=== PATIENT | female | born 1945 | race Caucasian/White ===

== ENCOUNTER 2018-01-12 18:56 | Inpatient (IN) | payer MEDICARE, OTHER ==
[~2018-01-12] VITALS: Ht 177.8 cm; Wt 89.7 kg
[2018-01-12] VITALS (9 sets, daily range): BP systolic 98–122; BP diastolic 52–60
[2018-01-12] MEDS ORDERED: LACTATED RINGERS 1,000 ML IV ONE (19:01)
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
--- OUTSIDE RECORDS SUMMARY | 2018-01-12 19:02 | XMS REPORT ---
Author Author SURJIT DAS [facility] Address [address] [place] [address] Care Team Providers [employer] Name Role Phone SURJIT DAS Unavailable PROBLEMS Type Condition ICD9-CM Code [id number] Code Onset Dates Condition Status SNOMED Code Problem Generalized anxiety disorder F41.1 Active 33708450 Problem Family history of diabetes mellitus Z83.3 Active 575681003 Problem Chronic post-traumatic headache G44.329 Active 562853355 Problem Mixed hyperlipidemia E78.2 Active 797286161 Problem Personality disorder, unspecified F60.9 Active 22322201 Problem Bilateral tinnitus H93.13 Active 0815079941398 Problem Gastroesophageal reflux disease without esophagitis K21.9 Active 162695951 Problem Essential (primary) hypertension I10 Active 49432213 Problem Unspecified symptoms and signs involving cognitive functions and awareness R41.9 Active 432544429 Problem Anxiety F41.9 Active 27437684 Problem Post traumatic stress disorder (PTSD) F43.10 Active 90216628 ALLERGIES No Information ENCOUNTERS Encounter Location Date Diagnosis [facility] [id number] [place] [address] 12205- 3171 Dec, Generalized anxiety disorder F41.1 [place] [facility] [address] [address]- [address] Dec, Bronchitis J40 [facility] [facility] [address] 85935- 2966 Dec, Generalized anxiety disorder F41.1 ; Essential (primary) hypertension I10 ; Mixed hyperlipidemia E78.2 ; Post traumatic stress disorder ( PTSD) F43.10 ; Bilateral tinnitus H93.13 ; Gastroesophageal reflux disease without esophagitis K21.9 ; Localized edema R60.0 and Right ear impacted cerumen H61.21 [place] [address] [address]- [address]459 Nov, Post traumatic stress disorder (PTSD) F43.10 [facility] [id number] [place] [address] 04818- 4375 Nov, [facility] [id number] [place] [address] 67380- 4249 Oct, Medicare annual wellness visit, initial Z00.00 ; Post traumatic stress disorder (PTSD) F43.10 ; Personality disorder, unspecified F60.9 ; Essential (primary) hypertension I10 ; Mixed hyperlipidemia E78.2 ; Anxiety F41.9 and Gastroesophageal reflux disease without esophagitis K21.9 [place] [id number] [place] [address] 49944- 3435 Oct, [facility] [id number] [place] [address] 27893- 1672 Oct, Post traumatic stress disorder (PTSD) F43.10 [place] [id number] [place] [address] 44107- 1835 September, [facility] [id number] [place] [address] 84416- 5601 September, Post traumatic stress disorder (PTSD) F43.10 [place] [id number] [place] [address] 13665- 2328 Aug, Mixed hyperlipidemia E78.2 [facility] [id number] [place] [address] 03739- 0649 Aug, Keloid of skin L91.0 and Impacted cerumen of both ears H61.23 [facility] [id number] [place] [address] 02843- 4054 Aug, Post traumatic stress disorder (PTSD) F43.10 [facility] [id number] [place] [address] 18165- 2466 Jul, [facility] [id number] [place] [address] 42967- 2981 Jul, Mixed hyperlipidemia E78.2 ; Mild acid reflux K21.9 and Essential (primary) hypertension I10 [facility] [id number] [place] [address] 90413- 0332 Jul, [facility] [id number] [place] [address] 48402- 0032 Jul, Post traumatic stress disorder (PTSD) F43.10 [facility] [address] 93939- 3258 Jul, Mixed hyperlipidemia E78.2 [facility] [address] 62535- 5061 Jul, Essential (primary) hypertension I10 [place] [address] 15970- 5110 Jun, Insect bite, subsequent encounter W57.XXXD ; Post traumatic stress disorder (PTSD) F43.10 ; Essential (primary) hypertension I10 and Localized edema R60.0 [place] [id number] [place] [address] 20933- 8401 Jun, Anxiety F41.9 [facility] [address] 73788- 0208 Jun, Insect bite, initial encounter W57.XXXA ; Anxiety F41.9 ; Bronchitis J40 ; Headache R51 and Essential (primary) hypertension I10 [facility] [place] [id number] [place] [address] 78097- 0797 May, Anxiety F41.9 [facility] [id number] [place] [address] 43352- 3411 May, [facility] [address] 97455- 9556 Apr, Anxiety F41.9 [facility] [id number] [place] [address] 51717- 9383 Apr, [facility] [address] 27098- 3323 Mar, Anxiety F41.9 [facility] [address] 48943- 0698 Mar, Angioedema, subsequent encounter T78.3XXD ; Post traumatic stress disorder (PTSD) F43.10 ; Generalized anxiety disorder F41.1 ; Forgetfulness R68.89 ; Anxiety F41.9 ; Essential (primary) hypertension I10 ; Headache R51 ; Bronchitis J40 ; Mild acid reflux K21.9 and Cough R05 [facility] [address] 35765- 7025 Mar, Angioedema, initial encounter T78.3XXA [facility] [address] 71960 -5844 Mar, Acute upper respiratory infection, unspecified J06.9 and Cough R05 [facility] [address] 52090- 2657 Mar, Generalized anxiety disorder F41.1 [facility] [address] 37973- 3108 Feb, Generalized anxiety disorder F41.1 [place] [address] 58980- 9254 Jan, Generalized anxiety disorder F41.1 [facility] [address] 62813- 5491 Dec, [facility] [address] 39055- 6924 Dec, Generalized anxiety disorder F41.1 [place] [address] 19199- 7860 Nov, Generalized anxiety disorder F41.1 [facility] [address] 25900- 8938 Nov, Mild acid reflux K21.9 [facility] [address] 76322- 6546 Oct, Generalized anxiety disorder F41.1 [facility] [address] [address]- 2326 Oct, Cellulitis of right upper extremity L03.113 [facility] [address] [address]- 7776 September, [facility] [id number] [place] [address] 99494- 8236 September, Generalized anxiety disorder F41.1 [facility] [address] [place] [address] 64668- 5245 Aug, Generalized anxiety disorder F41.1 [facility] [id number] [address]- 6848 Aug, Medicare annual wellness visit, initial Z00.00 [facility] [id number] [place] [address] 32725- 8095 Jul, Generalized anxiety disorder F41.1 [facility] [address] [address]- 4571 Jul, [facility] [id number] [place] [address] 51959- 5312 Jul, [facility] [address] [place] [address]- 4496 Jun, Generalized anxiety disorder F41.1 [facility] [address] [place] [address]- 4672 May, Bronchitis J40 and Generalized anxiety disorder F41.1 [facility] [address] [place] [address]- 6986 May, Generalized anxiety disorder F41.1 [facility] [address] [place] [address] 2546 May, [facility] [address] [place] [address]- 1770 Apr, Generalized anxiety disorder F41.1 [facility] [id number] [place] [address] 67319- 1796 Apr, Essential (primary) hypertension I10 [facility] [id number] [place] [address] 01350- 7029 Apr, Generalized anxiety disorder F41.1 [facility] [id number] [place] [address] 05773- 4640 Mar, Generalized anxiety disorder F41.1 [facility] [id number] [place] [address] 95948- 1496 Feb, Generalized anxiety disorder F41.1 [facility] [id number] [place] [address] 21476- 3728 Jan, Generalized anxiety disorder F41.1 [facility] [id number] [place] [address] 40269- 8064 Dec, Generalized anxiety disorder F41.1 [facility] [id number] [place] [address] 09410- 6276 Nov, [facility] [id number] [place] [address] 97361- 1066 Oct, Generalized anxiety disorder F41.1 [facility] [id number] [place] [address] 72149- 2641 Oct, Forgetfulness R68.89 [facility] [id number] [place] [address] 22415- 2089 Oct, Generalized anxiety disorder F41.1 and Personality disorder , unspecified F60.9 [facility] [id number] [place] [address] 92766- 8644 September, Mild acid reflux K21.9 [facility] [id number] [place] [address] 31269- 4943 September, Generalized anxiety disorder F41.1 [facility] [id number] [place] [address] 87629- 8151 Aug, Generalized anxiety disorder F41.1 and Personality disorder , unspecified F60.9 [place] [id number] [place] [address] 36034- 0708 Aug, Forgetfulness R68.89 and Generalized anxiety disorder F41.1 [place] [id number] [place] [address] 38177- 4311 Aug, Generalized anxiety disorder F41.1 and Unspecified symptoms and signs involving cognitive functions and awareness R41.9 [place] [id number] [place] [address] 67381- 5064 Aug, [place] [id number] [place] [address] 32120- 5513 Aug, Screening, lipid Z13.220 and Forgetfulness R68.89 [place] [id number] [place] [address] 67977- 6340 Aug, Headache R51 [place] [id number] [place] [address] 45511- 8135 30 Jul, 2015 Acute upper respiratory infection, unspecified J06.9 and Other viral agents as the cause of diseases classified elsewhere B97.89 [address] [place] [address] 12282- 9795 24 Jul, [address] [place] [address] 28887- 3531 16 Jul, 2015 [place] [id number] [place] [address] 37025- 8130 14 Jul, 2015 Headache R51 and Anxiety F41.9 [place] [id number] [place] [address] 22764- 6879 10 Jul, 2015 Generalized anxiety disorder F41.1 and Personality disorder , unspecified F60.9 [address] [place] [address] 73678- 0324 Jun, [place] [id number] [address]- 8791 Jun, Post traumatic stress disorder (PTSD) F43.10 and Personality disorder, unspecified F60.9 [facility] [id number] [place] [address] 00677- 9673 May, Overweight E66.3 [facility] [id number] [place] [address] 01105- 6026 May, [facility] [id number] [place] [address] 13268- 6328 May, Post traumatic stress disorder (PTSD) F43.10 and Personality disorder, unspecified F60.9 [facility] [id number] [place] [address] 13706- 8122 May, [facility] [id number] [place] [address] 16121- 8547 Apr, [facility] [id number] [place] [address] 89674- 2372 Apr, [facility] [id number] [place] [address] 06928- 9674 Apr, [facility] [id number] [place] [address] 48977- 9111 Apr, [facility] [address] [place] [address] 75064- 4864 Mar, Post traumatic stress disorder (PTSD) F43.10 [facility] [address] [address] 2549 Mar, [facility] [id number] [place] [address] 21126- 0827 Mar, Post traumatic stress disorder (PTSD) F43.10 [facility] [address] [place] [address] 82703- 3703 Feb, Anxiety F41.9 [facility] [id number] [place] [address] 27197- 6198 Feb, [facility] [address] [address]- 5543 Feb, [facility] [id number] [place] [address] 540783- 7006 Feb, Post traumatic stress disorder (PTSD) F43.10 [facility] [id number] [place] [address] 86090- 9213 Jan, [facility] [id number] [place] [address] 76953- 8215 Jan, Posttraumatic stress disorder 309.81 [facility] [id number] [place] [address] 00915- 7967 Jan, Allergic rhinitis 477.9 ; Upper respiratory infection 465.9 and Depression 311 [facility] [id number] [place] [address] 61309- 7381 Jan, Depressive disorder, not elsewhere classified 311 and Anxiety state, unspecified 300.00 [facility] [address], [place] [address]- 8227 Jan, [facility] [id number] [place] [address] 80665- 3337 Dec, [facility] [address] [place] [address]- 6908 Dec, [facility] [address], [place] [address]- 1816 Dec, [facility] [address] [place] [address]- 9458 Nov, [facility] [id number] [place] [address] 02307- 0919 Nov, [facility] [address], [place] [address]- 6218 Oct, [facility] [id number] [place] [address] 99895- 4833 Oct, Anxiety 300.00 ; Insomnia 780.52 ; Family history of diabetes mellitus V18.0 ; Hypertension 401.9 and Onychomycosis 110.1 [facility] [address] [place] [address]- 2078 September, [facility] [address] 8032 Aug, [facility] [id number] [place] [address] 933336- 3328 Aug, [facility] [address] 1795 Jul, [facility] [id number] [place] [address] 264996- 2101 Jul, [facility] [id number] [place] [address] 18543- 2065 Jun, [facility] [id number] [place] [address] 21269928- 0480 Jun, [facility] [id number] [place] [address] 88806- 8651 May, [facility] [address] [place] [address]- 5781 May, [facility] [address] [place] [address]- 7592 May, [facility] [id number] 8422 May, IMMUNIZATIONS No Known Immunizations SOCIAL HISTORY Never Assessed REASON FOR VISIT Returned call PLAN OF CARE VITAL SIGNS MEDICATIONS Unknown Medications RESULTS No Results PROCEDURES No Known procedures [...]
--- OUTSIDE RECORDS SUMMARY | 2018-01-12 19:02 | XMS REPORT ---
Author Author SURJIT DAS [facility] Address [address] [place] [address] Care Team Providers Care Pediatric Nurse Name Role Phone SURJIT DAS Unavailable PROBLEMS Type Condition ICD9-CM Code KLE49-MO Code Onset Dates Condition Status SNOMED Code Problem Generalized anxiety disorder F41.1 Active 57437625 Problem Family history of diabetes mellitus Z83.3 Active 034191524 Problem Chronic post-traumatic headache G44.329 Active 947278892 Problem Mixed hyperlipidemia E78.2 Active 077558926 Problem Personality disorder, unspecified F60.9 Active 42376587 Problem Bilateral tinnitus H93.13 Active 7385707667163 Problem Gastroesophageal reflux disease without esophagitis K21.9 Active 862299520 Problem Essential (primary) hypertension I10 Active 89229118 Problem Unspecified symptoms and signs involving cognitive functions and awareness R41.9 Active 596155705 Problem Anxiety F41.9 Active 21003238 Problem Post traumatic stress disorder (PTSD) F43.10 Active 54074579 ALLERGIES No Information ENCOUNTERS Encounter Location Date Diagnosis [place] [id number] [place] [address] 45794- 0425 Dec, Generalized anxiety disorder F41.1 ; Essential (primary) hypertension I10 ; Mixed hyperlipidemia E78.2 ; Post traumatic stress disorder ( PTSD) F43.10 ; Bilateral tinnitus H93.13 ; Gastroesophageal reflux disease without esophagitis K21.9 ; Localized edema R60.0 and Right ear impacted cerumen H61.21 [facility] [address] [place] [address] 29497- 9170 Nov, Post traumatic stress disorder (PTSD) F43.10 [facility] [address] [address] Nov, [facility] [address] [id number] [place] [address] 48096- 7591 Oct, Medicare annual wellness visit, initial Z00.00 ; Post traumatic stress disorder (PTSD) F43.10 ; Personality disorder, unspecified F60.9 ; Essential (primary) hypertension I10 ; Mixed hyperlipidemia E78.2 ; Anxiety F41.9 and Gastroesophageal reflux disease without esophagitis K21.9 [place] [address] [place] [id number] [place] [address] 10038- 2034 Oct, [place] [address] 67362- 4693 Oct, Post traumatic stress disorder (PTSD) F43.10 [place] [address] [place] [id number] [place] [address] 17564- 8644 September, [place] [address] [place] [id number] [place] [address] 91757- 0408 September, Post traumatic stress disorder (PTSD) F43.10 [place] [address] [place] [id number] [place] [address] 91960- 4272 Aug, Mixed hyperlipidemia E78.2 [place] [address] [place] [id number] [place] [address] 66081- 3978 Aug, Keloid of skin L91.0 and Impacted cerumen of both ears H61.23 [place] [address] [place] [id number] [place] [address] 35523- 7950 Aug, Post traumatic stress disorder (PTSD) F43.10 [place] [address] [place] [id number] [place] [address] 54325- 3163 Jul, [place] [address] [place] [id number] [place] [address] 86239- 1925 Jul, Mixed hyperlipidemia E78.2 ; Mild acid reflux K21.9 and Essential (primary) hypertension I10 [place] [address] [place] [id number] [place] [address] 20172- 9227 Jul, [place] [address] 54785- 9988 Jul, Post traumatic stress disorder (PTSD) F43.10 [facility] [address] [id number] [place] [address] 43343- 2697 Jul, Mixed hyperlipidemia E78.2 [facility] [id number] [place] [address] 04587- 2222 Jul, Essential (primary) hypertension I10 [facility] [address] 88405- 5513 Jun, Insect bite, subsequent encounter W57.XXXD ; Post traumatic stress disorder (PTSD) F43.10 ; Essential (primary) hypertension I10 and Localized edema R60.0 [facility] [address] [place] [id number] [place] [address] 24187- 7852 Jun, Anxiety F41.9 [facility] [address] 86458- 0848 Jun, Insect bite, initial encounter W57.XXXA ; Anxiety F41.9 ; Bronchitis J40 ; Headache R51 and Essential (primary) hypertension I10 [facility] [address] [place] [id number] [place] [address] 07066- 5799 May, Anxiety F41.9 [facility] [address] [id number] [place] [address] 76206- 5176 May, [facility] [address] [place] [id number] [place] [address] 52522- 1603 Apr, Anxiety F41.9 [facility] [address] [address] [id number] [place] [address] 04966- 1367 Apr, [facility] [address] 04847- 7864 Mar, Anxiety F41.9 [facility] [address] [id number] [place] [address] 84924- 8900 Mar, Angioedema, subsequent encounter T78.3XXD ; Post traumatic stress disorder (PTSD) F43.10 ; Generalized anxiety disorder F41.1 ; Forgetfulness R68.89 ; Anxiety F41.9 ; Essential (primary) hypertension I10 ; Headache R51 ; Bronchitis J40 ; Mild acid reflux K21.9 and Cough R05 [facility] [address] [id number] [place] [address] 54116- 9379 Mar, Angioedema, initial encounter T78.3XXA [facility] [address] [address] [id number] [place] [address] 32265 -6585 Mar, Acute upper respiratory infection, unspecified J06.9 and Cough R05 [facility] [address] [place] [id number] [place] [address] 19257- 6667 Mar, Generalized anxiety disorder F41.1 [facility] [address] [place] [id number] [place] [address] 15257- 2795 Feb, Generalized anxiety disorder F41.1 [place] [address] 67146- 9403 Jan, Generalized anxiety disorder F41.1 [facility] [address] [place] [id number] [place] [address] 88328- 0703 Dec, [facility] [address] [place] [id number] [place] [address] 92307- 9641 Dec, Generalized anxiety disorder F41.1 [facility] [address] [place] [id number] [place] [address] 83172- 9611 Nov, Generalized anxiety disorder F41.1 [facility] [address] [id number] [place] [address] 82251- 7878 Nov, Mild acid reflux K21.9 [facility] [address] [place] [id number] [place] [address] 79293- 3867 Oct, Generalized anxiety disorder F41.1 [facility] [address] [place] [id number] [place] [address] 09191- 1517 Oct, Cellulitis of right upper extremity L03.113 [facility] [address] [id number], [place] [address]- 8784 September, [facility] [address] [place] [address] 57055- 9007 September, Generalized anxiety disorder F41.1 [facility] [address], [place] [address] 9116 Aug, Generalized anxiety disorder F41.1 [facility] [address] [id number] [place] [address] 67566- 1442 Aug, Medicare annual wellness visit, initial Z00.00 [facility] [address] [place] [id number] [place] [address] 07966- 0230 Jul, Generalized anxiety disorder F41.1 [facility] [address] [id number] [place] [address] 88483- 3615 Jul, [facility] [address] [place] [id number] [place] [address] 12700- 6837 Jul, [facility] [address], [place] [address]- 1159 Jun, Generalized anxiety disorder F41.1 [facility] [address] [place] [id number] [place] [address] 42385- 8265 May, Bronchitis J40 and Generalized anxiety disorder F41.1 [facility] [address], [place] [address]- 5816 May, Generalized anxiety disorder F41.1 [facility] [address], [place] [address]- 3734 May, [facility] [address] [place] [address] 86714- 8752 Apr, Generalized anxiety disorder F41.1 [facility] [address], [place] [address]- 5914 Apr, Essential (primary) hypertension I10 [facility] [address] [place] [address] 93915- 6568 Apr, Generalized anxiety disorder F41.1 [facility] [address] [place] [address] 09262- 3701 Mar, Generalized anxiety disorder F41.1 [facility] [address] [place] [id number] [place] [address] 57255- 6649 Feb, Generalized anxiety disorder F41.1 [facility] [address] [place] [id number] [place] [address] 07944- 9175 08 Jan, 2016 Generalized anxiety disorder F41.1 [facility] [address] [place] [id number] [place] [address] 43513- 7064 Dec, Generalized anxiety disorder F41.1 [facility] [address] [place] [id number] [place] [address] 26794- 0435 Nov, [facility] [address] [place] [id number] [place] [address] 77753- 9974 Oct, Generalized anxiety disorder F41.1 [facility] [address] [place] [id number] [place] [address] 41220- 7905 Oct, Forgetfulness R68.89 [facility] [address] [place] [id number] [place] [address] 67847- 9783 Oct, Generalized anxiety disorder F41.1 and Personality disorder , unspecified F60.9 [facility] [address] [place] [address] 17322- 6569 September, Mild acid reflux K21.9 [facility] [address] [place] [id number] [place] [address] 11708- 4214 September, Generalized anxiety disorder F41.1 [facility] [address] [place] [id number] [place] [address] 83315- 7729 Aug, Generalized anxiety disorder F41.1 and Personality disorder , unspecified F60.9 [facility] [address] [place] [address] 00380- 9748 Aug, Forgetfulness R68.89 and Generalized anxiety disorder F41.1 [place] [address] [place] [id number] [place] [address] 90744- 2167 Aug, Generalized anxiety disorder F41.1 and Unspecified symptoms and signs involving cognitive functions and awareness R41.9 [place] [address] [place] [id number] [place] [address] 14909- 7720 Aug, [place] [address] 60566- 4168 Aug, Screening, lipid Z13.220 and Forgetfulness R68.89 [place] [address] 20765- 1892 Aug, Headache R51 [place] [id number] [place] [address] 75925- 7387 30 Jul, 2015 Acute upper respiratory infection, unspecified J06.9 and Other viral agents as the cause of diseases classified elsewhere B97.89 [place] [address] [place] [id number] [place] [address] 52157- 8391 Jul, [place] [address] [place] [id number] [place] [address] 56111- 9933 Jul, [place] [id number] [place] [address] 35475- 9914 Jul, Headache R51 and Anxiety F41.9 [place] [id number] [place] [address] 73769- 4372 Jul, Generalized anxiety disorder F41.1 and Personality disorder , unspecified F60.9 [place] [address] [place] [id number] [place] [address] 98943- 8366 Jun, [address] 29921- 1282 Jun, Post traumatic stress disorder (PTSD) F43.10 and Personality disorder, unspecified F60.9 [place] [id number] [place] [address] 44317- 1494 May, Overweight E66.3 [facility] [address] [place] [address]- 9492 May, [facility] [address] [place] [id number] [place] [address] 66069 2546 May, Post traumatic stress disorder (PTSD) F43.10 and Personality disorder, unspecified F60.9 [facility] [address] [place] [id number] [place] [address] 95079- 6966 May, [facility] [address] [place] [id number] [place] [address] 96245 2546 Apr, [facility] [address] [place] [id number] [place] [address] 07533- 4076 Apr, [facility] [address] [place] [id number] [place] [address] 80662- 5866 Apr, [facility] [address] [place] [id number] [place] [address] 29529- 2659 Apr, [facility] [address] [place] [id number] [place] [address] 23499- 3730 Mar, Post traumatic stress disorder (PTSD) F43.10 [facility] [address], [place] [address]- 5716 Mar, [facility] [address], [place] [address]- 5255 Mar, Post traumatic stress disorder (PTSD) F43.10 [facility] [address], [place] [address] 2546 Feb, Anxiety F41.9 [facility] [address] [place] [id number] [place] [address], [place] [address] 2546 Feb, [facility] [address], [place] [address] 2546 Feb, [facility] [address] [place] [address] 51253- 0236 Feb, Post traumatic stress disorder (PTSD) F43.10 [facility] [address], [place] [address]- 3400 Jan, [facility] [address] [place] [address] 734583- 3966 Jan, Posttraumatic stress disorder 309.81 [facility] [address] [place] [id number] [place] [address] 92750- 8577 Jan, Allergic rhinitis 477.9 ; Upper respiratory infection 465.9 and Depression 311 [facility] [address] [place] [address] 37472- 4301 Jan, Depressive disorder, not elsewhere classified 311 and Anxiety state, unspecified 300.00 [facility] [address] [id number], [place] [address]- 7143 Jan, [facility] [address] [place] [id number] [place] [address] 37630- 5172 Dec, [facility] [address], [place] [address]- 8023 Dec, [facility] [address] [id number] [place] [address] 58147- 7570 Dec, [facility] [address], [place] [address]- 6764 Nov, [facility] [address], [place] [address]- 5160 Nov, [facility] [address], [place] [address]- 7999 Oct, [facility] [address] [place] [address] 090768- 4106 Oct, Anxiety 300.00 ; Insomnia 780.52 ; Family history of diabetes mellitus V18.0 ; Hypertension 401.9 and Onychomycosis 110.1 [facility] [address] [place] [address] 59569- 9008 September, [facility] [address] [facility] [address] [id number] [address]- 1155 Aug, [facility] [address] [facility] [address] [id number] [address]- 2453 Aug, [facility] [address] [facility] [address] [id number] [address]- 5234 Jul, [facility] [address], [place] [address]- 8804 Jul, [facility] [address] [facility] [address] [id number] [address]- 9875 Jun, [facility] [address], [place] [address]- 5178 Jun, [facility] [address], [place] [address]- 1163 May, [facility] [address], [place] [address]- 8191 May, [facility] [address] [place] [id number] [address]- 6146 May, [facility] [id number] [address]- 9693 May, IMMUNIZATIONS No Known Immunizations SOCIAL HISTORY Never Assessed REASON FOR VISIT med refil PLAN OF CARE VITAL SIGNS MEDICATIONS No Known Medications RESULTS No Results PROCEDURES No Known [...]
--- OUTSIDE RECORDS SUMMARY | 2018-01-12 19:03 | XMS REPORT ---
Author Author SURJIT DAS Organization [facility] Address [address] [place] [address] Care Team Providers Care Chief Jailer Name Role Phone SURJIT DAS Unavailable PROBLEMS Type Condition ICD9-CM Code [id number] Code Onset Dates Condition Status SNOMED Code Problem Generalized anxiety disorder F41.1 Active 66837733 Problem Family history of diabetes mellitus Z83.3 Active 226885543 Problem Chronic post-traumatic headache G44.329 Active 372795842 Problem Mixed hyperlipidemia E78.2 Active 472151803 Problem Personality disorder, unspecified F60.9 Active 70827279 Problem Gastroesophageal reflux disease without esophagitis K21.9 Active 080029480 Problem Anxiety F41.9 Active 55867366 Problem Mild acid reflux K21.9 Active 907700056 Problem Unspecified symptoms and signs involving cognitive functions and awareness R41.9 Active 179183203 Problem Post traumatic stress disorder (PTSD) F43.10 Active 57725013 Problem Essential (primary) hypertension I10 Active 74654434 ALLERGIES Substance Reaction Event Type Date Status Prefers no strong narcotics Unknown Non Drug Allergy Aug, Active ENCOUNTERS Encounter Location Date Diagnosis [facility] [id number], [place] [address] Dec, [facility] [id number] [place] [address] 45206- 7122 Nov, Post traumatic stress disorder (PTSD) F43.10 [facility] [id number] [place] [address] 25763- 4003 Nov, [facility] [id number] [place] [address] 03388- 5587 Oct, Medicare annual wellness visit, initial Z00.00 ; Post traumatic stress disorder (PTSD) F43.10 ; Personality disorder, unspecified F60.9 ; Essential (primary) hypertension I10 ; Mixed hyperlipidemia E78.2 ; Anxiety F41.9 and Gastroesophageal reflux disease without esophagitis K21.9 [facility] [address] [address]- [address] Oct, [facility] [id number] [place] [address] 84803- 6924 Oct, Post traumatic stress disorder (PTSD) F43.10 [facility] [address] 48357- 9930 September, [facility] [address] 98742- 9203 September, Post traumatic stress disorder (PTSD) F43.10 [facility] [address] 44656- 9854 Aug, Mixed hyperlipidemia E78.2 [facility] [address] 23636- 4831 Aug, Keloid of skin L91.0 and Impacted cerumen of both ears H61.23 [facility] [address] 32542- 0838 Aug, Post traumatic stress disorder (PTSD) F43.10 [facility] [id number] [place] [address] 96569- 8999 Jul, [facility] [id number] [place] [address] 36376- 2548 Jul, Mixed hyperlipidemia E78.2 ; Mild acid reflux K21.9 and Essential (primary) hypertension I10 [facility] [id number] [place] [address] 57149- 6345 Jul, [facility] [address] 08414- 3083 Jul, Post traumatic stress disorder (PTSD) F43.10 [facility] [id number] [place] [address] 64460- 5442 Jul, Mixed hyperlipidemia E78.2 [facility] [id number] [place] [address] 85372- 8239 05 Jul, 2017 Essential (primary) hypertension I10 [facility] [address] 44278- 3452 Jun, Insect bite, subsequent encounter W57.XXXD ; Post traumatic stress disorder (PTSD) F43.10 ; Essential (primary) hypertension I10 and Localized edema R60.0 [facility] [address] 01910- 5128 Jun, Anxiety F41.9 [facility] [address] 60176- 4698 Jun, Insect bite, initial encounter W57.XXXA ; Anxiety F41.9 ; Bronchitis J40 ; Headache R51 and Essential (primary) hypertension I10 [facility] [address] 28670- 6888 May, Anxiety F41.9 [facility] [address] 11231- 4297 May, [facility] [address] 50887- 1389 Apr, Anxiety F41.9 [facility] [address] 17340- 4157 Apr, [facility] [address] 62551- 5517 Mar, Anxiety F41.9 [facility] [address] 11204- 1350 Mar, Angioedema, subsequent encounter T78.3XXD ; Post traumatic stress disorder (PTSD) F43.10 ; Generalized anxiety disorder F41.1 ; Forgetfulness R68.89 ; Anxiety F41.9 ; Essential (primary) hypertension I10 ; Headache R51 ; Bronchitis J40 ; Mild acid reflux K21.9 and Cough R05 [facility] [id number] [place] [address] 32884- 3087 Mar, Angioedema, initial encounter T78.3XXA [facility] [id number] [place] [address] 22503 -6125 Mar, Acute upper respiratory infection, unspecified J06.9 and Cough R05 [facility] [address] 57599- 0054 Mar, Generalized anxiety disorder F41.1 [facility] [id number] [place] [address] 38321- 5842 Feb, Generalized anxiety disorder F41.1 [facility] [id number] [place] [address] 58403- 2572 Jan, Generalized anxiety disorder F41.1 [facility] [address] 47708- 7233 Dec, [facility] [id number] [place] [address] 08200- 3059 Dec, Generalized anxiety disorder F41.1 [facility] [id number] [place] [address] 20383- 2690 Nov, Generalized anxiety disorder F41.1 [facility] [id number] [place] [address] 55981- 6104 Nov, Mild acid reflux K21.9 [facility] [id number] [place] [address] 75932- 6460 Oct, Generalized anxiety disorder F41.1 [facility] [id number] [place] [address] 74623- 2718 Oct, Cellulitis of right upper extremity L03.113 [facility] [id number] [place] [address] 37796- 3384 September, [facility] [id number] [place] [address] 78181- 6410 September, Generalized anxiety disorder F41.1 [facility] [address], [place] [address] 8659 Aug, Generalized anxiety disorder F41.1 [facility] [address], [place] [address]- 9963 Aug, Medicare annual wellness visit, initial Z00.00 [facility] [id number] [place] [address] 09270- 1738 Jul, Generalized anxiety disorder F41.1 [facility] [id number] [place] [address] 69518- 9076 Jul, [facility] [id number] [place] [address] 32809- 7427 Jul, [facility] [id number] [place] [address] 26972- 8269 Jun, Generalized anxiety disorder F41.1 [facility] [id number] [place] [address] 27518- 7338 May, Bronchitis J40 and Generalized anxiety disorder F41.1 [facility] [id number] [place] [address] 11615- 2774 May, Generalized anxiety disorder F41.1 [facility] [id number] [place] [address] 00171- 4917 May, [facility] [id number] [place] [address] 05349- 1397 Apr, Generalized anxiety disorder F41.1 [facility] [address], [place] [address]- 8452 Apr, Essential (primary) hypertension I10 [facility] [id number] [place] [address] 51086- 0718 Apr, Generalized anxiety disorder F41.1 [facility] [id number] [place] [address] 96553- 1876 Mar, Generalized anxiety disorder F41.1 [facility] [address] [place] [address]- 0177 Feb, Generalized anxiety disorder F41.1 [facility] [id number] [place] [address] 25133- 1723 Jan, Generalized anxiety disorder F41.1 [facility] [id number] [place] [address] 16132- 4824 Dec, Generalized anxiety disorder F41.1 [facility] [id number] [place] [address] 68730- 2451 Nov, [facility] [id number] [place] [address] 15597- 0856 Oct, Generalized anxiety disorder F41.1 [facility] [id number] [place] [address] 98239- 8797 Oct, Forgetfulness R68.89 [facility] [id number] [place] [address] 83807- 9640 Oct, Generalized anxiety disorder F41.1 and Personality disorder , unspecified F60.9 [facility] [id number] [place] [address] 96741- 2071 September, Mild acid reflux K21.9 [facility] [id number] [place] [address] 88056- 1485 September, Generalized anxiety disorder F41.1 [facility] [id number] [place] [address] 96060- 0039 Aug, Generalized anxiety disorder F41.1 and Personality disorder , unspecified F60.9 [facility] [id number] [place] [address] 06339- 9878 Aug, Forgetfulness R68.89 and Generalized anxiety disorder F41.1 [facility] [id number] [place] [address] 74320- 5777 Aug, Unspecified symptoms and signs involving cognitive functions and awareness R41.9 and Generalized anxiety disorder F41.1 [facility] [id number] [place] [address] 85316- 7472 Aug, [facility] [id number] [place] [address] 14933- 8323 Aug, Screening, lipid Z13.220 and Forgetfulness R68.[address] 01910- 8320 Aug, Headache R51 [address] 99261- 0060 30 Jul, 2015 Acute upper respiratory infection, unspecified J06.9 and Other viral agents as the cause of diseases classified elsewhere B97.89 [facility] [id number] [place] [address] 22926- 4005 24 Jul, [address] 20970- 8056 16 Jul, 2015 [facility] [id number] [place] [address] 23001- 7795 14 Jul, 2015 Headache R51 and Anxiety F41.9 [place] [id number] [place] [address] 37688- 3659 Jul, Generalized anxiety disorder F41.1 and Personality disorder , unspecified F60.9 [place] [id number] [place] [address] 20920- 7796 Jun, [facility] [id number] [place] [address] 65792- 2097 Jun, Post traumatic stress disorder (PTSD) F43.10 and Personality disorder, unspecified F60.9 [place] [id number] [place] [address] 00072- 1536 May, Overweight E66.3 [facility] [id number] [place] [address] 97017- 1736 May, [place] [address] [place] [address]- 5347 May, Post traumatic stress disorder (PTSD) F43.10 and Personality disorder, unspecified F60.9 [facility] [address], [place] [address]- 1146 May, [facility] [address], [place] [address]- 9876 Apr, [facility] [id number] [place] [address] 51049 2546 Apr, [facility] [id number] [place] [address] 31682- 2086 Apr, [facility] [id number] [place] [address] 92033- 3475 Apr, [facility] [id number] [place] [address] 61763- 9688 Mar, Post traumatic stress disorder (PTSD) F43.10 [facility] [address], [place] [address]- 2547 Mar, [facility] [id number] [place] [address] 87051- 3518 Mar, Post traumatic stress disorder (PTSD) F43.10 [facility] [address], [place] [address]- 0556 Feb, Anxiety F41.9 [facility] [address], [place] [address] 2546 Feb, [facility] [address], [place] [address]- 2106 Feb, [facility] [address] [place] [address] 2546 Feb, Post traumatic stress disorder (PTSD) F43.10 [facility] [address], [place] [address]- 8986 Jan, [facility] [address], [place] [address]- 3800 Jan, Posttraumatic stress disorder 309.81 [facility] [id number] [place] [address] 52305- 7544 Jan, Allergic rhinitis 477.9 ; Upper respiratory infection 465.9 and Depression 311 [facility] [id number] [place] [address] 15794- 1953 Jan, Depressive disorder, not elsewhere classified 311 and Anxiety state, unspecified 300.00 [facility] [id number] [place] [address] 05135- 8375 Jan, [facility] [id number] [place] [address] 69706- 3115 Dec, [facility] [id number] [place] [address] 26174- 1768 Dec, [facility] [id number] [place] [address] 54447- 1132 Dec, [facility] [id number] [place] [address] 46421- 2848 Nov, [facility] [id number] [place] [address] 03847- 2836 Nov, [facility] [address], [place] [address]- 8749 Oct, [facility] [id number] [place] [address] 81537- 5028 Oct, Anxiety 300.00 ; Insomnia 780.52 ; Family history of diabetes mellitus V18.0 ; Hypertension 401.9 and Onychomycosis 110.1 [facility] [id number] [place] [address]- 9744 September, [facility] [address], [place] [address]- 4628 Aug, [facility] [id number] [place] [address] 86161- 8254 Aug, [facility] [address], [place] [address]- 4908 Jul, [facility] [address] 3209 Jul, [facility] [address], [place] [address]- 4770 Jun, [facility] [address] 3785 Jun, [facility] [address]- 0346 May, [facility] [address], [place] [address]- 2783 May, [facility] [address], [place] [address]- 7597 May, [facility] [address], [place] [address]- 0449 May, IMMUNIZATIONS No Known Immunizations SOCIAL HISTORY Never Assessed REASON FOR VISIT f/u spider bite WB-MA PLAN OF CARE Activity Details Follow Up prn Reason: VITAL SIGNS Height 68 in 2017-09-07 Weight 179 lbs 2017-09-07 Temperature 98.2 degrees Fahrenheit 2017-09-07 Heart Rate 80 bpm 2017-09-07 Respiratory Rate 18 2017-09-07 BMI 27.21 kg/m2 2017-09-07 Blood pressure systolic 126 mmHg 2017-09-07 Blood pressure diastolic 78 mmHg 2017-09-07 MEDICATIONS Medication Instructions Dosage Frequency Start Date End Date Duration Status Alprazolam 2 MG Orally Once a day 2 tablets at bedtime 24h Jul, 28 days Active Probiotic by oral route May, Active Lipitor 20 MG Orally Once a day 1 tablet 24h Jul, 90 days Active Carbamide Peroxide 6.5 % Otic Twice a day 5 drops into both ears 12h AugAug, 4 day(s) Active Vitamin C 1000 MG Orally Once a day 1 tablet 24h Active Vitamin B Complex by oral route May, Active Vitamin A by oral route May, Active Omeprazole 20 mg Orally Once a day 1 capsule 24h 90 days Active Triamterene-HCTZ 75-50 MG Orally Once a day 1 tablet 24h 90 days Active Fish Oil by oral route May, Active Silvadene 1 % Externally Once a day 1 application to affected area 24h Jun, Active Kelp by oral route May, Active Coenzyme Q10 by oral route May, Active RESULTS No Results PROCEDURES Procedure Date Ordered Result Body Site [facility] VISIT ESTABLISHED PATIENT September 07, 2017 INSTRUCTIONS MEDICATIONS ADMINISTERED No Known Medications MEDICAL [...]
--- OUTSIDE RECORDS SUMMARY | 2018-01-12 19:03 | XMS REPORT ---
Author Author SURJIT DAS [facility] Address [address] [place] [address] Care Team Providers Care Roadmaster Name Role Phone SURJIT DAS Unavailable PROBLEMS Type Condition ICD9-CM Code PEM09-PO Code Onset Dates Condition Status SNOMED Code Problem Generalized anxiety disorder F41.1 Active 86323870 Problem Family history of diabetes mellitus Z83.3 Active 524735269 Problem Chronic post-traumatic headache G44.329 Active 606775443 Problem Mixed hyperlipidemia E78.2 Active 279248280 Problem Personality disorder, unspecified F60.9 Active 27749732 Problem Bilateral tinnitus H93.13 Active 7948648174986 Problem Gastroesophageal reflux disease without esophagitis K21.9 Active 874297654 Problem Essential (primary) hypertension I10 Active 67375515 Problem Unspecified symptoms and signs involving cognitive functions and awareness R41.9 Active 856664460 Problem Anxiety F41.9 Active 48837882 Problem Post traumatic stress disorder (PTSD) F43.10 Active 28831137 ALLERGIES No Information ENCOUNTERS Encounter Location Date Diagnosis [place] [id number] [place] [address] 31795- 7312 Dec, Generalized anxiety disorder F41.1 ; Essential (primary) hypertension I10 ; Mixed hyperlipidemia E78.2 ; Post traumatic stress disorder ( PTSD) F43.10 ; Bilateral tinnitus H93.13 ; Gastroesophageal reflux disease without esophagitis K21.9 ; Localized edema R60.0 and Right ear impacted cerumen H61.21 [facility] [id number] [place] [address] 84767- 4475 Nov, Post traumatic stress disorder (PTSD) F43.10 [facility] [address] [address]28 Nov, [facility] [address] [place] [id number] [place] [address] 45997- 6816 Oct, Medicare annual wellness visit, initial Z00.00 ; Post traumatic stress disorder (PTSD) F43.10 ; Personality disorder, unspecified F60.9 ; Essential (primary) hypertension I10 ; Mixed hyperlipidemia E78.2 ; Anxiety F41.9 and Gastroesophageal reflux disease without esophagitis K21.9 [place] [address] [place] [id number] [place] [address] 31509- 9121 Oct, [place] [address] 74578- 0066 Oct, Post traumatic stress disorder (PTSD) F43.10 [place] [address] [address] [id number] [place] [address] 28605- 5600 September, [place] [address] [address] [id number] [place] [address] 89459- 5292 September, Post traumatic stress disorder (PTSD) F43.10 [place] [address] [address] [id number] [place] [address] 45394- 2801 Aug, Mixed hyperlipidemia E78.2 [place] [address] [address] [id number] [place] [address] 07108- 3646 Aug, Keloid of skin L91.0 and Impacted cerumen of both ears H61.23 [place] [address] [address] [id number] [place] [address] 73615- 3597 Aug, Post traumatic stress disorder (PTSD) F43.10 [place] [address] [address] [id number] [place] [address] 34079- 9282 Jul, [place] [address] [address] [id number] [place] [address] 01640- 6086 Jul, Mixed hyperlipidemia E78.2 ; Mild acid reflux K21.9 and Essential (primary) hypertension I10 [place] [address] [address] [id number] [place] [address] 88721- 3722 Jul, [place] [address] 46826- 1229 Jul, Post traumatic stress disorder (PTSD) F43.10 [facility] [id number] [place] [address] 79404- 9284 Jul, Mixed hyperlipidemia E78.2 [facility] [id number] [place] [address] 38094- 2820 Jul, Essential (primary) hypertension I10 [facility] [address] 33684- 1062 Jun, Insect bite, subsequent encounter W57.XXXD ; Post traumatic stress disorder (PTSD) F43.10 ; Essential (primary) hypertension I10 and Localized edema R60.0 [facility] [address] [id number] [place] [address] 09676- 2910 Jun, Anxiety F41.9 [facility] [address] 94180- 1708 Jun, Insect bite, initial encounter W57.XXXA ; Anxiety F41.9 ; Bronchitis J40 ; Headache R51 and Essential (primary) hypertension I10 [facility] [address] [id number] [place] [address] 01619- 6714 May, Anxiety F41.9 [facility] [id number] [place] [address] 74421- 6431 May, [facility] [id number] [place] [address] 60066- 3200 Apr, Anxiety F41.9 [facility] [id number] [place] [address] 69848- 5901 Apr, [facility] [address] 01720- 8539 Mar, Anxiety F41.9 [facility] [id number] [place] [address] 48423- 5353 Mar, Angioedema, subsequent encounter T78.3XXD ; Post traumatic stress disorder (PTSD) F43.10 ; Generalized anxiety disorder F41.1 ; Forgetfulness R68.89 ; Anxiety F41.9 ; Essential (primary) hypertension I10 ; Headache R51 ; Bronchitis J40 ; Mild acid reflux K21.9 and Cough R05 [facility] [id number] [place] [address] 01289- 2822 Mar, Angioedema, initial encounter T78.3XXA [facility] [id number] [place] [address] 84803 -1071 Mar, Acute upper respiratory infection, unspecified J06.9 and Cough R05 [facility] [id number] [place] [address] 23997- 1922 Mar, Generalized anxiety disorder F41.1 [facility] [id number] [place] [address] 42574- 9313 Feb, Generalized anxiety disorder F41.1 [place] [address] 06796- 6559 Jan, Generalized anxiety disorder F41.1 [facility] [id number] [place] [address] 46731- 6241 Dec, [facility] [address] [id number] [place] [address] 99398- 4155 Dec, Generalized anxiety disorder F41.1 [facility] [address] [id number] [place] [address] 71344- 7245 Nov, Generalized anxiety disorder F41.1 [facility] [id number] [place] [address] 46238- 2804 Nov, Mild acid reflux K21.9 [facility] [id number] [place] [address] 61255- 7736 Oct, Generalized anxiety disorder F41.1 [facility] [id number] [place] [address] 82256- 4559 Oct, Cellulitis of right upper extremity L03.113 [facility] [id number] [address]- 2488 September, [facility] [id number] [place] [address] 73850- 0760 September, Generalized anxiety disorder F41.1 [facility] [address], [place] [address]- 2525 Aug, Generalized anxiety disorder F41.1 [facility] [id number] [place] [address] 88624- 9143 Aug, Medicare annual wellness visit, initial Z00.00 [facility] [address] [address] [id number] [place] [address] 53301- 6905 Jul, Generalized anxiety disorder F41.1 [facility] [id number] [place] [address] 20487- 0926 Jul, [facility] [id number] [place] [address] 02709- 0100 Jul, [facility] [address] [address]- 3321 Jun, Generalized anxiety disorder F41.1 [facility] [id number] [place] [address] 01637- 1801 May, Bronchitis J40 and Generalized anxiety disorder F41.1 [facility] [address] [address]- 6015 May, Generalized anxiety disorder F41.1 [facility] [address] [address]- 2150 May, [facility] [id number] [place] [address] 71675- 8043 Apr, Generalized anxiety disorder F41.1 [facility] [address] [address]- 6603 Apr, Essential (primary) hypertension I10 [facility] [address] [place] [address] 95863- 3724 Apr, Generalized anxiety disorder F41.1 [facility] [address] [place] [address] 23604- 2529 Mar, Generalized anxiety disorder F41.1 [facility] [id number] [place] [address] 57895- 8162 Feb, Generalized anxiety disorder F41.1 [facility] [id number] [place] [address] 83175- 0456 08 Jan, 2016 Generalized anxiety disorder F41.1 [facility] [address] [place] [id number] [place] [address] 47382- 3580 Dec, Generalized anxiety disorder F41.1 [facility] [address] [id number] [place] [address] 34551- 8819 Nov, [facility] [id number] [place] [address] 61504- 7572 Oct, Generalized anxiety disorder F41.1 [facility] [id number] [place] [address] 03386- 6564 Oct, Forgetfulness R68.89 [facility] [address] [id number] [place] [address] 95269- 8464 Oct, Generalized anxiety disorder F41.1 and Personality disorder , unspecified F60.9 [facility] [address] [place] [address] 29470- 4984 September, Mild acid reflux K21.9 [facility] [id number] [place] [address] 72683- 5570 September, Generalized anxiety disorder F41.1 [facility] [id number] [place] [address] 11001- 0212 Aug, Generalized anxiety disorder F41.1 and Personality disorder , unspecified F60.9 [facility] [address] [place] [address] 76740- 2560 Aug, Forgetfulness R68.89 and Generalized anxiety disorder F41.1 [place] [address] [id number] [place] [address] 01863- 8763 Aug, Unspecified symptoms and signs involving cognitive functions and awareness R41.9 and Generalized anxiety disorder F41.1 [place] [address] [id number] [place] [address] 02800- 1930 Aug, [place] [address] 90873- 3951 Aug, Screening, lipid Z13.220 and Forgetfulness R68.89 [place] [address] 34505- 1673 Aug, Headache R51 [place] [id number] [place] [address] 28314- 6976 30 Jul, 2015 Acute upper respiratory infection, unspecified J06.9 and Other viral agents as the cause of diseases classified elsewhere B97.89 [place] [address] [place] [id number] [place] [address] 93796- 2599 24 Jul, 2015 [place] [address] [place] [id number] [place] [address] 28029- 5238 Jul, [place] [id number] [place] [address] 00699- 2376 Jul, Headache R51 and Anxiety F41.9 [place] [id number] [place] [address] 48133- 2259 Jul, Generalized anxiety disorder F41.1 and Personality disorder , unspecified F60.9 [place] [address] [place] [id number] [place] [address] 70062- 7495 Jun, [address] 57617- 0503 Jun, Post traumatic stress disorder (PTSD) F43.10 and Personality disorder, unspecified F60.9 [place] [id number] [place] [address] 26090- 8977 May, Overweight E66.3 [facility] [address] [place] [address]- 8918 May, [facility] [address] [id number] [place] [address] 56990 2546 May, Post traumatic stress disorder (PTSD) F43.10 and Personality disorder, unspecified F60.9 [facility] [id number] [place] [address] 89728- 8516 May, [facility] [id number] [place] [address] 60817 2546 Apr, [facility] [id number] [place] [address] 03691- 3376 Apr, [facility] [id number] [place] [address] 50627- 6946 Apr, [facility] [id number] [place] [address] 28918- 6009 Apr, [facility] [id number] [place] [address] 77116- 4646 Mar, Post traumatic stress disorder (PTSD) F43.10 [facility] [address] [address]- 9606 Mar, [facility] [address], [place] [address]- 6082 Mar, Post traumatic stress disorder (PTSD) F43.10 [facility] [address], [place] [address] 2546 Feb, Anxiety F41.9 [facility] [id number] [place] [address], [place] [address] 2546 Feb, [facility] [address], [place] [address] 2546 Feb, [facility] [id number] [place] [address] 39169- 2956 Feb, Post traumatic stress disorder (PTSD) F43.10 [facility] [address] [address]- 8691 Jan, [facility] [id number] [place] [address] 785730- 6447 Jan, Posttraumatic stress disorder 309.81 [facility] [id number] [place] [address] 24040- 7293 Jan, Allergic rhinitis 477.9 ; Upper respiratory infection 465.9 and Depression 311 [facility] [address] [place] [address] 81714- 3548 Jan, Depressive disorder, not elsewhere classified 311 and Anxiety state, unspecified 300.00 [facility] [id number] [address]- 8083 Jan, [facility] [id number] [place] [address] 04026- 7828 Dec, [facility] [address], [place] [address]- 6044 Dec, [facility] [id number] [place] [address] 32906- 4552 Dec, [facility] [address], [place] [address]- 9383 Nov, [facility] [address], [place] [address]- 0824 Nov, [facility] [address], [place] [address]- 1270 Oct, [facility] [address] [place] [address] 682800- 0563 Oct, Anxiety 300.00 ; Insomnia 780.52 ; Family history of diabetes mellitus V18.0 ; Hypertension 401.9 and Onychomycosis 110.1 [facility] [id number] [place] [address] 16797- 7372 September, [facility] [address] [facility] [id number] [address]- 3211 Aug, [facility] [address] [facility] [id number] [address]- 2684 Aug, [facility] [address] [facility] [id number] [address]- 0486 Jul, [facility] [address] [facility] [id number] [address]- 4166 Jul, [facility] [address] [facility] [id number] 7560 Jun, [facility] [address] [facility] [id number] [address]- 4846 Jun, [facility] [address], [place] [address]- 4625 May, [facility] [address] [address]- 0771 May, [facility] [address], [place] [address]- 6823 May, [facility] [address] [place] [id number] [address]- 7823 May, IMMUNIZATIONS No Known Immunizations SOCIAL HISTORY Never Assessed REASON FOR VISIT Controlled Med Refill 10/05/17 PLAN OF CARE VITAL SIGNS MEDICATIONS Medication [...]
--- OUTSIDE RECORDS SUMMARY | 2018-01-12 19:04 | XMS REPORT ---
Author Author SURJIT DAS Organization [facility] Address [address] [place] [address] Care Team Providers Care Photoengraving Photographer Name Role Phone SURJIT DAS Unavailable PROBLEMS Type Condition ICD9-CM Code HTM29-BT Code Onset Dates Condition Status SNOMED Code Problem Generalized anxiety disorder F41.1 Active 68205368 Problem Family history of diabetes mellitus Z83.3 Active 644552353 Problem Chronic post-traumatic headache G44.329 Active 953513098 Problem Mixed hyperlipidemia E78.2 Active 671659333 Problem Personality disorder, unspecified F60.9 Active 99584747 Problem Gastroesophageal reflux disease without esophagitis K21.9 Active 127700706 Problem Anxiety F41.9 Active 63309058 Problem Mild acid reflux K21.9 Active 686356210 Problem Unspecified symptoms and signs involving cognitive functions and awareness R41.9 Active 617883961 Problem Post traumatic stress disorder (PTSD) F43.10 Active 29336259 Problem Essential (primary) hypertension I10 Active 66771453 ALLERGIES No Information ENCOUNTERS Encounter Location Date Diagnosis [place] [id number] [place] [address] 56700- 9049 Dec, [place] [address] [place] [id number] [place] [address] 53243- 2182 Nov, Post traumatic stress disorder (PTSD) F43.10 [place] [address] [place] [id number] [place] [address] 92358- 5020 Nov, [address] [address]2431- 1704 Oct, Medicare annual wellness visit, initial Z00.00 ; Post traumatic stress disorder (PTSD) F43.10 ; Personality disorder, unspecified F60.9 ; Essential (primary) hypertension I10 ; Mixed hyperlipidemia E78.2 ; Anxiety F41.9 and Gastroesophageal reflux disease without esophagitis K21.9 [facility] [id number] [place] [address] 05949- 3635 Oct, [facility] [address] [place] [id number] [place] [address] 65614- 8046 Oct, Post traumatic stress disorder (PTSD) F43.10 [place] [address] 54876- 8560 September, [facility] [address] [place] [id number] [place] [address] 59933- 1860 September, Post traumatic stress disorder (PTSD) F43.10 [place] [address] 41255- 4967 Aug, Mixed hyperlipidemia E78.2 [place] [address] [place] [id number] [place] [address] 85238- 7744 Aug, Keloid of skin L91.0 and Impacted cerumen of both ears H61.23 [place] [address] [place] [id number] [place] [address] 58908- 4516 Aug, Post traumatic stress disorder (PTSD) F43.10 [place] [address] [place] [id number] [place] [address] 95226- 3782 Jul, [place] [address] [place] [id number] [place] [address] 34560- 3366 Jul, Mixed hyperlipidemia E78.2 ; Mild acid reflux K21.9 and Essential (primary) hypertension I10 [facility] [address] [place] [id number] [place] [address] 56383- 2505 Jul, [facility] [address] [place] [id number] [place] [address] 50404- 2543 Jul, Post traumatic stress disorder (PTSD) F43.10 [place] [address] [place] [id number] [place] [address] 86036- 1838 Jul, Mixed hyperlipidemia E78.2 [place] [address] 36370- 4629 Jul, Essential (primary) hypertension I10 [place] [address] 83778- 1632 Jun, Insect bite, subsequent encounter W57.XXXD ; Post traumatic stress disorder (PTSD) F43.10 ; Essential (primary) hypertension I10 and Localized edema R60.0 [place] [address] 94532- 2996 Jun, Anxiety F41.9 [place] [address] 88141- 9457 Jun, Insect bite, initial encounter W57.XXXA ; Anxiety F41.9 ; Bronchitis J40 ; Headache R51 and Essential (primary) hypertension I10 [place] [address] 93854- 4658 May, Anxiety F41.9 [place] [address] 96800- 4861 May, [place] [address] 55888- 5073 Apr, Anxiety F41.9 [place] [address] 01123- 1128 Apr, [place] [address] 44739- 3151 Mar, Anxiety F41.9 [place] [address] 42635- 5037 Mar, Angioedema, subsequent encounter T78.3XXD ; Post traumatic stress disorder (PTSD) F43.10 ; Generalized anxiety disorder F41.1 ; Forgetfulness R68.89 ; Anxiety F41.9 ; Essential (primary) hypertension I10 ; Headache R51 ; Bronchitis J40 ; Mild acid reflux K21.9 and Cough R05 [place] [address] [place] [address]- 8903 Mar, Angioedema, initial encounter T78.3XXA [facility] [address] [place] [id number] [place] [address] 81704 -1455 Mar, Acute upper respiratory infection, unspecified J06.9 and Cough R05 [facility] [address] [place] [id number] [place] [address] 72834- 5195 Mar, Generalized anxiety disorder F41.1 [facility] [id number] [place] [address] 95146- 0752 Feb, Generalized anxiety disorder F41.1 [facility] [address] [place] [id number] [place] [address] 76675- 7835 Jan, Generalized anxiety disorder F41.1 [facility] [address] [place] [id number] [place] [address] 41023- 3024 Dec, [facility] [address] [place] [id number] [place] [address] 00430- 0039 Dec, Generalized anxiety disorder F41.1 [facility] [address] [id number] [place] [address] 37289- 4645 Nov, Generalized anxiety disorder F41.1 [facility] [address] [place] [id number] [place] [address] 55847- 3118 Nov, Mild acid reflux K21.9 [facility] [address] [place] [id number] [place] [address] 55353- 4312 Oct, Generalized anxiety disorder F41.1 [facility] [address] [place] [id number] [place] [address] 84274- 1359 Oct, Cellulitis of right upper extremity L03.113 [facility] [address] [place] [id number] [place] [address] 78215- 7337 September, [facility] [address] [place] [id number] [place] [address] 13212- 7557 September, Generalized anxiety disorder F41.1 [facility] [address] [address]- 5501 Aug, Generalized anxiety disorder F41.1 [facility] [address] [address]- 2886 Aug, Medicare annual wellness visit, initial Z00.00 [facility] [address] [address]- 3221 Jul, Generalized anxiety disorder F41.1 [facility] [address] [place] [id number] [place] [address] 69985- 6760 Jul, [facility] [address] [place] [id number] [place] [address] 22691- 0906 Jul, [facility] [address] [place] [address] [id number] [place] [address] 19486- 9788 Jun, Generalized anxiety disorder F41.1 [facility] [address] [id number] [place] [address] 60481- 0691 May, Bronchitis J40 and Generalized anxiety disorder F41.1 [facility] [address] [place] [address] 63960- 2881 May, Generalized anxiety disorder F41.1 [facility] [address] [address]- 2815 May, [facility] [address] [place] [address] 15400- 1813 Apr, Generalized anxiety disorder F41.1 [facility] [address] [address]- 9246 Apr, Essential (primary) hypertension I10 [facility] [address] [place] [id number] [place] [address] 74003- 4731 Apr, Generalized anxiety disorder F41.1 [facility] [address] [address]- 0391 Mar, Generalized anxiety disorder F41.1 [facility] [address] [address]- 1370 Feb, Generalized anxiety disorder F41.1 [facility] [address] [place] [id number] [place] [address] 55590- 7837 Jan, Generalized anxiety disorder F41.1 [facility] [address] [place] [id number] [place] [address] 03687- 6357 Dec, Generalized anxiety disorder F41.1 [facility] [address] [place] [id number] [place] [address] 14326- 3096 Nov, [facility] [address] [place] [id number] [place] [address] 56089- 2585 Oct, Generalized anxiety disorder F41.1 [place] [address] [place] [id number] [place] [address] 48187- 3055 Oct, Forgetfulness R68.89 [place] [address] [place] [id number] [place] [address] 82563- 4793 Oct, Generalized anxiety disorder F41.1 and Personality disorder , unspecified F60.9 [place] [address] [place] [id number] [place] [address] 89978- 8397 September, Mild acid reflux K21.9 [place] [address] [place] [id number] [place] [address] 62558- 5368 September, Generalized anxiety disorder F41.1 [place] [address] [place] [id number] [place] [address] 52558- 9046 Aug, Generalized anxiety disorder F41.1 and Personality disorder , unspecified F60.9 [place] [address] [place] [id number] [place] [address] 60590- 7912 Aug, Forgetfulness R68.89 and Generalized anxiety disorder F41.1 [place] [address] [place] [id number] [place] [address] 57770- 8978 Aug, Generalized anxiety disorder F41.1 and Unspecified symptoms and signs involving cognitive functions and awareness R41.9 [place] [address] [place] [address] [place] [address]- 7423 Aug, [facility] [address] [place] [id number] [place] [address] 18639- 2251 Aug, Screening, lipid Z13.220 and Forgetfulness R68.89 [facility] [address] [place] [id number] [place] [address] 66293- 4852 Aug, Headache R51 [place] [address] 86853- 9351 30 Jul, 2015 Acute upper respiratory infection, unspecified J06.9 and Other viral agents as the cause of diseases classified elsewhere B97.89 [place] [address] [place] [id number] [place] [address] 29619- 5147 24 Jul, 2015 [place] [address] [place] [id number] [place] [address] 71481- 5573 16 Jul, 2015 [place] [address] [place] [id number] [place] [address] 03498- 2602 14 Jul, 2015 Headache R51 and Anxiety F41.9 [place] [address] [place] [id number] [place] [address] 55548- 0997 Jul, Generalized anxiety disorder F41.1 and Personality disorder , unspecified F60.9 [place] [address] [place] [id number] [place] [address] 07335- 3515 Jun, [place] [address] [place] [id number] [place] [address] 70394- 9895 Jun, Post traumatic stress disorder (PTSD) F43.10 and Personality disorder, unspecified F60.9 [place] [address] [place] [id number] [place] [address] 54870- 5005 May, Overweight E66.3 [facility] [address] [place] [id number] [place] [address] 64959- 3312 May, [place] [address] [place] [id number] [place] [address] 30131- 8335 May, Post traumatic stress disorder (PTSD) F43.10 and Personality disorder, unspecified F60.9 [facility] [address] [address]- 2896 May, [facility] [id number] [address]- 0236 Apr, [facility] [address] [place] [id number] [place] [address] 57176- 9946 Apr, [facility] [address] [id number] [place] [address] 66727 2546 Apr, [facility] [address] [id number] [place] [address] 25837- 8296 Apr, [facility] [address] [place] [id number] [place] [address] 55958- 4652 Mar, Post traumatic stress disorder (PTSD) F43.10 [facility] [address] [id number] [place] [address] 31423 2546 Mar, [facility] [address] [place] [address] 10832- 1822 Mar, Post traumatic stress disorder (PTSD) F43.10 [facility] [address] [address]- 0276 Feb, Anxiety F41.9 [facility] [address] [address] [address] 2546 Feb, [facility] [address] [address] 2546 Feb, [facility] [address] [address]- 1026 Feb, Post traumatic stress disorder (PTSD) F43.10 [facility] [address] [address] 2546 Jan, [facility] [address] [id number] [place] [address] 19853- 7159 Jan, Posttraumatic stress disorder 309.81 [facility] [address] [place] [address] 54960- 5591 Jan, Allergic rhinitis 477.9 ; Upper respiratory infection 465.9 and Depression 311 [facility] [address] [id number] [place] [address] 70411- 2106 Jan, Depressive disorder, not elsewhere classified 311 and Anxiety state, unspecified 300.00 [facility] [address] [id number] [place] [address] 68278- 8034 Jan, [facility] [address] [id number] [place] [address] 96755- 1636 Dec, [facility] [id number] [place] [address] 97040- 7963 Dec, [facility] [id number] [place] [address] 53607- 8762 Dec, [facility] [address] [id number] [place] [address] 81051- 6349 Nov, [facility] [id number] [place] [address] 43703- 1352 Nov, [facility] [id number] [place] [address] 66679- 7780 Oct, [facility] [address] [id number] [place] [address] 67140- 4475 Oct, Anxiety 300.00 ; Insomnia 780.52 ; Family history of diabetes mellitus V18.0 ; Hypertension 401.9 and Onychomycosis 110.1 [facility] [address] [id number] [place] [address] 86565- 7404 September, [facility] [address] [id number] [place] [address] 22915- 9680 Aug, [facility] [address] [id number] [place] [address] 82858- 7810 Aug, [facility] [id number] [address]- 5160 Jul, [facility] [id number] [address]- 7491 Jul, [facility] [id number] [address]- 9826 Jun, [facility] [id number] [address]- 5099 Jun, [facility] [address] [address]- 7009 May, [facility] [id number] [address]- 4657 May, [facility] [address] [address]- 8198 May, [facility] [id number] [address]- 1461 May, IMMUNIZATIONS No Known Immunizations SOCIAL HISTORY Never Assessed REASON FOR VISIT Medication question PLAN OF CARE VITAL SIGNS MEDICATIONS Unknown [...]
--- OUTSIDE RECORDS SUMMARY | 2018-01-12 19:04 | XMS REPORT ---
Author Author SURJIT DAS Organization [facility] Address [address] [place] [address] Care Team Providers Care Bottle Label Inspector Name Role Phone SURJIT DAS Unavailable PROBLEMS Type Condition ICD9-CM Code [id number] Code Onset Dates Condition Status SNOMED Code Problem Generalized anxiety disorder F41.1 Active 61476513 Problem Family history of diabetes mellitus Z83.3 Active 826803545 Problem Chronic post-traumatic headache G44.329 Active 063634998 Problem Mixed hyperlipidemia E78.2 Active 599237114 Problem Personality disorder, unspecified F60.9 Active 98109408 Problem Gastroesophageal reflux disease without esophagitis K21.9 Active 897046859 Problem Anxiety F41.9 Active 99191802 Problem Mild acid reflux K21.9 Active 054700796 Problem Unspecified symptoms and signs involving cognitive functions and awareness R41.9 Active 652821415 Problem Post traumatic stress disorder (PTSD) F43.10 Active 24840492 Problem Essential (primary) hypertension I10 Active 64806387 ALLERGIES No Information ENCOUNTERS Encounter Location Date Diagnosis [place] [id number] [place] [address] 20267- 9366 Dec, [place] [address] [place] [id number] [place] [address] 27330- 7916 Nov, Post traumatic stress disorder (PTSD) F43.10 [place] [address] [place] [id number] [place] [address] 70514- 2737 Nov, [address] [address]83- 2526 Oct, Medicare annual wellness visit, initial Z00.00 ; Post traumatic stress disorder (PTSD) F43.10 ; Personality disorder, unspecified F60.9 ; Essential (primary) hypertension I10 ; Mixed hyperlipidemia E78.2 ; Anxiety F41.9 and Gastroesophageal reflux disease without esophagitis K21.9 [facility] [address] [id number] [place] [address] 62557- 7677 Oct, [facility] [address] [place] [id number] [place] [address] 95646- 3576 Oct, Post traumatic stress disorder (PTSD) F43.10 [place] [address] 34699- 3998 September, [facility] [address] [place] [id number] [place] [address] 41181- 1438 September, Post traumatic stress disorder (PTSD) F43.10 [place] [address] 16972- 2048 Aug, Mixed hyperlipidemia E78.2 [place] [address] [place] [id number] [place] [address] 91965- 5742 Aug, Keloid of skin L91.0 and Impacted cerumen of both ears H61.23 [place] [address] [place] [id number] [place] [address] 17994- 9261 Aug, Post traumatic stress disorder (PTSD) F43.10 [place] [address] [place] [id number] [place] [address] 35568- 6334 Jul, [place] [address] [place] [id number] [place] [address] 07156- 3107 Jul, Mixed hyperlipidemia E78.2 ; Mild acid reflux K21.9 and Essential (primary) hypertension I10 [facility] [address] [place] [id number] [place] [address] 09253- 0588 Jul, [facility] [address] [place] [id number] [place] [address] 34751- 2544 Jul, Post traumatic stress disorder (PTSD) F43.10 [place] [address] [place] [id number] [place] [address] 39095- 4502 Jul, Mixed hyperlipidemia E78.2 [place] [address] 67007- 1009 Jul, Essential (primary) hypertension I10 [place] [address] 94439- 9844 Jun, Insect bite, subsequent encounter W57.XXXD ; Post traumatic stress disorder (PTSD) F43.10 ; Essential (primary) hypertension I10 and Localized edema R60.0 [place] [address] 49755- 3290 Jun, Anxiety F41.9 [place] [address] 87286- 2547 Jun, Insect bite, initial encounter W57.XXXA ; Anxiety F41.9 ; Bronchitis J40 ; Headache R51 and Essential (primary) hypertension I10 [place] [address] 74846- 7995 May, Anxiety F41.9 [place] [address] 78469- 9376 May, [place] [address] 04127- 4025 Apr, Anxiety F41.9 [place] [address] 92937- 3517 Apr, [place] [address] 24822- 6470 Mar, Anxiety F41.9 [place] [address] 95487- 8683 Mar, Angioedema, subsequent encounter T78.3XXD ; Post traumatic stress disorder (PTSD) F43.10 ; Generalized anxiety disorder F41.1 ; Forgetfulness R68.89 ; Anxiety F41.9 ; Essential (primary) hypertension I10 ; Headache R51 ; Bronchitis J40 ; Mild acid reflux K21.9 and Cough R05 [place] [address] [place] [address]- 5636 Mar, Angioedema, initial encounter T78.3XXA [facility] [address] [place] [id number] [place] [address] 75450 -7494 Mar, Acute upper respiratory infection, unspecified J06.9 and Cough R05 [facility] [address] [place] [id number] [place] [address] 44324- 6938 Mar, Generalized anxiety disorder F41.1 [facility] [address] [place] [id number] [place] [address] 30302- 0578 Feb, Generalized anxiety disorder F41.1 [facility] [address] [place] [id number] [place] [address] 81575- 0595 Jan, Generalized anxiety disorder F41.1 [facility] [address] [place] [id number] [place] [address] 40822- 7695 Dec, [facility] [address] [place] [id number] [place] [address] 26085- 7428 Dec, Generalized anxiety disorder F41.1 [facility] [address] [place] [id number] [place] [address] 22996- 2876 Nov, Generalized anxiety disorder F41.1 [facility] [address] [place] [id number] [place] [address] 00482- 0415 Nov, Mild acid reflux K21.9 [facility] [address] [place] [id number] [place] [address] 22285- 5745 Oct, Generalized anxiety disorder F41.1 [facility] [address] [place] [id number] [place] [address] 25409- 4479 Oct, Cellulitis of right upper extremity L03.113 [facility] [address] [place] [id number] [place] [address] 64267- 7639 September, [facility] [address] [place] [id number] [place] [address] 29985- 3689 September, Generalized anxiety disorder F41.1 [facility] [address] [address]- 7697 Aug, Generalized anxiety disorder F41.1 [facility] [address] [address]- 5361 Aug, Medicare annual wellness visit, initial Z00.00 [facility] [address] [address]- 9535 Jul, Generalized anxiety disorder F41.1 [facility] [address] [place] [id number] [place] [address] 82204- 2878 Jul, [facility] [address] [place] [id number] [place] [address] 57087- 8238 Jul, [facility] [address] [place] [id number] [place] [address] 12892- 3167 Jun, Generalized anxiety disorder F41.1 [facility] [address] [place] [id number] [place] [address] 34391- 7315 May, Bronchitis J40 and Generalized anxiety disorder F41.1 [facility] [id number] [place] [address] 48849- 5972 May, Generalized anxiety disorder F41.1 [facility] [address] [address]- 0786 May, [facility] [id number] [place] [address] 80326- 7220 Apr, Generalized anxiety disorder F41.1 [facility] [address] [address]- 5405 Apr, Essential (primary) hypertension I10 [facility] [address] [place] [id number] [place] [address] 25929- 2730 Apr, Generalized anxiety disorder F41.1 [facility] [address] [address]- 3141 Mar, Generalized anxiety disorder F41.1 [facility] [address] [place] [id number] [address]- 4577 Feb, Generalized anxiety disorder F41.1 [facility] [address] [place] [id number] [place] [address] 06332- 1050 Jan, Generalized anxiety disorder F41.1 [facility] [address] [place] [id number] [place] [address] 84779- 6226 Dec, Generalized anxiety disorder F41.1 [facility] [address] [place] [id number] [place] [address] 19862- 6594 Nov, [facility] [address] [place] [id number] [place] [address] 80438- 3070 Oct, Generalized anxiety disorder F41.1 [place] [address] [place] [id number] [place] [address] 52832- 3291 Oct, Forgetfulness R68.89 [place] [address] [place] [id number] [place] [address] 04539- 4596 Oct, Generalized anxiety disorder F41.1 and Personality disorder , unspecified F60.9 [place] [address] [place] [id number] [place] [address] 06709- 1579 September, Mild acid reflux K21.9 [place] [address] [place] [id number] [place] [address] 54631- 3130 September, Generalized anxiety disorder F41.1 [place] [address] [place] [id number] [place] [address] 94052- 9191 Aug, Generalized anxiety disorder F41.1 and Personality disorder , unspecified F60.9 [place] [address] [place] [id number] [place] [address] 84621- 0425 Aug, Forgetfulness R68.89 and Generalized anxiety disorder F41.1 [place] [address] [place] [id number] [place] [address] 33906- 9512 Aug, Unspecified symptoms and signs involving cognitive functions and awareness R41.9 and Generalized anxiety disorder F41.1 [place] [address] [place] [address] [place] [address]- 1511 Aug, [facility] [address] [place] [id number] [place] [address] 96226- 2053 Aug, Screening, lipid Z13.220 and Forgetfulness R68.89 [facility] [address] [place] [id number] [place] [address] 11706- 2142 Aug, Headache R51 [place] [address] 09044- 6083 30 Jul, 2015 Acute upper respiratory infection, unspecified J06.9 and Other viral agents as the cause of diseases classified elsewhere B97.89 [place] [address] [place] [id number] [place] [address] 18303- 0259 24 Jul, 2015 [place] [address] [place] [id number] [place] [address] 96779- 4996 16 Jul, 2015 [place] [address] [place] [id number] [place] [address] 01590- 3903 14 Jul, 2015 Headache R51 and Anxiety F41.9 [place] [address] [place] [id number] [place] [address] 79528- 6327 Jul, Generalized anxiety disorder F41.1 and Personality disorder , unspecified F60.9 [place] [address] [place] [id number] [place] [address] 11517- 0934 Jun, [place] [address] [place] [id number] [place] [address] 55216- 4702 Jun, Post traumatic stress disorder (PTSD) F43.10 and Personality disorder, unspecified F60.9 [place] [address] [place] [id number] [place] [address] 87116- 1037 May, Overweight E66.3 [facility] [address] [place] [id number] [place] [address] 16971- 3873 May, [place] [address] [place] [id number] [place] [address] 78044- 4115 May, Post traumatic stress disorder (PTSD) F43.10 and Personality disorder, unspecified F60.9 [facility] [address] [address]- 4656 May, [facility] [address] [place] [id number] [address]- 2616 Apr, [facility] [address] [place] [id number] [place] [address] 75817- 9826 Apr, [facility] [address] [place] [id number] [place] [address] 53410 2546 Apr, [facility] [address] [place] [id number] [place] [address] 47775- 7166 Apr, [facility] [address] [place] [id number] [place] [address] 73829- 5912 Mar, Post traumatic stress disorder (PTSD) F43.10 [facility] [address] [place] [id number] [place] [address] 55005 2546 Mar, [facility] [id number] [place] [address] 48556- 6056 Mar, Post traumatic stress disorder (PTSD) F43.10 [facility] [address] [address]- 9916 Feb, Anxiety F41.9 [facility] [id number] [address] 2546 Feb, [facility] [address] [address] 2546 Feb, [facility] [address] [address]- 3256 Feb, Post traumatic stress disorder (PTSD) F43.10 [facility] [id number] [address] 2546 Jan, [facility] [address] [place] [id number] [place] [address] 37494- 7868 Jan, Posttraumatic stress disorder 309.81 [facility] [id number] [place] [address] 20284- 2219 Jan, Allergic rhinitis 477.9 ; Upper respiratory infection 465.9 and Depression 311 [facility] [address] [place] [id number] [place] [address] 15778- 0906 Jan, Depressive disorder, not elsewhere classified 311 and Anxiety state, unspecified 300.00 [facility] [address] [id number] [place] [address] 23937- 4148 Jan, [facility] [address] [id number] [place] [address] 04713- 7048 Dec, [facility] [id number] [place] [address] 08723- 7122 Dec, [facility] [address] [id number] [place] [address] 75149- 3046 Dec, [facility] [id number] [place] [address] 78396- 9005 Nov, [facility] [id number] [place] [address] 41175- 2583 Nov, [facility] [address] [id number] [place] [address] 05220- 0683 Oct, [facility] [address] [id number] [place] [address] 58940- 2258 Oct, Anxiety 300.00 ; Insomnia 780.52 ; Family history of diabetes mellitus V18.0 ; Hypertension 401.9 and Onychomycosis 110.1 [facility] [address] [place] [id number] [place] [address] 57342- 1884 September, [facility] [address] [id number] [place] [address] 61095- 3037 Aug, [facility] [address] [id number] [place] [address] 02923- 6299 Aug, [facility] [address] [place] [id number] [address]- 8695 Jul, [facility] [id number] [address]- 9280 Jul, [facility] [address] [id number] [address]- 6390 Jun, [facility] [id number] [address]- 5719 Jun, [facility] [id number] [address]- 9003 May, [facility] [address] [id number] [address]- 9250 May, [facility] [address] [address]- 1013 May, [facility] [address] [id number] [address]- 4578 May, IMMUNIZATIONS No Known Immunizations SOCIAL HISTORY Never Assessed REASON FOR VISIT Controlled Med Refill 09/07/17 PLAN OF CARE VITAL SIGNS MEDICATIONS Medication [...]
--- OUTSIDE RECORDS SUMMARY | 2018-01-12 19:04 | XMS REPORT ---
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 Name Role Phone SURJIT DAS Unavailable PROBLEMS Type Condition ICD9-CM Code BXR99-MI Code Onset Dates Condition Status SNOMED Code Problem Generalized anxiety disorder F41.1 Active 84033299 Problem Family history of diabetes mellitus Z83.3 Active 731531482 Problem Chronic post-traumatic headache G44.329 Active 346598159 Problem Mixed hyperlipidemia E78.2 Active 130368777 Problem Personality disorder, unspecified F60.9 Active 50537478 Problem Gastroesophageal reflux disease without esophagitis K21.9 Active 435775175 Problem Anxiety F41.9 Active 42074907 Problem Mild acid reflux K21.9 Active 513091152 Problem Unspecified symptoms and signs involving cognitive functions and awareness R41.9 Active 660474218 Problem Post traumatic stress disorder (PTSD) F43.10 Active 14704775 Problem Essential (primary) hypertension I10 Active 27449232 ALLERGIES No Information ENCOUNTERS Encounter Location Date Diagnosis [place] [id number] [place] [address] 33304- 7588 Dec, [place] [address] [place] [id number] [place] [address] 76506- 2570 Nov, Post traumatic stress disorder (PTSD) F43.10 [place] [address] [place] [id number] [place] [address] 66648- 0116 Nov, [address] [address]- 8098 Oct, Medicare annual wellness visit, initial Z00.00 ; Post traumatic stress disorder (PTSD) F43.10 ; Personality disorder, unspecified F60.9 ; Essential (primary) hypertension I10 ; Mixed hyperlipidemia E78.2 ; Anxiety F41.9 and Gastroesophageal reflux disease without esophagitis K21.9 [facility] [id number] [address] 23647- 4576 Oct, [facility] [address] [address] [id number] [place] [address] 07712- 1056 Oct, Post traumatic stress disorder (PTSD) F43.10 [place] [address] 11334- 9243 September, [facility] [address] [id number] [place] [address] 38987- 4981 September, Post traumatic stress disorder (PTSD) F43.10 [place] [address] 54150- 1286 Aug, Mixed hyperlipidemia E78.2 [place] [address] [id number] [place] [address] 64413- 7324 Aug, Keloid of skin L91.0 and Impacted cerumen of both ears H61.23 [place] [address] [id number] [place] [address] 13869- 1371 Aug, Post traumatic stress disorder (PTSD) F43.10 [place] [address] [id number] [place] [address] 62802- 9172 Jul, [place] [address] [id number] [place] [address] 12851- 0801 Jul, Mixed hyperlipidemia E78.2 ; Mild acid reflux K21.9 and Essential (primary) hypertension I10 [facility] [address] [id number] [address] 53545- 2927 Jul, [facility] [address] [id number] [place] [address] 02891- 2547 Jul, Post traumatic stress disorder (PTSD) F43.10 [place] [address] [id number] [place] [address] 71428- 7606 Jul, Mixed hyperlipidemia E78.2 [place] [address] 20714- 0773 Jul, Essential (primary) hypertension I10 [place] [address] 61290- 8360 Jun, Insect bite, subsequent encounter W57.XXXD ; Post traumatic stress disorder (PTSD) F43.10 ; Essential (primary) hypertension I10 and Localized edema R60.0 [place] [address] 74618- 3584 Jun, Anxiety F41.9 [place] [address] 78500- 1266 Jun, Insect bite, initial encounter W57.XXXA ; Anxiety F41.9 ; Bronchitis J40 ; Headache R51 and Essential (primary) hypertension I10 [place] [address] 78240- 4810 May, Anxiety F41.9 [place] [address] 91213- 3782 May, [place] [address] 05364- 9859 Apr, Anxiety F41.9 [place] [address] 07381- 4467 Apr, [place] [address] 25112- 6699 Mar, Anxiety F41.9 [place] [address] 00637- 2231 Mar, Angioedema, subsequent encounter T78.3XXD ; Post traumatic stress disorder (PTSD) F43.10 ; Generalized anxiety disorder F41.1 ; Forgetfulness R68.89 ; Anxiety F41.9 ; Essential (primary) hypertension I10 ; Headache R51 ; Bronchitis J40 ; Mild acid reflux K21.9 and Cough R05 [place] [address] [place] [address]- 4810 Mar, Angioedema, initial encounter T78.3XXA [facility] [address] [id number] [place] [address] 09740 -5957 Mar, Acute upper respiratory infection, unspecified J06.9 and Cough R05 [facility] [address] [address] [id number] [place] [address] 20124- 1603 Mar, Generalized anxiety disorder F41.1 [facility] [address] [place] [address] [id number] [address] 24478- 0048 Feb, Generalized anxiety disorder F41.1 [facility] [address] [place] [id number] [place] [address] 24975- 1691 Jan, Generalized anxiety disorder F41.1 [facility] [address] [place] [id number] [place] [address] 41593- 3987 Dec, [facility] [address] [id number] [place] [address] 95348- 3744 Dec, Generalized anxiety disorder F41.1 [facility] [address] [place] [address] [id number] [place] [address] 09615- 7030 Nov, Generalized anxiety disorder F41.1 [facility] [address] [place] [id number] [place] [address] 18176- 5942 Nov, Mild acid reflux K21.9 [facility] [address] [id number] [place] [address] 96565- 4480 Oct, Generalized anxiety disorder F41.1 [facility] [address] [address] [id number] [place] [address] 71366- 6529 Oct, Cellulitis of right upper extremity L03.113 [facility] [address] [place] [id number] [address] 32547- 5614 September, [facility] [address] [place] [id number] [place] [address] 86232- 2067 September, Generalized anxiety disorder F41.1 [facility] [address] [address]- 5976 Aug, Generalized anxiety disorder F41.1 [facility] [address] [address]- 5608 Aug, Medicare annual wellness visit, initial Z00.00 [facility] [address] [address]- 2891 Jul, Generalized anxiety disorder F41.1 [facility] [address] [address] [id number] [place] [address] 15723- 4981 Jul, [facility] [address] [address] [id number] [place] [address] 50649- 7880 Jul, [facility] [address] [place] [id number] [place] [address] 29135- 7894 Jun, Generalized anxiety disorder F41.1 [facility] [address] [id number] [place] [address] 16044- 2445 May, Bronchitis J40 and Generalized anxiety disorder F41.1 [facility] [address] [place] [address] 28457- 7518 May, Generalized anxiety disorder F41.1 [facility] [address] [address]- 9959 May, [facility] [id number] [address] 33250- 0920 Apr, Generalized anxiety disorder F41.1 [facility] [address] [address]- 9098 Apr, Essential (primary) hypertension I10 [facility] [address] [place] [address] [id number] [place] [address] 23616- 9395 Apr, Generalized anxiety disorder F41.1 [facility] [address] [address]- 3592 Mar, Generalized anxiety disorder F41.1 [facility] [address] [id number] [address]- 6543 Feb, Generalized anxiety disorder F41.1 [facility] [address] [place] [id number] [place] [address] 62220- 3142 Jan, Generalized anxiety disorder F41.1 [facility] [address] [place] [id number] [place] [address] 30303- 8777 Dec, Generalized anxiety disorder F41.1 [facility] [address] [place] [id number] [place] [address] 22852- 6560 Nov, [facility] [address] [place] [id number] [place] [address] 49237- 8241 Oct, Generalized anxiety disorder F41.1 [place] [address] [place] [id number] [place] [address] 32857- 1792 Oct, Forgetfulness R68.89 [place] [address] [place] [id number] [place] [address] 84592- 8815 Oct, Generalized anxiety disorder F41.1 and Personality disorder , unspecified F60.9 [place] [address] [place] [id number] [place] [address] 56112- 6372 September, Mild acid reflux K21.9 [place] [address] [place] [id number] [place] [address] 52521- 4463 September, Generalized anxiety disorder F41.1 [place] [address] [place] [id number] [place] [address] 21849- 1346 Aug, Generalized anxiety disorder F41.1 and Personality disorder , unspecified F60.9 [place] [address] [place] [id number] [place] [address] 92100- 6286 Aug, Forgetfulness R68.89 and Generalized anxiety disorder F41.1 [place] [address] [place] [id number] [place] [address] 60258- 7065 Aug, Generalized anxiety disorder F41.1 and Unspecified symptoms and signs involving cognitive functions and awareness R41.9 [place] [address] [place] [address] [place] [address]- 0964 Aug, [facility] [address] [place] [id number] [place] [address] 72732- 4588 Aug, Screening, lipid Z13.220 and Forgetfulness R68.89 [facility] [address] [place] [id number] [place] [address] 89621- 8099 Aug, Headache R51 [place] [address] 01202- 8017 30 Jul, 2015 Acute upper respiratory infection, unspecified J06.9 and Other viral agents as the cause of diseases classified elsewhere B97.89 [place] [address] [place] [id number] [place] [address] 48641- 0598 24 Jul, 2015 [place] [address] [place] [id number] [place] [address] 20571- 7772 16 Jul, 2015 [place] [address] [place] [id number] [place] [address] 31616- 4428 14 Jul, 2015 Headache R51 and Anxiety F41.9 [place] [address] [place] [id number] [place] [address] 67601- 1426 Jul, Generalized anxiety disorder F41.1 and Personality disorder , unspecified F60.9 [place] [address] [place] [id number] [place] [address] 55426- 1417 Jun, [place] [address] [place] [id number] [place] [address] 75448- 7198 Jun, Post traumatic stress disorder (PTSD) F43.10 and Personality disorder, unspecified F60.9 [place] [address] [place] [id number] [place] [address] 51298- 6714 May, Overweight E66.3 [facility] [address] [place] [id number] [place] [address] 46682- 9695 May, [place] [address] [place] [id number] [place] [address] 30034- 5185 May, Post traumatic stress disorder (PTSD) F43.10 and Personality disorder, unspecified F60.9 [facility] [address] [address]- 4606 May, [facility] [address] [id number] [address]- 0666 Apr, [facility] [address] [id number] [place] [address] 56307- 4406 Apr, [facility] [address] [place] [id number] [place] [address] 19215 2546 Apr, [facility] [address] [place] [id number] [place] [address] 30389- 0196 Apr, [facility] [address] [id number] [place] [address] 22881- 0816 Mar, Post traumatic stress disorder (PTSD) F43.10 [facility] [address] [id number] [place] [address] 00762 2546 Mar, [facility] [id number] [place] [address] 07106- 7059 Mar, Post traumatic stress disorder (PTSD) F43.10 [facility] [address] [address]- 1366 Feb, Anxiety F41.9 [facility] [id number] [address] 2546 Feb, [facility] [address] [address] 2546 Feb, [facility] [address] [address]- 9646 Feb, Post traumatic stress disorder (PTSD) F43.10 [facility] [address] [address] 2546 Jan, [facility] [id number] [place] [address] 23227- 4967 Jan, Posttraumatic stress disorder 309.81 [facility] [id number] [place] [address] 74557- 7671 Jan, Allergic rhinitis 477.9 ; Upper respiratory infection 465.9 and Depression 311 [facility] [id number] [place] [address] 31746- 6142 Jan, Depressive disorder, not elsewhere classified 311 and Anxiety state, unspecified 300.00 [facility] [id number] [place] [address] 85820- 2295 Jan, [facility] [id number] [place] [address] 55392- 5018 Dec, [facility] [id number] [place] [address] 58406- 2405 Dec, [facility] [id number] [place] [address] 76314- 3914 Dec, [facility] [id number] [place] [address] 23781- 2272 Nov, [facility] [id number] [place] [address] 84802- 9225 Nov, [facility] [address] [id number] [place] [address] 08653- 8987 Oct, [facility] [id number] [place] [address] 62175- 1286 Oct, Anxiety 300.00 ; Insomnia 780.52 ; Family history of diabetes mellitus V18.0 ; Hypertension 401.9 and Onychomycosis 110.1 [facility] [id number] [place] [address] 00232- 2624 September, [facility] [address] [id number] [place] [address] 66560- 4302 Aug, [facility] [id number] [place] [address] 90794- 0543 Aug, [facility] [id number] [address]- 7390 Jul, [facility] [id number] [address]- 9638 Jul, [facility] [address] [address]- 5652 Jun, [facility] [address] [address] 5086 Jun, [facility] [address] [address]- 3610 May, [facility] [address] [address]- 6804 May, [facility] [address] [address]- 9018 May, [facility] [address] [address]- 3934 May, IMMUNIZATIONS No Known Immunizations SOCIAL HISTORY Never Assessed REASON FOR VISIT medication question PLAN OF CARE VITAL SIGNS MEDICATIONS Medication Instructions Dosage Frequency Start Date End Date Duration Status Ivins 3 1000 MG Orally Once a day 3 capsules 24h September, 30 day(s ) Active RESULTS No Results PROCEDURES No Known [...]
--- OUTSIDE RECORDS SUMMARY | 2018-01-12 19:05 | XMS REPORT ---
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 Director Name Role Phone SURJIT DAS Unavailable PROBLEMS Type Condition ICD9-CM Code [id number] Code Onset Dates Condition Status SNOMED Code Problem Generalized anxiety disorder F41.1 Active 59980219 Problem Family history of diabetes mellitus Z83.3 Active 677983932 Problem Chronic post-traumatic headache G44.329 Active 618559413 Problem Mixed hyperlipidemia E78.2 Active 453157930 Problem Personality disorder, unspecified F60.9 Active 05878299 Problem Gastroesophageal reflux disease without esophagitis K21.9 Active 906479705 Problem Anxiety F41.9 Active 32989856 Problem Mild acid reflux K21.9 Active 288450245 Problem Unspecified symptoms and signs involving cognitive functions and awareness R41.9 Active 075408227 Problem Post traumatic stress disorder (PTSD) F43.10 Active 79437906 Problem Essential (primary) hypertension I10 Active 52247310 ALLERGIES No Information ENCOUNTERS Encounter Location Date Diagnosis [place] [id number] [place] [address] 59258- 6103 Dec, [place] [address] [place] [id number] [place] [address] 29062- 6714 Nov, Post traumatic stress disorder (PTSD) F43.10 [place] [address] [place] [id number] [place] [address] 42329- 9838 Nov, [address] [address]- [address] Oct, Medicare annual wellness visit, initial Z00.00 ; Post traumatic stress disorder (PTSD) F43.10 ; Personality disorder, unspecified F60.9 ; Essential (primary) hypertension I10 ; Mixed hyperlipidemia E78.2 ; Anxiety F41.9 and Gastroesophageal reflux disease without esophagitis K21.9 [facility] [id number] [place] [address] 94214- 8016 Oct, [facility] [address] [place] [id number] [place] [address] 32443- 7086 Oct, Post traumatic stress disorder (PTSD) F43.10 [place] [address] 19311- 2680 September, [facility] [address] [place] [id number] [place] [address] 98136- 2245 September, Post traumatic stress disorder (PTSD) F43.10 [place] [address] 82505- 7388 Aug, Mixed hyperlipidemia E78.2 [place] [address] [place] [id number] [place] [address] 76720- 4384 Aug, Keloid of skin L91.0 and Impacted cerumen of both ears H61.23 [place] [address] [place] [id number] [place] [address] 44540- 7130 Aug, Post traumatic stress disorder (PTSD) F43.10 [place] [address] [place] [id number] [place] [address] 53572- 9620 Jul, [place] [address] [place] [id number] [place] [address] 49456- 6147 Jul, Mixed hyperlipidemia E78.2 ; Mild acid reflux K21.9 and Essential (primary) hypertension I10 [facility] [address] [place] [id number] [place] [address] 70705- 5989 Jul, [facility] [address] [place] [id number] [place] [address] 24856- 2541 Jul, Post traumatic stress disorder (PTSD) F43.10 [place] [address] [place] [id number] [place] [address] 00283- 8290 Jul, Mixed hyperlipidemia E78.2 [place] [address] 55476- 2324 Jul, Essential (primary) hypertension I10 [place] [address] 96052- 1541 Jun, Insect bite, subsequent encounter W57.XXXD ; Post traumatic stress disorder (PTSD) F43.10 ; Essential (primary) hypertension I10 and Localized edema R60.0 [place] [address] 74083- 3129 Jun, Anxiety F41.9 [place] [address] 40671- 0819 Jun, Insect bite, initial encounter W57.XXXA ; Anxiety F41.9 ; Bronchitis J40 ; Headache R51 and Essential (primary) hypertension I10 [place] [address] 42504- 1509 May, Anxiety F41.9 [place] [address] 87736- 3632 May, [place] [address] 92809- 8334 Apr, Anxiety F41.9 [place] [address] 94455- 4056 Apr, [place] [address] 92795- 6712 Mar, Anxiety F41.9 [place] [address] 88892- 3786 Mar, Angioedema, subsequent encounter T78.3XXD ; Post traumatic stress disorder (PTSD) F43.10 ; Generalized anxiety disorder F41.1 ; Forgetfulness R68.89 ; Anxiety F41.9 ; Essential (primary) hypertension I10 ; Headache R51 ; Bronchitis J40 ; Mild acid reflux K21.9 and Cough R05 [place] [address] [place] [address]- 5776 Mar, Angioedema, initial encounter T78.3XXA [facility] [address] [place] [id number] [place] [address] 82621 -8661 Mar, Acute upper respiratory infection, unspecified J06.9 and Cough R05 [facility] [address] [place] [id number] [place] [address] 01589- 6051 Mar, Generalized anxiety disorder F41.1 [facility] [address] [place] [id number] [place] [address] 52075- 4645 Feb, Generalized anxiety disorder F41.1 [facility] [address] [place] [id number] [place] [address] 08969- 1189 Jan, Generalized anxiety disorder F41.1 [facility] [address] [place] [id number] [place] [address] 92129- 3566 Dec, [facility] [address] [place] [id number] [place] [address] 52544- 3982 Dec, Generalized anxiety disorder F41.1 [facility] [address] [place] [id number] [place] [address] 52069- 1361 Nov, Generalized anxiety disorder F41.1 [facility] [address] [place] [id number] [place] [address] 88656- 7334 Nov, Mild acid reflux K21.9 [facility] [address] [place] [id number] [place] [address] 91436- 3826 Oct, Generalized anxiety disorder F41.1 [facility] [address] [place] [id number] [place] [address] 54946- 1644 Oct, Cellulitis of right upper extremity L03.113 [facility] [address] [place] [id number] [place] [address] 52672- 1806 September, [facility] [address] [place] [id number] [place] [address] 59190- 0953 September, Generalized anxiety disorder F41.1 [facility] [address] [address]- 5131 Aug, Generalized anxiety disorder F41.1 [facility] [address] [address]- 8208 Aug, Medicare annual wellness visit, initial Z00.00 [facility] [address] [address]- 9715 Jul, Generalized anxiety disorder F41.1 [facility] [address] [place] [id number] [place] [address] 99355- 2493 Jul, [facility] [address] [place] [id number] [place] [address] 36480- 1144 Jul, [facility] [address] [place] [id number] [place] [address] 85534- 6605 Jun, Generalized anxiety disorder F41.1 [facility] [address] [place] [id number] [place] [address] 78314- 5243 May, Bronchitis J40 and Generalized anxiety disorder F41.1 [facility] [address] [place] [address] 50877- 5227 May, Generalized anxiety disorder F41.1 [facility] [address] [address]- 6252 May, [facility] [address] [place] [address] 05418- 2010 Apr, Generalized anxiety disorder F41.1 [facility] [address] [address]- 8229 Apr, Essential (primary) hypertension I10 [facility] [address] [place] [id number] [place] [address] 78185- 4418 Apr, Generalized anxiety disorder F41.1 [facility] [address] [address]- 2221 Mar, Generalized anxiety disorder F41.1 [facility] [address] [id number] [address]- 8856 Feb, Generalized anxiety disorder F41.1 [facility] [address] [place] [id number] [place] [address] 72501- 5943 Jan, Generalized anxiety disorder F41.1 [facility] [address] [place] [id number] [place] [address] 45909- 9090 Dec, Generalized anxiety disorder F41.1 [facility] [address] [place] [id number] [place] [address] 27570- 0636 Nov, [facility] [address] [place] [id number] [place] [address] 31411- 7920 Oct, Generalized anxiety disorder F41.1 [place] [address] [place] [id number] [place] [address] 52409- 9294 Oct, Forgetfulness R68.89 [place] [address] [place] [id number] [place] [address] 84177- 1665 Oct, Generalized anxiety disorder F41.1 and Personality disorder , unspecified F60.9 [place] [address] [place] [id number] [place] [address] 19187- 0712 September, Mild acid reflux K21.9 [place] [address] [place] [id number] [place] [address] 45697- 0933 September, Generalized anxiety disorder F41.1 [place] [address] [place] [id number] [place] [address] 04037- 6798 Aug, Generalized anxiety disorder F41.1 and Personality disorder , unspecified F60.9 [place] [address] [place] [id number] [place] [address] 74976- 3700 Aug, Forgetfulness R68.89 and Generalized anxiety disorder F41.1 [place] [address] [place] [id number] [place] [address] 13542- 3296 Aug, Unspecified symptoms and signs involving cognitive functions and awareness R41.9 and Generalized anxiety disorder F41.1 [place] [address] [place] [address] [place] [address]- 6119 Aug, [facility] [address] [place] [id number] [place] [address] 36639- 0116 Aug, Screening, lipid Z13.220 and Forgetfulness R68.89 [facility] [address] [place] [id number] [place] [address] 27155- 7892 Aug, Headache R51 [place] [address] 81349- 9182 30 Jul, 2015 Acute upper respiratory infection, unspecified J06.9 and Other viral agents as the cause of diseases classified elsewhere B97.89 [place] [address] [place] [id number] [place] [address] 38117- 4577 24 Jul, 2015 [place] [address] [place] [id number] [place] [address] 45974- 0728 16 Jul, 2015 [place] [address] [place] [id number] [place] [address] 58681- 7832 14 Jul, 2015 Headache R51 and Anxiety F41.9 [place] [address] [place] [id number] [place] [address] 06648- 6846 Jul, Generalized anxiety disorder F41.1 and Personality disorder , unspecified F60.9 [place] [address] [place] [id number] [place] [address] 59857- 6754 Jun, [place] [address] [place] [id number] [place] [address] 36688- 1342 Jun, Post traumatic stress disorder (PTSD) F43.10 and Personality disorder, unspecified F60.9 [place] [address] [place] [id number] [place] [address] 67023- 8603 May, Overweight E66.3 [facility] [address] [place] [id number] [place] [address] 41316- 1324 May, [place] [address] [place] [id number] [place] [address] 57502- 6088 May, Post traumatic stress disorder (PTSD) F43.10 and Personality disorder, unspecified F60.9 [facility] [address] [address]- 0546 May, [facility] [id number] [address]- 7056 Apr, [facility] [address] [address] [id number] [place] [address] 65054- 6306 Apr, [facility] [address] [id number] [place] [address] 64947 2546 Apr, [facility] [address] [id number] [place] [address] 29301- 6006 Apr, [facility] [address] [place] [id number] [place] [address] 76843- 9799 Mar, Post traumatic stress disorder (PTSD) F43.10 [facility] [address] [address] [id number] [place] [address] 04343 2546 Mar, [facility] [address] [place] [address] 93623- 7314 Mar, Post traumatic stress disorder (PTSD) F43.10 [facility] [address], [place] [address]- 7196 Feb, Anxiety F41.9 [facility] [id number] [address] 2546 Feb, [facility] [address], [place] [address] 2546 Feb, [facility] [address], [place] [address]- 8106 Feb, Post traumatic stress disorder (PTSD) F43.10 [facility] [address], [place] [address] 2546 Jan, [facility] [address] [place] [id number] [place] [address] 41215- 7778 Jan, Posttraumatic stress disorder 309.81 [facility] [address] [place] [address] 40369- 7404 Jan, Allergic rhinitis 477.9 ; Upper respiratory infection 465.9 and Depression 311 [facility] [address] [id number] [place] [address] 57606- 2582 Jan, Depressive disorder, not elsewhere classified 311 and Anxiety state, unspecified 300.00 [facility] [address] [id number] [place] [address] 87555- 0766 Jan, [facility] [id number] [place] [address] 37636- 5870 Dec, [facility] [address] [id number] [place] [address] 27394- 7108 Dec, [facility] [id number] [place] [address] 06076- 1911 Dec, [facility] [id number] [place] [address] 28946- 7852 Nov, [facility] [id number] [place] [address] 54246- 5714 Nov, [facility] [address] [id number] [place] [address] 72593- 4551 Oct, [facility] [id number] [place] [address] 06372- 7589 Oct, Anxiety 300.00 ; Insomnia 780.52 ; Family history of diabetes mellitus V18.0 ; Hypertension 401.9 and Onychomycosis 110.1 [facility] [id number] [place] [address] 32679- 3770 September, [facility] [id number] [place] [address] 66822- 1083 Aug, [facility] [id number] [place] [address] 81841- 1201 Aug, [facility] [id number], [place] [address]- 0707 Jul, [facility] [id number], [place] [address]- 9046 Jul, [facility] [id number], [place] [address]- 4395 Jun, [facility] [id number], [place] [address]- 9956 Jun, [facility] [address], [place] [address]- 8578 May, [facility] [id number], [place] [address]- 4241 May, [facility] [address], [place] [address]- 1887 May, [facility] [id number], [place] [address]- 1440 May, IMMUNIZATIONS No Known Immunizations SOCIAL HISTORY Never Assessed REASON FOR VISIT Refill request PLAN OF CARE VITAL SIGNS MEDICATIONS Unknown [...]
--- OUTSIDE RECORDS SUMMARY | 2018-01-12 19:05 | XMS REPORT ---
Author Author SURJIT DAS Organization [facility] Address [address] [place] [address] Care Team Providers [employer] Name Role Phone SURJIT DAS Unavailable PROBLEMS Type Condition ICD9-CM Code TVV47-GP Code Onset Dates Condition Status SNOMED Code Problem Generalized anxiety disorder F41.1 Active 14385431 Problem Family history of diabetes mellitus Z83.3 Active 532950871 Problem Chronic post-traumatic headache G44.329 Active 180590866 Problem Mixed hyperlipidemia E78.2 Active 775951621 Problem Personality disorder, unspecified F60.9 Active 91504647 Problem Gastroesophageal reflux disease without esophagitis K21.9 Active 321421107 Problem Anxiety F41.9 Active 72698390 Problem Mild acid reflux K21.9 Active 865618297 Problem Unspecified symptoms and signs involving cognitive functions and awareness R41.9 Active 295503944 Problem Post traumatic stress disorder (PTSD) F43.10 Active 82223289 Problem Essential (primary) hypertension I10 Active 70591841 ALLERGIES No Information ENCOUNTERS Encounter Location Date Diagnosis [place] [id number] [place] [address] 51899- 4180 Dec, [place] [address] [place] [id number] [place] [address] 56503- 2931 Nov, Post traumatic stress disorder (PTSD) F43.10 [place] [address] [place] [id number] [place] [address] 15929- 0276 Nov, [address] [address]- 7207 Oct, Medicare annual wellness visit, initial Z00.00 ; Post traumatic stress disorder (PTSD) F43.10 ; Personality disorder, unspecified F60.9 ; Essential (primary) hypertension I10 ; Mixed hyperlipidemia E78.2 ; Anxiety F41.9 and Gastroesophageal reflux disease without esophagitis K21.9 [facility] [address] [place] [id number] [place] [address] 33275- 8472 Oct, [facility] [address] [place] [id number] [place] [address] 58889- 0876 Oct, Post traumatic stress disorder (PTSD) F43.10 [place] [address] 33063- 6357 September, [facility] [address] [place] [id number] [place] [address] 47561- 0652 September, Post traumatic stress disorder (PTSD) F43.10 [place] [address] 40008- 7892 Aug, Mixed hyperlipidemia E78.2 [place] [address] [place] [id number] [place] [address] 65237- 8910 Aug, Keloid of skin L91.0 and Impacted cerumen of both ears H61.23 [place] [address] [place] [id number] [place] [address] 92596- 8922 Aug, Post traumatic stress disorder (PTSD) F43.10 [place] [address] [place] [id number] [place] [address] 01624- 8959 Jul, [place] [address] [place] [id number] [place] [address] 40400- 4808 Jul, Mixed hyperlipidemia E78.2 ; Mild acid reflux K21.9 and Essential (primary) hypertension I10 [facility] [address] [place] [id number] [place] [address] 83713- 9347 Jul, [facility] [address] [place] [id number] [place] [address] 17081- 2540 Jul, Post traumatic stress disorder (PTSD) F43.10 [place] [address] [place] [id number] [place] [address] 27728- 0746 Jul, Mixed hyperlipidemia E78.2 [place] [address] 40357- 9892 Jul, Essential (primary) hypertension I10 [place] [address] 07593- 1478 Jun, Insect bite, subsequent encounter W57.XXXD ; Post traumatic stress disorder (PTSD) F43.10 ; Essential (primary) hypertension I10 and Localized edema R60.0 [place] [address] 44900- 8350 Jun, Anxiety F41.9 [place] [address] 37409- 5128 Jun, Insect bite, initial encounter W57.XXXA ; Anxiety F41.9 ; Bronchitis J40 ; Headache R51 and Essential (primary) hypertension I10 [place] [address] 82788- 9004 May, Anxiety F41.9 [place] [address] 50932- 4443 May, [place] [address] 58103- 2224 Apr, Anxiety F41.9 [place] [address] 60765- 8471 Apr, [place] [address] 45513- 0174 Mar, Anxiety F41.9 [place] [address] 26367- 3371 Mar, Angioedema, subsequent encounter T78.3XXD ; Post traumatic stress disorder (PTSD) F43.10 ; Generalized anxiety disorder F41.1 ; Forgetfulness R68.89 ; Anxiety F41.9 ; Essential (primary) hypertension I10 ; Headache R51 ; Bronchitis J40 ; Mild acid reflux K21.9 and Cough R05 [place] [address] [place] [address]- 0119 Mar, Angioedema, initial encounter T78.3XXA [facility] [address] [place] [id number] [place] [address] 91394 -1242 Mar, Acute upper respiratory infection, unspecified J06.9 and Cough R05 [facility] [address] [place] [id number] [place] [address] 53413- 0739 Mar, Generalized anxiety disorder F41.1 [facility] [address] [place] [id number] [place] [address] 42935- 8238 Feb, Generalized anxiety disorder F41.1 [facility] [address] [place] [id number] [place] [address] 26068- 1716 Jan, Generalized anxiety disorder F41.1 [facility] [address] [place] [id number] [place] [address] 70831- 6295 Dec, [facility] [address] [place] [id number] [place] [address] 74760- 2766 Dec, Generalized anxiety disorder F41.1 [facility] [address] [place] [id number] [place] [address] 55744- 8742 Nov, Generalized anxiety disorder F41.1 [facility] [address] [place] [id number] [place] [address] 90341- 0725 Nov, Mild acid reflux K21.9 [facility] [address] [place] [id number] [place] [address] 40294- 5556 Oct, Generalized anxiety disorder F41.1 [facility] [address] [place] [id number] [place] [address] 23294- 7533 Oct, Cellulitis of right upper extremity L03.113 [facility] [address] [place] [id number] [place] [address] 44330- 3311 September, [facility] [address] [place] [id number] [place] [address] 52126- 2914 September, Generalized anxiety disorder F41.1 [facility] [address] [address]- 0852 Aug, Generalized anxiety disorder F41.1 [facility] [address] [address]- 3869 Aug, Medicare annual wellness visit, initial Z00.00 [facility] [address] [address]- 1380 Jul, Generalized anxiety disorder F41.1 [facility] [address] [place] [id number] [place] [address] 26915- 3372 Jul, [facility] [address] [place] [id number] [place] [address] 35823- 9587 Jul, [facility] [address] [place] [id number] [place] [address] 72343- 7365 Jun, Generalized anxiety disorder F41.1 [facility] [address] [place] [id number] [place] [address] 61258- 5158 May, Bronchitis J40 and Generalized anxiety disorder F41.1 [facility] [id number] [place] [address] 77838- 1008 May, Generalized anxiety disorder F41.1 [facility] [address] [address]- 2734 May, [facility] [id number] [place] [address] 16098- 1717 Apr, Generalized anxiety disorder F41.1 [facility] [address] [address]- 2019 Apr, Essential (primary) hypertension I10 [facility] [address] [place] [id number] [place] [address] 86026- 5505 Apr, Generalized anxiety disorder F41.1 [facility] [address] [address]- 8543 Mar, Generalized anxiety disorder F41.1 [facility] [address] [place] [id number] [address]- 8958 Feb, Generalized anxiety disorder F41.1 [facility] [address] [place] [id number] [place] [address] 92390- 1370 Jan, Generalized anxiety disorder F41.1 [facility] [address] [place] [id number] [place] [address] 91916- 9930 Dec, Generalized anxiety disorder F41.1 [facility] [address] [place] [id number] [place] [address] 88645- 2053 Nov, [facility] [address] [place] [id number] [place] [address] 80486- 7484 Oct, Generalized anxiety disorder F41.1 [place] [address] [place] [id number] [place] [address] 69068- 1454 Oct, Forgetfulness R68.89 [place] [address] [place] [id number] [place] [address] 42028- 5720 Oct, Generalized anxiety disorder F41.1 and Personality disorder , unspecified F60.9 [place] [address] [place] [id number] [place] [address] 54321- 2722 September, Mild acid reflux K21.9 [place] [address] [place] [id number] [place] [address] 94187- 3548 September, Generalized anxiety disorder F41.1 [place] [address] [place] [id number] [place] [address] 76132- 6048 Aug, Generalized anxiety disorder F41.1 and Personality disorder , unspecified F60.9 [place] [address] [place] [id number] [place] [address] 95052- 0766 Aug, Forgetfulness R68.89 and Generalized anxiety disorder F41.1 [place] [address] [place] [id number] [place] [address] 75362- 0252 Aug, Generalized anxiety disorder F41.1 and Unspecified symptoms and signs involving cognitive functions and awareness R41.9 [place] [address] [place] [address] [place] [address]- 1101 Aug, [facility] [address] [place] [id number] [place] [address] 62015- 1174 Aug, Screening, lipid Z13.220 and Forgetfulness R68.89 [facility] [address] [place] [id number] [place] [address] 36146- 2114 Aug, Headache R51 [place] [address] 42705- 6997 30 Jul, 2015 Acute upper respiratory infection, unspecified J06.9 and Other viral agents as the cause of diseases classified elsewhere B97.89 [place] [address] [place] [id number] [place] [address] 28083- 0672 24 Jul, 2015 [place] [address] [place] [id number] [place] [address] 34320- 0999 16 Jul, 2015 [place] [address] [place] [id number] [place] [address] 58683- 7490 14 Jul, 2015 Headache R51 and Anxiety F41.9 [place] [address] [place] [id number] [place] [address] 88929- 8135 Jul, Generalized anxiety disorder F41.1 and Personality disorder , unspecified F60.9 [place] [address] [place] [id number] [place] [address] 69955- 1182 Jun, [place] [address] [place] [id number] [place] [address] 89828- 1609 Jun, Post traumatic stress disorder (PTSD) F43.10 and Personality disorder, unspecified F60.9 [place] [address] [place] [id number] [place] [address] 31097- 9080 May, Overweight E66.3 [facility] [address] [place] [id number] [place] [address] 53207- 6242 May, [place] [address] [place] [id number] [place] [address] 88747- 0047 May, Post traumatic stress disorder (PTSD) F43.10 and Personality disorder, unspecified F60.9 [facility] [address], [place] [address]- 1376 May, [facility] [address] [place] [id number] [address]- 3146 Apr, [facility] [address] [place] [id number] [place] [address] 89940- 4916 Apr, [facility] [address] [place] [id number] [place] [address] 93922 2546 Apr, [facility] [address] [place] [id number] [place] [address] 65445- 2206 Apr, [facility] [address] [place] [id number] [place] [address] 33894- 6836 Mar, Post traumatic stress disorder (PTSD) F43.10 [facility] [address] [place] [id number] [place] [address] 06078 2546 Mar, [facility] [id number] [place] [address] 78582- 4786 Mar, Post traumatic stress disorder (PTSD) F43.10 [facility] [address], [place] [address]- 4906 Feb, Anxiety F41.9 [facility] [address] [place] [id number] [address] 2546 Feb, [facility] [address], [place] [address] 2546 Feb, [facility] [address], [place] [address]- 5636 Feb, Post traumatic stress disorder (PTSD) F43.10 [facility] [address] [address] 2546 Jan, [facility] [address] [place] [id number] [place] [address] 53844- 5163 Jan, Posttraumatic stress disorder 309.81 [facility] [address] [place] [address] 17159- 9978 Jan, Allergic rhinitis 477.9 ; Upper respiratory infection 465.9 and Depression 311 [facility] [address] [place] [id number] [place] [address] 97675- 4507 Jan, Depressive disorder, not elsewhere classified 311 and Anxiety state, unspecified 300.00 [facility] [address] [place] [id number] [place] [address] 82974- 4759 Jan, [facility] [address] [place] [id number] [place] [address] 27616- 8785 Dec, [facility] [address] [place] [id number] [place] [address] 38098- 5937 Dec, [facility] [address] [place] [id number] [place] [address] 34641- 7439 Dec, [facility] [address] [place] [id number] [place] [address] 39334- 1996 Nov, [facility] [address] [place] [id number] [place] [address] 03181- 3004 Nov, [facility] [address] [place] [id number] [place] [address] 47508- 4507 Oct, [facility] [address] [place] [id number] [place] [address] 80784- 5923 Oct, Anxiety 300.00 ; Insomnia 780.52 ; Family history of diabetes mellitus V18.0 ; Hypertension 401.9 and Onychomycosis 110.1 [facility] [address] [place] [id number] [place] [address] 40969- 4087 September, [facility] [address] [place] [id number] [place] [address] 48494- 6982 Aug, [facility] [address] [place] [id number] [place] [address] 77034- 6379 Aug, [facility] [address] [facility] [id number] 0426 Jul, [facility] [address] [facility] [id number] [address]- 1898 Jul, [facility] [address] [facility] [id number], [place] [address]- 5319 Jun, [facility] [id number] [address]- 4245 Jun, [facility] [id number] 3452 May, [facility] [id number] [address]- 9363 May, [facility] [address], [place] [address]- 8551 May, [facility] [address] [id number] [address]- 0385 May, IMMUNIZATIONS No Known Immunizations SOCIAL HISTORY Never Assessed REASON FOR VISIT Refill request PLAN OF CARE VITAL SIGNS MEDICATIONS Medication Instructions Dosage Frequency Start Date End Date Duration Status Omeprazole 20 mg Orally Once a day 1 capsule 24h 90 days Active Lipitor 20 MG Orally Once a day 1 tablet 24h Jul, 90 days Active Triamterene-HCTZ 75-50 MG Orally Once a day 1 tablet 24h 90 days Active RESULTS No Results PROCEDURES No [...]
--- OUTSIDE RECORDS SUMMARY | 2018-01-12 19:05 | XMS REPORT ---
Author Author SURJIT DAS Organization [facility] Address [address] [place] [address] Care Team Providers Care Deputy Program Manager Name Role Phone SURJIT DAS Unavailable PROBLEMS Type Condition ICD9-CM Code [id number] Code Onset Dates Condition Status SNOMED Code Problem Generalized anxiety disorder F41.1 Active 90737390 Problem Family history of diabetes mellitus Z83.3 Active 170501459 Problem Chronic post-traumatic headache G44.329 Active 339101794 Problem Mixed hyperlipidemia E78.2 Active 921812810 Problem Personality disorder, unspecified F60.9 Active 99483268 Problem Gastroesophageal reflux disease without esophagitis K21.9 Active 313904679 Problem Anxiety F41.9 Active 74594404 Problem Mild acid reflux K21.9 Active 654084232 Problem Unspecified symptoms and signs involving cognitive functions and awareness R41.9 Active 508976451 Problem Post traumatic stress disorder (PTSD) F43.10 Active 34624071 Problem Essential (primary) hypertension I10 Active 13638264 ALLERGIES No Information ENCOUNTERS Encounter Location Date Diagnosis [place] [id number] [place] [address] 20549- 1893 Dec, [place] [address] [place] [id number] [place] [address] 92870- 8039 Nov, Post traumatic stress disorder (PTSD) F43.10 [place] [address] [place] [id number] [place] [address] 01274- 5408 Nov, [address] 06681- 2337 Oct, Medicare annual wellness visit, initial Z00.00 ; Post traumatic stress disorder (PTSD) F43.10 ; Personality disorder, unspecified F60.9 ; Essential (primary) hypertension I10 ; Mixed hyperlipidemia E78.2 ; Anxiety F41.9 and Gastroesophageal reflux disease without esophagitis K21.9 [facility] [address] [place] [id number] [place] [address] 18566- 3053 Oct, [facility] [address] [place] [id number] [place] [address] 10657- 5456 Oct, Post traumatic stress disorder (PTSD) F43.10 [place] [address] 38478- 6163 September, [facility] [address] [place] [id number] [place] [address] 21258- 1751 September, Post traumatic stress disorder (PTSD) F43.10 [place] [address] 41476- 0520 Aug, Mixed hyperlipidemia E78.2 [place] [address] [place] [id number] [place] [address] 82487- 6705 Aug, Keloid of skin L91.0 and Impacted cerumen of both ears H61.23 [place] [address] [place] [id number] [place] [address] 22938- 3624 Aug, Post traumatic stress disorder (PTSD) F43.10 [place] [address] [place] [id number] [place] [address] 96533- 5147 Jul, [place] [address] [place] [id number] [place] [address] 33606- 1675 Jul, Mixed hyperlipidemia E78.2 ; Mild acid reflux K21.9 and Essential (primary) hypertension I10 [facility] [address] [place] [id number] [place] [address] 93560- 0467 Jul, [facility] [address] [place] [id number] [place] [address] 00421- 2544 Jul, Post traumatic stress disorder (PTSD) F43.10 [place] [address] [place] [id number] [place] [address] 08305- 1303 Jul, Mixed hyperlipidemia E78.2 [place] [address] 25432- 6710 Jul, Essential (primary) hypertension I10 [place] [address] 25300- 2504 Jun, Insect bite, subsequent encounter W57.XXXD ; Post traumatic stress disorder (PTSD) F43.10 ; Essential (primary) hypertension I10 and Localized edema R60.0 [place] [address] 60537- 4675 Jun, Anxiety F41.9 [place] [address] 16621- 4710 Jun, Insect bite, initial encounter W57.XXXA ; Anxiety F41.9 ; Bronchitis J40 ; Headache R51 and Essential (primary) hypertension I10 [place] [address] 59411- 8926 May, Anxiety F41.9 [place] [address] 20136- 4613 May, [place] [address] 18244- 9747 Apr, Anxiety F41.9 [place] [address] 81767- 8307 Apr, [place] [address] 95796- 6723 Mar, Anxiety F41.9 [place] [address] 57098- 3888 Mar, Angioedema, subsequent encounter T78.3XXD ; Post traumatic stress disorder (PTSD) F43.10 ; Generalized anxiety disorder F41.1 ; Forgetfulness R68.89 ; Anxiety F41.9 ; Essential (primary) hypertension I10 ; Headache R51 ; Bronchitis J40 ; Mild acid reflux K21.9 and Cough R05 [place] [address] [place] [address]- 6321 Mar, Angioedema, initial encounter T78.3XXA [facility] [address] [place] [id number] [place] [address] 42443 -0803 Mar, Acute upper respiratory infection, unspecified J06.9 and Cough R05 [facility] [address] [place] [id number] [place] [address] 73919- 6250 Mar, Generalized anxiety disorder F41.1 [facility] [address] [place] [id number] [place] [address] 26436- 3469 Feb, Generalized anxiety disorder F41.1 [facility] [address] [place] [id number] [place] [address] 42204- 4020 Jan, Generalized anxiety disorder F41.1 [facility] [address] [place] [id number] [place] [address] 76012- 4065 Dec, [facility] [address] [place] [id number] [place] [address] 27331- 8367 Dec, Generalized anxiety disorder F41.1 [facility] [address] [place] [id number] [place] [address] 00337- 4139 Nov, Generalized anxiety disorder F41.1 [facility] [address] [place] [id number] [place] [address] 72733- 6133 Nov, Mild acid reflux K21.9 [facility] [address] [place] [id number] [place] [address] 08330- 2067 Oct, Generalized anxiety disorder F41.1 [facility] [address] [place] [id number] [place] [address] 61042- 7215 Oct, Cellulitis of right upper extremity L03.113 [facility] [address] [place] [id number] [place] [address] 79152- 9343 September, [facility] [address] [place] [id number] [place] [address] 87238- 5604 September, Generalized anxiety disorder F41.1 [facility] [address] [address] 1978 Aug, Generalized anxiety disorder F41.1 [facility] [address] [address]- 6078 Aug, Medicare annual wellness visit, initial Z00.00 [facility] [address] [address]- 1083 Jul, Generalized anxiety disorder F41.1 [facility] [address] [place] [id number] [place] [address] 82619- 8956 Jul, [facility] [address] [place] [id number] [place] [address] 20542- 9715 Jul, [facility] [address] [place] [id number] [place] [address] 79037- 8908 Jun, Generalized anxiety disorder F41.1 [facility] [address] [place] [id number] [place] [address] 61070- 8446 May, Bronchitis J40 and Generalized anxiety disorder F41.1 [facility] [id number] [place] [address] 04565- 7028 May, Generalized anxiety disorder F41.1 [facility] [address] [address]- 8868 May, [facility] [id number] [place] [address] 98368- 3594 Apr, Generalized anxiety disorder F41.1 [facility] [address] [address]- 9983 Apr, Essential (primary) hypertension I10 [facility] [address] [place] [id number] [place] [address] 10633- 4115 Apr, Generalized anxiety disorder F41.1 [facility] [address] [address]- 6145 Mar, Generalized anxiety disorder F41.1 [facility] [address] [id number] [address]- 9055 Feb, Generalized anxiety disorder F41.1 [facility] [address] [place] [id number] [place] [address] 35928- 3731 Jan, Generalized anxiety disorder F41.1 [facility] [address] [place] [id number] [place] [address] 36576- 4635 Dec, Generalized anxiety disorder F41.1 [facility] [address] [place] [id number] [place] [address] 73740- 6145 Nov, [facility] [address] [place] [id number] [place] [address] 74893- 4004 Oct, Generalized anxiety disorder F41.1 [place] [address] [place] [id number] [place] [address] 40070- 1920 Oct, Forgetfulness R68.89 [place] [address] [place] [id number] [place] [address] 88934- 1991 Oct, Generalized anxiety disorder F41.1 and Personality disorder , unspecified F60.9 [place] [address] [place] [id number] [place] [address] 40268- 1288 September, Mild acid reflux K21.9 [place] [address] [place] [id number] [place] [address] 35846- 9911 September, Generalized anxiety disorder F41.1 [place] [address] [place] [id number] [place] [address] 52866- 7121 Aug, Generalized anxiety disorder F41.1 and Personality disorder , unspecified F60.9 [place] [address] [place] [id number] [place] [address] 91671- 2908 Aug, Forgetfulness R68.89 and Generalized anxiety disorder F41.1 [place] [address] [place] [id number] [place] [address] 29076- 4680 Aug, Unspecified symptoms and signs involving cognitive functions and awareness R41.9 and Generalized anxiety disorder F41.1 [place] [address] [place] [address] [place] [address]- 1364 Aug, [facility] [address] [place] [id number] [place] [address] 87806- 0720 Aug, Screening, lipid Z13.220 and Forgetfulness R68.89 [facility] [address] [place] [id number] [place] [address] 68392- 4237 Aug, Headache R51 [place] [address] 88374- 6613 30 Jul, 2015 Acute upper respiratory infection, unspecified J06.9 and Other viral agents as the cause of diseases classified elsewhere B97.89 [place] [address] [place] [id number] [place] [address] 68901- 9456 24 Jul, 2015 [place] [address] [place] [id number] [place] [address] 92765- 3677 16 Jul, 2015 [place] [address] [place] [id number] [place] [address] 54030- 6718 14 Jul, 2015 Headache R51 and Anxiety F41.9 [place] [address] [place] [id number] [place] [address] 74763- 0855 Jul, Generalized anxiety disorder F41.1 and Personality disorder , unspecified F60.9 [place] [address] [place] [id number] [place] [address] 76957- 8929 Jun, [place] [address] [place] [id number] [place] [address] 64185- 0869 Jun, Post traumatic stress disorder (PTSD) F43.10 and Personality disorder, unspecified F60.9 [place] [address] [place] [id number] [place] [address] 48551- 7487 May, Overweight E66.3 [facility] [address] [place] [id number] [place] [address] 96507- 5545 May, [place] [address] [place] [id number] [place] [address] 14381- 1738 May, Post traumatic stress disorder (PTSD) F43.10 and Personality disorder, unspecified F60.9 [facility] [address] [address]- 8876 May, [facility] [address] [id number] [address]- 2476 Apr, [facility] [address] [place] [address] [id number] [place] [address] 59347- 8616 Apr, [facility] [address] [place] [id number] [place] [address] 52926 2546 Apr, [facility] [address] [place] [id number] [place] [address] 08479- 0556 Apr, [facility] [address] [place] [id number] [place] [address] 31312- 5137 Mar, Post traumatic stress disorder (PTSD) F43.10 [facility] [address] [place] [id number] [place] [address] 77906 2546 Mar, [facility] [id number] [place] [address] 71927- 8098 Mar, Post traumatic stress disorder (PTSD) F43.10 [facility] [address] [address]- 2656 Feb, Anxiety F41.9 [facility] [address] [id number] [address] 2546 Feb, [facility] [address] [address] 2546 Feb, [facility] [address], [place] [address]- 6456 Feb, Post traumatic stress disorder (PTSD) F43.10 [facility] [address] [address] 2546 Jan, [facility] [address] [place] [id number] [place] [address] 85329- 7709 Jan, Posttraumatic stress disorder 309.81 [facility] [id number] [place] [address] 56965- 2103 Jan, Allergic rhinitis 477.9 ; Upper respiratory infection 465.9 and Depression 311 [facility] [address] [place] [id number] [place] [address] 03798- 8382 Jan, Depressive disorder, not elsewhere classified 311 and Anxiety state, unspecified 300.00 [facility] [address] [place] [id number] [place] [address] 14454- 9908 Jan, [facility] [address] [place] [id number] [place] [address] 63485- 8764 Dec, [facility] [address] [place] [id number] [place] [address] 86231- 1916 Dec, [facility] [address] [place] [id number] [place] [address] 44601- 5167 Dec, [facility] [id number] [place] [address] 10986- 1592 Nov, [facility] [id number] [place] [address] 67634- 8953 Nov, [facility] [address] [id number] [place] [address] 75868- 6122 Oct, [facility] [address] [id number] [place] [address] 61223- 4932 Oct, Anxiety 300.00 ; Insomnia 780.52 ; Family history of diabetes mellitus V18.0 ; Hypertension 401.9 and Onychomycosis 110.1 [facility] [address] [place] [id number] [place] [address] 98659- 5352 September, [facility] [address] [id number] [place] [address] 38956- 1735 Aug, [facility] [id number] [place] [address] 84023- 9605 Aug, [facility] [id number] [address]- 1883 Jul, [facility] [id number] [address]- 8938 Jul, [facility] [address] [place] [id number] [address]- 4145 Jun, [facility] [id number] [address]- 8512 Jun, [facility] [address] [id number] 2097 May, [facility] [address] [place] [id number] [address]- 4706 May, [facility] [address] [address]- 5230 May, [facility] [address] [place] [id number] [address]- 2839 May, IMMUNIZATIONS No Known Immunizations SOCIAL HISTORY Never Assessed REASON FOR VISIT Controlled Med Refill 08/10/17 PLAN OF CARE VITAL SIGNS MEDICATIONS Medication [...]
--- OUTSIDE RECORDS SUMMARY | 2018-01-12 19:06 | XMS REPORT ---
Author Author SURJIT DAS Organization [facility] Address [address] [place] [address] Care Team Providers Care Skills Trainer Name Role Phone SURJIT DAS Unavailable PROBLEMS Type Condition ICD9-CM Code [id number] Code Onset Dates Condition Status SNOMED Code Problem Generalized anxiety disorder F41.1 Active 18622854 Problem Family history of diabetes mellitus Z83.3 Active 192428176 Problem Chronic post-traumatic headache G44.329 Active 038208100 Problem Mixed hyperlipidemia E78.2 Active 065100713 Problem Personality disorder, unspecified F60.9 Active 97920018 Problem Gastroesophageal reflux disease without esophagitis K21.9 Active 781356955 Problem Anxiety F41.9 Active 44737211 Problem Mild acid reflux K21.9 Active 829111973 Problem Unspecified symptoms and signs involving cognitive functions and awareness R41.9 Active 168169207 Problem Post traumatic stress disorder (PTSD) F43.10 Active 43696066 Problem Essential (primary) hypertension I10 Active 85350654 ALLERGIES Substance Reaction Event Type Date Status Prefers no strong narcotics Unknown Non Drug Allergy Jun, Active ENCOUNTERS Encounter Location Date Diagnosis [place] [id number], [place] [address] Dec, [place] [address], [place] [address] Nov, [place] [id number], [place] [address] Oct, Medicare annual wellness visit, initial Z00.00 ; Post traumatic stress disorder (PTSD) F43.10 ; Personality disorder, unspecified F60.9 ; Essential (primary) hypertension I10 ; Mixed hyperlipidemia E78.2 ; Anxiety F41.9 and Gastroesophageal reflux disease without esophagitis K21.9 [place] [id number] [place] [address] 34563- 4188 Oct, [facility] [id number] [place] [address] 34384- 2267 Oct, Post traumatic stress disorder (PTSD) F43.10 [facility] [id number] [place] [address] 44966- 8014 September, [facility] [address] [address]- [address] September, Post traumatic stress disorder (PTSD) F43.10 [facility] [id number] [place] [address] 76127- 1666 Aug, Mixed hyperlipidemia E78.2 [facility] [id number] [place] [address] 88556- 8151 Aug, Keloid of skin L91.0 and Impacted cerumen of both ears H61.23 [facility] [id number] [place] [address] 88687- 2443 Aug, Post traumatic stress disorder (PTSD) F43.10 [facility] [id number] [place] [address] 86979- 1774 Jul, [facility] [id number] [place] [address] 33572- 7064 Jul, Mixed hyperlipidemia E78.2 ; Mild acid reflux K21.9 and Essential (primary) hypertension I10 [facility] [id number] [place] [address] 46793- 9504 Jul, [facility] [id number] [place] [address] 36553- 5672 Jul, Post traumatic stress disorder (PTSD) F43.10 [facility] [id number] [place] [address] 43637- 1300 Jul, Mixed hyperlipidemia E78.2 [facility] [id number] [place] [address] 05361- 4216 Jul, Essential (primary) hypertension I10 [place] [address] [address]- 4366 Jun, Insect bite, subsequent encounter W57.XXXD ; Post traumatic stress disorder (PTSD) F43.10 ; Essential (primary) hypertension I10 and Localized edema R60.0 [place] [address] 86870- 6941 Jun, Anxiety F41.9 [place] [address] 15934- 2893 Jun, Insect bite, initial encounter W57.XXXA ; Anxiety F41.9 ; Bronchitis J40 ; Headache R51 and Essential (primary) hypertension I10 [place] [address] 99849- 0491 May, Anxiety F41.9 [place] [address] 19803- 9513 May, [place] [address] 20152- 1873 Apr, Anxiety F41.9 [place] [address] 92734- 9836 Apr, [place] [address] 68719- 8393 Mar, Anxiety F41.9 [place] [address] 94562- 8396 Mar, Angioedema, subsequent encounter T78.3XXD ; Post traumatic stress disorder (PTSD) F43.10 ; Generalized anxiety disorder F41.1 ; Forgetfulness R68.89 ; Anxiety F41.9 ; Essential (primary) hypertension I10 ; Headache R51 ; Bronchitis J40 ; Mild acid reflux K21.9 and Cough R05 [place] [id number] [place] [address] 47627- 0970 Mar, Angioedema, initial encounter T78.3XXA [facility] [address], [place] [address] Mar, Acute upper respiratory infection, unspecified J06.[address] [facility] [id number] [place] [address] 09697- 1590 Mar, Generalized anxiety disorder F41.1 [facility] [id number] [place] [address] 28017- 5783 Feb, Generalized anxiety disorder F41.1 [facility] [id number] [place] [address] 10057- 6529 Jan, Generalized anxiety disorder F41.1 [facility] [id number] [place] [address] 21096- 0007 Dec, [facility] [id number] [place] [address] 70852- 1427 Dec, Generalized anxiety disorder F41.1 [facility] [id number] [place] [address] 06402- 3551 Nov, Generalized anxiety disorder F41.1 [facility] [id number] [place] [address] 11638- 6763 Nov, Mild acid reflux K21.9 [facility] [id number] [place] [address] 00067- 3336 Oct, Generalized anxiety disorder F41.1 [facility] [id number] [place] [address] 87102- 1616 Oct, Cellulitis of right upper extremity L03.113 [facility] [id number] [place] [address] 65562- 1938 September, [facility] [id number] [place] [address] 53391- 2295 September, Generalized anxiety disorder F41.1 [facility] [id number] [place] [address] 64985- 3591 Aug, Generalized anxiety disorder F41.1 [facility] [id number], [place] [address] 6471 Aug, Medicare annual wellness visit, initial Z00.00 [facility] [address], [place] [address] 4303 Jul, Generalized anxiety disorder F41.1 [facility] [id number] [place] [address] 64683- 0040 Jul, [facility] [address], [place] [address]205 Jul, [facility] [id number] [place] [address] 88321- 3022 Jun, Generalized anxiety disorder F41.1 [facility] [id number] [place] [address] 28854- 6552 May, Bronchitis J40 and Generalized anxiety disorder F41.1 [facility] [id number] [place] [address] 72634- 7138 May, Generalized anxiety disorder F41.1 [facility] [id number] [place] [address] 12206- 8292 May, [facility] [address], [place] [address] 1633 Apr, Generalized anxiety disorder F41.1 [facility] [address], [place] [address]- 9832 Apr, Essential (primary) hypertension I10 [facility] [address], [place] [address]- 1636 Apr, Generalized anxiety disorder F41.1 [facility] [id number] [place] [address] 90140- 8582 Mar, Generalized anxiety disorder F41.1 [facility] [address], [place] [address]- 7523 Feb, Generalized anxiety disorder F41.1 [facility] [id number] [place] [address] 73547- 0860 08 Jan, 2016 Generalized anxiety disorder F41.1 [facility] [id number] [place] [address] 77631- 0035 Dec, Generalized anxiety disorder F41.1 [facility] [id number] [place] [address] 62898- 4470 Nov, [facility] [id number] [place] [address] 50595- 7409 Oct, Generalized anxiety disorder F41.1 [place] [id number] [place] [address] 58595- 2565 Oct, Forgetfulness R68.89 [place] [id number] [place] [address] 17928- 1404 Oct, Generalized anxiety disorder F41.1 and Personality disorder , unspecified F60.9 [place] [id number] [place] [address] 99762- 8093 September, Mild acid reflux K21.9 [place] [id number] [place] [address] 14379- 4208 September, Generalized anxiety disorder F41.1 [place] [id number] [place] [address] 28471- 6528 Aug, Generalized anxiety disorder F41.1 and Personality disorder , unspecified F60.9 [facility] [id number] [place] [address] 26156- 8417 Aug, Forgetfulness R68.89 and Generalized anxiety disorder F41.1 [place] [id number] [place] [address] 65642- 3171 Aug, Unspecified symptoms and signs involving cognitive functions and awareness R41.9 and Generalized anxiety disorder F41.1 [place] [id number] [place] [address] 44510- 0406 Aug, [place] [address], [place] [address]- 1843 Aug, Screening, lipid Z13.220 and Forgetfulness R68.89 [place] [id number] [place] [address] 81248- 4595 Aug, Headache R51 [place] [id number] [place] [address] 41057- 8379 30 Jul, 2015 Acute upper respiratory infection, unspecified J06.9 and Other viral agents as the cause of diseases classified elsewhere B97.89 [place] [id number] [place] [address] 11293- 6480 24 Jul, 2015 [place] [id number] [place] [address] 80988- 7014 16 Jul, 2015 [place] [id number] [place] [address] 86873- 2928 Jul, Headache R51 and Anxiety F41.9 [place] [id number] [place] [address] 40419- 2985 Jul, Generalized anxiety disorder F41.1 and Personality disorder , unspecified F60.9 [place] [id number] [place] [address] 70147- 2638 Jun, [place] [id number] [place] [address] 92013- 5247 Jun, Post traumatic stress disorder (PTSD) F43.10 and Personality disorder, unspecified F60.9 [place] [id number] [place] [address] 28246- 7191 May, Overweight E66.3 [place] [id number] [place] [address] 66783- 2965 May, [place] [id number] [place] [address] 06784- 7218 May, Post traumatic stress disorder (PTSD) F43.10 and Personality disorder, unspecified F60.9 [facility] [address], [place] [address]- 5233 May, [facility] [address], [place] [address]- 6916 Apr, [facility] [address], [place] [address]- 7596 Apr, [facility] [id number] [place] [address] 42434- 8566 Apr, [facility] [address], [place] [address] Apr, [facility] [id number] [place] [address] 18903- 8086 Mar, Post traumatic stress disorder (PTSD) F43.10 [facility] [address], [place] [address]- 3366 Mar, [facility] [address], [place] [address]- 0321 Mar, Post traumatic stress disorder (PTSD) F43.10 [facility] [address], [place] [address]- 9766 Feb, Anxiety F41.9 [facility] [address] Feb, [facility] [address], [place] [address]- 1556 Feb, [facility] [address], [place] [address] 2544 Feb, Post traumatic stress disorder (PTSD) F43.10 [facility] [address], [place] [address]- 3006 Jan, [facility] [address], [place] [address]- 8226 Jan, Posttraumatic stress disorder 309.81 [facility] [address], [place] [address]- 1086 Jan, Allergic rhinitis 477.9 ; Upper respiratory infection 465.[address] [facility] [id number] [place] [address] 66362- 3526 Jan, Depressive disorder, not elsewhere classified 311 and Anxiety state, unspecified 300.00 [facility] [id number] [place] [address] 37429- 3698 Jan, [facility] [id number] [place] [address] 73626- 6662 Dec, [facility] [id number] [place] [address] 99190- 7628 Dec, [facility] [id number] [place] [address] 31889- 4502 Dec, [facility] [id number] [place] [address] 44741- 0710 Nov, [facility] [address], [place] [address]- 0016 Nov, [facility] [id number] [place] [address] 27868- 7951 Oct, [facility] [address], [place] [address]- 2327 Oct, Anxiety 300.00 ; Insomnia 780.52 ; Family history of diabetes mellitus V18.0 ; Hypertension 401.[address] [facility] [address], [place] [address]- [address]25 September, [facility] [id number] [place] [address] 92036- 1520 14 Aug, 2014 [facility] [address], [place] [address]- 7659 Aug, [facility] [id number] [place] [address] 39690- 7705 Jul, [facility] [address] [facility] [id number] [address] Jul, [facility] [id number], [place] [address]- 1474 Jun, [facility] [id number] 1447 Jun, [facility] [address] 2648 May, [facility] [id number] [place] [address]- 3061 May, [facility] [address], [place] [address]- 4155 May, [facility] [id number], [place] [address]- 4038 May, IMMUNIZATIONS No Known Immunizations SOCIAL HISTORY Never Assessed REASON FOR VISIT Spider bite, Spouse says its a mosquito bite on the bend of right ankle-Pearl UZMA, Patient requesting a refill of her Xanax - Explained to patient that her last Rx was sent 06/15/17 and she is not due until 06/12/17--Elaina PLAN OF CARE Activity Details Follow Up prn Reason: VITAL SIGNS Height 68 in 2017-07-06 Weight 182.4 lbs 2017-07-06 Temperature 97.6 degrees Fahrenheit 2017-07-06 Heart Rate 74 bpm 2017-07-06 Respiratory Rate 2017-07-06 BMI 27.73 kg/m2 2017-07-06 Blood pressure systolic 120 mmHg 2017-07-06 Blood pressure diastolic 76 mmHg 2017-07-06 MEDICATIONS Medication Instructions Dosage Frequency Start Date End Date Duration Status Probiotic by oral route May, Active Vitamin B Complex by oral route May, Active Vitamin C 1000 MG Orally Once a day 1 tablet 24h Active Alprazolam 2 MG Orally Twice a day 1 tablet as needed 12h Jul, 28 days Active Vitamin A by oral route May, Active Fish Oil by oral route May, Active Kelp by oral route May, Active Coenzyme Q10 by oral route 15 May, 2014 Active Omeprazole 20 mg Orally Once a day 1 capsule 24h 90 days Active RESULTS Name Result Date Reference Range [employer] 2017-07-06 PROCEDURES Procedure Date Ordered Result Body Site [facility] VISIT ESTABLISHED PATIENT Jul 06, 2017 No Charge Jul 06, 2017 INSTRUCTIONS MEDICATIONS ADMINISTERED No Known Medications [...]
--- OUTSIDE RECORDS SUMMARY | 2018-01-12 19:06 | XMS REPORT ---
Author Author SURJIT DAS Organization [facility] [place] Address [address] [place] [address] Care Team Providers Care City Dispatch Supervisor Name Role Phone SURJIT DAS Unavailable PROBLEMS Type Condition ICD9-CM Code [id number] Code Onset Dates Condition Status SNOMED Code Problem Generalized anxiety disorder F41.1 Active 28824141 Problem Family history of diabetes mellitus Z83.3 Active 149117735 Problem Chronic post-traumatic headache G44.329 Active 066129100 Problem Mixed hyperlipidemia E78.2 Active 885046575 Problem Personality disorder, unspecified F60.9 Active 73596715 Problem Gastroesophageal reflux disease without esophagitis K21.9 Active 384219051 Problem Anxiety F41.9 Active 45062633 Problem Mild acid reflux K21.9 Active 257051821 Problem Unspecified symptoms and signs involving cognitive functions and awareness R41.9 Active 303161593 Problem Post traumatic stress disorder (PTSD) F43.10 Active 83934850 Problem Essential (primary) hypertension I10 Active 55747044 ALLERGIES No Information ENCOUNTERS Encounter Location Date Diagnosis [place] [id number] [place] [address] 51967- 1337 Dec, [place] [address] [place] [id number] [place] [address] 54491- 6057 Nov, [place] [address] [place] [id number] [place] [address] 12786- 8654 Oct, Medicare annual wellness visit, initial Z00.00 ; Post traumatic stress disorder (PTSD) F43.10 ; Personality disorder, unspecified F60.9 ; Essential (primary) hypertension I10 ; Mixed hyperlipidemia E78.2 ; Anxiety F41.9 and Gastroesophageal reflux disease without esophagitis K21.9 [place] [address] [place] [id number] [place] [address] 08484- 1068 Oct, [facility] [place] [id number] [place] [address] 44111- 5856 Oct, Post traumatic stress disorder (PTSD) F43.10 [facility] [place] [address] [place] [id number] [place] [address] 58092- 7624 September, [facility] [place] [address] [place] [id number] [place] [address] 08606- 4324 September, Post traumatic stress disorder (PTSD) F43.10 [facility] [place] [address] [place] [id number] [place] [address] 22591- 9346 Aug, Mixed hyperlipidemia E78.2 [place] [address] [place] [id number] [place] [address] 45562- 8783 Aug, Keloid of skin L91.0 and Impacted cerumen of both ears H61.23 [place] [address] [place] [id number] [place] [address] 55078- 3565 Aug, Post traumatic stress disorder (PTSD) F43.10 [place] [address] [place] [id number] [place] [address] 08422- 7849 Jul, [place] [address] [place] [id number] [place] [address] 68557- 1886 Jul, Mixed hyperlipidemia E78.2 ; Mild acid reflux K21.9 and Essential (primary) hypertension I10 [place] [address] [place] [id number] [place] [address] 36054- 9951 Jul, [facility] [place] [address] [place] [id number] [place] [address] 80498- 2540 Jul, Post traumatic stress disorder (PTSD) F43.10 [facility] [place] [address] [place] [id number] [place] [address] 75745- 2542 Jul, Mixed hyperlipidemia E78.2 [facility] [place] [address] [place] [id number] [place] [address] 42750- 2540 Jul, Essential (primary) hypertension I10 [facility] [place] [address] [place] [address] [address] [place] [address] 6[address] Jun, Insect bite, subsequent encounter W57.XXXD ; Post traumatic stress disorder (PTSD) F43.10 ; Essential (primary) hypertension I10 and Localized edema R60.0 [facility] [place] [address] [place] [id number] [place] [address] 93406- 6735 Jun, Anxiety F41.9 [facility] [place] [address] 32245- 2700 Jun, Insect bite, initial encounter W57.XXXA ; Anxiety F41.9 ; Bronchitis J40 ; Headache R51 and Essential (primary) hypertension I10 [facility] [place] [address] 90102- 0450 May, Anxiety F41.9 [facility] [place] [address] 18568- 8815 May, [facility] [place] [address] 59210- 6980 Apr, Anxiety F41.9 [facility] [place] [address] 51299- 5934 Apr, [facility] [place] [address] 90427- 7337 Mar, Anxiety F41.9 [place] [address] 33394- 6682 27 Mar, 2017 Angioedema, subsequent encounter T78.3XXD ; Post traumatic stress disorder (PTSD) F43.10 ; Generalized anxiety disorder F41.1 ; Forgetfulness R68.89 ; Anxiety F41.9 ; Essential (primary) hypertension I10 ; Headache R51 ; Bronchitis J40 ; Mild acid reflux K21.9 and Cough R05 [facility] [place] [address] [place] [id number] [place] [address] 05029- 9595 Mar, Angioedema, initial encounter T78.3XXA [facility] [address] [place] [address] Mar, Acute upper respiratory infection, unspecified J06.9 and Cough R05 [facility] [place] [id number] [place] [address] 14928- 5570 Mar, Generalized anxiety disorder F41.1 [facility] [place] [id number] [place] [address] 62039- 7460 Feb, Generalized anxiety disorder F41.1 [facility] [place] [address] [place] [id number] [place] [address] 05022- 4201 Jan, Generalized anxiety disorder F41.1 [facility] [place] [address] [place] [id number] [place] [address] 76176- 7743 Dec, [facility] [place] [address] [place] [id number] [place] [address] 43652- 7100 Dec, Generalized anxiety disorder F41.1 [facility] [place] [address] [place] [id number] [place] [address] 13526- 5267 Nov, Generalized anxiety disorder F41.1 [facility] [place] [id number] [place] [address] 09247- 7479 Nov, Mild acid reflux K21.9 [facility] [place] [id number] [place] [address] 18924- 5738 Oct, Generalized anxiety disorder F41.1 [facility] [place] [id number] [place] [address] 80531- 7361 Oct, Cellulitis of right upper extremity L03.113 [facility] [place] [id number] [place] [address] 51345- 9635 September, [facility] [place] [address] [place] [id number] [place] [address] 14919- 6421 September, Generalized anxiety disorder F41.1 [facility] [place] [address] [address]- 2926 Aug, Generalized anxiety disorder F41.1 [facility] [place] [address] [place] [id number] [address]- 6727 Aug, Medicare annual wellness visit, initial Z00.00 [facility] [place] [address] [place] [id number] [place] [address] 44908- 0469 Jul, Generalized anxiety disorder F41.1 [facility] [place] [id number] [place] [address] 92089- 4971 Jul, [facility] [place] [address] [place] [id number] [place] [address] 26732- 8549 Jul, [facility] [place] [address] [place] [id number] [place] [address] 65488- 4137 Jun, Generalized anxiety disorder F41.1 [facility] [place] [address] [place] [id number] [place] [address] 94299- 4753 May, Bronchitis J40 and Generalized anxiety disorder F41.1 [facility] [place] [address] [place] [id number] [place] [address] 71216- 8204 May, Generalized anxiety disorder F41.1 [facility] [place] [address] [place] [id number] [place] [address] 04456- 4385 May, [facility] [place] [address] [place] [id number] [place] [address] 72468- 7956 Apr, Generalized anxiety disorder F41.1 [facility] [place] [id number] [place] [address] 11592- 4638 Apr, Essential (primary) hypertension I10 [facility] [place] [id number] [place] [address] 97073- 1532 06 Apr, 2016 Generalized anxiety disorder F41.1 [facility] [place] [address] [place] [id number] [place] [address] 33755- 8716 Mar, Generalized anxiety disorder F41.1 [facility] [place] [id number] [place] [address] 27073- 5554 Feb, Generalized anxiety disorder F41.1 [facility] [place] [address] [place] [id number] [place] [address] 21278- 2009 Jan, Generalized anxiety disorder F41.1 [facility] [place] [id number] [place] [address] 31993- 1787 Dec, Generalized anxiety disorder F41.1 [facility] [place] [id number] [place] [address] 15370- 4450 Nov, [facility] [place] [address] [place] [id number] [place] [address] 78170- 0881 Oct, Generalized anxiety disorder F41.1 [facility] [place] [address] [place] [id number] [place] [address] 65869- 5836 Oct, Forgetfulness R68.89 [place] [address] [place] [id number] [place] [address] 46898- 8873 Oct, Generalized anxiety disorder F41.1 and Personality disorder , unspecified F60.9 [place] [address] [place] [id number] [place] [address] 36266- 3486 September, Mild acid reflux K21.9 [place] [address] [place] [id number] [place] [address] 58633- 1592 September, Generalized anxiety disorder F41.1 [place] [address] [place] [id number] [place] [address] 00796- 5647 Aug, Generalized anxiety disorder F41.1 and Personality disorder , unspecified F60.9 [place] [address] [place] [id number] [place] [address] 01590- 3368 Aug, Forgetfulness R68.89 and Generalized anxiety disorder F41.1 [facility] [place] [address] [place] [id number] [place] [address] 18769- 7717 Aug, Generalized anxiety disorder F41.1 and Unspecified symptoms and signs involving cognitive functions and awareness R41.9 [place] [id number] [place] [address] 22994- 6936 Aug, [facility] [place] [address] [place] [id number] [place] [address] 65519- 1617 Aug, Screening, lipid Z13.220 and Forgetfulness R68.89 [place] [address] [place] [id number] [place] [address] 60916- 0885 Aug, Headache R51 [place] [address] [place] [id number] [place] [address] 81413- 0617 30 Jul, 2015 Acute upper respiratory infection, unspecified J06.9 and Other viral agents as the cause of diseases classified elsewhere B97.89 [place] [address] [place] [id number] [place] [address] 38013- 4434 24 Jul, 2015 [place] [address] 33309- 9764 16 Jul, 2015 [place] [address] 88212- 8709 14 Jul, 2015 Headache R51 and Anxiety F41.9 [place] [address] 69800- 9557 Jul, Generalized anxiety disorder F41.1 and Personality disorder , unspecified F60.9 [place] [address] [place] [id number] [place] [address] 01830- 3027 Jun, [place] [address] [place] [id number] [place] [address] 08948- 5631 Jun, Post traumatic stress disorder (PTSD) F43.10 and Personality disorder, unspecified F60.9 [place] [address] [place] [id number] [place] [address] 18853- 3928 May, Overweight E66.3 [place] [address] [place] [id number] [place] [address] 76407- 8457 May, [place] [address] [place] [id number] [place] [address] 43681- 1106 May, Post traumatic stress disorder (PTSD) F43.10 and Personality disorder, unspecified F60.9 [place] [address] 78057- 2546 May, [facility] [place] [address] [address]- 9126 Apr, [facility] [place] [address] [address]- 7806 Apr, [facility] [place] [address] [place] [address]- 9706 Apr, [facility] [place] [id number] [place] [address] 98625 2540 Apr, [facility] [place] [address] [address]- 7285 Mar, Post traumatic stress disorder (PTSD) F43.10 [facility] [place] [address] [place] [address]- 1206 Mar, [facility] [place] [id number] [place] [address] 49961- 4158 Mar, Post traumatic stress disorder (PTSD) F43.10 [facility] [place] [address] [place] [address]- 4529 Feb, Anxiety F41.9 [facility] [place] [address]- 4570 Feb, [facility] [place] [address] [address]- 3436 Feb, [facility] [place] [address] [place] [address]- 4388 Feb, Post traumatic stress disorder (PTSD) F43.10 [facility] [place] [address] [place] [address]- 0326 Jan, [facility] [place] [address]- 5566 Jan, Posttraumatic stress disorder 309.81 [facility] [place] [address] 5682 Jan, Allergic rhinitis 477.9 ; Upper respiratory infection 465.9 and Depression 311 [facility] [place] [address] [place] [address]- 0109 Jan, Depressive disorder, not elsewhere classified 311 and Anxiety state, unspecified 300.00 [facility] [place] [address] [place] [address]- 6730 Jan, [facility] [place] [address] [place] [id number] [place] [address] 59080- 7059 Dec, [facility] [place] [address] [place] [address]- 5687 Dec, [facility] [place] [address] [id number] [place] [address] 80310- 0808 Dec, [facility] [place] [address] [id number] [place] [address] 32123- 0499 Nov, [facility] [place] [id number] [place] [address] 67620- 4409 Nov, [facility] [place] [address], [place] [address]- 9668 Oct, [facility] [place] [address], [place] [address]- 2977 Oct, Anxiety 300.00 ; Insomnia 780.52 ; Family history of diabetes mellitus V18.0 ; Hypertension 401.9 and Onychomycosis 110.1 [facility] [place] [address] [place] [address]- 5130 September, [facility] [place] [address] [place] [address]- 3833 Aug, [facility] [place] [id number] [address]- 6663 Aug, [facility] [place] [address] [place] [address]- 4961 Jul, [facility] [place] [id number] [place] [address] 14218- 0986 Jul, [facility] [place] [address] [facility] [id number] [address]- 2118 Jun, [facility] [place] [address] [facility] [id number], [place] [address]- 0026 Jun, [facility] [place] [address] [facility] [id number], [place] [address]- 1363 May, [facility] [place] [address] [facility] [id number], [place] [address]- 5072 May, [facility] [place] [address] [facility] [id number], [place] [address]- 4669 May, [facility] [place] [address] [facility] [id number], [place] [address]- 6478 May, IMMUNIZATIONS No Known Immunizations SOCIAL HISTORY Never Assessed REASON FOR VISIT per lab results PLAN OF CARE VITAL SIGNS MEDICATIONS Medication Instructions Dosage Frequency Start Date End Date Duration Status Lipitor 20 MG Orally Once a day 1 tablet 24h Jul, 30 day(s) Active RESULTS No Results PROCEDURES No Known [...]
--- OUTSIDE RECORDS SUMMARY | 2018-01-12 19:06 | XMS REPORT ---
Author Author SURJIT DAS Organization [facility] Address [address] [place] [address] Care Team Providers Care Song Lyricist Name Role Phone SURJIT DAS Unavailable PROBLEMS Type Condition ICD9-CM Code [id number] Code Onset Dates Condition Status SNOMED Code Problem Generalized anxiety disorder F41.1 Active 04639262 Problem Family history of diabetes mellitus Z83.3 Active 199101241 Problem Chronic post-traumatic headache G44.329 Active 902906116 Problem Mixed hyperlipidemia E78.2 Active 600826978 Problem Personality disorder, unspecified F60.9 Active 47532484 Problem Gastroesophageal reflux disease without esophagitis K21.9 Active 708032093 Problem Anxiety F41.9 Active 40638438 Problem Mild acid reflux K21.9 Active 219962522 Problem Unspecified symptoms and signs involving cognitive functions and awareness R41.9 Active 079108788 Problem Post traumatic stress disorder (PTSD) F43.10 Active 35637219 Problem Essential (primary) hypertension I10 Active 52233614 ALLERGIES No Information ENCOUNTERS Encounter Location Date Diagnosis [place] [id number] [place] [address] 75257- 8826 Dec, [place] [address] [place] [id number] [place] [address] 13705- 6782 Nov, [place] [address] [place] [address] [id number] [place] [address] 80969- 7964 Oct, Medicare annual wellness visit, initial Z00.00 ; Post traumatic stress disorder (PTSD) F43.10 ; Personality disorder, unspecified F60.9 ; Essential (primary) hypertension I10 ; Mixed hyperlipidemia E78.2 ; Anxiety F41.9 and Gastroesophageal reflux disease without esophagitis K21.9 [place] [address] [place] [id number] [place] [address] 44589- 3843 Oct, [facility] [id number] [place] [address] 52041- 5804 Oct, Post traumatic stress disorder (PTSD) F43.10 [facility] [address] [place] [id number] [place] [address] 68355- 5415 September, [facility] [address] [place] [address] [id number] [place] [address] 90049- 7602 September, Post traumatic stress disorder (PTSD) F43.10 [facility] [address] [place] [id number] [place] [address] 14659- 2019 Aug, Mixed hyperlipidemia E78.2 [place] [address] [place] [id number] [place] [address] 31240- 2108 Aug, Keloid of skin L91.0 and Impacted cerumen of both ears H61.23 [place] [address] [place] [id number] [place] [address] 92262- 7998 Aug, Post traumatic stress disorder (PTSD) F43.10 [place] [address] [place] [id number] [place] [address] 34256- 8463 Jul, [place] [address] [place] [address] [id number] [place] [address] 68372- 0437 Jul, Mixed hyperlipidemia E78.2 ; Mild acid reflux K21.9 and Essential (primary) hypertension I10 [place] [address] [place] [id number] [place] [address] 03565- 2718 Jul, [facility] [address] [place] [id number] [place] [address] 81528- 2549 Jul, Post traumatic stress disorder (PTSD) F43.10 [facility] [address] [place] [id number] [place] [address] 44648- 2542 Jul, Mixed hyperlipidemia E78.2 [facility] [address] [place] [id number] [place] [address] 10276- 2548 Jul, Essential (primary) hypertension I10 [facility] [address] [place] [address] [place] [address] Jun, Insect bite, subsequent encounter W57.XXXD ; Post traumatic stress disorder (PTSD) F43.10 ; Essential (primary) hypertension I10 and Localized edema R60.0 [facility] [address] [place] [address] [id number] [place] [address] 71914- 8190 Jun, Anxiety F41.9 [facility] [address] 14930- 0861 Jun, Insect bite, initial encounter W57.XXXA ; Anxiety F41.9 ; Bronchitis J40 ; Headache R51 and Essential (primary) hypertension I10 [facility] [address] 39564- 6638 May, Anxiety F41.9 [facility] [address] 14494- 4678 May, [facility] [address] 02357- 9767 Apr, Anxiety F41.9 [facility] [address] 84935- 7870 Apr, [facility] [address] 45590- 0883 Mar, Anxiety F41.9 [place] [address] 74736- 3295 27 Mar, 2017 Angioedema, subsequent encounter T78.3XXD ; Post traumatic stress disorder (PTSD) F43.10 ; Generalized anxiety disorder F41.1 ; Forgetfulness R68.89 ; Anxiety F41.9 ; Essential (primary) hypertension I10 ; Headache R51 ; Bronchitis J40 ; Mild acid reflux K21.9 and Cough R05 [facility] [address] [place] [id number] [place] [address] 73776- 3511 Mar, Angioedema, initial encounter T78.3XXA [facility] [address] [place] [address] Mar, Acute upper respiratory infection, unspecified J06.9 and Cough R05 [facility] [id number] [place] [address] 70103- 1191 Mar, Generalized anxiety disorder F41.1 [facility] [address] [place] [address] 79265- 3792 Feb, Generalized anxiety disorder F41.1 [facility] [address] [place] [id number] [place] [address] 71833- 7627 Jan, Generalized anxiety disorder F41.1 [facility] [address] [place] [id number] [place] [address] 70949- 3688 Dec, [facility] [address] [place] [id number] [place] [address] 55656- 3957 Dec, Generalized anxiety disorder F41.1 [facility] [address] [place] [id number] [place] [address] 74145- 6176 Nov, Generalized anxiety disorder F41.1 [facility] [address] [place] [address] 23385- 0784 Nov, Mild acid reflux K21.9 [facility] [address] [place] [address] 13249- 7263 Oct, Generalized anxiety disorder F41.1 [facility] [address] [place] [address] 64323- 4265 Oct, Cellulitis of right upper extremity L03.113 [facility] [address] [place] [address] 89740- 3085 September, [facility] [address] [place] [id number] [place] [address] 70653- 2495 September, Generalized anxiety disorder F41.1 [facility] [address] [address]- 1745 Aug, Generalized anxiety disorder F41.1 [facility] [address] [place] [id number] [address]- 1346 Aug, Medicare annual wellness visit, initial Z00.00 [facility] [address] [place] [id number] [place] [address] 39203- 9008 Jul, Generalized anxiety disorder F41.1 [facility] [address] [place] [address] 60096- 5959 Jul, [facility] [address] [place] [id number] [place] [address] 47290- 7107 Jul, [facility] [address] [place] [id number] [place] [address] 17971- 2719 Jun, Generalized anxiety disorder F41.1 [facility] [address] [place] [address] [id number] [place] [address] 51403- 5858 May, Bronchitis J40 and Generalized anxiety disorder F41.1 [facility] [address] [place] [address] [id number] [place] [address] 55980- 7468 May, Generalized anxiety disorder F41.1 [facility] [address] [place] [id number] [place] [address] 12907- 7783 May, [facility] [address] [place] [id number] [place] [address] 23858- 3930 Apr, Generalized anxiety disorder F41.1 [facility] [address] [place] [address] 58321- 5815 Apr, Essential (primary) hypertension I10 [facility] [id number] [place] [address] 01095- 9080 06 Apr, 2016 Generalized anxiety disorder F41.1 [facility] [address] [place] [id number] [place] [address] 37108- 1776 Mar, Generalized anxiety disorder F41.1 [facility] [address] [place] [address] 27158- 6460 Feb, Generalized anxiety disorder F41.1 [facility] [address] [place] [id number] [place] [address] 62414- 1828 Jan, Generalized anxiety disorder F41.1 [facility] [address] [place] [address] 71747- 6173 Dec, Generalized anxiety disorder F41.1 [facility] [address] [place] [address] 02409- 2578 Nov, [facility] [address] [place] [id number] [place] [address] 77501- 0895 Oct, Generalized anxiety disorder F41.1 [facility] [address] [place] [id number] [place] [address] 91349- 5029 Oct, Forgetfulness R68.89 [place] [address] [place] [id number] [place] [address] 04736- 9125 Oct, Generalized anxiety disorder F41.1 and Personality disorder , unspecified F60.9 [place] [address] [place] [id number] [place] [address] 60495- 7148 September, Mild acid reflux K21.9 [place] [address] [place] [id number] [place] [address] 91332- 9796 September, Generalized anxiety disorder F41.1 [place] [address] [place] [id number] [place] [address] 65509- 7028 Aug, Generalized anxiety disorder F41.1 and Personality disorder , unspecified F60.9 [place] [address] [place] [id number] [place] [address] 08055- 3904 Aug, Forgetfulness R68.89 and Generalized anxiety disorder F41.1 [facility] [address] [place] [id number] [place] [address] 61005- 7262 Aug, Unspecified symptoms and signs involving cognitive functions and awareness R41.9 and Generalized anxiety disorder F41.1 [place] [address] [place] [address] 53200- 9905 Aug, [facility] [address] [place] [id number] [place] [address] 21883- 5244 Aug, Screening, lipid Z13.220 and Forgetfulness R68.89 [place] [address] [place] [id number] [place] [address] 40535- 8507 Aug, Headache R51 [place] [address] [place] [id number] [place] [address] 48831- 9498 30 Jul, 2015 Acute upper respiratory infection, unspecified J06.9 and Other viral agents as the cause of diseases classified elsewhere B97.89 [place] [address] [place] [id number] [place] [address] 38292- 1677 24 Jul, 2015 [place] [address] 78656- 4758 16 Jul, 2015 [place] [address] 90782- 5885 14 Jul, 2015 Headache R51 and Anxiety F41.9 [place] [address] 03696- 1055 Jul, Generalized anxiety disorder F41.1 and Personality disorder , unspecified F60.9 [place] [address] [place] [id number] [place] [address] 15532- 8172 Jun, [place] [address] [place] [id number] [place] [address] 35133- 2308 Jun, Post traumatic stress disorder (PTSD) F43.10 and Personality disorder, unspecified F60.9 [place] [address] [place] [id number] [place] [address] 25374- 9753 May, Overweight E66.3 [place] [address] [place] [id number] [place] [address] 22125- 3845 May, [place] [address] [place] [id number] [place] [address] 39620- 9853 May, Post traumatic stress disorder (PTSD) F43.10 and Personality disorder, unspecified F60.9 [place] [address] 00902- 2546 May, [facility] [address] [address]- 8106 Apr, [facility] [address] [address]- 6816 Apr, [facility] [address] [address]- 7946 Apr, [facility] [address] [place] [address] 27160 2544 Apr, [facility] [address] [address]- 0042 Mar, Post traumatic stress disorder (PTSD) F43.10 [facility] [address] [address]- 4916 Mar, [facility] [address] [place] [address] 70648- 0231 Mar, Post traumatic stress disorder (PTSD) F43.10 [facility] [address] [address]- 6382 Feb, Anxiety F41.9 [facility] [address] 7116 Feb, [facility] [address] [address]- 9106 Feb, [facility] [address] [address]- 6717 Feb, Post traumatic stress disorder (PTSD) F43.10 [facility] [address] [address]- 0396 Jan, [facility] [address] 0436 Jan, Posttraumatic stress disorder 309.81 [facility] [address] 9326 Jan, Allergic rhinitis 477.9 ; Upper respiratory infection 465.9 and Depression 311 [facility] [address] [address]- 6272 Jan, Depressive disorder, not elsewhere classified 311 and Anxiety state, unspecified 300.00 [facility] [address] [address]- 6879 Jan, [facility] [address] [place] [id number] [place] [address] 87795- 2092 Dec, [facility] [address] [address]- 8275 Dec, [facility] [address] [place] [id number] [place] [address] 80426- 9249 Dec, [facility] [address] [place] [id number] [place] [address] 69171- 8348 Nov, [facility] [address] [place] [id number] [place] [address] 90990- 7740 Nov, [facility] [address] [address]- 8307 Oct, [facility] [address] [address]- 9140 Oct, Anxiety 300.00 ; Insomnia 780.52 ; Family history of diabetes mellitus V18.0 ; Hypertension 401.9 and Onychomycosis 110.1 [facility] [address] [address]- 1445 September, [facility] [address] [address]- 7451 Aug, [facility] [address] [id number] [address]- 5978 Aug, [facility] [address] [address]- 2027 Jul, [facility] [address] [place] [id number] [place] [address] 99179- 1086 Jul, [facility] [address] [facility] [id number] [address]- 4592 Jun, [facility] [address] [facility] [id number] [address]- 5456 Jun, [facility] [address] [facility] [id number] [address]- 2182 May, [facility] [address] [facility] [id number] [address]- 4848 May, [facility] [address] [facility] [id number] [address]- 2677 May, [facility] [address] [facility] [id number] [address]- 6790 May, IMMUNIZATIONS No Known Immunizations SOCIAL HISTORY Never Assessed REASON FOR VISIT Lab (walk-in) PLAN OF CARE VITAL SIGNS MEDICATIONS Unknown Medications RESULTS No Results PROCEDURES Procedure Date Ordered Result Body Site LAB NOT BILLED BY [facility] July 20, 2017 VENIPUNCT, ROUTINE* July 20, 2017 INSTRUCTIONS MEDICATIONS ADMINISTERED No Known Medications [...]
--- OUTSIDE RECORDS SUMMARY | 2018-01-12 19:07 | XMS REPORT ---
Author Author QUIQUE NAVARRETE [facility] Address [address] [place] [address] Care Team Providers Care Explosive Operator Grenade Name Role Phone QUIQUE NAVARRETE Unavailable PROBLEMS Type Condition ICD9-CM Code AVM66-CP Code Onset Dates Condition Status SNOMED Code Problem Personality disorder, unspecified F60.9 Active 46441713 Problem Chronic post-traumatic headache G44.329 Active 802759168 Problem Generalized anxiety disorder F41.1 Active 72153509 Problem Mixed hyperlipidemia E78.2 Active 095449730 Problem Anxiety F41.9 Active 59059300 Problem Post traumatic stress disorder (PTSD) F43.10 Active 78430739 Problem Unspecified symptoms and signs involving cognitive functions and awareness R41.9 Active 301127204 Problem Family history of diabetes mellitus Z83.3 Active 961867247 Problem Essential (primary) hypertension I10 Active 69653667 Problem Mild acid reflux K21.9 Active 654219932 ALLERGIES Substance Reaction Event Type Date Status Prefers no strong narcotics Unknown Non Drug Allergy Mar, Active ENCOUNTERS Encounter Location Date Diagnosis [place] [id number] [place] [address] 66732- 6304 Oct, Medicare annual wellness visit, initial Z00.00 [place] [address] [place] [id number] [place] [address] 37462- 2358 September, [place] [address] [place] [id number] [place] [address] 39577- 9743 September, Post traumatic stress disorder (PTSD) F43.10 [facility] [address] [id number] [place] [address] 18573- 4121 Aug, Mixed hyperlipidemia E78.2 [facility] [id number] [place] [address] 48755- 9888 Aug, Keloid of skin L91.0 and Impacted cerumen of both ears H61.23 [place] [address] [place] [id number] [place] [address] 76096- 5652 Aug, Post traumatic stress disorder (PTSD) F43.10 [place] [address] [place] [id number] [place] [address] 98492- 6834 Jul, [place] [address] 97146- 3695 Jul, Mixed hyperlipidemia E78.2 ; Mild acid reflux K21.9 and Essential (primary) hypertension I10 [place] [address] 01682- 9675 Jul, [place] [address] 12607- 4507 Jul, Post traumatic stress disorder (PTSD) F43.10 [place] [address] 44703- 3878 Jul, Mixed hyperlipidemia E78.2 [place] [address] [place] [id number] [place] [address] 50529- 1092 Jul, Essential (primary) hypertension I10 [place] [address] [place] [id number] [place] [address] 09121- 7147 Jun, Insect bite, subsequent encounter W57.XXXD ; Post traumatic stress disorder (PTSD) F43.10 ; Essential (primary) hypertension I10 and Localized edema R60.0 [place] [address] [place] [id number] [place] [address] 39289- 8893 Jun, Anxiety F41.9 [place] [address] 04961- 2538 Jun, Insect bite, initial encounter W57.XXXA ; Anxiety F41.9 ; Bronchitis J40 ; Headache R51 and Essential (primary) hypertension I10 [place] [address] 09329- 5639 May, Anxiety F41.9 [facility] [id number] [place] [address] 55835- 4967 May, [facility] [id number] [place] [address] 30068- 4406 Apr, Anxiety F41.9 [facility] [id number] [place] [address] 90941- 7831 Apr, [facility] [address] 02099- 2526 Mar, Anxiety F41.9 [facility] [address] 79257- 9582 Mar, Angioedema, subsequent encounter T78.3XXD ; Post traumatic stress disorder (PTSD) F43.10 ; Generalized anxiety disorder F41.1 ; Forgetfulness R68.89 ; Anxiety F41.9 ; Essential (primary) hypertension I10 ; Headache R51 ; Bronchitis J40 ; Mild acid reflux K21.9 and Cough R05 [facility] [address] [id number] [place] [address] 74205- 2915 Mar, Angioedema, initial encounter T78.3XXA [facility] [id number] [place] [address] 56686 -0547 Mar, Acute upper respiratory infection, unspecified J06.9 and Cough R05 [facility] [address] [place] [id number] [place] [address] 96842- 1055 Mar, Generalized anxiety disorder F41.1 [facility] [id number] [place] [address] 05829- 5610 Feb, Generalized anxiety disorder F41.1 [facility] [address] 89014- 7929 Jan, Generalized anxiety disorder F41.1 [facility] [address] [place] [id number] [place] [address] 88224- 7669 Dec, [facility] [address] [place] [address]- 5810 Dec, Generalized anxiety disorder F41.1 [facility] [address] [id number] [place] [address] 78530- 5714 Nov, Generalized anxiety disorder F41.1 [facility] [address] [place] [address] 44387- 8890 Nov, Mild acid reflux K21.9 [facility] [id number] [place] [address] 41962- 5013 Oct, Generalized anxiety disorder F41.1 [facility] [address] [place] [id number] [place] [address] 31722- 6110 Oct, Cellulitis of right upper extremity L03.113 [facility] [address] [place] [id number] [place] [address] 88024- 2332 September, [facility] [address] [id number] [place] [address] 92175- 6782 September, Generalized anxiety disorder F41.1 [facility] [address] [place] [address] 54844- 7246 Aug, Generalized anxiety disorder F41.1 [facility] [address] [place] [id number] [place] [address] 83269- 4566 Aug, Medicare annual wellness visit, initial Z00.00 [facility] [address] [place] [address] 85672- 0989 Jul, Generalized anxiety disorder F41.1 [facility] [address] [address]- 8761 Jul, [facility] [address] [id number] [place] [address] 73185- 2173 Jul, [facility] [address] [place] [address] 16614- 8945 Jun, Generalized anxiety disorder F41.1 [facility] [address] [place] [id number] [place] [address] 06110- 6300 May, Bronchitis J40 and Generalized anxiety disorder F41.1 [facility] [address] [place] [address] 30177- 2051 May, Generalized anxiety disorder F41.1 [facility] [address] [id number] [place] [address] 45965- 4903 May, [facility] [address] [id number] [place] [address] 01309- 2794 Apr, Generalized anxiety disorder F41.1 [facility] [address] [id number] [place] [address] 43810- 8899 Apr, Essential (primary) hypertension I10 [facility] [address] [id number] [place] [address] 80037- 7218 Apr, Generalized anxiety disorder F41.1 [facility] [address] [place] [id number] [place] [address] 08556- 7432 Mar, Generalized anxiety disorder F41.1 [facility] [address] [id number] [place] [address] 72946- 0736 Feb, Generalized anxiety disorder F41.1 [facility] [address] [place] [id number] [place] [address] 85456- 9349 Jan, Generalized anxiety disorder F41.1 [facility] [address] [place] [id number] [place] [address] 20730- 0257 Dec, Generalized anxiety disorder F41.1 [facility] [address] [place] [id number] [place] [address] 05393- 1777 Nov, [facility] [address] [place] [id number] [place] [address] 25620- 4794 16 Oct, 2015 Generalized anxiety disorder F41.1 [facility] [address] [place] [id number] [place] [address] 56051- 1832 Oct, Forgetfulness R68.89 [facility] [address] [place] [id number] [place] [address] 53374- 1625 Oct, Generalized anxiety disorder F41.1 and Personality disorder , unspecified F60.9 [place] [address] 42354- 8116 September, Mild acid reflux K21.9 [place] [address] [place] [id number] [place] [address] 29259- 0306 September, Generalized anxiety disorder F41.1 [place] [address] 93765- 1075 Aug, Generalized anxiety disorder F41.1 and Personality disorder , unspecified F60.9 [place] [address] 60179- 3451 Aug, Forgetfulness R68.89 and Generalized anxiety disorder F41.1 [place] [address] 13229- 6666 Aug, Unspecified symptoms and signs involving cognitive functions and awareness R41.9 and Generalized anxiety disorder F41.1 [place] [address] 04165- 3863 Aug, [place] [address] 47767- 0082 Aug, Screening, lipid Z13.220 and Forgetfulness R68.89 [place] [address] [place] [id number] [place] [address] 18956- 2714 Aug, Headache R51 [place] [address] [place] [id number] [place] [address] 99891- 6241 30 Jul, 2015 Acute upper respiratory infection, unspecified J06.9 and Other viral agents as the cause of diseases classified elsewhere B97.89 [place] [address] 56951- 1821 24 Jul, 2015 [place] [address] 28394- 0247 Jul, [place] [address] [place] [address]- 1028 14 Jul, 2015 Headache R51 and Anxiety F41.9 [facility] [address] [place] [id number] [place] [address] 80859- 0036 10 Jul, 2015 Generalized anxiety disorder F41.1 and Personality disorder , unspecified F60.9 [facility] [address] [place] [id number] [place] [address] 45082- 7076 Jun, [facility] [address] [place] [id number] [place] [address] 87372- 9155 Jun, Post traumatic stress disorder (PTSD) F43.10 and Personality disorder, unspecified F60.9 [facility] [address] [place] [id number] [place] [address] 31129- 0986 May, Overweight E66.3 [facility] [address] [place] [id number] [place] [address] 28081- 9206 May, [facility] [address] [place] [id number] [place] [address] 51176- 6620 May, Post traumatic stress disorder (PTSD) F43.10 and Personality disorder, unspecified F60.9 [facility] [address] [place] [id number] [place] [address] 36609- 5800 May, [facility] [address] [place] [address] 81668- 2266 Apr, [facility] [address] [place] [id number] [place] [address] 40098 2546 Apr, [facility] [address] [place] [id number] [place] [address] 25033- 0656 Apr, [facility] [address] [place] [id number] [place] [address] 45764 2546 Apr, [facility] [address] [place] [address] 75621- 9996 Mar, Post traumatic stress disorder (PTSD) F43.10 [facility] [address] [place] [address]- 9039 Mar, [facility] [address] [place] [address] 60521- 5052 Mar, Post traumatic stress disorder (PTSD) F43.10 [facility] [address] [place] [address]- 0056 Feb, Anxiety F41.9 [facility] [address] [place] [id number] [place] [address] 41002- 3439 Feb, [facility] [address] [place] [address] 29664- 2577 Feb, [facility] [address] [place] [id number] [place] [address] 62847- 5984 Feb, Post traumatic stress disorder (PTSD) F43.10 [facility] [address] [place] [id number] [place] [address] 85102- 5027 Jan, [facility] [address] [place] [id number] [place] [address] 50338- 6514 Jan, Posttraumatic stress disorder 309.81 [facility] [address] [place] [id number] [place] [address] 83322- 1022 Jan, Allergic rhinitis 477.9 ; Upper respiratory infection 465.9 and Depression 311 [facility] [address] [place] [address] 15578- 7887 Jan, Depressive disorder, not elsewhere classified 311 and Anxiety state, unspecified 300.00 [facility] [address] [place] [address]- 1914 Jan, [facility] [address] [id number] [place] [address] 18655- 5698 Dec, [facility] [address] [place] [address]- 5062 Dec, [facility] [address] [place] [address] 89375- 2209 Dec, [facility] [address] [place] [address]- 9177 Nov, [facility] [address] [place] [address]- 7899 Nov, [facility] [address] [place] [address]- 8946 Oct, [facility] [address] [place] [address]- 2546 Oct, Anxiety 300.00 ; Insomnia 780.52 ; Family history of diabetes mellitus V18.0 ; Hypertension 401.9 and Onychomycosis 110.1 [facility] [address] [place] [address]- 4446 September, [facility] [address] [place] [address]- 1394 Aug, [facility] [address] [place] [address]- 3766 Aug, [facility] [address] 2165 Jul, [facility] [address] 6902 Jul, [facility] [address] [place] [address]- 9824 Jun, [facility] [address] [place] [address]- 9506 Jun, [facility] [address] [place] [id number] [address]- 3623 May, [facility] [address] [place] [address]- 6866 May, [facility] [address] [id number] [address]- 3796 May, [facility] [address] [place] [address]- 4216 May, IMMUNIZATIONS No Known Immunizations SOCIAL HISTORY Never Assessed REASON FOR VISIT Swollen neck--Bi Duran MA PLAN OF CARE Activity Details Follow Up 6 days Reason: VITAL SIGNS Height 68 in 2017-04-07 Weight 189.3 lbs 2017-04-07 Temperature 98.0 degrees Fahrenheit 2017-04-07 Heart Rate 72 bpm 2017-04-07 Respiratory Rate 18 2017-04-07 BMI 28.78 kg/m2 2017-04-07 Blood pressure systolic 136 mmHg 2017-04-07 Blood pressure diastolic 82 mmHg 2017-04-07 MEDICATIONS Medication Instructions Dosage Frequency Start Date End Date Duration Status Fish Oil by oral route May, Active Probiotic by oral route May, Active Flonase Allergy Relief 50 MCG/ACT Nasally Once a day 1 spray in each nostril 24h May, 30 day(s) Active Coenzyme Q10 by oral route May, Active Nortriptyline HCl 25 MG 1 CAPSULE ONCE A DAY AT HS ORALLY 90 90 Active Vitamin A by oral route May, Active Benzonatate 200 mg Orally Three times a day 1 capsule 8h Mar, Apr, 30 day(s) Active Omeprazole 20 MG 1 CAPSULE ONCE A DAY ORALLY 90 DAYS 90 Active Triamterene-HCTZ 75-50 MG 1 TABLET ONCE A DAY ORALLY 90 DAYS 90 Active Omeprazole 20 MG Orally Once a day 1 capsule 24h 90 days Active PredniSONE 20 mg Orally Once a day 2 tab 3 days, 1 tab 3 days 24h Mar, Mar, 6 days Active Kelp by oral route May, Active Vitamin B Complex by oral route May, Active Promethazine-Codeine 6.25-10 MG/5ML Orally every 6 hrs 5 ml as needed 6h Mar, Mar, 10 days Active Vitamin C 1000 MG Orally Once a day 1 tablet 24h Active Alprazolam 2 MG Orally Twice a day 1 tablet as needed 12h Jul, 28 days Active RESULTS No Results PROCEDURES Procedure Date Ordered Result Body Site [facility] VISIT ESTABLISHED PATIENT Apr 07, 2017 INSTRUCTIONS MEDICATIONS ADMINISTERED No Known [...]
--- OUTSIDE RECORDS SUMMARY | 2018-01-12 19:07 | XMS REPORT ---
Author Author SURJIT DAS Organization [employer] Address Unknown Phone Unavailable Care Team Providers Care Dialer Name Role Phone SURJIT DAS CP Unavailable Allergies No Known Allergies Problems Problem Type Condition ICD-9 Code Onset Dates Condition Status Problem Family history of diabetes mellitus V18.0 Active Problem Chronic post-traumatic headache 339.22 Active Problem Hypertension 401.9 Active Problem Posttraumatic stress disorder 309.81 Active Problem Routine general medical examination at health care facility V70.0 Active Medications Medication Code System Code Instructions Start Date End Date Status Dosage Alprazolam [facility] [id number] 2 MG August 09, 2014 take 1 tablet by Oral route 2 times per day Results No Known Results Summary Purpose [employer] Submission
--- OUTSIDE RECORDS SUMMARY | 2018-01-12 19:07 | XMS REPORT ---
Author Author SURJIT DAS [facility] Address [address] [place] [address] Care Team Providers Care Stripper Preliminary Name Role Phone SURJIT DAS Unavailable PROBLEMS Type Condition ICD9-CM Code [id number] Code Onset Dates Condition Status SNOMED Code Problem Personality disorder, unspecified F60.9 Active 19716627 Problem Essential (primary) hypertension I10 Active 79560809 Problem Mild acid reflux K21.9 Active 386488145 Problem Chronic post-traumatic headache G44.329 Active 939808584 Problem Generalized anxiety disorder F41.1 Active 69438321 Problem Unspecified symptoms and signs involving cognitive functions and awareness R41.9 Active 005210553 Problem Family history of diabetes mellitus Z83.3 Active 058764477 ALLERGIES Substance Reaction Event Type Date Status Prefers no strong narcotics Unknown Non Drug Allergy Aug, Active SOCIAL HISTORY Never Assessed PLAN OF CARE Activity Details Follow Up annually for preventive care, sooner for chronic health maintenance , prn Reason: VITAL SIGNS Height 68 in 2016-09-04 Weight 187.6 lbs 2016-09-04 Temperature 97.5 degrees Fahrenheit 2016-09-04 Heart Rate 72 bpm 2016-09-04 Respiratory Rate 18 2016-09-04 BMI 28.52 kg/m2 2016-09-04 Blood pressure systolic 122 mmHg 2016-09-04 Blood pressure diastolic 80 mmHg 2016-09-04 MEDICATIONS Medication Instructions Dosage Frequency Start Date End Date Duration Status Vitamin A by oral route May, Active Nortriptyline HCl 25 MG Orally Once a day at hs 1 capsule 90 Active Triamterene-HCTZ 75-50 MG Orally Once a day 1 tablet 24h 90 days Active Kelp by oral route May, Active Flonase Allergy Relief 50 MCG/ACT Nasally Once a day 1 spray in each nostril 24h May, 30 day(s) Active Alprazolam 2 MG Orally Twice a day 1 tablet as needed 12h Jul, 28 days Active Vitamin C 1000 MG Orally Once a day 1 tablet 24h Active Vitamin B Complex by oral route May, Active Omeprazole 20 mg Orally Once a day 1 capsule 24h 90 days Active Coenzyme Q10 by oral route May, Active Fish Oil by oral route May, Active RESULTS No Results PROCEDURES Procedure Date Ordered Result Body Site ANNUAL WELLNESS VST; PPS SUBSQT VST September 04, 2016 IMMUNIZATIONS No Known Immunizations MEDICAL (GENERAL) HISTORY Type Description Date Medical [...]
--- OUTSIDE RECORDS SUMMARY | 2018-01-12 19:07 | XMS REPORT ---
Author Author SURJIT DAS Organization [facility] Address [address] [place] [address] Care Team Providers Care Painter [employer] Name Role Phone SURJIT DAS Unavailable PROBLEMS Type Condition ICD9-CM Code WQT24-OT Code Onset Dates Condition Status SNOMED Code Problem Generalized anxiety disorder F41.1 Active 65818645 Problem Family history of diabetes mellitus Z83.3 Active 816259970 Problem Chronic post-traumatic headache G44.329 Active 054516395 Problem Mixed hyperlipidemia E78.2 Active 754806474 Problem Personality disorder, unspecified F60.9 Active 95531032 Problem Gastroesophageal reflux disease without esophagitis K21.9 Active 371277727 Problem Anxiety F41.9 Active 69280579 Problem Mild acid reflux K21.9 Active 310123322 Problem Unspecified symptoms and signs involving cognitive functions and awareness R41.9 Active 030474918 Problem Post traumatic stress disorder (PTSD) F43.10 Active 92965383 Problem Essential (primary) hypertension I10 Active 76354650 ALLERGIES No Information ENCOUNTERS Encounter Location Date Diagnosis [place] [id number] [place] [address] 20807- 3402 Dec, [place] [address] [place] [id number] [place] [address] 21938- 9699 Nov, [place] [address] [place] [address] [id number] [place] [address] 47975- 2263 Oct, Medicare annual wellness visit, initial Z00.00 ; Post traumatic stress disorder (PTSD) F43.10 ; Personality disorder, unspecified F60.9 ; Essential (primary) hypertension I10 ; Mixed hyperlipidemia E78.2 ; Anxiety F41.9 and Gastroesophageal reflux disease without esophagitis K21.9 [place] [address] [place] [id number] [place] [address] 09285- 9906 Oct, [facility] [id number] [place] [address] 14883- 2178 Oct, Post traumatic stress disorder (PTSD) F43.10 [facility] [address] [place] [id number] [place] [address] 24117- 3290 September, [facility] [address] [place] [id number] [place] [address] 75892- 1578 September, Post traumatic stress disorder (PTSD) F43.10 [facility] [address] [place] [id number] [place] [address] 16678- 8437 Aug, Mixed hyperlipidemia E78.2 [place] [address] [place] [address] [id number] [place] [address] 42918- 9589 Aug, Keloid of skin L91.0 and Impacted cerumen of both ears H61.23 [place] [address] [place] [id number] [place] [address] 01003- 9981 Aug, Post traumatic stress disorder (PTSD) F43.10 [place] [address] [place] [id number] [place] [address] 44229- 5670 Jul, [place] [address] [place] [id number] [place] [address] 74834- 3279 Jul, Mixed hyperlipidemia E78.2 ; Mild acid reflux K21.9 and Essential (primary) hypertension I10 [place] [address] [place] [id number] [place] [address] 49522- 8341 Jul, [facility] [address] [place] [id number] [place] [address] 93078- 2544 Jul, Post traumatic stress disorder (PTSD) F43.10 [facility] [address] [place] [id number] [place] [address] 55283- 2543 Jul, Mixed hyperlipidemia E78.2 [facility] [address] [place] [id number] [place] [address] 31671- 2547 Jul, Essential (primary) hypertension I10 [facility] [address] [place] [address] [place] [address] 68[address] Jun, Insect bite, subsequent encounter W57.XXXD ; Post traumatic stress disorder (PTSD) F43.10 ; Essential (primary) hypertension I10 and Localized edema R60.0 [facility] [address] [place] [id number] [place] [address] 73237- 4389 Jun, Anxiety F41.9 [facility] [address] 93863- 5345 Jun, Insect bite, initial encounter W57.XXXA ; Anxiety F41.9 ; Bronchitis J40 ; Headache R51 and Essential (primary) hypertension I10 [facility] [address] 58784- 9017 May, Anxiety F41.9 [facility] [address] 83101- 3862 May, [facility] [address] 24158- 3890 Apr, Anxiety F41.9 [facility] [address] 40262- 4314 Apr, [facility] [address] 61064- 2391 Mar, Anxiety F41.9 [place] [address] 93026- 6567 27 Mar, 2017 Angioedema, subsequent encounter T78.3XXD ; Post traumatic stress disorder (PTSD) F43.10 ; Generalized anxiety disorder F41.1 ; Forgetfulness R68.89 ; Anxiety F41.9 ; Essential (primary) hypertension I10 ; Headache R51 ; Bronchitis J40 ; Mild acid reflux K21.9 and Cough R05 [facility] [address] [place] [address] [id number] [place] [address] 43488- 8580 Mar, Angioedema, initial encounter T78.3XXA [facility] [address] [place] [address] Mar, Acute upper respiratory infection, unspecified J06.9 and Cough R05 [facility] [id number] [place] [address] 31545- 2073 Mar, Generalized anxiety disorder F41.1 [facility] [address] [place] [address] 78986- 0383 Feb, Generalized anxiety disorder F41.1 [facility] [address] [place] [id number] [place] [address] 12513- 7088 Jan, Generalized anxiety disorder F41.1 [facility] [address] [place] [id number] [place] [address] 08439- 6993 Dec, [facility] [address] [place] [id number] [place] [address] 55150- 2429 Dec, Generalized anxiety disorder F41.1 [facility] [address] [place] [id number] [place] [address] 09842- 5768 Nov, Generalized anxiety disorder F41.1 [facility] [address] [place] [address] 91687- 6551 Nov, Mild acid reflux K21.9 [facility] [id number] [place] [address] 44454- 9940 Oct, Generalized anxiety disorder F41.1 [facility] [address] [place] [address] 91767- 0031 Oct, Cellulitis of right upper extremity L03.113 [facility] [address] [place] [address] 34632- 2556 September, [facility] [address] [place] [id number] [place] [address] 78582- 5705 September, Generalized anxiety disorder F41.1 [facility] [address] [address]- 7290 Aug, Generalized anxiety disorder F41.1 [facility] [address] [place] [id number] [address]- 9050 Aug, Medicare annual wellness visit, initial Z00.00 [facility] [address] [place] [id number] [place] [address] 06622- 5186 Jul, Generalized anxiety disorder F41.1 [facility] [id number] [place] [address] 34208- 7998 Jul, [facility] [address] [place] [id number] [place] [address] 59520- 2745 Jul, [facility] [address] [place] [id number] [place] [address] 65627- 0390 Jun, Generalized anxiety disorder F41.1 [facility] [address] [place] [id number] [place] [address] 40600- 0807 May, Bronchitis J40 and Generalized anxiety disorder F41.1 [facility] [address] [place] [id number] [place] [address] 99876- 7424 May, Generalized anxiety disorder F41.1 [facility] [address] [place] [id number] [place] [address] 90820- 8849 May, [facility] [address] [place] [id number] [place] [address] 61190- 4421 Apr, Generalized anxiety disorder F41.1 [facility] [id number] [place] [address] 84038- 0875 Apr, Essential (primary) hypertension I10 [facility] [address] [place] [address] 28524- 2734 06 Apr, 2016 Generalized anxiety disorder F41.1 [facility] [address] [place] [id number] [place] [address] 22611- 7160 Mar, Generalized anxiety disorder F41.1 [facility] [address] [place] [address] 81216- 3994 Feb, Generalized anxiety disorder F41.1 [facility] [address] [place] [id number] [place] [address] 16644- 6266 Jan, Generalized anxiety disorder F41.1 [facility] [id number] [place] [address] 22541- 0298 Dec, Generalized anxiety disorder F41.1 [facility] [id number] [place] [address] 88388- 7242 Nov, [facility] [address] [place] [id number] [place] [address] 73029- 0821 Oct, Generalized anxiety disorder F41.1 [facility] [address] [place] [id number] [place] [address] 16034- 4497 Oct, Forgetfulness R68.89 [place] [address] [place] [id number] [place] [address] 16401- 9249 Oct, Generalized anxiety disorder F41.1 and Personality disorder , unspecified F60.9 [place] [address] [place] [id number] [place] [address] 76949- 1679 September, Mild acid reflux K21.9 [place] [address] [place] [id number] [place] [address] 57323- 5172 September, Generalized anxiety disorder F41.1 [place] [address] [place] [id number] [place] [address] 55360- 5295 Aug, Generalized anxiety disorder F41.1 and Personality disorder , unspecified F60.9 [place] [address] [place] [id number] [place] [address] 04543- 0487 Aug, Forgetfulness R68.89 and Generalized anxiety disorder F41.1 [facility] [address] [place] [id number] [place] [address] 45206- 6625 Aug, Unspecified symptoms and signs involving cognitive functions and awareness R41.9 and Generalized anxiety disorder F41.1 [place] [id number] [place] [address] 29834- 0376 Aug, [facility] [address] [place] [id number] [place] [address] 19799- 6604 Aug, Screening, lipid Z13.220 and Forgetfulness R68.89 [place] [address] [place] [id number] [place] [address] 92420- 1180 Aug, Headache R51 [place] [address] [place] [id number] [place] [address] 88324- 3682 30 Jul, 2015 Acute upper respiratory infection, unspecified J06.9 and Other viral agents as the cause of diseases classified elsewhere B97.89 [place] [address] [place] [id number] [place] [address] 01483- 8769 24 Jul, 2015 [place] [address] 33060- 6534 16 Jul, 2015 [place] [address] 69591- 1834 14 Jul, 2015 Headache R51 and Anxiety F41.9 [place] [address] 77758- 2852 Jul, Generalized anxiety disorder F41.1 and Personality disorder , unspecified F60.9 [place] [address] [place] [id number] [place] [address] 04344- 5990 Jun, [place] [address] [place] [id number] [place] [address] 73241- 4986 Jun, Post traumatic stress disorder (PTSD) F43.10 and Personality disorder, unspecified F60.9 [place] [address] [place] [id number] [place] [address] 32372- 4543 May, Overweight E66.3 [place] [address] [place] [id number] [place] [address] 63055- 4957 May, [place] [address] [place] [id number] [place] [address] 16355- 3825 May, Post traumatic stress disorder (PTSD) F43.10 and Personality disorder, unspecified F60.9 [place] [address] 68260- 2546 May, [facility] [address] [address]- 8436 Apr, [facility] [address] [address]- 6916 Apr, [facility] [address] [address]- 3516 Apr, [facility] [address] [place] [address] 94851 2543 Apr, [facility] [address] [address]- 3286 Mar, Post traumatic stress disorder (PTSD) F43.10 [facility] [address] [address]- 6586 Mar, [facility] [address] [place] [address] 62521- 0128 Mar, Post traumatic stress disorder (PTSD) F43.10 [facility] [address] [address]- 3862 Feb, Anxiety F41.9 [facility] [address] 6268 Feb, [facility] [address] [address]- 4346 Feb, [facility] [address] [address]- 1577 Feb, Post traumatic stress disorder (PTSD) F43.10 [facility] [address] [place] [address]- 3366 Jan, [facility] [address] [address] 0786 Jan, Posttraumatic stress disorder 309.81 [facility] [address] 0111 Jan, Allergic rhinitis 477.9 ; Upper respiratory infection 465.9 and Depression 311 [facility] [address] [place] [address]- 0895 Jan, Depressive disorder, not elsewhere classified 311 and Anxiety state, unspecified 300.00 [facility] [address] [address]- 6109 Jan, [facility] [address] [place] [id number] [place] [address] 71838- 7479 Dec, [facility] [address] [place] [address]- 9474 Dec, [facility] [address] [place] [id number] [place] [address] 73927- 6613 Dec, [facility] [address] [place] [id number] [place] [address] 42734- 9183 Nov, [facility] [address] [place] [address] [id number] [place] [address] 29249- 0720 Nov, [facility] [address] [address]- 9741 Oct, [facility] [address] [address]- 4467 Oct, Anxiety 300.00 ; Insomnia 780.52 ; Family history of diabetes mellitus V18.0 ; Hypertension 401.9 and Onychomycosis 110.1 [facility] [address] [address]- 3289 September, [facility] [address] [place] [address]- 2221 Aug, [facility] [id number] [address]- 4856 Aug, [facility] [address] [place] [address]- 4905 Jul, [facility] [address] [place] [id number] [place] [address] 37105- 2206 Jul, [facility] [address] [facility] [id number] [address]- 1437 Jun, [facility] [address] [facility] [id number] [address]- 5786 Jun, [facility] [address] [facility] [id number] [address]- 1146 May, [facility] [address] [facility] [id number] [address]- 8355 May, [facility] [address] [facility] [id number] [address]- 5924 May, [facility] [address] [facility] [id number] [address]- 7206 May, IMMUNIZATIONS No Known Immunizations SOCIAL HISTORY Never Assessed REASON FOR VISIT Controlled Med Refill 07/13/17 PLAN OF CARE VITAL SIGNS MEDICATIONS Medication Instructions Dosage Frequency Start Date End Date Duration Status Alprazolam 2 MG Orally Twice a day [...]
--- OUTSIDE RECORDS SUMMARY | 2018-01-12 19:07 | XMS REPORT ---
Author CATINA Turpin [facility] eClinical[employer] Address Unknown Phone Unavailable Care Team Providers Care Integration Project Manager Name Role Phone CATINA GARCIA CP Unavailable Allergies No Known Allergies Problems Problem Type Condition Code Onset Dates Condition Status Problem Hypertension 401.9 Active Problem Family history of diabetes mellitus V18.0 Active Problem Post traumatic stress disorder (PTSD) F43.10 Active Assessment Post traumatic stress disorder (PTSD) F43.10 Active Problem Chronic post-traumatic headache 339.22 Active Problem Routine general medical examination at health care facility V70.0 Active Medications No Known Medications Procedures Procedure Coding System Code Date Psychotherapy, patient &/family, 45 minutes, established patient CPT-4 03112 Apr 03, 2015 [facility] VISIT MENTAL HEALTH ESTAB PT CPT-4 G0470 Apr 03, 2015 Results No Known Results Summary Purpose eClinicalWorks Submission
--- OUTSIDE RECORDS SUMMARY | 2018-01-12 19:07 | XMS REPORT ---
Author Author SURJIT DAS Organization [facility] Address [address] [place] [address] Care Team Providers Care Business Systems Manager Name Role Phone SURJIT DAS Unavailable PROBLEMS Type Condition ICD9-CM Code [id number] Code Onset Dates Condition Status SNOMED Code Problem Personality disorder, unspecified F60.9 Active 09183968 Problem Essential (primary) hypertension I10 Active 40762911 Problem Mild acid reflux K21.9 Active 519954680 Problem Chronic post-traumatic headache G44.329 Active 791998781 Problem Generalized anxiety disorder F41.1 Active 00950570 Problem Unspecified symptoms and signs involving cognitive functions and awareness R41.9 Active 209873692 Problem Family history of diabetes mellitus Z83.3 Active 734987895 ALLERGIES No Information SOCIAL HISTORY Never Assessed PLAN OF CARE VITAL SIGNS MEDICATIONS Medication Instructions Dosage Frequency Start Date End Date Duration Status Nortriptyline HCl 25 MG Orally Once a day at hs 1 capsule 90 Active RESULTS No Results PROCEDURES No Known procedures IMMUNIZATIONS No Known Immunizations MEDICAL (GENERAL) HISTORY [...]
--- OUTSIDE RECORDS SUMMARY | 2018-01-12 19:08 | XMS REPORT ---
Author Author SURJIT DAS Organization [employer] Address Unknown Phone Unavailable Care Team Providers Care Development Professional Name Role Phone SURJIT DAS CP Unavailable Allergies No Known Allergies Problems Problem Type Condition Code Onset Dates Condition Status Assessment Generalized anxiety disorder F41.1 Active Problem Unspecified symptoms and signs involving cognitive functions and awareness R41.9 Active Problem Chronic post-traumatic headache G44.329 Active Problem Mild acid reflux K21.9 Active Problem Generalized anxiety disorder F41.1 Active Problem Personality disorder, unspecified F60.9 Active Problem Hypertension I10 Active Problem Family history of diabetes mellitus Z83.3 Active Medications Medication Code System Code Instructions Start Date End Date Status Dosage Alprazolam [facility] [address]-96 2 MG Orally Twice a day August 09, 2014 1 tablet as needed Results No Known Results Summary Purpose eClinicalWorks Submission
--- OUTSIDE RECORDS SUMMARY | 2018-01-12 19:08 | XMS REPORT ---
Author SURJIT Bell [facility] eClinical[employer] Address Unknown Phone Unavailable Care Team Providers Care Jackhammer Operator Name Role Phone SURJIT DAS CP Unavailable Allergies, Adverse Reactions, Alerts Substance Reaction Event Type N.K.D.A. Info Not Available Non Drug Allergy Problems Problem Type Condition Code Onset Dates Condition Status Problem Hypertension 401.9 Active Problem Family history of diabetes mellitus V18.0 Active Problem Post traumatic stress disorder (PTSD) F43.10 Active Assessment Anxiety F41.9 Active Problem Chronic post-traumatic headache 339.22 Active Problem Routine general medical examination at health care facility V70.0 Active Medications Medication Code System Code Instructions Start Date End Date Status Dosage L-Lysine [facility] 13799-27640 Jun 01, 2014 by oral route Omeprazole [facility] 82762392101 20 MG TAKE 1 CAPSULE (20 MG) BY ORAL ROUTE ONCE DAILY BEFORE A MEAL Fish Oil [facility] [address]-53 Jun 01, 2014 by oral route Flonase [facility] [address]-82 50 MCG/DOSE Nasally 2 times a day Feb 06, 2015 1 spray in each nostril Vitamin A [facility] 0 Jun 01, 2014 by oral route Triamterene-HCTZ [facility] [address]-01 75-50 MG Orally Once a day 1 tablet in the morning Alprazolam [facility] [address]-78 2 MG August 09, 2014 take 1 tablet by Oral route 2 times per day Wellbutrin [facility] [address]-14 75 MG Orally 2 times a day Has some before Mar 08, 2015 1 tablet Red Yeast Rice [facility] 99522-36486 Jun 01, 2014 by oral route Vitamin B Complex [facility] 86980-[address]199 Jun 01, 2014 by oral route Coenzyme Q10 [facility] 0 Jun 01, 2014 by oral route Procedures Procedure Coding System Code Date Office Visit, Est Pt., Level 3 CPT-4 28089 Mar 08, 2015 [facility]LY [facility] VISIT ESTABLISHED PATIENT CPT-4 G0467 Mar 08, 2015 Vital Signs Date/Time: Mar 08, 2015 Temperature 98.2 F Weight 172.9 lbs Height 68 in BMI 26.29 Index Blood Pressure Diastolic 60 mmHg Blood Pressure Systolic 122 mmHg Cardiac Monitoring Heart Rate 62 bpm Results No Known Results Summary Purpose eClinicalWorks Submission
--- OUTSIDE RECORDS SUMMARY | 2018-01-12 19:08 | XMS REPORT ---
Author Author SURJIT DAS Organization [facility] [place] Address [address] [place] [address] Care Team Providers Care Metal Roaster Name Role Phone SURJIT DAS Unavailable PROBLEMS Type Condition ICD9-CM Code [id number] Code Onset Dates Condition Status SNOMED Code Problem Personality disorder, unspecified F60.9 Active 66766024 Problem Essential (primary) hypertension I10 Active 44990164 Problem Mild acid reflux K21.9 Active 154316834 Problem Chronic post-traumatic headache G44.329 Active 245927808 Problem Generalized anxiety disorder F41.1 Active 86941299 Problem Unspecified symptoms and signs involving cognitive functions and awareness R41.9 Active 510680944 Problem Family history of diabetes mellitus Z83.3 Active 759476517 ALLERGIES No Information SOCIAL HISTORY Never Assessed [...]
--- OUTSIDE RECORDS SUMMARY | 2018-01-12 19:08 | XMS REPORT ---
Author Author SURJIT DAS Organization [employer] Address Unknown Phone Unavailable Care Team Providers Care Principal Biostatistician Name Role Phone SURJIT DAS CP Unavailable [...] Instructions Start Date End Date Status Dosage Vitamin B Complex [facility] [address] Jun 01, 2014 by oral route Vitamin C [facility] [address]-69 1000 MG Orally Once a day 1 tablet Omeprazole [facility] [address]-04 20 mg Orally Once a day 1 capsule Probiotic [facility] 06991-[address]81 Jun 01, 2014 by oral route Vitamin A [facility] 0 Jun 01, 2014 by oral route Fish Oil [facility] [address]-34 Jun 01, 2014 by oral route Alprazolam [facility] [address]-21 2 MG Orally Twice a day August 09, 2014 1 tablet as needed Nortriptyline HCl [facility] [address]-94 25 MG Orally Once a day at July 1 capsule Kelp [facility] 89770-52782 Jun 01, 2014 by oral route Triamterene-HCTZ [facility] 74812476278 75-50 MG TAKE 1 TABLET BY ORAL ROUTE ONCE DAILY Coenzyme Q10 [facility] 41483-[address]24 Jun 01, 2014 by oral route Results No Known Results Summary Purpose eClinicalWorks Submission
--- OUTSIDE RECORDS SUMMARY | 2018-01-12 19:08 | XMS REPORT ---
Author Author SURJIT DAS [facility] Address [address] [place] [address] Care Team Providers Care Family Member Caretaker Name Role Phone SURJIT DAS Unavailable PROBLEMS Type Condition ICD9-CM Code [id number] Code Onset Dates Condition Status SNOMED Code Problem Personality disorder, unspecified F60.9 Active 74183904 Problem Essential (primary) hypertension I10 Active 83557552 Problem Mild acid reflux K21.9 Active 089527654 Problem Chronic post-traumatic headache G44.329 Active 945994088 Problem Generalized anxiety disorder F41.1 Active 44730206 Problem Unspecified symptoms and signs involving cognitive functions and awareness R41.9 Active 094058054 Problem Family history of diabetes mellitus Z83.3 Active 695686674 ALLERGIES Unknown Allergies SOCIAL HISTORY No smoking Hx information available PLAN OF CARE VITAL SIGNS MEDICATIONS Unknown Medications RESULTS No Results PROCEDURES No Known procedures IMMUNIZATIONS No Known Immunizations
--- OUTSIDE RECORDS SUMMARY | 2018-01-12 19:08 | XMS REPORT ---
Author CATINA Turpin [employer] Address Unknown Phone Unavailable Care Team Providers Care Construction Estimator Name Role Phone CATINA GARCIA CP Unavailable Allergies No Known Allergies Problems Problem Type Condition Code Onset Dates Condition Status Assessment Personality disorder, unspecified F60.9 Active Problem Chronic post-traumatic headache G44.329 Active Problem Hypertension I10 Active Problem Unspecified symptoms and signs involving cognitive functions and awareness R41.9 Active Problem Personality disorder, unspecified F60.9 Active Assessment Generalized anxiety disorder F41.1 Active Problem Family history of diabetes mellitus Z83.3 Active Problem Generalized anxiety disorder F41.1 Active Medications No Known Medications Procedures Procedure Coding System Code Date Psychotherapy, patient &/family, 45 minutes, established patient CPT-4 49973 September 12, 2015 [facility] VISIT MENTAL HEALTH ESTAB PT CPT-4 G0470 September 12, 2015 Results No Known Results Summary Purpose eClinicalWorks Submission
--- OUTSIDE RECORDS SUMMARY | 2018-01-12 19:08 | XMS REPORT ---
Author Author SURJIT DAS Organization [facility] Address [address] [place] [address] Care Team Providers Care Wedding Coordinator Name Role Phone SURJIT DAS Unavailable PROBLEMS Type Condition ICD9-CM Code [id number] Code Onset Dates Condition Status SNOMED Code Problem Personality disorder, unspecified F60.9 Active 61803748 Problem Chronic post-traumatic headache G44.329 Active 498351790 Problem Generalized anxiety disorder F41.1 Active 14470743 Problem Mixed hyperlipidemia E78.2 Active 462103101 Problem Anxiety F41.9 Active 56237448 Problem Post traumatic stress disorder (PTSD) F43.10 Active 22991795 Problem Unspecified symptoms and signs involving cognitive functions and awareness R41.9 Active 281749149 Problem Family history of diabetes mellitus Z83.3 Active 257052083 Problem Essential (primary) hypertension I10 Active 52016111 Problem Mild acid reflux K21.9 Active 568080044 ALLERGIES Substance Reaction Event Type Date Status Prefers no strong narcotics Unknown Non Drug Allergy Oct, Active ENCOUNTERS Encounter Location Date Diagnosis [place] [id number] [place] [address]5823- 9923 Aug, [facility] [id number] [place] [address] 04731- 2161 Jul, Post traumatic stress disorder (PTSD) F43.10 [facility] [id number] [place] [address] 15823- 8212 Jul, Mixed hyperlipidemia E78.2 [facility] [address] [place] [id number] [place] [address] 02158- 1271 Jul, Essential (primary) hypertension I10 [facility] [id number] [place] [address] 08606- 6618 Jun, Insect bite, subsequent encounter W57.XXXD ; Post traumatic stress disorder (PTSD) F43.10 ; Essential (primary) hypertension I10 and Localized edema R60.0 [facility] [address] [address]- 1721 Jun, Anxiety F41.9 [facility] [address] [address]- 7713 Jun, Insect bite, initial encounter W57.XXXA ; Anxiety F41.9 ; Bronchitis J40 ; Headache R51 and Essential (primary) hypertension I10 [facility] [address] [address]- 0172 May, Anxiety F41.9 [facility] [address] 2[address]- 7974 May, [facility] [address] 52341- 6700 Apr, Anxiety F41.9 [facility] [address] 14446- 3984 Apr, [facility] [address] 57153- 3225 Mar, Anxiety F41.9 [facility] [address] 0[address]33- 1454 27 Mar, 2017 Angioedema, subsequent encounter T78.3XXD ; Post traumatic stress disorder (PTSD) F43.10 ; Generalized anxiety disorder F41.1 ; Forgetfulness R68.89 ; Anxiety F41.9 ; Essential (primary) hypertension I10 ; Headache R51 ; Bronchitis J40 ; Mild acid reflux K21.9 and Cough R05 [facility] [address] 74053- 8370 21 Mar, 2017 Angioedema, initial encounter T78.3XXA [facility] [id number] [place] [address] 24970 -2317 16 Mar, 2017 Acute upper respiratory infection, unspecified J06.9 and Cough R05 [facility] [address] [address] 75[address] Mar, Generalized anxiety disorder F41.1 [facility] [address] [place] [address] 47569- 9014 Feb, Generalized anxiety disorder F41.1 [facility] [address] [place] [address] 29955- 4196 Jan, Generalized anxiety disorder F41.1 [facility] [id number] [place] [address] 58931- 8455 Dec, [facility] [id number] [place] [address] 53164- 9998 Dec, Generalized anxiety disorder F41.1 [facility] [id number] [place] [address] 21855- 6620 Nov, Generalized anxiety disorder F41.1 [facility] [id number] [place] [address] 70059- 2067 Nov, Mild acid reflux K21.9 [facility] [id number] [place] [address] 99900- 1766 Oct, Generalized anxiety disorder F41.1 [facility] [id number] [place] [address] 47292- 0803 Oct, Cellulitis of right upper extremity L03.113 [facility] [id number] [place] [address] 98581- 8664 September, [facility] [id number] [place] [address] 28909- 3771 September, Generalized anxiety disorder F41.1 [facility] [id number] [place] [address] 63386- 8718 Aug, Generalized anxiety disorder F41.1 [facility] [address] [place] [address] 51192- 7243 Aug, Medicare annual wellness visit, initial Z00.00 [facility] [address] [address] 1422 24 Jul, 2016 Generalized anxiety disorder F41.1 [facility] [address] [address] 5596 Jul, [facility] [id number] [place] [address] 86318 2546 Jul, [facility] [id number] [place] [address] 90293 2542 Jun, Generalized anxiety disorder F41.1 [facility] [id number] [place] [address] 76221- 7086 May, Bronchitis J40 and Generalized anxiety disorder F41.1 [facility] [id number] [place] [address] 13348- 8216 May, Generalized anxiety disorder F41.1 [facility] [id number] [place] [address] 66644- 7461 May, [facility] [id number] [place] [address] 70680- 9646 Apr, Generalized anxiety disorder F41.1 [facility] [address], [place] [address]- 2540 Apr, Essential (primary) hypertension I10 [facility] [id number] [place] [address] 00375 2546 06 Apr, 2016 Generalized anxiety disorder F41.1 [facility] [address] [address]- 2547 Mar, Generalized anxiety disorder F41.1 [facility] [address] [address]- 9426 06 Feb, 2016 Generalized anxiety disorder F41.1 [facility] [address] [address]- 0186 08 Jan, 2016 Generalized anxiety disorder F41.1 [facility] [address] [place] [address] 60236- 0789 Dec, Generalized anxiety disorder F41.1 [facility] [id number] [place] [address] 20347- 8329 Nov, [facility] [id number] [place] [address] 01760- 9764 Oct, Generalized anxiety disorder F41.1 [facility] [id number] [place] [address] 13372- 4826 Oct, Forgetfulness R68.89 [place] [id number] [place] [address] 10162- 9290 Oct, Generalized anxiety disorder F41.1 and Personality disorder , unspecified F60.9 [place] [id number] [place] [address] 68918- 2327 September, Mild acid reflux K21.9 [place] [address] [id number] [place] [address] 73789- 9885 September, Generalized anxiety disorder F41.1 [place] [id number] [place] [address] 00856- 6105 Aug, Generalized anxiety disorder F41.1 and Personality disorder , unspecified F60.9 [place] [address] [id number] [place] [address] 25810- 0817 Aug, Forgetfulness R68.89 and Generalized anxiety disorder F41.1 [place] [address] [id number] [place] [address] 87488- 6654 Aug, Unspecified symptoms and signs involving cognitive functions and awareness R41.9 and Generalized anxiety disorder F41.1 [place] [id number] [place] [address] 81788- 1970 Aug, [place] [id number] [place] [address] 47769- 3705 Aug, Screening, lipid Z13.220 and Forgetfulness R68.89 [place] [address] [address]- 0658 11 Aug, 2015 Headache R51 [place] [address] [id number] [place] [address] 51359- 4508 30 Jul, 2015 Acute upper respiratory infection, unspecified J06.9 and Other viral agents as the cause of diseases classified elsewhere B97.89 [place] [address] [id number] [place] [address] 34685- 0021 24 Jul, 2015 [facility] [id number] [place] [address] 04618- 4691 Jul, [place] [address] [id number] [place] [address] 31615- 9595 Jul, Headache R51 and Anxiety F41.9 [place] [id number] [place] [address] 90605- 3425 Jul, Generalized anxiety disorder F41.1 and Personality disorder , unspecified F60.9 [place] [address] [id number] [place] [address] 25615- 3827 Jun, [place] [address] [id number] [place] [address] 51210- 7449 Jun, Post traumatic stress disorder (PTSD) F43.10 and Personality disorder, unspecified F60.9 [place] [id number] [place] [address] 27705- 7117 May, Overweight E66.3 [facility] [id number] [place] [address] 71955- 1922 May, [place] [address] [id number] [place] [address] 10992- 2688 May, Post traumatic stress disorder (PTSD) F43.10 and Personality disorder, unspecified F60.9 [place] [address] [id number] [place] [address] 83245- 1876 May, [facility] [id number] [address]- 8697 Apr, [facility] [address] [place] [address]- 0624 Apr, [facility] [address] [address]- 3636 Apr, [facility] [address] [address]- 4586 Apr, [facility] [id number] [place] [address] 02741- 9002 Mar, Post traumatic stress disorder (PTSD) F43.10 [facility] [id number] [place] [address] 62273- 7223 Mar, [facility] [id number] [place] [address] 563643- 6258 Mar, Post traumatic stress disorder (PTSD) F43.10 [facility] [address] [address]- 3436 Feb, Anxiety F41.9 [facility] [id number] [place] [address] 437865- 3190 Feb, [facility] [address] 6675 Feb, [facility] [address] 9884 Feb, Post traumatic stress disorder (PTSD) F43.10 [facility] [address] [address]- 7906 Jan, [facility] [id number] [place] [address] 848366- 8618 Jan, Posttraumatic stress disorder 309.81 [facility] [address] [address] 2096 Jan, Allergic rhinitis 477.9 ; Upper respiratory infection 465.9 and Depression 311 [facility] [address] [address] [address] Jan, Depressive disorder, not elsewhere classified 311 and Anxiety state, unspecified 300.00 [facility] [address] [address]- 7883 Jan, [facility] [address] [address] 4568 Dec, [facility] [address]- 9267 Dec, [facility] [address] [place] [address]- 3561 Dec, [facility] [address] 1792 Nov, [facility] [address] [place] [address]- 9784 Nov, [facility] [address] [place] [address]- 8411 Oct, [facility] [address] [address] Oct, Anxiety 300.00 ; Insomnia 780.52 ; Family history of diabetes mellitus V18.0 ; Hypertension 401.9 and Onychomycosis 110.1 [facility] [id number] [address]- 7098 September, [facility] [address] [address]- 7307 Aug, [facility] [address] 6421 Aug, [facility] [address] [place] [address]- 6464 Jul, [facility] [id number] 9101 Jul, [facility] [id number] [place] [address]- 6735 Jun, [facility] [id number] [address]- 9909 Jun, [facility] [id number] [address]- 1095 May, [facility] [id number] [address]- 7165 May, [facility] [id number] [address]- 4459 May, [place] [address] [place] [address]- 5697 May, IMMUNIZATIONS No Known Immunizations SOCIAL HISTORY Never Assessed REASON FOR VISIT Lump above elbow of right arm that is red, warm to the touch, and painful-- ABoggsLPN PLAN OF CARE Activity Details Follow Up prn Reason: VITAL SIGNS Height 68 in 2016-10-27 Weight 179.1 lbs 2016-10-27 Temperature 97.8 degrees Fahrenheit 2016-10-27 Heart Rate 72 bpm 2016-10-27 Respiratory Rate 18 2016-10-27 BMI 27.23 kg/m2 2016-10-27 Blood pressure systolic 142 mmHg 2016-10-27 Blood pressure diastolic 82 mmHg 2016-10-27 MEDICATIONS Medication Instructions Dosage Frequency Start Date End Date Duration Status Kelp by oral route May, Active Vitamin A by oral route May, Active Vitamin B Complex by oral route May, Active Fish Oil by oral route May, Active Keflex 500 mg Orally 3 times a day 1 capsule 8h Oct, Oct, 07 days Active Alprazolam 2 MG Orally Twice a day 1 tablet as needed 12h Jul, 28 days Active Coenzyme Q10 by oral route May, Active Omeprazole 20 mg Orally Once a day 1 capsule 24h 90 days Active Flonase Allergy Relief 50 MCG/ACT Nasally Once a day 1 spray in each nostril 24h May, 30 day(s) Active Triamterene-HCTZ 75-50 MG Orally Once a day 1 tablet 24h 90 days Active Vitamin C 1000 MG Orally Once a day 1 tablet 24h Active Probiotic by oral route May, Active Nortriptyline HCl 25 MG Orally Once a day at hs 1 capsule 90 Active RESULTS No Results PROCEDURES Procedure Date Ordered Result Body Site [facility] ESTABL[facility] PATIENT October 27, 2016 INSTRUCTIONS MEDICATIONS ADMINISTERED No Known Medications MEDICAL [...]
--- OUTSIDE RECORDS SUMMARY | 2018-01-12 19:08 | XMS REPORT ---
Author Author SURJIT DAS Organization [employer] Address Unknown Phone Unavailable Care Team Providers Care Drawing Press Operator Name Role Phone SURJIT DAS CP [...] Start Date End Date Status Dosage Alprazolam [facility] [address]-17 2 MG August 09, 2014 take 1 tablet by Oral route 2 times per day Results No Known Results Summary Purpose [employer] Submission
--- OUTSIDE RECORDS SUMMARY | 2018-01-12 19:08 | XMS REPORT ---
Author Author SURJIT DAS [facility] Address [address] [place] [address] Care Team Providers Care Leather Goods Ii Assembler Name Role Phone SURJIT DAS Unavailable PROBLEMS Type Condition ICD9-CM Code MXT46-ZS Code Onset Dates Condition Status SNOMED Code Problem Personality disorder, unspecified F60.9 Active 31786649 Problem Essential (primary) hypertension I10 Active 68693887 Problem Mild acid reflux K21.9 Active 320430954 Problem Chronic post-traumatic headache G44.329 Active 565205645 Problem Generalized anxiety disorder F41.1 Active 27472486 Problem Unspecified symptoms and signs involving cognitive functions and awareness R41.9 Active 425902837 Problem Family history of diabetes mellitus Z83.3 Active 691324084 ALLERGIES Substance Reaction Event Type Date Status Prefers no strong narcotics Unknown Non Drug Allergy May, Active SOCIAL HISTORY Never Assessed PLAN OF CARE Activity Details Follow Up prn Reason: VITAL SIGNS Height 68 in 2016-06-16 Weight 168.0 lbs 2016-06-16 Temperature 97.4 degrees Fahrenheit 2016-06-16 Heart Rate 76 bpm 2016-06-16 Respiratory Rate 18 2016-06-16 BMI 25.54 kg/m2 2016-06-16 Blood pressure systolic 134 mmHg 2016-06-16 Blood pressure diastolic 74 mmHg 2016-06-16 MEDICATIONS Medication Instructions Dosage Frequency Start Date End Date Duration Status Kelp by oral route May, Active Omeprazole 20 mg Orally Once a day 1 capsule 24h 90 days Active Fish Oil by oral route May, Active Coenzyme Q10 by oral route May, Active Alprazolam 2 MG Orally Twice a day 1 tablet as needed 12h Jul, 28 days Active Vitamin B Complex by oral route May, Active Vitamin C 1000 MG Orally Once a day 1 tablet 24h Active Scopolamine 1 MG/3DAYS Transdermal change every 72 hours 1 patch to skin as needed May, Jun, 03 days Active Triamterene-HCTZ 75-50 MG TAKE 1 TABLET BY ORAL ROUTE ONCE DAILY Active Nortriptyline HCl 25 MG Orally Once a day at hs 1 capsule 90 Active Vitamin A by oral route May, Active Probiotic by oral route May, Active Zithromax Z-[place] 250 MG Orally Once a day 2 tablets on the first day, then 1 tablet daily for 4 days 24h May, 4 Jun, 2016 5 day(s) Active Flonase Allergy Relief 50 MCG/ACT Nasally Once a day 1 spray in each nostril 24h May, 30 day(s) Active RESULTS No Results PROCEDURES Procedure Date Ordered Result Body Site [facility] VISIT ESTABLISHED PATIENT Jun 16, 2016 IMMUNIZATIONS No Known Immunizations MEDICAL (GENERAL) [...]
--- OUTSIDE RECORDS SUMMARY | 2018-01-12 19:08 | XMS REPORT ---
Author SURJIT Bell Organization [employer] Address Unknown Phone Unavailable Care Team Providers Care Senior Solutions Consultant Name Role Phone SURJIT DAS CP Unavailable [...] Start Date End Date Status Dosage Alprazolam [facility] [address]-91 2 MG August 09, 2014 take 1 tablet by Oral route 2 times per day Results No Known Results Summary Purpose [employer] Submission
--- OUTSIDE RECORDS SUMMARY | 2018-01-12 19:09 | XMS REPORT ---
Author SHERLYN Turpin Organization [employer] Address Unknown Phone Unavailable Care Team Providers Care Reinsurance Analyst Name Role Phone SHERLYN GARCIA CP Unavailable Allergies No Known Allergies Problems Problem Type Condition Code Onset Dates Condition Status Assessment Generalized anxiety disorder F41.1 Active Problem Chronic post-traumatic headache G44.329 Active Problem Hypertension I10 Active Problem Unspecified symptoms and signs involving cognitive functions and awareness R41.9 Active Problem Personality disorder, unspecified F60.9 Active Assessment Unspecified symptoms and signs involving cognitive functions and awareness R41.9 Active Problem Family history of diabetes mellitus Z83.3 Active Problem Generalized anxiety disorder F41.1 Active Medications No Known Medications Procedures Procedure Coding System Code Date Psych diagnostic evaluation, established patient CPT-4 19645 September 12, 2015 [facility] VISIT MENTAL HEALTH ESTAB PT CPT-4 G0470 September 12, 2015 Results No Known Results Summary Purpose [employer]Clinical[employer] Submission
--- OUTSIDE RECORDS SUMMARY | 2018-01-12 19:09 | XMS REPORT ---
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 Name Role Phone SURJIT DAS Unavailable PROBLEMS Type Condition ICD9-CM Code [id number] Code Onset Dates Condition Status SNOMED Code Problem Personality disorder, unspecified F60.9 Active 82947855 Problem Chronic post-traumatic headache G44.329 Active 348449089 Problem Generalized anxiety disorder F41.1 Active 26168654 Problem Mixed hyperlipidemia E78.2 Active 484403443 Problem Anxiety F41.9 Active 26292603 Problem Post traumatic stress disorder (PTSD) F43.10 Active 72277368 Problem Unspecified symptoms and signs involving cognitive functions and awareness R41.9 Active 592453911 Problem Family history of diabetes mellitus Z83.3 Active 188289236 Problem Essential (primary) hypertension I10 Active 40602673 Problem Mild acid reflux K21.9 Active 797361658 ALLERGIES No Information ENCOUNTERS Encounter Location Date Diagnosis [id number] [place] [address] 58404- 2416 Oct, Medicare annual wellness visit, initial Z00.00 [id number] [place] [address] 40852- 7355 September, Post traumatic stress disorder (PTSD) F43.[id number] [place] [address] 65355- 1004 Aug, Mixed hyperlipidemia E78.[address] 61022- 2786 Aug, Keloid of skin L91.0 and Impacted cerumen of both ears H61.23 [place] [id number] [place] [address] 72542- 2056 Aug, Post traumatic stress disorder (PTSD) F43.10 [facility] [id number] [place] [address] 45268- 0017 Jul, [facility] [id number] [place] [address] 461592- 2923 Jul, Mixed hyperlipidemia E78.2 ; Mild acid reflux K21.9 and Essential (primary) hypertension I10 [place] [address] 67050- 4446 Jul, [place] [address] 59795- 6987 Jul, Post traumatic stress disorder (PTSD) F43.10 [place] [id number] [place] [address] 21285- 9127 Jul, Mixed hyperlipidemia E78.2 [place] [id number] [place] [address] 94314- 9534 Jul, Essential (primary) hypertension I10 [place] [id number] [place] [address] 92095- 4501 Jun, Insect bite, subsequent encounter W57.XXXD ; Post traumatic stress disorder (PTSD) F43.10 ; Essential (primary) hypertension I10 and Localized edema R60.0 [place] [id number] [place] [address] 59045- 1855 Jun, Anxiety F41.9 [place] [id number] [place] [address] 357912- 8022 Jun, Insect bite, initial encounter W57.XXXA ; Anxiety F41.9 ; Bronchitis J40 ; Headache R51 and Essential (primary) hypertension I10 [place] [id number] [place] [address] 57993- 0503 May, Anxiety F41.9 [place] [id number] [place] [address] 24588- 5512 May, [place] [id number] [place] [address] 24820- 4713 Apr, Anxiety F41.9 [facility] [address] 58016- 2845 Apr, [facility] [id number] [place] [address] 84543- 0954 Mar, Anxiety F41.9 [facility] [address] 04083- 9535 Mar, Angioedema, subsequent encounter T78.3XXD ; Post traumatic stress disorder (PTSD) F43.10 ; Generalized anxiety disorder F41.1 ; Forgetfulness R68.89 ; Anxiety F41.9 ; Essential (primary) hypertension I10 ; Headache R51 ; Bronchitis J40 ; Mild acid reflux K21.9 and Cough R05 [place] [id number] [place] [address] 80962- 6514 Mar, Angioedema, initial encounter T78.3XXA [facility] [id number] [place] [address] 84539 -3607 Mar, Acute upper respiratory infection, unspecified J06.9 and Cough R05 [place] [id number] [place] [address] 37258- 9563 Mar, Generalized anxiety disorder F41.1 [place] [id number] [place] [address] 45120- 3304 Feb, Generalized anxiety disorder F41.1 [place] [id number] [place] [address] 32987- 6374 Jan, Generalized anxiety disorder F41.1 [facility] [address] 36282- 1632 Dec, [facility] [id number] [place] [address] 62464- 4676 Dec, Generalized anxiety disorder F41.1 [facility] [address] 56796- 0000 Nov, Generalized anxiety disorder F41.1 [facility] [address] [address] 5627 Nov, Mild acid reflux K21.9 [facility] [id number] [place] [address] 86474- 6595 16 Oct, 2016 Generalized anxiety disorder F41.1 [facility] [id number] [place] [address] 86794- 8576 Oct, Cellulitis of right upper extremity L03.113 [facility] [id number] [place] [address] 29908- 3585 September, [facility] [id number] [place] [address] 39296- 2195 September, Generalized anxiety disorder F41.1 [facility] [id number] [place] [address] 33322- 0596 Aug, Generalized anxiety disorder F41.1 [facility] [id number] [place] [address] 80159- 1950 Aug, Medicare annual wellness visit, initial Z00.00 [facility] [id number] [place] [address] 59921- 0182 Jul, Generalized anxiety disorder F41.1 [facility] [id number] [place] [address] 97464- 8499 Jul, [facility] [id number] [place] [address] 23429- 8315 Jul, [facility] [address] [place] [address] 12581- 1003 Jun, Generalized anxiety disorder F41.1 [facility] [id number] [place] [address] 52781- 1774 May, Bronchitis J40 and Generalized anxiety disorder F41.1 [facility] [id number] [place] [address] 38222- 8485 May, Generalized anxiety disorder F41.1 [facility] [address] [place] [address] 53947- 7472 May, [facility] [id number] [place] [address] 917960- 7913 Apr, Generalized anxiety disorder F41.1 [facility] [id number] [place] [address] 82583- 4762 Apr, Essential (primary) hypertension I10 [facility] [id number] [place] [address] 68688- 3116 Apr, Generalized anxiety disorder F41.1 [facility] [id number] [place] [address] 21680- 5982 Mar, Generalized anxiety disorder F41.1 [facility] [id number] [place] [address] 12276- 2742 Feb, Generalized anxiety disorder F41.1 [facility] [id number] [place] [address] 52203- 9956 Jan, Generalized anxiety disorder F41.1 [facility] [id number] [place] [address] 44879- 5262 Dec, Generalized anxiety disorder F41.1 [facility] [id number] [place] [address] 16646- 3938 Nov, [facility] [id number] [place] [address] 15236- 6907 Oct, Generalized anxiety disorder F41.1 [facility] [id number] [place] [address] 94559- 8572 Oct, Forgetfulness R68.89 [facility] [id number] [place] [address] 05122- 6233 Oct, Generalized anxiety disorder F41.1 and Personality disorder , unspecified F60.9 [facility] [id number] [place] [address] 31180- 9634 September, Mild acid reflux K21.9 [place] [id number] [place] [address] 00676- 6668 September, Generalized anxiety disorder F41.1 [place] [address] 95426- 8838 Aug, Generalized anxiety disorder F41.1 and Personality disorder , unspecified F60.9 [place] [address] 26037- 5341 Aug, Forgetfulness R68.89 and Generalized anxiety disorder F41.1 [place] [address] 15136- 5766 Aug, Unspecified symptoms and signs involving cognitive functions and awareness R41.9 and Generalized anxiety disorder F41.1 [place] [address] 33531- 6103 Aug, [place] [address] 72279- 9553 Aug, Screening, lipid Z13.220 and Forgetfulness R68.89 [place] [id number] [place] [address] 11613- 9119 Aug, Headache R51 [place] [id number] [place] [address] 75369- 2316 30 Jul, 2015 Acute upper respiratory infection, unspecified J06.9 and Other viral agents as the cause of diseases classified elsewhere B97.89 [place] [id number] [place] [address] 24469- 1397 24 Jul, 2015 [place] [address] 49920- 3972 16 Jul, 2015 [place] [id number] [place] [address] 11685- 3073 14 Jul, 2015 Headache R51 and Anxiety F41.9 [place] [address] 01249- 1166 Jul, Generalized anxiety disorder F41.1 and Personality disorder , unspecified F60.9 [facility] [address] [address]- 3366 Jun, [facility] [address] [address] 2546 Jun, Post traumatic stress disorder (PTSD) F43.10 and Personality disorder, unspecified F60.9 [facility] [address] [place] [address] 57478 2546 May, Overweight E66.3 [facility] [id number] [place] [address] 26864- 4886 May, [facility] [address] [place] [address] 27026- 7389 May, Post traumatic stress disorder (PTSD) F43.10 and Personality disorder, unspecified F60.9 [facility] [address] [address]- 8391 May, [facility] [id number] [place] [address] 69969- 1266 Apr, [facility] [address] [address] 2546 Apr, [facility] [address] [address] 2546 Apr, [facility] [address] [address] 2546 Apr, [facility] [address] [address]- 9766 Mar, Post traumatic stress disorder (PTSD) F43.10 [facility] [address] [address] 2546 Mar, [facility] [address] [address]- 0948 Mar, Post traumatic stress disorder (PTSD) F43.10 [facility] [address] [address]- 9624 Feb, Anxiety F41.9 [facility] [id number] [place] [address] 176192- 3076 Feb, [facility] [id number] [place] [address] 08135- 2255 Feb, [facility] [id number] [place] [address] 94947- 1540 Feb, Post traumatic stress disorder (PTSD) F43.10 [facility] [id number] [place] [address] 22286- 7270 Jan, [facility] [id number] [place] [address] 14260- 3554 Jan, Posttraumatic stress disorder 309.81 [facility] [id number] [place] [address] 29463- 6296 Jan, Allergic rhinitis 477.9 ; Upper respiratory infection 465.9 and Depression 311 [facility] [id number] [place] [address] 86122- 2891 Jan, Depressive disorder, not elsewhere classified 311 and Anxiety state, unspecified 300.00 [facility] [address] [address]- 9480 Jan, [facility] [id number] [place] [address] 45121- 8220 Dec, [facility] [address], [place] [address]- 3007 Dec, [facility] [id number] [place] [address] 86525- 8583 Dec, [facility] [address] [place] [address] 46942- 9604 Nov, [facility] [id number] [address]- 9993 Nov, [facility] [address] [address]- 8429 Oct, [facility] [address], [place] [address]- 1046 Oct, Anxiety 300.00 ; Insomnia 780.52 ; Family history of diabetes mellitus V18.0 ; Hypertension 401.9 and Onychomycosis 110.1 [facility] [address] [address]- 6746 September, [facility] [address] [address]- 2988 Aug, [facility] [address], [place] [address]- 5624 Aug, [facility] [address] [address]- 0841 Jul, [facility] [address]- 5712 Jul, [facility] [address] 7271 Jun, [facility] [address]- 5736 Jun, [facility] [address], [place] [address]- 9888 May, [facility] [id number]- 4247 May, [facility] [address] [address]- 4111 May, [facility] [address] [address]- 9435 May, IMMUNIZATIONS No Known Immunizations SOCIAL HISTORY Never Assessed REASON FOR VISIT Controlled Med Refill 03/23/2017 PLAN OF CARE VITAL SIGNS MEDICATIONS Medication Instructions Dosage Frequency Start Date End Date Duration Status Alprazolam 2 MG Orally Twice a day 1 tablet as needed 12h 25 Jul, 2014 28 days Active RESULTS No Results PROCEDURES [...]
--- OUTSIDE RECORDS SUMMARY | 2018-01-12 19:09 | XMS REPORT ---
Author CATINA Turpin [employer] Address Unknown Phone Unavailable Care Team Providers Care Maintenance Shop Laborer Name Role Phone CATINA GARCIA CP Unavailable Allergies No Known Allergies Problems Problem Type Condition Code Onset Dates Condition Status Assessment Personality disorder, unspecified F60.9 Active Problem Post traumatic stress disorder (PTSD) F43.10 Active Problem Hypertension 401.9 Active Problem Personality disorder, unspecified F60.9 Active Problem Routine general medical examination at health care facility V70.0 Active Assessment Post traumatic stress disorder (PTSD) F43.10 Active Problem Family history of diabetes mellitus V18.0 Active Problem Chronic post-traumatic headache 339.22 Active Medications No Known Medications Procedures Procedure Coding System Code Date Psychotherapy, patient &/family, 45 minutes, established patient CPT-4 65789 Jun 21, 2015 [facility] VISIT MENTAL HEALTH ESTAB PT CPT-4 G0470 Jun 21, 2015 Results No Known Results Summary Purpose [employer] Submission
--- OUTSIDE RECORDS SUMMARY | 2018-01-12 19:09 | XMS REPORT ---
Author Author SURJIT DAS Organization [facility] Address [address] [place] [address] Care Team Providers Care Pickler Helper Name Role Phone SURJIT DAS Unavailable PROBLEMS Type Condition ICD9-CM Code [id number] Code Onset Dates Condition Status SNOMED Code Problem Personality disorder, unspecified F60.9 Active 36736232 Problem Chronic post-traumatic headache G44.329 Active 225838128 Problem Generalized anxiety disorder F41.1 Active 65086224 Problem Mixed hyperlipidemia E78.2 Active 034612582 Problem Anxiety F41.9 Active 19040759 Problem Post traumatic stress disorder (PTSD) F43.10 Active 24744735 Problem Unspecified symptoms and signs involving cognitive functions and awareness R41.9 Active 080682324 Problem Family history of diabetes mellitus Z83.3 Active 171762031 Problem Essential (primary) hypertension I10 Active 56151028 Problem Mild acid reflux K21.9 Active 739132917 ALLERGIES No Information ENCOUNTERS Encounter Location Date Diagnosis [id number] [place] [address] 07351- 0177 Oct, Medicare annual wellness visit, initial Z00.00 [place] [id number] [place] [address] 88618- 7570 Aug, Mixed hyperlipidemia E78.2 [place] [id number] [place] [address] 79885- 0676 Aug, Keloid of skin L91.0 and Impacted cerumen of both ears H61.23 [place] [id number] [place] [address] 98315- 4284 Aug, Post traumatic stress disorder (PTSD) F43.10 [facility] [id number] [place] [address] 19874- 8505 Jul, [facility] [id number] [place] [address] 01094- 1215 Jul, Mixed hyperlipidemia E78.2 ; Mild acid reflux K21.9 and Essential (primary) hypertension I10 [facility] [id number] [place] [address] 26400- 2306 Jul, [facility] [address] 25448- 0035 Jul, Post traumatic stress disorder (PTSD) F43.10 [facility] [address] 85982- 9034 Jul, Mixed hyperlipidemia E78.2 [facility] [address] 46199- 0804 Jul, Essential (primary) hypertension I10 [facility] [address] 01402- 7497 Jun, Insect bite, subsequent encounter W57.XXXD ; Post traumatic stress disorder (PTSD) F43.10 ; Essential (primary) hypertension I10 and Localized edema R60.0 [facility] [address] 62343- 1519 Jun, Anxiety F41.9 [facility] [address] 07645- 8695 Jun, Insect bite, initial encounter W57.XXXA ; Anxiety F41.9 ; Bronchitis J40 ; Headache R51 and Essential (primary) hypertension I10 [facility] [id number] [place] [address] 60397- 6170 May, Anxiety F41.9 [facility] [address] 50075- 1182 May, [facility] [address] 06965- 9468 Apr, Anxiety F41.9 [facility] [address] [place] [address]- 0474 Apr, [facility] [address] 27289- 2305 Mar, Anxiety F41.9 [facility] [id number] [place] [address] 44241- 1122 Mar, Angioedema, subsequent encounter T78.3XXD ; Post traumatic stress disorder (PTSD) F43.10 ; Generalized anxiety disorder F41.1 ; Forgetfulness R68.89 ; Anxiety F41.9 ; Essential (primary) hypertension I10 ; Headache R51 ; Bronchitis J40 ; Mild acid reflux K21.9 and Cough R05 [facility] [address] 30055- 9771 Mar, Angioedema, initial encounter T78.3XXA [facility] [id number] [place] [address] 68713 -6956 Mar, Acute upper respiratory infection, unspecified J06.9 and Cough R05 [facility] [id number] [place] [address] 86108- 1088 Mar, Generalized anxiety disorder F41.1 [facility] [address] 88389- 1554 Feb, Generalized anxiety disorder F41.1 [facility] [id number] [place] [address] 05750- 2967 Jan, Generalized anxiety disorder F41.1 [facility] [id number] [place] [address] 92898- 3619 Dec, [facility] [id number] [place] [address] 57391- 4005 Dec, Generalized anxiety disorder F41.1 [facility] [id number] [place] [address] 94787- 3889 Nov, Generalized anxiety disorder F41.1 [facility] [address] 75825- 3741 Nov, Mild acid reflux K21.9 [facility] [id number] [place] [address] 11370- 6715 Oct, Generalized anxiety disorder F41.1 [facility] [id number] [place] [address] 72305- 0587 Oct, Cellulitis of right upper extremity L03.113 [facility] [id number] [place] [address] 59041- 1511 September, [facility] [id number] [place] [address] 67188- 0639 September, Generalized anxiety disorder F41.1 [facility] [id number] [place] [address] 43301- 0953 Aug, Generalized anxiety disorder F41.1 [facility] [id number] [place] [address] 40346- 1578 Aug, Medicare annual wellness visit, initial Z00.00 [facility] [id number] [place] [address] 31280- 0710 Jul, Generalized anxiety disorder F41.1 [facility] [id number] [place] [address] 30981- 7981 Jul, [facility] [id number] [place] [address] 55948- 3360 Jul, [facility] [id number] [place] [address] 12431- 6224 Jun, Generalized anxiety disorder F41.1 [facility] [id number] [place] [address] 59295- 7435 May, Bronchitis J40 and Generalized anxiety disorder F41.1 [facility] [id number] [place] [address] 27709- 6740 May, Generalized anxiety disorder F41.1 [facility] [id number] [place] [address] 32155- 3505 May, [facility] [address] [address]- 4399 Apr, Generalized anxiety disorder F41.1 [facility] [id number] [place] [address] 404528- 4429 Apr, Essential (primary) hypertension I10 [facility] [id number] [place] [address] 21113- 1205 Apr, Generalized anxiety disorder F41.1 [facility] [id number] [place] [address] 38839- 5392 Mar, Generalized anxiety disorder F41.1 [facility] [id number] [place] [address] 22721- 2576 Feb, Generalized anxiety disorder F41.1 [facility] [id number] [place] [address] 23187- 6835 Jan, Generalized anxiety disorder F41.1 [facility] [id number] [place] [address] 75825- 9306 Dec, Generalized anxiety disorder F41.1 [facility] [id number] [place] [address] 77048- 5787 Nov, [facility] [id number] [place] [address] 63365- 7085 Oct, Generalized anxiety disorder F41.1 [facility] [id number] [place] [address] 11971- 3445 Oct, Forgetfulness R68.89 [facility] [id number] [place] [address] 27592- 4045 Oct, Generalized anxiety disorder F41.1 and Personality disorder , unspecified F60.9 [facility] [id number] [place] [address] 47068- 7581 September, Mild acid reflux K21.9 [facility] [id number] [place] [address] 83084- 7169 September, Generalized anxiety disorder F41.1 [facility] [id number] [place] [address] 02630- 5348 Aug, Generalized anxiety disorder F41.1 and Personality disorder , unspecified F60.9 [facility] [id number] [place] [address] 17524- 0501 Aug, Forgetfulness R68.89 and Generalized anxiety disorder F41.1 [place] [id number] [place] [address] 29471- 3928 Aug, Unspecified symptoms and signs involving cognitive functions and awareness R41.9 and Generalized anxiety disorder F41.1 [place] [id number] [place] [address] 81093- 4423 Aug, [facility] [id number] [place] [address] 72747- 5903 Aug, Screening, lipid Z13.220 and Forgetfulness R68.89 [place] [id number] [place] [address] 79361- 0199 Aug, Headache R51 [place] [id number] [place] [address] 46368- 5714 30 Jul, 2015 Acute upper respiratory infection, unspecified J06.9 and Other viral agents as the cause of diseases classified elsewhere B97.89 [place] [id number] [place] [address] 62965- 4494 24 Jul, 2015 [place] [id number] [place] [address] 47746- 8886 16 Jul, 2015 [place] [id number] [place] [address] 18346- 5398 14 Jul, 2015 Headache R51 and Anxiety F41.9 [place] [id number] [place] [address] 92107- 9487 10 Jul, 2015 Generalized anxiety disorder F41.1 and Personality disorder , unspecified F60.9 [place] [address] [place] [address]- 4621 Jun, [facility] [id number] [place] [address] 84249- 7041 Jun, Post traumatic stress disorder (PTSD) F43.10 and Personality disorder, unspecified F60.9 [facility] [id number] [place] [address] 14455- 0406 May, Overweight E66.3 [facility] [id number] [place] [address] 87354- 9820 May, [facility] [id number] [place] [address] 12927- 3951 May, Post traumatic stress disorder (PTSD) F43.10 and Personality disorder, unspecified F60.9 [facility] [id number] [place] [address] 35703- 8304 May, [facility] [id number] [place] [address] 96865- 0945 Apr, [facility] [id number] [place] [address] 99719- 6891 Apr, [facility] [id number] [place] [address] 20295- 5213 Apr, [facility] [address] [address]- 1356 Apr, [facility] [id number] [place] [address] 13162- 6346 Mar, Post traumatic stress disorder (PTSD) F43.10 [facility] [id number] [place] [address] 89023- 2906 Mar, [facility] [id number] [place] [address] 05063- 0399 Mar, Post traumatic stress disorder (PTSD) F43.10 [facility] [id number] [place] [address] 10532- 3724 Feb, Anxiety F41.9 [facility] [address] [address]- 0819 Feb, [facility] [id number] [place] [address] 979687- 7659 Feb, [facility] [id number] [place] [address] 84453- 3093 Feb, Post traumatic stress disorder (PTSD) F43.10 [facility] [id number] [place] [address] 41778- 7657 Jan, [facility] [id number] [place] [address] 84478- 5935 Jan, Posttraumatic stress disorder 309.81 [facility] [id number] [place] [address] 47178- 3947 Jan, Allergic rhinitis 477.9 ; Upper respiratory infection 465.9 and Depression 311 [facility] [id number] [place] [address] 62308- 2024 Jan, Depressive disorder, not elsewhere classified 311 and Anxiety state, unspecified 300.00 [facility] [id number] [place] [address] 88444- 1703 Jan, [facility] [address] [address]- 4483 Dec, [facility] [id number] [address]- 4687 Dec, [facility] [id number] [place] [address] 26072- 9949 Dec, [facility] [id number] [place] [address] 06052- 3190 Nov, [facility] [address] [place] [address]- 0900 Nov, [facility] [id number] [place] [address] 90787- 1886 Oct, [facility] [address] [address]- 8676 Oct, Anxiety 300.00 ; Insomnia 780.52 ; Family history of diabetes mellitus V18.0 ; Hypertension 401.9 and Onychomycosis 110.1 [facility] [address] [address]- 7816 September, [facility] [id number] [place] [address] 64333- 7786 Aug, [facility] [id number] [place] [address] 18723- 6626 Aug, [facility] [id number] [place] [address] 88145- 1746 Jul, [facility] [id number] [address]- 8756 Jul, [facility] [id number] [place] [address] 30266- 8566 Jun, [facility] [id number] [address]- 8216 Jun, [facility] [id number] [address]- 2006 May, [facility] [id number] [place] [address]- 4126 May, [facility] [id number] [address]- 7246 May, [facility] [id number] [address]- 7756 May, IMMUNIZATIONS No Known Immunizations SOCIAL HISTORY Never Assessed REASON FOR VISIT Controlled Med Refill 02/23/2017 PLAN OF CARE VITAL SIGNS MEDICATIONS Medication [...]
--- OUTSIDE RECORDS SUMMARY | 2018-01-12 19:09 | XMS REPORT ---
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 Role Phone SURJIT DAS Unavailable PROBLEMS Type Condition ICD9-CM Code [id number] Code Onset Dates Condition Status SNOMED Code Problem Personality disorder, unspecified F60.9 Active 30989373 Problem Essential (primary) hypertension I10 Active 64566966 Problem Mild acid reflux K21.9 Active 660986636 Problem Chronic post-traumatic headache G44.329 Active 568962860 Problem Generalized anxiety disorder F41.1 Active 78342698 Problem Unspecified symptoms and signs involving cognitive functions and awareness R41.9 Active 633128560 Problem Family history of diabetes mellitus Z83.3 Active 056573404 ALLERGIES Unknown Allergies SOCIAL HISTORY No smoking Hx information available PLAN OF CARE VITAL SIGNS MEDICATIONS Medication Instructions Dosage Frequency Start Date End Date Duration Status Alprazolam 2 MG Orally Twice a day 1 tablet as needed 12h Jul, 28 days Active RESULTS No Results PROCEDURES No Known procedures IMMUNIZATIONS No Known Immunizations
--- OUTSIDE RECORDS SUMMARY | 2018-01-12 19:09 | XMS REPORT ---
Author SURJIT Bell Organization [employer] Address Unknown Phone Unavailable Care Team Providers Care Dredgemaster Name Role Phone SURJIT DAS CP Unavailable [...] Date End Date Status Dosage Alprazolam [facility] [address]-30 2 MG August 09, 2014 take 1 tablet by Oral route 2 times per day Results No Known Results Summary Purpose [employer] Submission
--- OUTSIDE RECORDS SUMMARY | 2018-01-12 19:09 | XMS REPORT ---
Author Author SURJIT DAS Organization [employer] Address Unknown Phone Unavailable Care Team Providers Care County Adviser Name Role Phone SURJIT DAS CP Unavailable Allergies No Known Allergies Problems Problem Type Condition Code Onset Dates Condition Status Problem Unspecified symptoms and signs involving cognitive functions and awareness R41.9 Active Problem Chronic post-traumatic headache G44.329 Active Problem Mild acid reflux K21.9 Active Problem Generalized anxiety disorder F41.1 Active Problem Personality disorder, unspecified F60.9 Active Problem Hypertension I10 Active Problem Family history of diabetes mellitus Z83.3 Active Medications Medication Code System Code Instructions Start Date End Date Status Dosage Alprazolam [facility] [address]-29 2 MG Orally Twice a day August 09, 2014 1 tablet as needed Results No Known Results Summary Purpose [employer] Submission
--- OUTSIDE RECORDS SUMMARY | 2018-01-12 19:10 | XMS REPORT ---
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 Info Not Available Non Drug Allergy Problems Problem Type Condition Code Onset Dates Condition Status Problem Hypertension I10 Active Problem Family history of diabetes mellitus Z83.3 Active Problem Chronic post-traumatic headache G44.329 Active Assessment Screening, lipid Z13.220 Active Assessment Forgetfulness R68.89 Active Problem Generalized anxiety disorder F41.1 Active Problem Personality disorder, unspecified F60.9 Active Medications Medication Code System Code Instructions Start Date End Date Status Dosage Omeprazole [facility] 42345761669 20 MG take 1 capsule (20 mg) by oral route once daily before a meal Triamterene-HCTZ [facility] 44665452527 75-50 MG TAKE 1 TABLET BY ORAL ROUTE ONCE DAILY Nortriptyline HCl [facility] [address]-08 25 MG Orally Once a day at hs July 1 capsule Vitamin C [facility] [address]-81 1000 MG Orally Once a day 1 tablet Vitamin B Complex [facility] [address]257-58663 Jun 01, 2014 by oral route Alprazolam [facility] [address]-02 2 MG Orally Twice a day August 09, 2014 1 tablet as needed Vitamin A [facility] 0 Jun 01, 2014 by oral route Procedures Procedure Coding System Code Date [facility] VISIT ESTABLISHED PATIENT CPT-4 G0467 September 04, 2015 Office Visit, Est Pt., Level 3 CPT-4 00869 September 04, 2015 [facility] NOBLL September 04, 2015 VENIPUNCT, ROUTINE* CPT-4 04615 September 04, 2015 Vital Signs Date/Time: September 04, 2015 Temperature 98.2 F Weight 172 lbs Height 68 in BMI 26.15 Index Blood Pressure Diastolic 84 mmHg Blood Pressure Systolic 130 mmHg Cardiac Monitoring Heart Rate 80 bpm Results No Known Results Summary Purpose [employer] Submission
--- OUTSIDE RECORDS SUMMARY | 2018-01-12 19:10 | XMS REPORT ---
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 Name Role Phone SURJIT DAS Unavailable PROBLEMS Type Condition ICD9-CM Code [id number] Code Onset Dates Condition Status SNOMED Code Problem Personality disorder, unspecified F60.9 Active 37709329 Problem Chronic post-traumatic headache G44.329 Active 481245274 Problem Generalized anxiety disorder F41.1 Active 10577239 Problem Mixed hyperlipidemia E78.2 Active 991550219 Problem Anxiety F41.9 Active 26270989 Problem Post traumatic stress disorder (PTSD) F43.10 Active 60562483 Problem Unspecified symptoms and signs involving cognitive functions and awareness R41.9 Active 526279675 Problem Family history of diabetes mellitus Z83.3 Active 972880431 Problem Essential (primary) hypertension I10 Active 68499666 Problem Mild acid reflux K21.9 Active 977147498 ALLERGIES No Information ENCOUNTERS Encounter Location Date Diagnosis [place] [id number] [place] [address] 75669- 8885 Aug, [place] [id number] [place] [address] 06041- 8168 Jul, [facility] [id number] [place] [address] 36010- 3887 Jul, Mixed hyperlipidemia E78.2 ; Mild acid reflux K21.9 and Essential (primary) hypertension I10 [facility] [id number] [place] [address] 26665- 9454 Jul, [facility] [id number] [place] [address] 54700- 0075 Jul, Post traumatic stress disorder (PTSD) F43.10 [facility] [address] [place] [address]- 8080 Jul, Mixed hyperlipidemia E78.2 [facility] [id number] [place] [address] 97145- 4996 Jul, Essential (primary) hypertension I10 [facility] [id number] [place] [address] 02601- 7117 Jun, Insect bite, subsequent encounter W57.XXXD ; Post traumatic stress disorder (PTSD) F43.10 ; Essential (primary) hypertension I10 and Localized edema R60.0 [facility] [id number] [place] [address] 78657- 1971 Jun, Anxiety F41.9 [place] [id number] [place] [address] 62605- 3476 Jun, Insect bite, initial encounter W57.XXXA ; Anxiety F41.9 ; Bronchitis J40 ; Headache R51 and Essential (primary) hypertension I10 [facility] [id number] [place] [address] 84865- 4431 May, Anxiety F41.9 [place] [address] 67084- 8597 May, [facility] [id number] [place] [address] 25516- 1451 Apr, Anxiety F41.9 [facility] [id number] [place] [address] 95699- 7852 Apr, [facility] [id number] [place] [address] 35966- 2453 Mar, Anxiety F41.9 [facility] [id number] [place] [address] 78860- 7288 Mar, Angioedema, subsequent encounter T78.3XXD ; Post traumatic stress disorder (PTSD) F43.10 ; Generalized anxiety disorder F41.1 ; Forgetfulness R68.89 ; Anxiety F41.9 ; Essential (primary) hypertension I10 ; Headache R51 ; Bronchitis J40 ; Mild acid reflux K21.9 and Cough R05 [facility] [address] [place] [address] 52606- 3353 Mar, Angioedema, initial encounter T78.3XXA [facility] [id number] [place] [address] 62460 -3510 Mar, Acute upper respiratory infection, unspecified J06.9 and Cough R05 [facility] [id number] [place] [address] 09626- 3756 Mar, Generalized anxiety disorder F41.1 [facility] [id number] [place] [address] 30899- 2775 Feb, Generalized anxiety disorder F41.1 [place] [id number] [place] [address] 25633- 2168 Jan, Generalized anxiety disorder F41.1 [facility] [id number] [place] [address] 78171- 2349 Dec, [facility] [id number] [place] [address] 74657- 9961 Dec, Generalized anxiety disorder F41.1 [facility] [id number] [place] [address] 74731- 0927 Nov, Generalized anxiety disorder F41.1 [facility] [id number] [place] [address] 70486- 5786 Nov, Mild acid reflux K21.9 [facility] [id number] [place] [address] 50092- 4993 Oct, Generalized anxiety disorder F41.1 [facility] [id number] [place] [address] 64208- 0696 Oct, Cellulitis of right upper extremity L03.113 [facility] [id number] [place] [address] 71177- 7400 September, [facility] [id number] [place] [address] 91230- 9538 September, Generalized anxiety disorder F41.1 [facility] [address] [place] [address] 61996- 8733 Aug, Generalized anxiety disorder F41.1 [facility] [address], [place] [address]- 0074 Aug, Medicare annual wellness visit, initial Z00.00 [facility] [id number] [place] [address] 14085- 3116 Jul, Generalized anxiety disorder F41.1 [facility] [id number] [place] [address] 93347- 0030 Jul, [facility] [id number] [place] [address] 42312- 0472 Jul, [facility] [id number] [place] [address] 13075- 1347 Jun, Generalized anxiety disorder F41.1 [facility] [address] [place] [address] 95759- 2567 May, Bronchitis J40 and Generalized anxiety disorder F41.1 [facility] [address] [place] [address] 84957- 2745 May, Generalized anxiety disorder F41.1 [facility] [address] [place] [address] 95826- 8787 May, [facility] [address] [place] [address] 46493- 5243 Apr, Generalized anxiety disorder F41.1 [facility] [address] [place] [address] 30037- 9271 Apr, Essential (primary) hypertension I10 [facility] [address] [place] [address] 03028- 0373 Apr, Generalized anxiety disorder F41.1 [facility] [id number] [place] [address] 56703- 4458 Mar, Generalized anxiety disorder F41.1 [facility] [address] [place] [address] 67872- 5426 Feb, Generalized anxiety disorder F41.1 [facility] [id number] [place] [address] 79997- 3492 Jan, Generalized anxiety disorder F41.1 [facility] [id number] [place] [address] 93110- 4704 Dec, Generalized anxiety disorder F41.1 [facility] [id number] [place] [address] 85421- 7822 Nov, [facility] [id number] [place] [address] 31981- 5100 Oct, Generalized anxiety disorder F41.1 [place] [id number] [place] [address] 89128- 1521 Oct, Forgetfulness R68.89 [place] [id number] [place] [address] 74318- 7007 Oct, Generalized anxiety disorder F41.1 and Personality disorder , unspecified F60.9 [place] [id number] [place] [address] 24848- 2281 September, Mild acid reflux K21.9 [place] [id number] [place] [address] 67187- 3758 September, Generalized anxiety disorder F41.1 [facility] [id number] [place] [address] 74888- 7187 Aug, Generalized anxiety disorder F41.1 and Personality disorder , unspecified F60.9 [place] [id number] [place] [address] 22066- 4573 Aug, Forgetfulness R68.89 and Generalized anxiety disorder F41.1 [place] [id number] [place] [address] 62241- 0526 Aug, Unspecified symptoms and signs involving cognitive functions and awareness R41.9 and Generalized anxiety disorder F41.1 [place] [id number] [place] [address] 03212- 3233 Aug, [place] [id number] [place] [address] 07079- 6044 Aug, Screening, lipid Z13.220 and Forgetfulness R68.89 [place] [address] 68850- 9644 Aug, Headache R51 [address] 61816- 8978 30 Jul, 2015 Acute upper respiratory infection, unspecified J06.9 and Other viral agents as the cause of diseases classified elsewhere B97.89 [place] [id number] [place] [address] 78190- 4412 24 Jul, 2015 [place] [address] 81777- 0625 16 Jul, 2015 [place] [id number] [place] [address] 42364- 7821 14 Jul, 2015 Headache R51 and Anxiety F41.9 [place] [id number] [place] [address] 55229- 1817 Jul, Generalized anxiety disorder F41.1 and Personality disorder , unspecified F60.9 [place] [id number] [place] [address] 27534- 4678 Jun, [place] [id number] [place] [address] 93020- 3768 Jun, Post traumatic stress disorder (PTSD) F43.10 and Personality disorder, unspecified F60.9 [place] [id number] [place] [address] 07808- 3604 May, Overweight E66.3 [place] [id number] [place] [address] 95937- 7493 May, [facility] [address] [address]- 0043 May, Post traumatic stress disorder (PTSD) F43.10 and Personality disorder, unspecified F60.9 [facility] [address] [address]- 2076 May, [facility] [address] [address]- 0076 Apr, [facility] [address] [address] 2546 Apr, [facility] [address] [place] [address] 10137- 8936 Apr, [facility] [address] [address]- 8736 Apr, [facility] [id number] [place] [address]- 2798 Mar, Post traumatic stress disorder (PTSD) F43.10 [facility] [address] [address]- 7437 Mar, [facility] [address] [address]- 9365 Mar, Post traumatic stress disorder (PTSD) F43.10 [facility] [address] [address]- 1156 Feb, Anxiety F41.9 [facility] [address] [address] 2546 Feb, [facility] [address] [address]- 3816 Feb, [facility] [address] [address]- 7656 Feb, Post traumatic stress disorder (PTSD) F43.10 [facility] [address] [address]- 6389 Jan, [facility] [address] [place] [address]- 9563 Jan, Posttraumatic stress disorder 309.81 [facility] [address] [address]- 7138 Jan, Allergic rhinitis 477.9 ; Upper respiratory infection 465.9 and Depression 311 [facility] [id number] [place] [address] 02693- 9618 Jan, Depressive disorder, not elsewhere classified 311 and Anxiety state, unspecified 300.00 [facility] [address] [address]- 5934 Jan, [facility] [id number] [place] [address] 29182- 9746 Dec, [facility] [id number] [place] [address] 43457- 4699 Dec, [facility] [id number] [address]- 8981 Dec, [facility] [address] [place] [address] 90964- 3288 Nov, [facility] [address], [place] [address]- 7209 Nov, [facility] [address] [place] [address]- 5397 Oct, [facility] [id number] [address]- 3115 Oct, Anxiety 300.00 ; Insomnia 780.52 ; Family history of diabetes mellitus V18.0 ; Hypertension 401.9 and Onychomycosis 110.1 [facility] [address] 0568 September, [facility] [address] [address]- 4793 Aug, [facility] [id number] [address]- 6096 Aug, [facility] [id number] 7006 Jul, [facility] [id number] [address]- 1774 Jul, [facility] [id number], [place] [address]- 6352 Jun, [facility] [address], [place] [address]- 1778 Jun, [facility] [address] [address]- 1160 May, [facility] [address], [place] [address]- 2487 May, [facility] [address] [address]- 3327 May, [facility] [id number] [address]- 8119 May, IMMUNIZATIONS No Known Immunizations SOCIAL HISTORY [...]
--- OUTSIDE RECORDS SUMMARY | 2018-01-12 19:10 | XMS REPORT ---
Author Author SURJIT DAS Organization [facility] Address [address] [place] [address] Care Team Providers Care Honest John Rocket Crew Member Name Role Phone SURJIT DAS Unavailable PROBLEMS Type Condition ICD9-CM Code QII56-JM Code Onset Dates Condition Status SNOMED Code Problem Personality disorder, unspecified F60.9 Active 45320492 Problem Essential (primary) hypertension I10 Active 12421051 Problem Mild acid reflux K21.9 Active 133492912 Problem Chronic post-traumatic headache G44.329 Active 449481117 Problem Generalized anxiety disorder F41.1 Active 04961750 Problem Unspecified symptoms and signs involving cognitive functions and awareness R41.9 Active 000777704 Problem Family history of diabetes mellitus Z83.3 Active 108632605 ALLERGIES No Information SOCIAL HISTORY Never Assessed PLAN OF CARE VITAL SIGNS MEDICATIONS Medication Instructions Dosage Frequency Start Date End Date Duration Status Triamterene-HCTZ 75-50 MG Orally Once a day [...]
--- OUTSIDE RECORDS SUMMARY | 2018-01-12 19:10 | XMS REPORT ---
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 Name Role Phone SURJIT DAS CP Unavailable Allergies No Known Allergies Problems Problem Type Condition Code Onset Dates Condition Status Problem Hypertension I10 Active Problem Family history of diabetes mellitus Z83.3 Active Problem Chronic post-traumatic headache G44.329 Active Problem Generalized anxiety disorder F41.1 Active Problem Personality disorder, unspecified F60.9 Active Medications Medication Code System Code Instructions Start Date End Date Status Dosage Alprazolam [facility] [address]-16 2 MG Orally Twice a day August 09, 2014 1 tablet as needed Results No Known Results Summary Purpose [employer] Submission
--- OUTSIDE RECORDS SUMMARY | 2018-01-12 19:10 | XMS REPORT ---
Author Author SURJIT DAS Organization [facility] Address [address] [place] [address] Care Team Providers Care Audio Visual Aids Director Name Role Phone SURJIT DAS Unavailable PROBLEMS Type Condition ICD9-CM Code [id number] Code Onset Dates Condition Status SNOMED Code Problem Personality disorder, unspecified F60.9 Active 21891614 Problem Chronic post-traumatic headache G44.329 Active 395251366 Problem Generalized anxiety disorder F41.1 Active 31595331 Problem Mixed hyperlipidemia E78.2 Active 617050365 Problem Anxiety F41.9 Active 56210691 Problem Post traumatic stress disorder (PTSD) F43.10 Active 88118595 Problem Unspecified symptoms and signs involving cognitive functions and awareness R41.9 Active 799675549 Problem Family history of diabetes mellitus Z83.3 Active 072460658 Problem Essential (primary) hypertension I10 Active 03744622 Problem Mild acid reflux K21.9 Active 546787159 ALLERGIES No Information ENCOUNTERS Encounter Location Date Diagnosis [place] [id number] [place] [address] 72882- 4062 Aug, Keloid of skin L91.0 and Impacted cerumen of both ears H61.23 [place] [id number] [place] [address] 54921- 2943 Aug, Post traumatic stress disorder (PTSD) F43.10 [place] [address] [place] [id number] [place] [address] 62765- 6051 Jul, [place] [id number] [place] [address] 52018- 7711 Jul, Mixed hyperlipidemia E78.2 ; Mild acid reflux K21.9 and Essential (primary) hypertension I10 [place] [address] [place] [id number] [place] [address] 17552- 8889 Jul, [facility] [id number] [place] [address] 41999- 2598 Jul, Post traumatic stress disorder (PTSD) F43.10 [place] [address] [id number] [place] [address] 67562- 5291 Jul, Mixed hyperlipidemia E78.2 [place] [address] 92090- 2676 Jul, Essential (primary) hypertension I10 [place] [address] 75310- 8820 Jun, Insect bite, subsequent encounter W57.XXXD ; Post traumatic stress disorder (PTSD) F43.10 ; Essential (primary) hypertension I10 and Localized edema R60.0 [place] [address] 35923- 5131 Jun, Anxiety F41.9 [place] [address] [place] [id number] [place] [address] 80398- 5349 Jun, Insect bite, initial encounter W57.XXXA ; Anxiety F41.9 ; Bronchitis J40 ; Headache R51 and Essential (primary) hypertension I10 [place] [address] [place] [id number] [place] [address] 52112- 9931 May, Anxiety F41.9 [place] [address] [place] [id number] [place] [address] 44901- 2389 May, [place] [address] [place] [id number] [place] [address] 04221- 2967 Apr, Anxiety F41.9 [place] [address] 42423- 5790 Apr, [place] [address] [place] [id number] [place] [address] 78508- 7812 Mar, Anxiety F41.9 [place] [address] 52003- 4071 Mar, Angioedema, subsequent encounter T78.3XXD ; Post traumatic stress disorder (PTSD) F43.10 ; Generalized anxiety disorder F41.1 ; Forgetfulness R68.89 ; Anxiety F41.9 ; Essential (primary) hypertension I10 ; Headache R51 ; Bronchitis J40 ; Mild acid reflux K21.9 and Cough R05 [facility] [id number] [place] [address] 05170- 3039 Mar, Angioedema, initial encounter T78.3XXA [facility] [id number] [place] [address] 37701 -5561 Mar, Acute upper respiratory infection, unspecified J06.9 and Cough R05 [facility] [address] [id number] [place] [address] 88424- 8885 Mar, Generalized anxiety disorder F41.1 [facility] [id number] [place] [address] 97501- 4575 Feb, Generalized anxiety disorder F41.1 [facility] [id number] [place] [address] 61017- 1224 Jan, Generalized anxiety disorder F41.1 [facility] [id number] [place] [address] 23735- 4222 Dec, [facility] [id number] [place] [address] 90945- 0002 Dec, Generalized anxiety disorder F41.1 [facility] [id number] [place] [address] 13124- 9407 Nov, Generalized anxiety disorder F41.1 [facility] [id number] [place] [address] 77335- 8633 Nov, Mild acid reflux K21.9 [facility] [id number] [place] [address] 79495- 1217 Oct, Generalized anxiety disorder F41.1 [facility] [id number] [place] [address] 10045- 3900 Oct, Cellulitis of right upper extremity L03.113 [facility] [address] [address]- 6027 September, [facility] [id number] [place] [address] 185605- 5096 September, Generalized anxiety disorder F41.1 [facility] [id number] [place] [address] 54273- 9698 Aug, Generalized anxiety disorder F41.1 [facility] [id number] [place] [address] 38798- 6912 Aug, Medicare annual wellness visit, initial Z00.00 [facility] [address] [id number] [place] [address] 79042- 0878 Jul, Generalized anxiety disorder F41.1 [facility] [address] [address] [id number] [place] [address] 79764- 1650 Jul, [facility] [id number] [place] [address] 30130- 9113 Jul, [facility] [id number] [place] [address] 07677- 1909 Jun, Generalized anxiety disorder F41.1 [facility] [id number] [place] [address] 73501- 4663 May, Bronchitis J40 and Generalized anxiety disorder F41.1 [facility] [id number] [place] [address] 07674- 3923 May, Generalized anxiety disorder F41.1 [facility] [address] [address]- 3049 May, [facility] [id number] [place] [address] 57420- 6350 Apr, Generalized anxiety disorder F41.1 [facility] [address] [address]- 1859 Apr, Essential (primary) hypertension I10 [facility] [id number] [place] [address] 92331- 6575 Apr, Generalized anxiety disorder F41.1 [facility] [id number] [place] [address] 38531- 3456 Mar, Generalized anxiety disorder F41.1 [facility] [id number] [place] [address] 77754- 5168 Feb, Generalized anxiety disorder F41.1 [facility] [id number] [place] [address] 42831- 2714 Jan, Generalized anxiety disorder F41.1 [facility] [address] [place] [id number] [place] [address] 60476- 2987 Dec, Generalized anxiety disorder F41.1 [facility] [address] [id number] [place] [address] 31737- 9471 Nov, [facility] [address] [id number] [place] [address] 32818- 7579 Oct, Generalized anxiety disorder F41.1 [facility] [address] [id number] [place] [address] 41593- 2962 Oct, Forgetfulness R68.89 [facility] [address] [id number] [place] [address] 20189- 3133 Oct, Generalized anxiety disorder F41.1 and Personality disorder , unspecified F60.9 [facility] [id number] [place] [address] 42813- 1304 September, Mild acid reflux K21.9 [facility] [address] [place] [id number] [place] [address] 33838- 7292 September, Generalized anxiety disorder F41.1 [facility] [address] [id number] [place] [address] 08585- 8679 Aug, Generalized anxiety disorder F41.1 and Personality disorder , unspecified F60.9 [facility] [id number] [place] [address] 13866- 4015 Aug, Forgetfulness R68.89 and Generalized anxiety disorder F41.1 [place] [address] [place] [id number] [place] [address] 922136- 9787 Aug, Generalized anxiety disorder F41.1 and Unspecified symptoms and signs involving cognitive functions and awareness R41.9 [place] [address] [place] [id number] [place] [address] 21311- 4031 Aug, [place] [address] [place] [id number] [place] [address] 477257- 6297 Aug, Screening, lipid Z13.220 and Forgetfulness R68.89 [place] [id number] [place] [address] 230034- 5668 Aug, Headache R51 [place] [id number] [place] [address] 45826- 1056 30 Jul, 2015 Acute upper respiratory infection, unspecified J06.9 and Other viral agents as the cause of diseases classified elsewhere B97.89 [place] [address] [place] [id number] [place] [address] 78798- 8339 24 Jul, 2015 [place] [id number] [place] [address] 87339- 6875 16 Jul, 2015 [place] [id number] [place] [address] 66539- 2063 Jul, Headache R51 and Anxiety F41.9 [place] [id number] [place] [address] 90501- 6299 Jul, Generalized anxiety disorder F41.1 and Personality disorder , unspecified F60.9 [place] [id number] [place] [address] 80681- 5205 Jun, [place] [id number] [place] [address] 41542- 4444 Jun, Post traumatic stress disorder (PTSD) F43.10 and Personality disorder, unspecified F60.[address] [id number] [address]- 9356 May, Overweight E66.3 [facility] [address] [id number] [place] [address] 44610 2546 May, [facility] [id number] [place] [address] 91790 2546 May, Post traumatic stress disorder (PTSD) F43.10 and Personality disorder, unspecified F60.9 [facility] [address] [id number] [place] [address] 50660- 8828 May, [facility] [id number] [place] [address] 00678- 8306 Apr, [facility] [id number] [place] [address] 46111 2546 Apr, [facility] [id number] [place] [address] 83767- 0453 Apr, [facility] [id number] [place] [address] 82280 254 Apr, [facility] [id number] [place] [address] 19257- 0042 Mar, Post traumatic stress disorder (PTSD) F43.10 [facility] [address] [address] 2546 Mar, [facility] [address] [address] 254 Mar, Post traumatic stress disorder (PTSD) F43.10 [facility] [address] [address] 2546 Feb, Anxiety F41.9 [facility] [id number] [place] [address] 45667 2546 Feb, [facility] [address] [address]- 9486 Feb, [facility] [address] [address]- 1775 Feb, Post traumatic stress disorder (PTSD) F43.10 [facility] [address] [id number] [place] [address] 34840- 1154 Jan, [facility] [address] [id number] [place] [address] 52700- 0145 Jan, Posttraumatic stress disorder 309.81 [facility] [address] [id number] [place] [address] 72769- 7488 Jan, Allergic rhinitis 477.9 ; Upper respiratory infection 465.9 and Depression [address] [place] [address] [place] [id number] [place] [address] 666043- 2075 Jan, Depressive disorder, not elsewhere classified 311 and Anxiety state, unspecified 300.00 [place] [address] [place] [id number] [place] [address] 55987- 6123 Jan, [facility] [id number] [address]- 3978 Dec, [facility] [address] [id number] [place] [address] 71822- 6274 Dec, [facility] [id number] [place] [address] 29646- 3547 Dec, [facility] [id number] [place] [address] 91229- 1018 Nov, [facility] [address] [id number] [place] [address] 39476- 7439 Nov, [facility] [id number] [place] [address] 57909- 4238 Oct, [facility] [address] [id number] [place] [address] 119061- 6496 Oct, Anxiety 300.00 ; Insomnia 780.52 ; Family history of diabetes mellitus V18.0 ; Hypertension 401.9 and Onychomycosis 110.1 [facility] [address] [address]- 0826 September, [facility] [id number] [address]- 6940 Aug, [facility] [address] [facility] [id number] [address]- 3596 Aug, [facility] [id number] [address]- 0087 Jul, [facility] [address] 6690 Jul, [facility] [address] [address]- 7593 Jun, [facility] [address] [address]- 9500 Jun, [facility] [address] [address]- 2501 May, [facility] [address] [address]- 9938 May, [facility] [address] 4130 May, [facility] [id number] [address]- 5554 May, IMMUNIZATIONS No Known Immunizations SOCIAL HISTORY Never Assessed REASON FOR VISIT Controlled Med Refill 01/26/2017 PLAN OF CARE VITAL SIGNS MEDICATIONS Medication [...]
--- OUTSIDE RECORDS SUMMARY | 2018-01-12 19:10 | XMS REPORT ---
Author Author SURJIT DAS Organization [facility] Address [address] [place] [address] Care Team Providers Care Software Engineer Web Services Name Role Phone SURJIT DAS Unavailable PROBLEMS Type Condition ICD9-CM Code [id number] Code Onset Dates Condition Status SNOMED Code Problem Personality disorder, unspecified F60.9 Active 19200410 Problem Essential (primary) hypertension I10 Active 29195832 Problem Mild acid reflux K21.9 Active 777746327 Problem Chronic post-traumatic headache G44.329 Active 104287512 Problem Generalized anxiety disorder F41.1 Active 37063903 Problem Unspecified symptoms and signs involving cognitive functions and awareness R41.9 Active 663991382 Problem Family history of diabetes mellitus Z83.3 Active 460384456 ALLERGIES No Information SOCIAL HISTORY Never Assessed [...]
--- OUTSIDE RECORDS SUMMARY | 2018-01-12 19:10 | XMS REPORT ---
Author Author SURJIT DAS Organization [facility] Address [address] [place] [address] Care Team Providers Care Manager Assembly Name Role Phone SURJIT DAS Unavailable PROBLEMS Type Condition ICD9-CM Code FKB01-PJ Code Onset Dates Condition Status SNOMED Code Problem Personality disorder, unspecified F60.9 Active 87467187 Problem Essential (primary) hypertension I10 Active 49827762 Problem Mild acid reflux K21.9 Active 232183701 Problem Chronic post-traumatic headache G44.329 Active 133331438 Problem Generalized anxiety disorder F41.1 Active 56058761 Problem Unspecified symptoms and signs involving cognitive functions and awareness R41.9 Active 568502157 Problem Family history of diabetes mellitus Z83.3 Active 174875663 ALLERGIES No Information SOCIAL HISTORY Never Assessed [...]
--- OUTSIDE RECORDS SUMMARY | 2018-01-12 19:11 | XMS REPORT ---
Author Author SURJIT DAS Organization [facility] Address [address] [place] [address] Care Team Providers Care Sales Systems Engineer Name Role Phone SURJIT DAS Unavailable PROBLEMS Type Condition ICD9-CM Code [id number] Code Onset Dates Condition Status SNOMED Code Problem Generalized anxiety disorder F41.1 Active 35624448 Problem Family history of diabetes mellitus Z83.3 Active 658250013 Problem Chronic post-traumatic headache G44.329 Active 750029664 Problem Mixed hyperlipidemia E78.2 Active 374559913 Problem Personality disorder, unspecified F60.9 Active 30094575 Problem Gastroesophageal reflux disease without esophagitis K21.9 Active 346164502 Problem Anxiety F41.9 Active 74584246 Problem Mild acid reflux K21.9 Active 285604661 Problem Unspecified symptoms and signs involving cognitive functions and awareness R41.9 Active 404187126 Problem Post traumatic stress disorder (PTSD) F43.10 Active 08168453 Problem Essential (primary) hypertension I10 Active 57338360 ALLERGIES No Information ENCOUNTERS Encounter Location Date Diagnosis [id number] [place] [address] 34656- 8943 20 Oct, 2017 Medicare annual wellness visit, initial Z00.00 ; Post traumatic stress disorder (PTSD) F43.10 ; Personality disorder, unspecified F60.9 ; Essential (primary) hypertension I10 ; Mixed hyperlipidemia E78.2 ; Anxiety F41.9 and Gastroesophageal reflux disease without esophagitis K21.9 [facility] [address] [address] Oct, [facility] [address] [place] [address] 14989- 8301 14 Oct, 2017 Post traumatic stress disorder (PTSD) F43.10 [facility] [id number] [place] [address] 26828- 6651 September, [facility] [id number] [place] [address] 95968- 3390 September, Post traumatic stress disorder (PTSD) F43.10 [facility] [id number] [place] [id number] Aug, Mixed hyperlipidemia E78.2 [place] [address] 09259- 8168 Aug, Keloid of skin L91.0 and Impacted cerumen of both ears H61.23 [place] [place] [address] 13724- 2497 Aug, Post traumatic stress disorder (PTSD) F43.10 [place] [address] 24533- 7688 Jul, [facility] [address] 27718- 3710 Jul, Mixed hyperlipidemia E78.2 ; Mild acid reflux K21.9 and Essential (primary) hypertension I10 [facility] [id number] [place] [address] 53943- 7001 Jul, [facility] [id number] [place] [address] 75984- 3981 Jul, Post traumatic stress disorder (PTSD) F43.10 [facility] [id number] [place] [address] 89305- 1099 Jul, Mixed hyperlipidemia E78.2 [facility] [id number] [place] [address] 03923- 7470 Jul, Essential (primary) hypertension I10 [facility] [id number] [place] [address] 39485- 0366 Jun, Insect bite, subsequent encounter W57.XXXD ; Post traumatic stress disorder (PTSD) F43.10 ; Essential (primary) hypertension I10 and Localized edema R60.0 [facility] [id number] [place] [address] 78576- 9436 Jun, Anxiety F41.9 [place] [address] 65605- 2240 Jun, Insect bite, initial encounter W57.XXXA ; Anxiety F41.9 ; Bronchitis J40 ; Headache R51 and Essential (primary) hypertension I10 [facility] [address] 23784- 5463 May, Anxiety F41.9 [facility] [place] [address] 68080- 1002 May, [facility] [address] 66208- 6900 Apr, Anxiety F41.9 [facility] [place] [address] 43739- 7122 Apr, [facility] [address] 95254- 2166 Mar, Anxiety F41.9 [place] [place] [address] 87993- 3726 Mar, Angioedema, subsequent encounter T78.3XXD ; Post traumatic stress disorder (PTSD) F43.10 ; Generalized anxiety disorder F41.1 ; Forgetfulness R68.89 ; Anxiety F41.9 ; Essential (primary) hypertension I10 ; Headache R51 ; Bronchitis J40 ; Mild acid reflux K21.9 and Cough R05 [facility] [id number] [place] [address] 95725- 6157 Mar, Angioedema, initial encounter T78.3XXA [facility] [address] 18923 -1438 16 Mar, 2017 Acute upper respiratory infection, unspecified J06.9 and Cough R05 [place] [address] 04427- 4494 Mar, Generalized anxiety disorder F41.1 [facility] [address], [place] [address] 2013 Feb, Generalized anxiety disorder F41.1 [facility] [address] [place] [address] 379456- 0478 Jan, Generalized anxiety disorder F41.1 [facility] [address] [place] [address] 33875- 4176 Dec, [facility] [id number] [place] [address] 77737- 0111 Dec, Generalized anxiety disorder F41.1 [facility] [id number] [place] [address] 00349- 6199 Nov, Generalized anxiety disorder F41.1 [facility] [address] [place] [address] 31872- 3823 Nov, Mild acid reflux K21.9 [facility] [address] [place] [address] 20186- 0696 Oct, Generalized anxiety disorder F41.1 [facility] [address] [place] [address] 64146- 5570 Oct, Cellulitis of right upper extremity L03.113 [facility] [address] [address] 0[address] September, [facility] [address] [place] [address] 59874- 6661 September, Generalized anxiety disorder F41.1 [facility] [address], [place] [address] 5289 Aug, Generalized anxiety disorder F41.1 [facility] [id number] [place] [address] 36428- 1364 Aug, Medicare annual wellness visit, initial Z00.00 [facility] [address] [place] [address] 28857- 9593 Jul, Generalized anxiety disorder F41.1 [facility] [address], [place] [address]- 3692 Jul, [facility] [id number] [place] [address] 03545- 4476 Jul, [facility] [address] [place] [address] 52186- 7446 Jun, Generalized anxiety disorder F41.1 [facility] [id number] [place] [address] 23561- 0235 May, Bronchitis J40 and Generalized anxiety disorder F41.1 [facility] [id number] [place] [address] 34135- 4216 May, Generalized anxiety disorder F41.1 [facility] [address] [place] [address] 15949- 0786 May, [facility] [id number] [place] [address] 85532- 2863 Apr, Generalized anxiety disorder F41.1 [facility] [id number] [place] [address] 76801- 8746 Apr, Essential (primary) hypertension I10 [facility] [id number] [place] [address] 30485 2546 Apr, Generalized anxiety disorder F41.1 [facility] [address] [place] [address] 72813- 5581 Mar, Generalized anxiety disorder F41.1 [facility] [address], [place] [address]- 3345 Feb, Generalized anxiety disorder F41.1 [facility] [id number] [place] [address] 38045- 0046 08 Jan, 2016 Generalized anxiety disorder F41.1 [facility] [address], [place] [address]- 7695 Dec, Generalized anxiety disorder F41.1 [facility] [address] [address]- 9665 Nov, [facility] [id number] [place] [address] 73897- 6806 Oct, Generalized anxiety disorder F41.1 [facility] [id number] [place] [address] 56970- 5976 Oct, Forgetfulness R68.89 [facility] [id number] [place] [address] 91863- 7738 Oct, Generalized anxiety disorder F41.1 and Personality disorder , unspecified F60.9 [facility] [id number] [place] [address] 03380- 7989 September, Mild acid reflux K21.9 [facility] [id number] [place] [address] 99244- 7780 September, Generalized anxiety disorder F41.1 [facility] [id number] [place] [address] 59013- 1449 Aug, Generalized anxiety disorder F41.1 and Personality disorder , unspecified F60.9 [facility] [id number] [place] [address] 11326- 9970 Aug, Forgetfulness R68.89 and Generalized anxiety disorder F41.1 [facility] [id number] [place] [address] 52402- 6113 Aug, Unspecified symptoms and signs involving cognitive functions and awareness R41.9 and Generalized anxiety disorder F41.1 [facility] [id number] [place] [address] 76526- 7414 Aug, [facility] [id number] [place] [address] 30768- 3709 Aug, Screening, lipid Z13.220 and Forgetfulness R68.89 [facility] [id number] [place] [address] 31194- 6094 Aug, Headache R51 [facility] [id number] [place] [address] 41988- 2773 30 Jul, 2015 Acute upper respiratory infection, unspecified J06.9 and Other viral agents as the cause of diseases classified elsewhere B97.89 [facility] [id number] [place] [address] 19738- 8905 24 Jul, 2015 [place] [place] [id number] [place] [address] 62072- 5517 16 Jul, 2015 [place] [place] [id number] [place] [address] 16801- 1972 14 Jul, 2015 Headache R51 and Anxiety F41.[address] 46480- 6416 Jul, Generalized anxiety disorder F41.1 and Personality disorder , unspecified F60.9 [facility] [id number] [place] [address] 56905- 8457 Jun, [facility] [id number] [place] [address] 65539- 9528 Jun, Post traumatic stress disorder (PTSD) F43.10 and Personality disorder, unspecified F60.9 [facility] [id number] [place] [address] 83996- 5961 May, Overweight E66.3 [facility] [id number] [place] [address] 32174- 9452 May, [facility] [place] [id number] [place] [address] 14298- 9354 May, Post traumatic stress disorder (PTSD) F43.10 and Personality disorder, unspecified F60.9 [facility] [id number] [place] [address] 81333- 7993 May, [facility] [id number] [place] [address] 87468- 9958 Apr, [facility] [id number] [place] [address] 38443- 7239 Apr, [facility] [address], [place] [address]- 5896 Apr, [facility] [address] [place] [address] 08836- 7656 Apr, [facility] [address] [place] [address] 524943- 1860 Mar, Post traumatic stress disorder (PTSD) F43.10 [facility] [id number] [place] [address] 135614- 7550 Mar, [facility] [id number] [place] [address] 73199- 0088 Mar, Post traumatic stress disorder (PTSD) F43.10 [facility] [id number] [place] [address] 75255- 2368 Feb, Anxiety F41.9 [facility] [id number] [place] [address] 90066- 3742 Feb, [facility] [id number] [place] [address] 695814- 9987 Feb, [facility] [id number] [place] [address] 182641- 3368 Feb, Post traumatic stress disorder (PTSD) F43.10 [facility] [address] [place] [address] 10440- 8924 Jan, [facility] [address] [place] [address] 64139- 2548 Jan, Posttraumatic stress disorder 309.81 [facility] [id number] [place] [address] 61820- 6346 Jan, Allergic rhinitis 477.9 ; Upper respiratory infection 465.9 and Depression 311 [facility] [address], [place] [address]- 7081 Jan, Depressive disorder, not elsewhere classified 311 and Anxiety state, unspecified 300.00 [facility] [id number], [place] [address]- 1268 Jan, [facility] [address], [place] [address]- 7125 Dec, [facility] [address], [place] [address]- 0584 Dec, [facility] [address], [place] [address]- 0223 Dec, [facility] [address], [place] [address]- 6149 Nov, [facility] [address], [place] [address]- 5111 Nov, [facility] [address], [place] [address]- 1068 Oct, [facility] [address], [place] [address]- 3030 Oct, Anxiety 300.00 ; Insomnia 780.52 ; Family history of diabetes mellitus V18.0 ; Hypertension 401.9 and Onychomycosis 110.1 [facility] [address], [place] [address]- 9720 September, [facility] [address], [place] [address]- 3525 Aug, [facility] [address], [place] [address]- 9372 Aug, [facility] [id number], [place] [address]- 5062 Jul, [facility] [address] 9346 Jul, [facility] [id number] 1605 Jun, [facility] [address], [place] [address]- 8711 Jun, [facility] [address] [facility] [id number] [address]- 6907 May, [facility] [address] [facility] [id number] [address]- 8812 May, [facility] [address] [facility] [id number] [address]- 1034 May, [facility] [address] [facility] [id number] [address]- 8371 May, IMMUNIZATIONS No Known Immunizations SOCIAL HISTORY Never Assessed REASON FOR VISIT Medication refill request PLAN OF CARE VITAL SIGNS MEDICATIONS [...]
--- OUTSIDE RECORDS SUMMARY | 2018-01-12 19:11 | XMS REPORT ---
Author Author SURJIT DAS Organization [facility] Address [address] [place] [address] Care Team Providers Care Senior Scheduler Name Role Phone SURJIT DAS Unavailable PROBLEMS Type Condition ICD9-CM Code [id number] Code Onset Dates Condition Status SNOMED Code Problem Generalized anxiety disorder F41.1 Active 83054866 Problem Family history of diabetes mellitus Z83.3 Active 124311842 Problem Chronic post-traumatic headache G44.329 Active 763115697 Problem Mixed hyperlipidemia E78.2 Active 388208364 Problem Personality disorder, unspecified F60.9 Active 60054665 Problem Gastroesophageal reflux disease without esophagitis K21.9 Active 521465922 Problem Anxiety F41.9 Active 58769621 Problem Mild acid reflux K21.9 Active 443621769 Problem Unspecified symptoms and signs involving cognitive functions and awareness R41.9 Active 753058667 Problem Post traumatic stress disorder (PTSD) F43.10 Active 48655713 Problem Essential (primary) hypertension I10 Active 77828749 ALLERGIES No Information ENCOUNTERS Encounter Location Date Diagnosis [id number] [place] [address] 75048- 0507 20 Oct, 2017 Medicare annual wellness visit, initial Z00.00 ; Post traumatic stress disorder (PTSD) F43.10 ; Personality disorder, unspecified F60.9 ; Essential (primary) hypertension I10 ; Mixed hyperlipidemia E78.2 ; Anxiety F41.9 and Gastroesophageal reflux disease without esophagitis K21.9 [facility] [address] [address] Oct, [facility] [id number] [place] [address] 51899- 7855 14 Oct, 2017 Post traumatic stress disorder (PTSD) F43.10 [facility] [address] [place] [address] 07322- 3698 September, [facility] [id number] [place] [address] 85105- 6619 September, Post traumatic stress disorder (PTSD) F43.10 [facility] [id number] [place] [address] Aug, Mixed hyperlipidemia E78.2 [facility] [address] [address]- 9570 Aug, Keloid of skin L91.0 and Impacted cerumen of both ears H61.23 [facility] [facility] [address] 97102- 5324 Aug, Post traumatic stress disorder (PTSD) F43.10 [place] [facility] [address] 11256- 1214 Jul, [place] [facility] [address] 95539- 2393 Jul, Mixed hyperlipidemia E78.2 ; Mild acid reflux K21.9 and Essential (primary) hypertension I10 [facility] [id number] [place] [address] 82263- 2076 Jul, [facility] [id number] [place] [address] 40530- 1004 Jul, Post traumatic stress disorder (PTSD) F43.10 [facility] [id number] [place] [address] 34698- 4894 Jul, Mixed hyperlipidemia E78.2 [facility] [id number] [place] [address] 76117- 5939 Jul, Essential (primary) hypertension I10 [facility] [id number] [place] [address] 32908- 9585 Jun, Insect bite, subsequent encounter W57.XXXD ; Post traumatic stress disorder (PTSD) F43.10 ; Essential (primary) hypertension I10 and Localized edema R60.0 [facility] [id number] [place] [address] 02145- 3760 Jun, Anxiety F41.9 [facility] [address] 59484- 5208 Jun, Insect bite, initial encounter W57.XXXA ; Anxiety F41.9 ; Bronchitis J40 ; Headache R51 and Essential (primary) hypertension I10 [facility] [address] 50684- 0833 May, Anxiety F41.9 [facility] [address] 87867- 5231 May, [facility] [address] 95134- 2916 Apr, Anxiety F41.9 [facility] [address] 54152- 9559 Apr, [facility] [address] 60582- 4809 Mar, Anxiety F41.9 [facility] [address] 92580- 7823 Mar, Angioedema, subsequent encounter T78.3XXD ; Post traumatic stress disorder (PTSD) F43.10 ; Generalized anxiety disorder F41.1 ; Forgetfulness R68.89 ; Anxiety F41.9 ; Essential (primary) hypertension I10 ; Headache R51 ; Bronchitis J40 ; Mild acid reflux K21.9 and Cough R05 [facility] [id number] [place] [address] 54243- 3929 Mar, Angioedema, initial encounter T78.3XXA [facility] [address] 09474 -6066 16 Mar, 2017 Acute upper respiratory infection, unspecified J06.9 and Cough R05 [place] [address] 49527- 0830 Mar, Generalized anxiety disorder F41.1 [facility] [address], [place] [address] 86[address] Feb, Generalized anxiety disorder F41.1 [facility] [id number] [place] [address] 605362- 3460 Jan, Generalized anxiety disorder F41.1 [facility] [id number] [place] [address] 68607- 7390 Dec, [facility] [id number] [place] [address] 40586- 6304 Dec, Generalized anxiety disorder F41.1 [facility] [id number] [place] [address] 30278- 8817 Nov, Generalized anxiety disorder F41.1 [facility] [id number] [place] [address] 97284- 6042 Nov, Mild acid reflux K21.9 [facility] [id number] [place] [address] 98820- 9056 Oct, Generalized anxiety disorder F41.1 [facility] [address] [place] [address] 53463- 4020 Oct, Cellulitis of right upper extremity L03.113 [facility] [address] [address] 94[address] September, [facility] [id number] [place] [address] 60414- 8692 September, Generalized anxiety disorder F41.1 [facility] [address], [place] [address]- 1012 Aug, Generalized anxiety disorder F41.1 [facility] [id number] [place] [address] 49695- 5277 Aug, Medicare annual wellness visit, initial Z00.00 [facility] [id number] [place] [address] 40333- 2485 Jul, Generalized anxiety disorder F41.1 [facility] [address], [place] [address]- 2076 Jul, [facility] [id number] [place] [address] 16848- 7606 Jul, [facility] [id number] [place] [address] 72697- 4966 Jun, Generalized anxiety disorder F41.1 [facility] [id number] [place] [address] 49205- 8637 May, Bronchitis J40 and Generalized anxiety disorder F41.1 [facility] [id number] [place] [address] 42909- 0266 May, Generalized anxiety disorder F41.1 [facility] [id number] [place] [address] 04542- 0716 May, [facility] [id number] [place] [address] 88592- 3407 Apr, Generalized anxiety disorder F41.1 [facility] [id number] [place] [address] 50234- 3132 Apr, Essential (primary) hypertension I10 [facility] [id number] [place] [address] 61957 2546 Apr, Generalized anxiety disorder F41.1 [facility] [id number] [place] [address] 20049- 4625 Mar, Generalized anxiety disorder F41.1 [facility] [address], [place] [address]- 3323 Feb, Generalized anxiety disorder F41.1 [facility] [id number] [place] [address] 38444- 7576 08 Jan, 2016 Generalized anxiety disorder F41.1 [facility] [address], [place] [address]- 4786 Dec, Generalized anxiety disorder F41.1 [facility] [address], [place] [address]- 1162 Nov, [facility] [id number] [place] [address] 85860- 9094 Oct, Generalized anxiety disorder F41.1 [facility] [id number] [place] [address] 25711- 0565 Oct, Forgetfulness R68.89 [facility] [id number] [place] [address] 10779- 4153 Oct, Generalized anxiety disorder F41.1 and Personality disorder , unspecified F60.9 [facility] [id number] [place] [address] 76314- 1175 September, Mild acid reflux K21.9 [place] [id number] [place] [address] 14815- 5605 September, Generalized anxiety disorder F41.1 [place] [id number] [place] [address] 54694- 8203 Aug, Generalized anxiety disorder F41.1 and Personality disorder , unspecified F60.9 [place] [id number] [place] [address] 78777- 1442 Aug, Forgetfulness R68.89 and Generalized anxiety disorder F41.1 [facility] [id number] [place] [address] 10802- 3071 Aug, Unspecified symptoms and signs involving cognitive functions and awareness R41.9 and Generalized anxiety disorder F41.1 [facility] [id number] [place] [address] 41572- 7471 Aug, [place] [id number] [place] [address] 87324- 8798 Aug, Screening, lipid Z13.220 and Forgetfulness R68.89 [facility] [id number] [place] [address] 72977- 5628 Aug, Headache R51 [facility] [id number] [place] [address] 83022- 0885 30 Jul, 2015 Acute upper respiratory infection, unspecified J06.9 and Other viral agents as the cause of diseases classified elsewhere B97.89 [facility] [id number] [place] [address] 00879- 9209 24 Jul, 2015 [facility] [id number] [place] [address] 56283- 9829 16 Jul, 2015 [facility] [id number] [place] [address] 95408- 1491 14 Jul, 2015 Headache R51 and Anxiety F41.[address] 46903- 7157 Jul, Generalized anxiety disorder F41.1 and Personality disorder , unspecified F60.9 [facility] [place] [id number] [place] [address] 86088- 9907 Jun, [facility] [id number] [place] [address] 26831- 0631 Jun, Post traumatic stress disorder (PTSD) F43.10 and Personality disorder, unspecified F60.9 [place] [id number] [place] [address] 95214- 0890 May, Overweight E66.3 [facility] [id number] [place] [address] 07686- 0205 May, [place] [id number] [place] [address] 59908- 2110 May, Post traumatic stress disorder (PTSD) F43.10 and Personality disorder, unspecified F60.9 [place] [id number] [place] [address] 48906- 3366 May, [facility] [id number] [place] [address] 65890- 3074 Apr, [place] [id number] [place] [address] 56352- 2294 Apr, [facility] [address], [place] [address]- 5856 Apr, [facility] [id number] [place] [address] 65269- 4356 Apr, [facility] [id number] [place] [address] 150797- 0696 Mar, Post traumatic stress disorder (PTSD) F43.10 [facility] [id number] [place] [address] 128478- 2268 Mar, [facility] [id number] [place] [address] 43744- 1443 Mar, Post traumatic stress disorder (PTSD) F43.10 [facility] [id number] [place] [address] 48549- 8251 Feb, Anxiety F41.9 [facility] [id number] [place] [address] 90907- 9640 Feb, [facility] [id number] [place] [address] 727776- 4603 Feb, [facility] [id number] [place] [address] 743058- 0929 Feb, Post traumatic stress disorder (PTSD) F43.10 [facility] [address] [place] [address] 87279- 2396 Jan, [facility] [id number] [place] [address] 82580- 2541 Jan, Posttraumatic stress disorder 309.81 [facility] [id number] [place] [address] 90649- 6440 Jan, Allergic rhinitis 477.9 ; Upper respiratory infection 465.9 and Depression 311 [facility] [address], [place] [address]- 3273 Jan, Depressive disorder, not elsewhere classified 311 and Anxiety state, unspecified 300.00 [facility] [id number], [place] [address]- 6594 Jan, [facility] [address], [place] [address]- 8084 Dec, [facility] [id number], [place] [address]- 7268 Dec, [facility] [address], [place] [address]- 8374 Dec, [facility] [address], [place] [address]- 5188 Nov, [facility] [id number], [place] [address]- 8081 Nov, [facility] [address], [place] [address]- 0120 Oct, [facility] [address], [place] [address]- 9303 Oct, Anxiety 300.00 ; Insomnia 780.52 ; Family history of diabetes mellitus V18.0 ; Hypertension 401.9 and Onychomycosis 110.1 [facility] [address], [place] [address]- 8511 September, [facility] [address], [place] [address]- 2174 Aug, [facility] [id number] [place] [address]- 5359 Aug, [facility] [id number] [address]- 8246 Jul, [facility] [id number] 2325 Jul, [facility] [id number] 9108 Jun, [facility] [address] [place] [address]- 4936 Jun, [facility] [address] [facility] [id number] [address]- 2136 May, [facility] [address] [facility] [id number] [address]- 2916 May, [facility] [address] [facility] [id number] [address]- 5896 May, [facility] [address] [facility] [id number] [address]- 9344 May, IMMUNIZATIONS No Known Immunizations SOCIAL HISTORY Never Assessed REASON FOR VISIT Controlled Med Refill 06/15/17 PLAN OF CARE VITAL SIGNS MEDICATIONS Medication [...]
--- OUTSIDE RECORDS SUMMARY | 2018-01-12 19:12 | XMS REPORT ---
Author Author SURJIT DAS Organization [facility] Address [address] [place] [address] Care Team Providers Care Medical Record Transcriber Name Role Phone SURJIT DAS Unavailable PROBLEMS Type Condition ICD9-CM Code JJU45-AU Code Onset Dates Condition Status SNOMED Code Problem Personality disorder, unspecified F60.9 Active 69675126 Problem Chronic post-traumatic headache G44.329 Active 114844361 Problem Generalized anxiety disorder F41.1 Active 32103135 Problem Mixed hyperlipidemia E78.2 Active 367366424 Problem Anxiety F41.9 Active 41671992 Problem Post traumatic stress disorder (PTSD) F43.10 Active 35776966 Problem Unspecified symptoms and signs involving cognitive functions and awareness R41.9 Active 695324748 Problem Family history of diabetes mellitus Z83.3 Active 687192413 Problem Essential (primary) hypertension I10 Active 51256925 Problem Mild acid reflux K21.9 Active 951290143 ALLERGIES No Information ENCOUNTERS Encounter Location Date Diagnosis [place] [id number] [place] [address] 81170- 2978 Oct, Medicare annual wellness visit, initial Z00.00 [place] [id number] [place] [address] 64484- 1174 September, [place] [address] [place] [id number] [place] [address] 27176- 1964 September, Post traumatic stress disorder (PTSD) F43.10 [place] [address] [place] [address] [id number] [place] [address] 49496- 9357 30 Aug, 2017 Mixed hyperlipidemia E78.2 [place] [address] [address] [id number] [place] [address] 28384- 1859 23 Aug, 2018 Keloid of skin L91.0 and Impacted cerumen of both ears H61.23 [facility] [id number] [place] [address] 39576- 1932 Aug, Post traumatic stress disorder (PTSD) F43.10 [place] [address] [id number] [place] [address] 68078- 7996 Jul, [facility] [address] [id number] [place] [address] 00479 2546 Jul, Mixed hyperlipidemia E78.2 ; Mild acid reflux K21.9 and Essential (primary) hypertension I10 [place] [address] 18775- 7916 Jul, [place] [address] 42672- 0636 Jul, Post traumatic stress disorder (PTSD) F43.10 [place] [address] [place] [id number] [place] [address] 69212- 2886 Jul, Mixed hyperlipidemia E78.2 [facility] [address] [id number] [place] [address] 62070- 1620 Jul, Essential (primary) hypertension I10 [place] [address] [id number] [place] [address] 78130- 3272 Jun, Insect bite, subsequent encounter W57.XXXD ; Post traumatic stress disorder (PTSD) F43.10 ; Essential (primary) hypertension I10 and Localized edema R60.0 [place] [address] [id number] [place] [address] 33141- 7741 Jun, Anxiety F41.9 [place] [address] [id number] [place] [address] 66837- 2549 Jun, Insect bite, initial encounter W57.XXXA ; Anxiety F41.9 ; Bronchitis J40 ; Headache R51 and Essential (primary) hypertension I10 [place] [address] [id number] [place] [address] 39785- 9036 May, Anxiety F41.9 [place] [address] [id number] [place] [address] 68315- 1488 May, [facility] [address] 34198- 8849 Apr, Anxiety F41.9 [facility] [id number] [place] [address] 58356- 3040 Apr, [facility] [address] 18971- 5763 Mar, Anxiety F41.9 [place] [address] 76055- 7636 Mar, Angioedema, subsequent encounter T78.3XXD ; Post traumatic stress disorder (PTSD) F43.10 ; Generalized anxiety disorder F41.1 ; Forgetfulness R68.89 ; Anxiety F41.9 ; Essential (primary) hypertension I10 ; Headache R51 ; Bronchitis J40 ; Mild acid reflux K21.9 and Cough R05 [place] [address] [id number] [place] [address] 31130- 3666 Mar, Angioedema, initial encounter T78.3XXA [facility] [address] 03480 -3810 Mar, Acute upper respiratory infection, unspecified J06.9 and Cough R05 [facility] [address] [place] [id number] [place] [address] 24785- 2711 Mar, Generalized anxiety disorder F41.1 [facility] [address] [id number] [place] [address] 02924- 9053 Feb, Generalized anxiety disorder F41.1 [place] [address] 02778- 6530 Jan, Generalized anxiety disorder F41.1 [facility] [address] [address] [id number] [place] [address] 73150- 4747 Dec, [facility] [address] 60059- 7894 Dec, Generalized anxiety disorder F41.1 [facility] [address] [address]- 6957 Nov, Generalized anxiety disorder F41.1 [facility] [address] [address]- 1646 Nov, Mild acid reflux K21.9 [facility] [address] [place] [address] 35908- 8195 Oct, Generalized anxiety disorder F41.1 [facility] [address] [place] [address] 52907- 7186 Oct, Cellulitis of right upper extremity L03.113 [facility] [address] [place] [address] [id number] [place] [address] 17673- 7928 September, [facility] [address] [id number] [place] [address] 24393- 4778 September, Generalized anxiety disorder F41.1 [facility] [address] [place] [address] 90193- 2329 Aug, Generalized anxiety disorder F41.1 [facility] [address] [id number] [place] [address] 61714- 2509 Aug, Medicare annual wellness visit, initial Z00.00 [facility] [address] [address]- 8110 Jul, Generalized anxiety disorder F41.1 [facility] [address] [address]- 8675 Jul, [facility] [address] [address]- 0700 Jul, [facility] [address] [place] [id number] [place] [address] 59922- 6564 Jun, Generalized anxiety disorder F41.1 [facility] [address] [address]- 9251 30 Jos, 2017 Bronchitis J40 and Generalized anxiety disorder F41.1 [facility] [address] [place] [address] 03586- 1791 May, Generalized anxiety disorder F41.1 [facility] [address] [place] [id number] [place] [address] 65569- 0489 May, [facility] [address] [id number] [place] [address] 33773- 8507 Apr, Generalized anxiety disorder F41.1 [facility] [id number] [place] [address] 33580- 3253 Apr, Essential (primary) hypertension I10 [facility] [address] [place] [id number] [place] [address] 37764- 2885 Apr, Generalized anxiety disorder F41.1 [facility] [id number] [place] [address] 52475- 2595 Mar, Generalized anxiety disorder F41.1 [facility] [address] [id number] [place] [address] 06740- 3619 Feb, Generalized anxiety disorder F41.1 [facility] [address] [id number] [place] [address] 81003- 8230 Jan, Generalized anxiety disorder F41.1 [facility] [address] [id number] [place] [address] 89061- 9455 Dec, Generalized anxiety disorder F41.1 [facility] [address] [place] [id number] [place] [address] 97847- 2593 Nov, [facility] [address] [id number] [place] [address] 23017- 4808 Oct, Generalized anxiety disorder F41.1 [facility] [address] [place] [id number] [place] [address] 35827- 4388 Oct, Forgetfulness R68.89 [facility] [address] [place] [id number] [place] [address] 16037- 4244 Oct, Generalized anxiety disorder F41.1 and Personality disorder , unspecified F60.9 [place] [address] [place] [id number] [place] [address] 06861- 4705 September, Mild acid reflux K21.9 [place] [address] [place] [id number] [place] [address] 08946- 5255 September, Generalized anxiety disorder F41.1 [place] [address] 00416- 7468 Aug, Generalized anxiety disorder F41.1 and Personality disorder , unspecified F60.9 [place] [address] [place] [id number] [place] [address] 45076- 8138 Aug, Forgetfulness R68.89 and Generalized anxiety disorder F41.1 [place] [address] 33892- 8567 Aug, Unspecified symptoms and signs involving cognitive functions and awareness R41.9 and Generalized anxiety disorder F41.1 [place] [address] 20328- 9996 Aug, [place] [address] 58143- 8523 Aug, Screening, lipid Z13.220 and Forgetfulness R68.89 [place] [address] [place] [id number] [place] [address] 01887- 3136 Aug, Headache R51 [place] [address] [place] [address] [id number] [place] [address] 14593- 9333 30 Jul, 2015 Acute upper respiratory infection, unspecified J06.9 and Other viral agents as the cause of diseases classified elsewhere B97.89 [place] [address] 18377- 2011 24 Jul, 2015 [place] [address] [id number] [place] [address] 71621- 6196 16 Jul, 2015 [place] [address] 25616- 7760 14 Jul, 2015 Headache R51 and Anxiety F41.9 [facility] [id number] [place] [address] 98382- 7226 10 Jul, 2015 Generalized anxiety disorder F41.1 and Personality disorder , unspecified F60.9 [facility] [id number] [place] [address] 15656- 8036 Jun, [facility] [address] [id number] [place] [address] 18775- 4786 Jun, Post traumatic stress disorder (PTSD) F43.10 and Personality disorder, unspecified F60.9 [facility] [id number] [place] [address] 08250- 1186 May, Overweight E66.3 [facility] [address] [id number] [place] [address] 84706- 0483 May, [facility] [address] [id number] [place] [address] 31766- 3093 May, Post traumatic stress disorder (PTSD) F43.10 and Personality disorder, unspecified F60.9 [facility] [address] [id number] [place] [address] 67808- 4742 May, [facility] [address] [place] [id number] [place] [address] 57489- 6938 Apr, [facility] [id number] [place] [address] 60331- 4746 Apr, [facility] [address] [id number] [place] [address] 16039 2546 Apr, [facility] [id number] [place] [address] 94063- 6366 Apr, [facility] [id number] [place] [address] 61750- 3486 Mar, Post traumatic stress disorder (PTSD) F43.10 [facility] [id number] [place] [address] 05341- 4493 Mar, [facility] [address] [address]- 1531 Mar, Post traumatic stress disorder (PTSD) F43.10 [facility] [address] [address]- 4388 Feb, Anxiety F41.9 [facility] [address] [place] [id number] [place] [address] 27849- 6787 Feb, [facility] [address] [id number] [place] [address] 65441- 2949 Feb, [facility] [address] [id number] [place] [address] 65719- 7286 Feb, Post traumatic stress disorder (PTSD) F43.10 [facility] [id number] [place] [address] 94281- 9445 Jan, [facility] [id number] [place] [address] 55484- 2216 Jan, Posttraumatic stress disorder 309.81 [facility] [address] [place] [id number] [place] [address] 28648- 2147 Jan, Allergic rhinitis 477.9 ; Upper respiratory infection 465.9 and Depression 311 [facility] [address] [place] [address] 85216- 9341 Jan, Depressive disorder, not elsewhere classified 311 and Anxiety state, unspecified 300.00 [facility] [address] [address]- 7423 Jan, [facility] [id number] [place] [address] 29340- 1620 Dec, [facility] [id number] [place] [address] 70043- 1402 Dec, [facility] [id number] [place] [address] 13633- 1005 Dec, [facility] [id number] [address]- 8461 16 Nov, 2014 [facility] [address] [address]- 7859 Nov, [facility] [address] [address]- 7656 Oct, [facility] [address] [address]- 9536 Oct, Anxiety 300.00 ; Insomnia 780.52 ; Family history of diabetes mellitus V18.0 ; Hypertension 401.9 and Onychomycosis 110.1 [facility] [address], [place] [address]- 7810 September, [facility] [address] [address]- 1754 Aug, [facility] [address] [address]- 7644 Aug, [facility] [address] [address]- 7675 Jul, [facility] [address] [address]- 6537 Jul, [facility] [address] [address]- 4988 Jun, [facility] [id number] [address]- 6110 Jun, [facility] [id number]- 7954 May, [facility] [address] 4405 May, [facility] [address]- 8482 May, [facility] [id number] [address] 1788 May, IMMUNIZATIONS No Known Immunizations SOCIAL HISTORY Never Assessed REASON FOR VISIT Controlled Med Refill 05/18/17 PLAN OF CARE VITAL SIGNS MEDICATIONS Medication [...]
--- OUTSIDE RECORDS SUMMARY | 2018-01-12 19:12 | XMS REPORT ---
Author CATINA Turpin [facility] [employer] Address Unknown Phone Unavailable Care Team Providers Care Bail Agent Name Role Phone CATINA GARCIA CP Unavailable [...] patient &/family, 45 minutes, established patient CPT-4 88811 Mar 20, 2015 [facility] VISIT MENTAL HEALTH ESTAB PT CPT-4 G0470 Mar 20, 2015 Results No Known Results Summary Purpose eClinicalWorks Submission
--- OUTSIDE RECORDS SUMMARY | 2018-01-12 19:12 | XMS REPORT ---
Author SURJIT Bell Organization [employer] Address Unknown Phone Unavailable Care Team Providers Care Instrument Worker Name Role Phone SURJIT DAS CP Unavailable Allergies No Known Allergies Problems Problem Type Condition Code Onset Dates Condition Status Problem Hypertension 401.9 Active Problem Family history of diabetes mellitus V18.0 Active Problem Post traumatic stress disorder (PTSD) F43.10 Active Problem Chronic post-traumatic headache 339.22 Active Problem Routine general medical examination at health care facility V70.0 Active Medications No Known Medications Results No Known Results Summary Purpose eClinicalWorks Submission
--- OUTSIDE RECORDS SUMMARY | 2018-01-12 19:12 | XMS REPORT ---
Author Author SURJIT DAS Organization [employer] Address Unknown Phone Unavailable Care Team Providers Care Copy Writer Name Role Phone SURJIT DAS CP Unavailable Allergies No Known Allergies Problems Problem Type Condition ICD-9 Code Onset Dates Condition Status Problem Anxiety state, unspecified 300.00 Active Problem Hypertension 401.9 Active Problem Depressive disorder, not elsewhere classified 311 Active Problem Posttraumatic stress disorder 309.81 Active Problem Routine general medical examination at health care facility V70.0 Active Problem Family history of diabetes mellitus V18.0 Active Problem Chronic post-traumatic headache 339.22 Active Medications Medication Code System Code Instructions Start Date End Date Status Dosage Mucinex D [facility] [address]-39 60-600 MG Orally Twice a day Feb 09, 2015 1 tablet as needed Results No Known Results Summary Purpose eClinicalWorks Submission
--- OUTSIDE RECORDS SUMMARY | 2018-01-12 19:12 | XMS REPORT ---
Author Author SURJIT DAS Organization [employer] Address Unknown Phone Unavailable Care Team Providers Care Zipper Trimmer Name Role Phone SURJIT DAS CP Unavailable [...] Start Date End Date Status Dosage Alprazolam [facility] [address]-89 2 MG August 09, 2014 take 1 tablet by Oral route 2 times per day Results No Known Results Summary Purpose [employer]ClinicalWorks Submission
--- OUTSIDE RECORDS SUMMARY | 2018-01-12 19:12 | XMS REPORT ---
Author Author SURJIT DAS [facility] eClinical[employer] Address Unknown Phone Unavailable Care Team Providers Care Syrup Machine Laborer Name Role Phone SURJIT DAS CP Unavailable Allergies, Adverse Reactions, Alerts Substance Reaction Event Type N.K.D.A. Info Not Available Non Drug Allergy Problems Problem Type Condition ICD-9 Code Onset Dates Condition Status Assessment Depression 311 Active Assessment Allergic rhinitis 477.9 Active Assessment Upper respiratory infection 465.9 Active Problem Anxiety state, unspecified 300.00 Active Problem [...] End Date Status Dosage Vitamin B Complex [facility] [address]197 Jun 01, 2014 by oral route Calcium-Magnesium [facility] [address]424 Jun 01, 2014 by oral route Coenzyme Q10 [facility] 0 Jun 01, 2014 by oral route Zithromax Z-[place] [facility] [address]-85 250 MG Orally Once a day Feb 06, 2015 Feb 11, 2015 2 tablets on the first day, then 1 tablet daily for 4 days Omeprazole [facility] 27664666714 20 MG TAKE 1 CAPSULE (20 MG) BY ORAL ROUTE ONCE DAILY BEFORE A MEAL Kelp [facility] [address]594 Jun 01, 2014 by oral route Probiotic [facility] 37810-58304 Jun 01, 2014 by oral route L-Lysine [facility] 47901-78901 Jun 01, 2014 by oral route Lexapro [facility] [address]-65 10 MG Orally Once a day Feb 06, 2015 1 tablet Flonase [facility] [address]-77 50 MCG/DOSE Nasally 2 times a day Feb 06, 2015 1 spray in each nostril Red Yeast Rice [facility] 222[address]1985 Jun 01, 2014 by oral route Alprazolam [facility] [address]-52 2 MG August 09, 2014 take 1 tablet by Oral route 2 times per day Vitamin A [facility] 0 Jun 01, 2014 by oral route Fish Oil [facility] [address]-23 Jun 01, 2014 by oral route Procedures Procedure Coding System Code Date Office Visit, Est Pt., Level 3 CPT-4 71513 Feb 06, 2015 [facility] VISIT ESTABLISHED PATIENT CPT-4 G0467 Feb 06, 2015 Vital Signs Date/Time: Feb 06, 2015 Temperature 98.7 F Weight 170 lbs Height 68 in BMI 25.85 Index Blood Pressure Diastolic 74 mmHg Blood Pressure Systolic 132 mmHg Cardiac Monitoring Heart Rate 60 bpm Results No Known Results Summary Purpose eClinicalWorks Submission
--- OUTSIDE RECORDS SUMMARY | 2018-01-12 19:12 | XMS REPORT ---
Author Author SURJIT DAS [facility] eClinicalWorks Address Unknown Phone Unavailable Care Team Providers Care Skin Care Technician Name Role Phone SURJIT DAS Unavailable Allergies, Adverse Reactions, Alerts Substance Reaction Event Type N.K.D.A. Info Not Available Non Drug Allergy Problems Problem Type Condition Code Onset Dates Condition Status Assessment Generalized anxiety disorder F41.1 Active Problem Chronic post-traumatic headache G44.329 Active Problem Hypertension I10 Active Problem Unspecified symptoms and signs involving cognitive functions and awareness R41.9 Active Problem Personality disorder, unspecified F60.9 Active Assessment Forgetfulness R68.89 Active Problem Family history of diabetes mellitus Z83.3 Active Problem Generalized anxiety disorder F41.1 Active Medications Medication Code System Code Instructions Start Date End Date Status Dosage Vitamin A ND 0 Jun 01, 2014 by oral route Fish Oil [facility] [address]-27 Jun 01, 2014 by oral route Nortriptyline HCl [facility] [address]-28 25 MG Orally Once a day at hs July 1 capsule Triamterene-HCTZ [facility] 38217219868 75-50 MG TAKE 1 TABLET BY ORAL ROUTE ONCE DAILY Kelp [facility] [address]6977 Jun 01, 2014 by oral route Probiotic [facility] [address] Jun 01, 2014 by oral route Coenzyme Q10 [facility] 0 Jun 01, 2014 by oral route Omeprazole [facility] 69123966745 20 MG take 1 capsule (20 mg) by oral route once daily before a meal Alprazolam [facility] [address]-07 2 MG Orally Twice a day August 09, 2014 1 tablet as needed Flonase [facility] [address]-04 50 MCG/DOSE Nasally 2 times a day Feb 06, 2015 1 spray in each nostril Contrave [facility] [address]-47 8-90 MG Orally Twice a day 2 tablets Vitamin C [facility] [address]-64 1000 MG Orally Once a day 1 tablet Vitamin B Complex [facility] [address]673 Jun 01, 2014 by oral route Procedures Procedure Coding System Code Date Office Visit, Est Pt., Level 2 CPT-4 40847 September 12, 2015 [facility] VISIT ESTABLISHED PATIENT CPT-4 G0467 September 12, 2015 Vital Signs Date/Time: September 12, 2015 Temperature 97.7 F Weight 174.3 lbs Height 68 in BMI 26.50 Index Blood Pressure Diastolic 88 mmHg Blood Pressure Systolic 134 mmHg Cardiac Monitoring Heart Rate 76 bpm Results No Known Results Summary Purpose eClinicalWorks Submission
--- OUTSIDE RECORDS SUMMARY | 2018-01-12 19:12 | XMS REPORT ---
Author CATINA Turpin [employer] Address Unknown Phone Unavailable Care Team Providers Care Computer Drafter Name Role Phone CATINA GARCIA CP Unavailable [...] patient &/family, 45 minutes, established patient CPT-4 09321 Jun 13, 2015 [facility] VISIT MENTAL HEALTH ESTAB PT CPT-4 G0470 Jun 13, 2015 Results No Known Results Summary Purpose eClinicalWorks Submission
--- OUTSIDE RECORDS SUMMARY | 2018-01-12 19:13 | XMS REPORT ---
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 Name Role Phone SURJIT DAS Unavailable PROBLEMS Type Condition ICD9-CM Code [id number] Code Onset Dates Condition Status SNOMED Code Problem Personality disorder, unspecified F60.9 Active 11732868 Problem Chronic post-traumatic headache G44.329 Active 943482553 Problem Generalized anxiety disorder F41.1 Active 35448446 Problem Mixed hyperlipidemia E78.2 Active 351460358 Problem Anxiety F41.9 Active 02946243 Problem Post traumatic stress disorder (PTSD) F43.10 Active 52013571 Problem Unspecified symptoms and signs involving cognitive functions and awareness R41.9 Active 744192873 Problem Family history of diabetes mellitus Z83.3 Active 534008233 Problem Essential (primary) hypertension I10 Active 69562079 Problem Mild acid reflux K21.9 Active 155612399 ALLERGIES No Information ENCOUNTERS Encounter Location Date Diagnosis [place] [id number] [place] [address] 86654- 5820 Oct, Medicare annual wellness visit, initial Z00.00 [place] [id number] [place] [address] 63796- 5265 September, [place] [address] [place] [id number] [place] [address] 55008- 9334 17 Sep, 2017 Post traumatic stress disorder (PTSD) F43.10 [place] [address] [place] [id number] [place] [address] 46966- 2270 30 Aug, 2017 Mixed hyperlipidemia E78.2 [place] [address] [place] [id number] [place] [address] 91348- 7785 23 Aug, 2018 Keloid of skin L91.0 and Impacted cerumen of both ears H61.23 [facility] [address] [place] [id number] [place] [address] 66413- 3007 Aug, Post traumatic stress disorder (PTSD) F43.10 [place] [address] [place] [id number] [place] [address] 68407- 9016 Jul, [facility] [address] [place] [address] [id number] [place] [address] 93787 2546 Jul, Mixed hyperlipidemia E78.2 ; Mild acid reflux K21.9 and Essential (primary) hypertension I10 [place] [address] 09437- 1906 Jul, [place] [address] 65427- 4936 Jul, Post traumatic stress disorder (PTSD) F43.10 [place] [address] [place] [id number] [place] [address] 47638- 1516 Jul, Mixed hyperlipidemia E78.2 [facility] [address] [place] [address] [id number] [place] [address] 55151- 1546 Jul, Essential (primary) hypertension I10 [place] [address] [place] [id number] [place] [address] 03955- 2574 Jun, Insect bite, subsequent encounter W57.XXXD ; Post traumatic stress disorder (PTSD) F43.10 ; Essential (primary) hypertension I10 and Localized edema R60.0 [place] [address] [place] [id number] [place] [address] 22593- 9335 Jun, Anxiety F41.9 [place] [address] [place] [id number] [place] [address] 18387- 2544 Jun, Insect bite, initial encounter W57.XXXA ; Anxiety F41.9 ; Bronchitis J40 ; Headache R51 and Essential (primary) hypertension I10 [place] [address] [place] [id number] [place] [address] 24296- 7242 May, Anxiety F41.9 [place] [address] [place] [id number] [place] [address] 91963- 5970 May, [facility] [address] 96220- 7150 Apr, Anxiety F41.9 [facility] [address] [id number] [place] [address] 55227- 6960 Apr, [facility] [address] 28933- 7744 Mar, Anxiety F41.9 [place] [address] 82537- 0766 Mar, Angioedema, subsequent encounter T78.3XXD ; Post traumatic stress disorder (PTSD) F43.10 ; Generalized anxiety disorder F41.1 ; Forgetfulness R68.89 ; Anxiety F41.9 ; Essential (primary) hypertension I10 ; Headache R51 ; Bronchitis J40 ; Mild acid reflux K21.9 and Cough R05 [place] [address] [place] [id number] [place] [address] 38013- 5826 Mar, Angioedema, initial encounter T78.3XXA [facility] [address] 84759 -7440 Mar, Acute upper respiratory infection, unspecified J06.9 and Cough R05 [facility] [address] [place] [id number] [place] [address] 94173- 7166 Mar, Generalized anxiety disorder F41.1 [facility] [address] [id number] [place] [address] 18384- 7620 Feb, Generalized anxiety disorder F41.1 [place] [address] 51116- 2252 Jan, Generalized anxiety disorder F41.1 [facility] [address] [place] [id number] [place] [address] 50008- 7771 Dec, [facility] [address] 60665- 4970 Dec, Generalized anxiety disorder F41.1 [facility] [address] [address]- 8557 Nov, Generalized anxiety disorder F41.1 [facility] [address] [place] [address]- 6070 Nov, Mild acid reflux K21.9 [facility] [id number] [place] [address] 89504- 3734 Oct, Generalized anxiety disorder F41.1 [facility] [id number] [place] [address] 78642- 8751 Oct, Cellulitis of right upper extremity L03.113 [facility] [address] [place] [id number] [place] [address] 86931- 3240 September, [facility] [address] [place] [address] [id number] [place] [address] 26574- 7393 September, Generalized anxiety disorder F41.1 [facility] [id number] [place] [address] 57815- 5497 Aug, Generalized anxiety disorder F41.1 [facility] [address] [place] [address] [id number] [place] [address] 67525- 3693 Aug, Medicare annual wellness visit, initial Z00.00 [facility] [address] [address]- 2329 Jul, Generalized anxiety disorder F41.1 [facility] [address] [address]- 6587 Jul, [facility] [address] [place] [address]- 8719 Jul, [facility] [address] [place] [address] [id number] [place] [address] 43581- 3099 Jun, Generalized anxiety disorder F41.1 [facility] [address] [address]- 7999 30 Jos, 2017 Bronchitis J40 and Generalized anxiety disorder F41.1 [facility] [id number] [place] [address] 85464- 2052 May, Generalized anxiety disorder F41.1 [facility] [address] [place] [id number] [place] [address] 65915- 2243 May, [facility] [address] [place] [address] [id number] [place] [address] 25116- 5252 Apr, Generalized anxiety disorder F41.1 [facility] [address] [place] [id number] [place] [address] 85595- 1302 Apr, Essential (primary) hypertension I10 [facility] [address] [place] [id number] [place] [address] 90372- 7046 Apr, Generalized anxiety disorder F41.1 [facility] [address] [place] [address] [id number] [place] [address] 33584- 3571 Mar, Generalized anxiety disorder F41.1 [facility] [address] [place] [address] [id number] [place] [address] 40773- 5572 Feb, Generalized anxiety disorder F41.1 [facility] [address] [place] [address] [id number] [place] [address] 17389- 0382 Jan, Generalized anxiety disorder F41.1 [facility] [address] [place] [address] [id number] [place] [address] 87227- 8404 Dec, Generalized anxiety disorder F41.1 [facility] [address] [place] [address] [id number] [place] [address] 65041- 7647 Nov, [facility] [address] [place] [address] [id number] [place] [address] 62018- 7142 Oct, Generalized anxiety disorder F41.1 [facility] [address] [place] [address] [id number] [place] [address] 57286- 8425 Oct, Forgetfulness R68.89 [facility] [address] [address] [id number] [place] [address] 42073- 2319 Oct, Generalized anxiety disorder F41.1 and Personality disorder , unspecified F60.9 [place] [address] [place] [id number] [place] [address] 53692- 0563 September, Mild acid reflux K21.9 [place] [address] [place] [id number] [place] [address] 49849- 7651 September, Generalized anxiety disorder F41.1 [place] [address] 45007- 2159 Aug, Generalized anxiety disorder F41.1 and Personality disorder , unspecified F60.9 [place] [address] [place] [id number] [place] [address] 96300- 1484 Aug, Forgetfulness R68.89 and Generalized anxiety disorder F41.1 [place] [address] 06289- 6718 Aug, Unspecified symptoms and signs involving cognitive functions and awareness R41.9 and Generalized anxiety disorder F41.1 [place] [address] 65324- 1247 Aug, [place] [address] 95633- 6221 Aug, Screening, lipid Z13.220 and Forgetfulness R68.89 [place] [address] [place] [id number] [place] [address] 02700- 7151 Aug, Headache R51 [place] [address] [place] [id number] [place] [address] 68414- 2634 30 Jul, 2015 Acute upper respiratory infection, unspecified J06.9 and Other viral agents as the cause of diseases classified elsewhere B97.89 [place] [address] 99563- 0287 24 Jul, 2015 [place] [address] [place] [id number] [place] [address] 90335- 0561 16 Jul, 2015 [place] [address] 83759- 3907 14 Jul, 2015 Headache R51 and Anxiety F41.9 [facility] [address] [place] [id number] [place] [address] 02373- 6756 10 Jul, 2015 Generalized anxiety disorder F41.1 and Personality disorder , unspecified F60.9 [facility] [address] [place] [address] [id number] [place] [address] 53574- 1846 Jun, [facility] [address] [place] [address] [id number] [place] [address] 80063- 3766 Jun, Post traumatic stress disorder (PTSD) F43.10 and Personality disorder, unspecified F60.9 [facility] [address] [place] [id number] [place] [address] 04191- 3376 May, Overweight E66.3 [facility] [address] [place] [address] [id number] [place] [address] 23771- 3660 May, [facility] [address] [place] [id number] [place] [address] 61885- 8489 May, Post traumatic stress disorder (PTSD) F43.10 and Personality disorder, unspecified F60.9 [facility] [address] [place] [id number] [place] [address] 05197- 8060 May, [facility] [address] [id number] [place] [address] 77870- 3675 Apr, [facility] [address] [id number] [place] [address] 33645- 3266 Apr, [facility] [id number] [place] [address] 61835 2546 Apr, [facility] [id number] [place] [address] 74019- 5516 Apr, [facility] [id number] [place] [address] 57617- 9246 Mar, Post traumatic stress disorder (PTSD) F43.10 [facility] [id number] [place] [address] 12966- 0582 Mar, [facility] [address], [place] [address]- 3148 Mar, Post traumatic stress disorder (PTSD) F43.10 [facility] [address], [place] [address]- 0799 Feb, Anxiety F41.9 [facility] [id number] [place] [address] 56682- 2334 Feb, [facility] [id number] [place] [address] 82537- 9656 Feb, [facility] [address] [id number] [place] [address] 86048- 1185 Feb, Post traumatic stress disorder (PTSD) F43.10 [facility] [address] [place] [address] [id number] [place] [address] 75021- 4876 Jan, [facility] [address] [place] [id number] [place] [address] 52775- 2912 Jan, Posttraumatic stress disorder 309.81 [facility] [address] [place] [address] [id number] [place] [address] 79740- 5147 Jan, Allergic rhinitis 477.9 ; Upper respiratory infection 465.9 and Depression 311 [facility] [id number] [place] [address] 58795- 7812 Jan, Depressive disorder, not elsewhere classified 311 and Anxiety state, unspecified 300.00 [facility] [address], [place] [address]- 0048 Jan, [facility] [id number] [place] [address] 93850- 9941 Dec, [facility] [id number] [place] [address] 28301- 3885 Dec, [facility] [id number] [place] [address] 17955- 0325 Dec, [facility] [id number] [address]- 5375 16 Nov, 2014 [facility] [address], [place] [address]- 7826 Nov, [facility] [address], [place] [address]- 6836 Oct, [facility] [address], [place] [address]- 2566 Oct, Anxiety 300.00 ; Insomnia 780.52 ; Family history of diabetes mellitus V18.0 ; Hypertension 401.9 and Onychomycosis 110.1 [facility] [address], [place] [address]- 7862 September, [facility] [address], [place] [address]- 2157 Aug, [facility] [address], [place] [address]- 6228 Aug, [facility] [address], [place] [address]- 2155 Jul, [facility] [address], [place] [address]- 0900 Jul, [facility] [address], [place] [address]- 1279 Jun, [facility] [id number] [address]- 9123 Jun, [facility] [id number]- 2374 May, [facility] [address] 6661 May, [facility] [address] 9807 May, [facility] [id number] 1937 May, IMMUNIZATIONS No Known Immunizations SOCIAL HISTORY Never Assessed REASON FOR VISIT Alprazolam 04/20 PLAN OF CARE VITAL SIGNS MEDICATIONS Medication [...]
--- OUTSIDE RECORDS SUMMARY | 2018-01-12 19:13 | XMS REPORT ---
Author Author SURJIT DAS Organization [facility] Address [address] [place] [address] Care Team Providers Care Horser Up Name Role Phone SURJIT DAS Unavailable PROBLEMS Type Condition ICD9-CM Code [id number] Code Onset Dates Condition Status SNOMED Code Problem Personality disorder, unspecified F60.9 Active 11374635 Problem Essential (primary) hypertension I10 Active 86385889 Problem Mild acid reflux K21.9 Active 992869360 Problem Family history of diabetes mellitus Z83.3 Active 019081037 Problem Generalized anxiety disorder F41.1 Active 76036925 Problem Unspecified symptoms and signs involving cognitive functions and awareness R41.9 Active 908033769 Problem Chronic post-traumatic headache G44.329 Active 304283446 ALLERGIES Substance Reaction Event Type Date Status N.K.D.A. Unknown Non Drug Allergy Apr, Unknown SOCIAL HISTORY No smoking Hx information available PLAN OF CARE Activity Details Follow Up 6 Months Reason:BP VITAL SIGNS Height 68 in 2016-05-01 Temperature 97.5 degrees Fahrenheit 2016-05-01 Heart Rate 80 bpm 2016-05-01 Respiratory Rate 18 2016-05-01 Blood pressure systolic 138 mmHg 2016-05-01 Blood pressure diastolic 78 mmHg 2016-05-01 MEDICATIONS Medication Instructions Dosage Frequency Start Date End Date Duration Status Fish Oil by oral route May, Active Coenzyme Q10 by oral route May, Active Kelp by oral route May, Active Triamterene-HCTZ 75-50 MG TAKE 1 TABLET BY ORAL ROUTE ONCE DAILY Active Vitamin A by oral route May, Active Vitamin B Complex by oral route May, Active Probiotic by oral route May, Active Nortriptyline HCl 25 MG Orally Once a day at hs 1 capsule 90 Active Vitamin C 1000 MG Orally Once a day 1 tablet 24h Active Alprazolam 2 MG Orally Twice a day 1 tablet as needed 12h Jul, 28 days Active Omeprazole 20 mg Orally Once a day 1 capsule 24h 90 days Active RESULTS No Results PROCEDURES Procedure Date Ordered Related Diagnosis Body Site [facility] VISIT ESTABLISHED PATIENT May 01, 2016 Office Visit, Est Pt., Level 3 May 01, 2016 IMMUNIZATIONS No Known Immunizations
--- OUTSIDE RECORDS SUMMARY | 2018-01-12 19:13 | XMS REPORT ---
Author SURJIT Bell Organization [employer] Address Unknown Phone Unavailable Care Team Providers Care Environmental Health Inspector Name Role Phone SURJIT DAS CP Unavailable [...] Instructions Start Date End Date Status Dosage Wellbutrin [facility] [address]-09 75 MG 2 times a day 1 TABLET BY ORAL Results No Known Results Summary Purpose [employer] Submission
--- OUTSIDE RECORDS SUMMARY | 2018-01-12 19:13 | XMS REPORT ---
Author SHERLYN Turpin Organization [employer] Address Unknown Phone Unavailable Care Team Providers Care Slab Polisher Name Role Phone SHERLYN GARCIA CP Unavailable Allergies No Known Allergies Problems Problem Type Condition ICD-9 Code Onset Dates Condition Status Assessment Depressive disorder, not elsewhere classified 311 Active Assessment Anxiety state, unspecified 300.00 Active Problem Anxiety state, unspecified 300.00 Active [...] Date Psych diagnostic evaluation, established patient CPT-4 55719 Feb 06, 2015 [facility] VISIT MENTAL HEALTH ESTAB PT CPT-4 G0470 Feb 06, 2015 Results No Known Results Summary Purpose [employer] Submission
--- OUTSIDE RECORDS SUMMARY | 2018-01-12 19:14 | XMS REPORT ---
Author Author SURJIT DAS Organization [facility] Address [address] [place] [address] Care Team Providers Care Cuff Knitter Name Role Phone SURJIT DAS Unavailable PROBLEMS Type Condition ICD9-CM Code OUX58-PD Code Onset Dates Condition Status SNOMED Code Problem Personality disorder, unspecified F60.9 Active 71459181 Problem Chronic post-traumatic headache G44.329 Active 758690016 Problem Generalized anxiety disorder F41.1 Active 59644123 Problem Mixed hyperlipidemia E78.2 Active 362236762 Problem Anxiety F41.9 Active 74787793 Problem Post traumatic stress disorder (PTSD) F43.10 Active 35753573 Problem Unspecified symptoms and signs involving cognitive functions and awareness R41.9 Active 189217110 Problem Family history of diabetes mellitus Z83.3 Active 984619725 Problem Essential (primary) hypertension I10 Active 78947157 Problem Mild acid reflux K21.9 Active 367026865 ALLERGIES No Information ENCOUNTERS Encounter Location Date Diagnosis [place] [id number] [place] [address] 99058- 3972 Oct, Medicare annual wellness visit, initial Z00.00 [facility] [id number] [place] [address] 34958- 9107 September, [facility] [address] [place] [id number] [place] [address] 60093- 7787 17 Sep, 2017 Post traumatic stress disorder (PTSD) F43.10 [facility] [place] [address] [id number] [place] [address] 62686- 4064 30 Aug, 2017 Mixed hyperlipidemia E78.2 [facility] [address] [place] [id number] [place] [address] 28353- 7695 23 Aug, 2018 Keloid of skin L91.0 and Impacted cerumen of both ears H61.23 [facility] [id number] [place] [address] 88697- 7848 Aug, Post traumatic stress disorder (PTSD) F43.10 [place] [address] [place] [id number] [place] [address] 20969- 3166 Jul, [facility] [address] [place] [address] [id number] [place] [address] 64543 2546 Jul, Mixed hyperlipidemia E78.2 ; Mild acid reflux K21.9 and Essential (primary) hypertension I10 [place] [address] 97442- 3956 Jul, [place] [address] 10381- 3276 Jul, Post traumatic stress disorder (PTSD) F43.10 [place] [address] [place] [id number] [place] [address] 47413- 8796 Jul, Mixed hyperlipidemia E78.2 [facility] [address] [id number] [place] [address] 84833- 8328 Jul, Essential (primary) hypertension I10 [facility] [address] [place] [id number] [place] [address] 11443- 4734 Jun, Insect bite, subsequent encounter W57.XXXD ; Post traumatic stress disorder (PTSD) F43.10 ; Essential (primary) hypertension I10 and Localized edema R60.0 [facility] [place] [address] [id number] [place] [address] 64551- 7311 Jun, Anxiety F41.9 [facility] [place] [address] [place] [id number] [place] [address] 14009- 2547 Jun, Insect bite, initial encounter W57.XXXA ; Anxiety F41.9 ; Bronchitis J40 ; Headache R51 and Essential (primary) hypertension I10 [facility] [place] [address] [place] [id number] [place] [address] 84183- 8404 May, Anxiety F41.9 [facility] [address] [id number] [place] [address] 15159- 9718 May, [facility] [address] 44408- 7077 Apr, Anxiety F41.9 [facility] [id number] [place] [address] 72047- 7175 Apr, [facility] [address] 36279- 2241 Mar, Anxiety F41.9 [place] [address] 94991- 1345 Mar, Angioedema, subsequent encounter T78.3XXD ; Post traumatic stress disorder (PTSD) F43.10 ; Generalized anxiety disorder F41.1 ; Forgetfulness R68.89 ; Anxiety F41.9 ; Essential (primary) hypertension I10 ; Headache R51 ; Bronchitis J40 ; Mild acid reflux K21.9 and Cough R05 [place] [address] [id number] [place] [address] 11317- 5656 Mar, Angioedema, initial encounter T78.3XXA [facility] [address] 21532 -7020 Mar, Acute upper respiratory infection, unspecified J06.9 and Cough R05 [facility] [address] [place] [id number] [place] [address] 21203- 2648 Mar, Generalized anxiety disorder F41.1 [facility] [id number] [place] [address] 10688- 2202 Feb, Generalized anxiety disorder F41.1 [place] [address] 56402- 1122 Jan, Generalized anxiety disorder F41.1 [facility] [address] [id number] [place] [address] 41526- 0293 Dec, [facility] [address] 95988- 2593 Dec, Generalized anxiety disorder F41.1 [facility] [address] [address] 7223 Nov, Generalized anxiety disorder F41.1 [facility] [address] [address]- 6684 Nov, Mild acid reflux K21.9 [facility] [address] [place] [address] 61469- 5052 Oct, Generalized anxiety disorder F41.1 [facility] [address] [place] [address] 84837- 3079 Oct, Cellulitis of right upper extremity L03.113 [facility] [address] [place] [id number] [place] [address] 86994- 1362 September, [facility] [id number] [place] [address] 66639- 8840 September, Generalized anxiety disorder F41.1 [facility] [address] [place] [address] 20167- 5071 Aug, Generalized anxiety disorder F41.1 [facility] [address] [id number] [place] [address] 79254- 4475 Aug, Medicare annual wellness visit, initial Z00.00 [facility] [address] [address]- 2313 Jul, Generalized anxiety disorder F41.1 [facility] [address] [address]- 4131 Jul, [facility] [address] [address]- 4017 Jul, [facility] [id number] [place] [address] 64286- 4256 Jun, Generalized anxiety disorder F41.1 [facility] [address] [address]- 3556 30 Jos, 2017 Bronchitis J40 and Generalized anxiety disorder F41.1 [facility] [address] [place] [address] 80941- 0035 May, Generalized anxiety disorder F41.1 [facility] [id number] [place] [address] 13023- 7420 May, [facility] [id number] [place] [address] 33594- 2617 Apr, Generalized anxiety disorder F41.1 [facility] [id number] [place] [address] 21382- 7975 Apr, Essential (primary) hypertension I10 [facility] [address] [place] [id number] [place] [address] 45001- 9951 Apr, Generalized anxiety disorder F41.1 [facility] [id number] [place] [address] 91140- 8627 Mar, Generalized anxiety disorder F41.1 [facility] [id number] [place] [address] 52187- 3723 Feb, Generalized anxiety disorder F41.1 [facility] [id number] [place] [address] 92071- 3286 Jan, Generalized anxiety disorder F41.1 [facility] [address] [id number] [place] [address] 44857- 7947 Dec, Generalized anxiety disorder F41.1 [facility] [id number] [place] [address] 45306- 0498 Nov, [facility] [address] [place] [id number] [place] [address] 53662- 7938 Oct, Generalized anxiety disorder F41.1 [facility] [address] [place] [id number] [place] [address] 55250- 1722 Oct, Forgetfulness R68.89 [facility] [address] [id number] [place] [address] 64435- 4013 Oct, Generalized anxiety disorder F41.1 and Personality disorder , unspecified F60.9 [place] [address] [place] [id number] [place] [address] 01370- 0240 September, Mild acid reflux K21.9 [place] [address] [place] [id number] [place] [address] 14572- 0612 September, Generalized anxiety disorder F41.1 [place] [address] 16153- 9495 Aug, Generalized anxiety disorder F41.1 and Personality disorder , unspecified F60.9 [place] [address] [place] [id number] [place] [address] 95693- 4896 Aug, Forgetfulness R68.89 and Generalized anxiety disorder F41.1 [place] [address] 96311- 6565 Aug, Unspecified symptoms and signs involving cognitive functions and awareness R41.9 and Generalized anxiety disorder F41.1 [place] [address] 08537- 3332 Aug, [place] [address] 19805- 0963 Aug, Screening, lipid Z13.220 and Forgetfulness R68.89 [facility] [address] [place] [id number] [place] [address] 95545- 9218 Aug, Headache R51 [facility] [place] [address] [place] [id number] [place] [address] 76136- 6212 30 Jul, 2015 Acute upper respiratory infection, unspecified J06.9 and Other viral agents as the cause of diseases classified elsewhere B97.89 [place] [address] 57587- 3168 24 Jul, 2015 [place] [address] [place] [id number] [place] [address] 27926- 5297 16 Jul, 2015 [place] [address] 88960- 1956 14 Jul, 2015 Headache R51 and Anxiety F41.9 [facility] [id number] [place] [address] 38112- 9766 10 Jul, 2015 Generalized anxiety disorder F41.1 and Personality disorder , unspecified F60.9 [facility] [id number] [place] [address] 55722- 8886 Jun, [facility] [id number] [place] [address] 75028- 5456 Jun, Post traumatic stress disorder (PTSD) F43.10 and Personality disorder, unspecified F60.9 [facility] [address] [id number] [place] [address] 96690- 0656 May, Overweight E66.3 [facility] [id number] [place] [address] 40007- 1415 May, [facility] [id number] [place] [address] 94611- 1106 May, Post traumatic stress disorder (PTSD) F43.10 and Personality disorder, unspecified F60.9 [facility] [id number] [place] [address] 12776- 4165 May, [facility] [id number] [place] [address] 35333- 6958 Apr, [facility] [id number] [place] [address] 14157- 8756 Apr, [facility] [id number] [place] [address] 70315 2546 Apr, [facility] [id number] [place] [address] 52339- 9236 Apr, [facility] [id number] [place] [address] 89041- 4106 Mar, Post traumatic stress disorder (PTSD) F43.10 [facility] [id number] [place] [address] 07266- 7155 Mar, [facility] [address] [address]- 7643 Mar, Post traumatic stress disorder (PTSD) F43.10 [facility] [address] [address]- 6655 Feb, Anxiety F41.9 [facility] [id number] [place] [address] 12639- 6538 Feb, [facility] [id number] [place] [address] 81026- 4324 Feb, [facility] [id number] [place] [address] 07351- 6576 Feb, Post traumatic stress disorder (PTSD) F43.10 [facility] [id number] [place] [address] 94820- 4427 Jan, [facility] [id number] [place] [address] 16605- 0771 Jan, Posttraumatic stress disorder 309.81 [facility] [id number] [place] [address] 39319- 4926 Jan, Allergic rhinitis 477.9 ; Upper respiratory infection 465.9 and Depression 311 [facility] [address] [place] [address] 72678- 3907 Jan, Depressive disorder, not elsewhere classified 311 and Anxiety state, unspecified 300.00 [facility] [address] [address]- 3764 Jan, [facility] [id number] [place] [address] 28778- 9938 Dec, [facility] [id number] [place] [address] 48037- 5798 Dec, [facility] [id number] [place] [address] 07645- 9888 Dec, [facility] [address] [address]- 5473 16 Nov, 2014 [facility] [address] [address]- 1654 Nov, [facility] [address] [address]- 5006 Oct, [facility] [address] [address]- 9826 Oct, Anxiety 300.00 ; Insomnia 780.52 ; Family history of diabetes mellitus V18.0 ; Hypertension 401.9 and Onychomycosis 110.1 [facility] [address] [address]- 7853 September, [facility] [address] [address]- 1670 Aug, [facility] [address] [address]- 2798 Aug, [facility] [address] [address]- 2968 Jul, [facility] [address] [address]- 5829 Jul, [facility] [address] [address]- 5589 Jun, [facility] [id number] [address]- 0044 Jun, [facility] [id number] 5768 May, [facility] [address]- 7378 May, [facility] [address] 6754 May, [facility] [id number] 0189 May, IMMUNIZATIONS No Known Immunizations SOCIAL HISTORY Never Assessed REASON FOR VISIT only - Change of Pharmacy eff. in May PLAN OF CARE VITAL SIGNS MEDICATIONS Unknown [...]
--- OUTSIDE RECORDS SUMMARY | 2018-01-12 19:14 | XMS REPORT ---
Author Author SURJIT DAS [facility] Address [address] [place] [address] Care Team Providers Care Call Centre Supervisor Name Role Phone SURJIT DAS Unavailable PROBLEMS Type Condition ICD9-CM Code TON50-FL Code Onset Dates Condition Status SNOMED Code Problem Personality disorder, unspecified F60.9 Active 12939527 Problem Essential (primary) hypertension I10 Active 68975908 Problem Mild acid reflux K21.9 Active 076054432 Problem Family history of diabetes mellitus Z83.3 Active 480455886 Problem Generalized anxiety disorder F41.1 Active 91726986 Problem Unspecified symptoms and signs involving cognitive functions and awareness R41.9 Active 872389396 Problem Chronic post-traumatic headache G44.329 Active 532516140 ALLERGIES Unknown Allergies SOCIAL HISTORY No smoking Hx information available PLAN OF CARE VITAL SIGNS MEDICATIONS Medication Instructions Dosage Frequency Start Date End Date Duration Status Alprazolam 2 MG Orally Twice a day 1 tablet as needed 12h Jul, 28 days Active RESULTS No Results PROCEDURES No Known procedures IMMUNIZATIONS No Known Immunizations
--- OUTSIDE RECORDS SUMMARY | 2018-01-12 19:14 | XMS REPORT ---
Author Author USRJIT DAS [facility] Address [address] [place] [address] Care Team Providers Care Morphologist Name Role Phone SURJIT DAS Unavailable PROBLEMS Type Condition ICD9-CM Code KOC76-IT Code Onset Dates Condition Status SNOMED Code Problem Personality disorder, unspecified F60.9 Active 84097865 Problem Mild acid reflux K21.9 Active 759307094 Problem Unspecified symptoms and signs involving cognitive functions and awareness R41.9 Active 940313893 Problem Family history of diabetes mellitus Z83.3 Active 780106044 Problem Generalized anxiety disorder F41.1 Active 14317282 Problem Chronic post-traumatic headache G44.329 Active 157364961 Problem Hypertension I10 Active 39404955 ALLERGIES Unknown Allergies SOCIAL HISTORY No smoking Hx information available PLAN OF CARE VITAL SIGNS MEDICATIONS Medication Instructions Dosage Frequency Start Date End Date Duration Status Alprazolam 2 MG Orally Twice a day 1 tablet as needed 12h Jul, 28 days Active RESULTS No Results PROCEDURES No Known procedures IMMUNIZATIONS No Known Immunizations
--- OUTSIDE RECORDS SUMMARY | 2018-01-12 19:14 | XMS REPORT ---
Author Author SURJIT DAS Organization [facility] Address [address] [place] [address] Care Team Providers Care Wiener Packer Name Role Phone SURJIT DAS Unavailable PROBLEMS Type Condition ICD9-CM Code NSO58-UX Code Onset Dates Condition Status SNOMED Code Problem Personality disorder, unspecified F60.9 Active 15616786 Problem Chronic post-traumatic headache G44.329 Active 681974748 Problem Generalized anxiety disorder F41.1 Active 24359114 Problem Mixed hyperlipidemia E78.2 Active 795959072 Problem Anxiety F41.9 Active 99485058 Problem Post traumatic stress disorder (PTSD) F43.10 Active 70838010 Problem Unspecified symptoms and signs involving cognitive functions and awareness R41.9 Active 844109927 Problem Family history of diabetes mellitus Z83.3 Active 546431459 Problem Essential (primary) hypertension I10 Active 36273595 Problem Mild acid reflux K21.9 Active 372082565 ALLERGIES No Information ENCOUNTERS Encounter Location Date Diagnosis [place] [id number] [place] [address] 47073- 1541 Aug, [facility] [address] [id number] [place] [address] 42590- 2245 Jul, [facility] [id number] [place] [address] 82729- 3800 Jul, Post traumatic stress disorder (PTSD) F43.10 [facility] [id number] [place] [address] 05023- 9127 Jul, Mixed hyperlipidemia E78.2 [facility] [address] [address] [id number] [place] [address] 44880- 1386 Jul, Essential (primary) hypertension I10 [facility] [id number] [place] [address] 75573- 2918 Jun, Insect bite, subsequent encounter W57.XXXD ; Post traumatic stress disorder (PTSD) F43.10 ; Essential (primary) hypertension I10 and Localized edema R60.0 [facility] [address] 59562- 5895 Jun, Anxiety F41.9 [facility] [address] 17061- 4584 Jun, Insect bite, initial encounter W57.XXXA ; Anxiety F41.9 ; Bronchitis J40 ; Headache R51 and Essential (primary) hypertension I10 [place] [address] 31178- 4848 May, Anxiety F41.9 [facility] [address] 47251- 7446 May, [facility] [address] 69129- 5014 Apr, Anxiety F41.9 [facility] [address] 42785- 6152 Apr, [facility] [address] 36026- 0705 Mar, Anxiety F41.9 [place] [address] 14328- 2659 Mar, Angioedema, subsequent encounter T78.3XXD ; Post traumatic stress disorder (PTSD) F43.10 ; Generalized anxiety disorder F41.1 ; Forgetfulness R68.89 ; Anxiety F41.9 ; Essential (primary) hypertension I10 ; Headache R51 ; Bronchitis J40 ; Mild acid reflux K21.9 and Cough R05 [facility] [address] 07074- 9505 Mar, Angioedema, initial encounter T78.3XXA [facility] [address] 02337 -4494 Mar, Acute upper respiratory infection, unspecified J06.9 and Cough R05 [facility] [address] [address] 1978 Mar, Generalized anxiety disorder F41.1 [facility] [address] [address] 3985 Feb, Generalized anxiety disorder F41.1 [facility] [id number] [place] [address] 13149- 0874 Jan, Generalized anxiety disorder F41.1 [facility] [address] [place] [address] 65896- 2768 Dec, [facility] [id number] [place] [address] 75546- 7795 Dec, Generalized anxiety disorder F41.1 [facility] [id number] [place] [address] 89432- 6717 Nov, Generalized anxiety disorder F41.1 [facility] [address] [place] [address] 98666- 4979 Nov, Mild acid reflux K21.9 [facility] [address] [place] [address] 03822- 6071 Oct, Generalized anxiety disorder F41.1 [facility] [address] [address] 1467 Oct, Cellulitis of right upper extremity L03.113 [facility] [address] [address]- 8906 September, [facility] [address] [place] [address] 86794- 5748 September, Generalized anxiety disorder F41.1 [facility] [address] [place] [address] 56528- 1865 Aug, Generalized anxiety disorder F41.1 [facility] [address] [place] [address] 61594- 1965 Aug, Medicare annual wellness visit, initial Z00.00 [facility] [address] [place] [address] 66293- 2794 Jul, Generalized anxiety disorder F41.1 [facility] [id number] [place] [address] 84691- 3054 Jul, [facility] [id number] [place] [address] 63067- 0411 Jul, [facility] [id number] [place] [address] 43427- 8581 Jun, Generalized anxiety disorder F41.1 [facility] [id number] [place] [address] 77451- 2941 May, Bronchitis J40 and Generalized anxiety disorder F41.1 [facility] [id number] [place] [address] 56500- 3999 May, Generalized anxiety disorder F41.1 [facility] [address] [address] [id number] [place] [address] 44428- 5824 May, [facility] [id number] [place] [address] 49624- 7713 Apr, Generalized anxiety disorder F41.1 [facility] [address] [place] [address] 65029- 8313 Apr, Essential (primary) hypertension I10 [facility] [address] [place] [address] 77018- 3033 Apr, Generalized anxiety disorder F41.1 [facility] [address] [place] [address] 43698- 2256 Mar, Generalized anxiety disorder F41.1 [facility] [address] [address] [id number] [place] [address] 77856- 1100 06 Feb, 2016 Generalized anxiety disorder F41.1 [facility] [id number] [place] [address] 99606- 8049 Jan, Generalized anxiety disorder F41.1 [facility] [address] [place] [address] 90433- 4916 Dec, Generalized anxiety disorder F41.1 [facility] [address] [place] [address] [id number] [place] [address] 00409- 9340 Nov, [place] [address] [address] [id number] [place] [address] 21259- 0591 Oct, Generalized anxiety disorder F41.1 [place] [address] [place] [id number] [place] [address] 04352- 6092 Oct, Forgetfulness R68.89 [place] [address] 63739- 6896 Oct, Generalized anxiety disorder F41.1 and Personality disorder , unspecified F60.9 [place] [address] [place] [id number] [place] [address] 36875- 6928 September, Mild acid reflux K21.9 [place] [address] [place] [id number] [place] [address] 01926- 0935 September, Generalized anxiety disorder F41.1 [place] [address] [place] [id number] [place] [address] 26963- 3760 Aug, Generalized anxiety disorder F41.1 and Personality disorder , unspecified F60.9 [place] [address] [place] [id number] [place] [address] 57338- 9942 Aug, Forgetfulness R68.89 and Generalized anxiety disorder F41.1 [place] [address] [place] [id number] [place] [address] 35914- 5246 Aug, Unspecified symptoms and signs involving cognitive functions and awareness R41.9 and Generalized anxiety disorder F41.1 [place] [address] [place] [id number] [place] [address] 98587- 5125 Aug, [place] [address] [place] [id number] [place] [address] 50866- 2580 19 Apr, 2016 Screening, lipid Z13.220 and Forgetfulness R68.89 [facility] [address] [place] [id number] [place] [address] 67214- 7872 Aug, Headache R51 [place] [address] [place] [id number] [place] [address]696 30 Jul, 2015 Acute upper respiratory infection, unspecified J06.9 and Other viral agents as the cause of diseases classified elsewhere B97.89 [place] [address] [place] [id number] [place] [address] 65620- 3242 24 Jul, 2015 [place] [address] [place] [id number] [place] [address] 75700- 7394 16 Jul, 2015 [place] [address] [place] [id number] [place] [address] 86109- 6048 Jul, Headache R51 and Anxiety F41.9 [place] [address] [place] [id number] [place] [address] 35409- 3952 Jul, Generalized anxiety disorder F41.1 and Personality disorder , unspecified F60.9 [place] [address] [place] [id number] [place] [address] 70139- 8675 Jun, [place] [address] [place] [id number] [place] [address] 66041- 3474 Jun, Post traumatic stress disorder (PTSD) F43.10 and Personality disorder, unspecified F60.9 [place] [address] [place] [id number] [place] [address] 39576- 9402 May, Overweight E66.3 [place] [address] [place] [id number] [place] [address] 66510- 2345 May, [facility] [address] [address] [id number] [place] [address] 44797- 8052 May, Post traumatic stress disorder (PTSD) F43.10 and Personality disorder, unspecified F60.9 [place] [address] [place] [id number] [place] [address] 85202- 3168 May, [facility] [address] [address]- 1423 Apr, [facility] [address] [address]- 2456 Apr, [facility] [address] [address] 2546 Apr, [facility] [address] [address]- 4126 Apr, [facility] [address] [address]- 6615 Mar, Post traumatic stress disorder (PTSD) F43.10 [facility] [address] [address]- 6006 Mar, [facility] [address] [address]- 4359 Mar, Post traumatic stress disorder (PTSD) F43.10 [facility] [address] [address]- 6188 Feb, Anxiety F41.9 [facility] [address] [address]- 9866 Feb, [facility] [address] [address]- 1736 Feb, [facility] [address] [address]- 0517 Feb, Post traumatic stress disorder (PTSD) F43.10 [facility] [address] [address] 2546 Jan, [facility] [address] [address] 2546 Jan, Posttraumatic stress disorder 309.81 [facility] [address] [id number] [address]- 7656 Jan, Allergic rhinitis 477.9 ; Upper respiratory infection 465.9 and Depression 311 [facility] [address] [address]- 0645 Jan, Depressive disorder, not elsewhere classified 311 and Anxiety state, unspecified 300.00 [facility] [address] [address]- 3632 Jan, [facility] [id number] [address]- 9028 Dec, [facility] [id number] [address]- 9060 Dec, [facility] [address] [place] [id number] [place] [address] 85189- 7221 Dec, [facility] [address] [address]- 3172 Nov, [facility] [id number] [place] [address] 61842- 7173 Nov, [facility] [address] [address]- 7675 Oct, [facility] [address] [address]- 0059 Oct, Anxiety 300.00 ; Insomnia 780.52 ; Family history of diabetes mellitus V18.0 ; Hypertension 401.9 and Onychomycosis 110.1 [facility] [address] [address]- 5483 September, [facility] [address] [address]- 9987 Aug, [facility] [address] [address]- 1011 Aug, [facility] [address] [address] 1825 Jul, [facility] [address] [address]- 7481 Jul, [facility] [address] [facility] [id number] [address]- 2916 Jun, [facility] [address] [facility] [id number] 2156 Jun, [facility] [address] [facility] [id number] [address]- 7197 May, [facility] [address] [facility] [id number] [address]- 9903 May, [facility] [address] [facility] [id number] [address]- 8331 May, [facility] [address] [facility] [id number] [address]- 6850 May, IMMUNIZATIONS No Known Immunizations SOCIAL HISTORY Never Assessed REASON FOR VISIT Refill request PLAN OF CARE VITAL SIGNS MEDICATIONS Medication Instructions Dosage Frequency Start Date End Date Duration Status Omeprazole 20 MG Orally Once a day [...]
[2018-01-12 19:15] LABS: BASOPHILS % (AUTO) 0 % (0-10); EOSINOPHILS # (AUTO) 0.1 10^3/uL (0.0-0.3); EOSINOPHILS % (AUTO) 1 % (0-10); HEMATOCRIT 41 % (35-52); HEMOGLOBIN 14.2 G/DL (11.5-16.0); LYMPHOCYTES # (AUTO) 5.6 X 10^3 (1.0-4.0); LYMPHOCYTES % (AUTO) 40 % (12-44); MEAN CORPUSCULAR HEMOGLOBIN 31 PG (25-34); MEAN CORPUSCULAR HGB CONC 35 G/DL (32-36); MEAN CORPUSCULAR VOLUME 90 FL (80-99); MEAN PLATELET VOLUME 9.2 FL (7.4-10.4); MONOCYTES # (AUTO) 0.9 X 10^3 (0.0-1.0); MONOCYTES % (AUTO) 7 % (0-12); NEUTROPHILS # (AUTO) 7.3 X 10^3 (1.8-7.8); NEUTROPHILS % (AUTO) 52 % (42-75); PLATELET COUNT 367 10^3/uL (130-400); RED BLOOD COUNT 4.54 10^6/uL (4.35-5.85); RED CELL DISTRIBUTION WIDTH 12.4 % (10.0-14.5)
--- OUTSIDE RECORDS SUMMARY | 2018-01-12 19:15 | XMS REPORT ---
Author SURJIT Bell Organization [employer] Address Unknown Phone Unavailable Care Team Providers Care Accounting Lecturer Name Role Phone SURJIT DAS CP Unavailable [...]
--- OUTSIDE RECORDS SUMMARY | 2018-01-12 19:15 | XMS REPORT ---
Author Author SURJIT DAS Organization [facility] Address [address] [place] [address] Care Team Providers Care Hand Tapper Name Role Phone SURJIT DAS Unavailable PROBLEMS Type Condition ICD9-CM Code [id number] Code Onset Dates Condition Status SNOMED Code Problem Personality disorder, unspecified F60.9 Active 70462040 Problem Chronic post-traumatic headache G44.329 Active 919171297 Problem Generalized anxiety disorder F41.1 Active 19300850 Problem Mixed hyperlipidemia E78.2 Active 658326843 Problem Anxiety F41.9 Active 75598736 Problem Post traumatic stress disorder (PTSD) F43.10 Active 90376606 Problem Unspecified symptoms and signs involving cognitive functions and awareness R41.9 Active 128521275 Problem Family history of diabetes mellitus Z83.3 Active 744922131 Problem Essential (primary) hypertension I10 Active 18371951 Problem Mild acid reflux K21.9 Active 122683625 ALLERGIES Substance Reaction Event Type Date Status Prefers no strong narcotics Unknown Non Drug Allergy Mar, Active ENCOUNTERS Encounter Location Date Diagnosis [place] [id number] [place] [address] 53427- 6283 Oct, Medicare annual wellness visit, initial Z00.00 [place] [id number] [place] [address] 13592- 4469 September, [facility] [id number] [place] [address] 08086- 0186 September, Post traumatic stress disorder (PTSD) F43.10 [facility] [id number] [place] [address] 15448- 9503 Aug, Mixed hyperlipidemia E78.2 [facility] [id number] [place] [address] 25677- 5255 Aug, Keloid of skin L91.0 and Impacted cerumen of both ears H61.23 [place] [address] [place] [id number] [place] [address] 23502- 6823 Aug, Post traumatic stress disorder (PTSD) F43.10 [place] [address] [place] [id number] [place] [address] 03077- 4110 Jul, [place] [address] 57633- 1336 Jul, Mixed hyperlipidemia E78.2 ; Mild acid reflux K21.9 and Essential (primary) hypertension I10 [place] [address] 95508- 4615 Jul, [place] [address] 58874- 7453 Jul, Post traumatic stress disorder (PTSD) F43.10 [place] [address] 28291- 4561 Jul, Mixed hyperlipidemia E78.2 [place] [address] [place] [id number] [place] [address] 22501- 8032 Jul, Essential (primary) hypertension I10 [place] [address] [place] [id number] [place] [address] 44596- 4690 Jun, Insect bite, subsequent encounter W57.XXXD ; Post traumatic stress disorder (PTSD) F43.10 ; Essential (primary) hypertension I10 and Localized edema R60.0 [place] [address] [place] [id number] [place] [address] 17151- 8780 Jun, Anxiety F41.[address] 50495- 3717 Jun, Insect bite, initial encounter W57.XXXA ; Anxiety F41.9 ; Bronchitis J40 ; Headache R51 and Essential (primary) hypertension I10 [address] 76121- 8152 May, Anxiety F41.9 [facility] [address] [place] [id number] [place] [address] 35654- 7943 May, [facility] [address] [place] [id number] [place] [address] 24307- 3424 Apr, Anxiety F41.9 [facility] [address] [place] [id number] [place] [address] 15536- 7092 Apr, [facility] [address] 70253- 5856 Mar, Anxiety F41.9 [facility] [address] 91859- 0014 Mar, Angioedema, subsequent encounter T78.3XXD ; Post traumatic stress disorder (PTSD) F43.10 ; Generalized anxiety disorder F41.1 ; Forgetfulness R68.89 ; Anxiety F41.9 ; Essential (primary) hypertension I10 ; Headache R51 ; Bronchitis J40 ; Mild acid reflux K21.9 and Cough R05 [facility] [address] [place] [id number] [place] [address] 87066- 2501 Mar, Angioedema, initial encounter T78.3XXA [facility] [address] [place] [id number] [place] [address] 02053 -2938 Mar, Acute upper respiratory infection, unspecified J06.9 and Cough R05 [facility] [address] [place] [id number] [place] [address] 11348- 4041 Mar, Generalized anxiety disorder F41.1 [facility] [address] [place] [id number] [place] [address] 90307- 1910 Feb, Generalized anxiety disorder F41.1 [facility] [address] [place] [id number] [place] [address] 84307- 7512 Jan, Generalized anxiety disorder F41.1 [facility] [id number] [place] [address] 18155- 2955 Dec, [facility] [address] [place] [id number] [address]- 7966 Dec, Generalized anxiety disorder F41.1 [facility] [id number] [place] [address] 32782- 1824 Nov, Generalized anxiety disorder F41.1 [facility] [address] [address]- 5252 Nov, Mild acid reflux K21.9 [facility] [id number] [place] [address] 63441- 7179 Oct, Generalized anxiety disorder F41.1 [facility] [address] [place] [address] 15431- 8163 Oct, Cellulitis of right upper extremity L03.113 [facility] [address] [place] [address] 24272- 1286 September, [facility] [address] [place] [id number] [place] [address] 62921- 6217 September, Generalized anxiety disorder F41.1 [facility] [id number] [place] [address] 90528- 6442 Aug, Generalized anxiety disorder F41.1 [facility] [address] [address] Aug, Medicare annual wellness visit, initial Z00.00 [facility] [address] [address]- 5862 Jul, Generalized anxiety disorder F41.1 [facility] [address] [address] Jul, [facility] [address] [place] [id number] [place] [address] 44224- 3412 Jul, [facility] [address] [address]- 1251 Jun, Generalized anxiety disorder F41.1 [facility] [address] [place] [id number] [place] [address] 20301- 1715 May, Bronchitis J40 and Generalized anxiety disorder F41.1 [facility] [address] [place] [id number] [place] [address] 51675- 7643 May, Generalized anxiety disorder F41.1 [facility] [address] [place] [id number] [place] [address] 08490- 9284 May, [facility] [address] [place] [id number] [place] [address] 65435- 0273 Apr, Generalized anxiety disorder F41.1 [facility] [address] [place] [id number] [place] [address] 32671- 3878 Apr, Essential (primary) hypertension I10 [facility] [address] [place] [id number] [place] [address] 82896- 4607 Apr, Generalized anxiety disorder F41.1 [facility] [address] [place] [id number] [place] [address] 47425- 4832 Mar, Generalized anxiety disorder F41.1 [facility] [address] [place] [id number] [place] [address] 42341- 3568 Feb, Generalized anxiety disorder F41.1 [facility] [address] [place] [id number] [place] [address] 72293- 6905 08 Jan, 2016 Generalized anxiety disorder F41.1 [facility] [address] [place] [id number] [place] [address] 44576- 3124 Dec, Generalized anxiety disorder F41.1 [facility] [address] [place] [id number] [place] [address] 93481- 6448 Nov, [facility] [address] [place] [id number] [place] [address] 24146- 4542 Oct, Generalized anxiety disorder F41.1 [facility] [address] [place] [id number] [place] [address] 93425- 6848 Oct, Forgetfulness R68.89 [facility] [address] [place] [id number] [place] [address] 99915- 7016 Oct, Generalized anxiety disorder F41.1 and Personality disorder , unspecified F60.9 [place] [address] [place] [id number] [place] [address] 98820- 3098 September, Mild acid reflux K21.9 [place] [address] [place] [id number] [place] [address] 84205- 2788 September, Generalized anxiety disorder F41.1 [place] [address] [place] [id number] [place] [address] 33445- 8491 Aug, Generalized anxiety disorder F41.1 and Personality disorder , unspecified F60.9 [place] [address] [place] [id number] [place] [address] 10655- 6081 Aug, Forgetfulness R68.89 and Generalized anxiety disorder F41.1 [place] [address] [place] [id number] [place] [address] 99707- 3015 Aug, Unspecified symptoms and signs involving cognitive functions and awareness R41.9 and Generalized anxiety disorder F41.1 [place] [address] [place] [id number] [place] [address] 35322- 4127 Aug, [place] [address] [place] [id number] [place] [address] 72188- 8881 Aug, Screening, lipid Z13.220 and Forgetfulness R68.89 [place] [id number] [place] [address] 33190- 3860 Aug, Headache R51 [place] [address] [place] [id number] [place] [address] 33576- 9117 30 Jul, 2015 Acute upper respiratory infection, unspecified J06.9 and Other viral agents as the cause of diseases classified elsewhere B97.89 [place] [address] [place] [id number] [place] [address] 69615- 8449 Jul, [place] [address] [place] [id number] [place] [address] 09067- 8039 Jul, [place] [address] [place] [id number] [place] [address] 41042- 5249 14 Jul, 2015 Headache R51 and Anxiety F41.9 [facility] [address] [place] [id number] [place] [address] 68550- 4476 10 Jul, 2015 Generalized anxiety disorder F41.1 and Personality disorder , unspecified F60.9 [facility] [address] [place] [id number] [place] [address] 37913- 2126 Jun, [facility] [address] [place] [id number] [place] [address] 01326- 3712 Jun, Post traumatic stress disorder (PTSD) F43.10 and Personality disorder, unspecified F60.9 [facility] [address] [place] [id number] [place] [address] 05189- 7789 May, Overweight E66.3 [facility] [address] [place] [id number] [place] [address] 93799- 7278 May, [facility] [address] [place] [id number] [place] [address] 01604- 6632 May, Post traumatic stress disorder (PTSD) F43.10 and Personality disorder, unspecified F60.9 [facility] [id number] [place] [address] 99698- 0286 May, [facility] [address] [address]- 9202 Apr, [facility] [address] [place] [id number] [place] [address] 91850- 5460 Apr, [facility] [id number] [place] [address] 69158- 8624 Apr, [facility] [address] [place] [id number] [place] [address] 98067- 4620 Apr, [facility] [address] [address]- 9083 Mar, Post traumatic stress disorder (PTSD) F43.10 [facility] [address] [address]- 5400 Mar, [facility] [id number] [place] [address] 80597- 1569 Mar, Post traumatic stress disorder (PTSD) F43.10 [facility] [address] [address]- 7970 Feb, Anxiety F41.9 [facility] [address] [place] [id number] [place] [address] 97106- 2951 Feb, [facility] [id number] [place] [address] 36529- 4351 Feb, [facility] [address] [place] [id number] [place] [address] 89488- 7172 Feb, Post traumatic stress disorder (PTSD) F43.10 [facility] [address] [place] [id number] [place] [address] 48593- 8687 Jan, [facility] [id number] [place] [address] 09248- 0901 Jan, Posttraumatic stress disorder 309.81 [facility] [address] [place] [id number] [place] [address] 89466- 3994 Jan, Allergic rhinitis 477.9 ; Upper respiratory infection 465.9 and Depression 311 [facility] [id number] [place] [address] 55690- 6251 Jan, Depressive disorder, not elsewhere classified 311 and Anxiety state, unspecified 300.00 [facility] [address], [place] [address]- 2709 Jan, [facility] [address] [place] [id number] [place] [address] 46697- 2274 Dec, [facility] [address] [address]- 5708 Dec, [facility] [id number] [place] [address] 14460- 0581 Dec, [facility] [address] [address]- 8746 Nov, [facility] [address] [address]- 0877 Nov, [facility] [address] [address]- 8616 Oct, [facility] [address] [address]- 3446 Oct, Anxiety 300.00 ; Insomnia 780.52 ; Family history of diabetes mellitus V18.0 ; Hypertension 401.9 and Onychomycosis 110.1 [facility] [address] [address]- 5106 September, [facility] [address] [address]- 7733 Aug, [facility] [address] [address]- 7512 Aug, [facility] [address] [address]- 9982 Jul, [facility] [address] [address]- 0793 Jul, [facility] [address], [place] [address]- 4154 Jun, [facility] [address] [address]- 7941 Jun, [facility] [address] [id number] [address]- 5851 May, [facility] [address] [address]- 6116 May, [facility] [address] [id number] [address]- 0475 May, [facility] [address] [address]- 3817 May, IMMUNIZATIONS No Known Immunizations SOCIAL HISTORY Never Assessed REASON FOR VISIT Swelling in her left side of her neck-Charlene GUSMAN PLAN OF CARE Activity Details Follow Up 6 Months Reason:screening labs VITAL SIGNS Height 68 in 2017-04-13 Weight 186.3 lbs 2017-04-13 Temperature 98.0 degrees Fahrenheit 2017-04-13 Heart Rate 74 bpm 2017-04-13 Respiratory Rate 18 2017-04-13 BMI 28.32 kg/m2 2017-04-13 Blood pressure systolic 124 mmHg 2017-04-13 Blood pressure diastolic 82 mmHg 2017-04-13 MEDICATIONS Medication Instructions Dosage Frequency Start Date End Date Duration Status Flonase Allergy Relief 50 MCG/ACT Nasally Once a day 1 spray in each nostril 24h May, 30 day(s) Not-Taking Probiotic by oral route May, Active Nortriptyline HCl 25 MG 1 CAPSULE ONCE A DAY AT HS ORALLY 90 90 Active Vitamin C 1000 MG Orally Once a day 1 tablet 24h Active Vitamin B Complex by oral route May, Active Omeprazole 20 MG 1 CAPSULE ONCE A DAY ORALLY 90 DAYS 90 Not- Taking Triamterene-HCTZ 75-50 MG Orally Once a day 1 TABLET ONCE A DAY ORALLY 90 DAYS 24h 90 Active Alprazolam 2 MG Orally Twice a [...] PROCEDURES Procedure Date Ordered Result Body Site [facility] VISIT ESTABLISHED PATIENT Apr 13, 2017 INSTRUCTIONS MEDICATIONS ADMINISTERED No Known Medications [...]
--- OUTSIDE RECORDS SUMMARY | 2018-01-12 19:15 | XMS REPORT ---
Author Author FLYNN FREDERICK Organization [facility] Address [address] [place] [address] Care Team Providers Care Theatre Director Name Role Phone FLYNN FREDERICK Unavailable PROBLEMS Type Condition ICD9-CM Code [id number] Code Onset Dates Condition Status SNOMED Code Problem Personality disorder, unspecified F60.9 Active 64854188 Problem Chronic post-traumatic headache G44.329 Active 716165891 Problem Generalized anxiety disorder F41.1 Active 30097440 Problem Mixed hyperlipidemia E78.2 Active 259829396 Problem Anxiety F41.9 Active 48268939 Problem Post traumatic stress disorder (PTSD) F43.10 Active 37635082 Problem Unspecified symptoms and signs involving cognitive functions and awareness R41.9 Active 516677264 Problem Family history of diabetes mellitus Z83.3 Active 148628315 Problem Essential (primary) hypertension I10 Active 10310648 Problem Mild acid reflux K21.9 Active 385494657 ALLERGIES Substance Reaction Event Type Date Status Prefers no strong narcotics Unknown Non Drug Allergy Mar, Active ENCOUNTERS Encounter Location Date Diagnosis [facility] [id number] [place] [address] 99952- 2742 Oct, Medicare annual wellness visit, initial Z00.00 [facility] [address] [place] [address] 67758- 7483 September, [facility] [id number] [place] [address] 51372- 6867 September, Post traumatic stress disorder (PTSD) F43.10 [facility] [id number] [place] [address] 50627- 1550 Aug, Mixed hyperlipidemia E78.2 [facility] [id number] [place] [address] 86692- 1060 Aug, Keloid of skin L91.0 and Impacted cerumen of both ears H61.23 [facility] [id number] [place] [address] 51339- 1525 Aug, Post traumatic stress disorder (PTSD) F43.10 [facility] [address] 54781- 9664 Jul, [facility] [address] 42698- 4484 Jul, Mixed hyperlipidemia E78.2 ; Mild acid reflux K21.9 and Essential (primary) hypertension I10 [facility] [address] 56594- 6994 Jul, [facility] [address] 62852- 6049 Jul, Post traumatic stress disorder (PTSD) F43.10 [facility] [address] 05593- 6423 Jul, Mixed hyperlipidemia E78.2 [facility] [id number] [place] [address] 81049- 1897 Jul, Essential (primary) hypertension I10 [facility] [id number] [place] [address] 78373- 3813 Jun, Insect bite, subsequent encounter W57.XXXD ; Post traumatic stress disorder (PTSD) F43.10 ; Essential (primary) hypertension I10 and Localized edema R60.0 [facility] [id number] [place] [address] 37702- 5592 Jun, Anxiety F41.9 [facility] [address] 61382- 8085 Jun, Insect bite, initial encounter W57.XXXA ; Anxiety F41.9 ; Bronchitis J40 ; Headache R51 and Essential (primary) hypertension I10 [facility] [address] 83186- 2046 May, Anxiety F41.9 [facility] [id number] [place] [address] 31622- 9835 May, [facility] [id number] [place] [address] 95439- 9734 Apr, Anxiety F41.9 [facility] [id number] [place] [address] 45381- 2991 Apr, [facility] [id number] [place] [address] 87826- 8767 Mar, Anxiety F41.9 [facility] [address] 32957- 9005 Mar, Angioedema, subsequent encounter T78.3XXD ; Post traumatic stress disorder (PTSD) F43.10 ; Generalized anxiety disorder F41.1 ; Forgetfulness R68.89 ; Anxiety F41.9 ; Essential (primary) hypertension I10 ; Headache R51 ; Bronchitis J40 ; Mild acid reflux K21.9 and Cough R05 [facility] [id number] [place] [address] 70464- 7124 Mar, Angioedema, initial encounter T78.3XXA [facility] [id number] [place] [address] 17314 -7652 Mar, Acute upper respiratory infection, unspecified J06.9 and Cough R05 [facility] [id number] [place] [address] 99236- 0440 Mar, Generalized anxiety disorder F41.1 [facility] [id number] [place] [address] 65127- 2097 Feb, Generalized anxiety disorder F41.1 [facility] [address] 20689- 2092 Jan, Generalized anxiety disorder F41.1 [facility] [id number] [place] [address] 64770- 8981 Dec, [facility] [address] [address] 3611 Dec, Generalized anxiety disorder F41.1 [facility] [address] [address] 3026 Nov, Generalized anxiety disorder F41.1 [facility] [address] [address] 6146 Nov, Mild acid reflux K21.9 [facility] [address] [address] 2029 Oct, Generalized anxiety disorder F41.1 [facility] [address] [place] [address] 10926- 4832 Oct, Cellulitis of right upper extremity L03.113 [facility] [address] [address] 3942 September, [facility] [address] [place] [address] 12192- 7614 September, Generalized anxiety disorder F41.1 [facility] [address] [address] 8323 Aug, Generalized anxiety disorder F41.1 [facility] [address] [address]- 6156 Aug, Medicare annual wellness visit, initial Z00.00 [facility] [address] [address] 8906 Jul, Generalized anxiety disorder F41.1 [facility] [address] [address]- 4281 Jul, [facility] [address] [address]- 8531 Jul, [facility] [address] [address]- 1203 Jun, Generalized anxiety disorder F41.1 [facility] [id number] [place] [address] 82263- 2905 May, Bronchitis J40 and Generalized anxiety disorder F41.1 [facility] [id number] [place] [address] 29404- 8674 May, Generalized anxiety disorder F41.1 [facility] [id number] [place] [address] 85138- 9175 May, [facility] [id number] [place] [address] 94138- 1037 Apr, Generalized anxiety disorder F41.1 [facility] [id number] [place] [address] 43471- 5393 Apr, Essential (primary) hypertension I10 [facility] [id number] [place] [address] 23470- 0005 Apr, Generalized anxiety disorder F41.1 [facility] [id number] [place] [address] 84985- 4900 Mar, Generalized anxiety disorder F41.1 [facility] [id number] [place] [address] 14866- 2251 Feb, Generalized anxiety disorder F41.1 [facility] [id number] [place] [address] 56607- 3093 08 Jan, 2016 Generalized anxiety disorder F41.1 [facility] [id number] [place] [address] 77457- 9309 Dec, Generalized anxiety disorder F41.1 [facility] [id number] [place] [address] 61030- 9970 Nov, [facility] [id number] [place] [address] 36320- 5670 Oct, Generalized anxiety disorder F41.1 [facility] [id number] [place] [address] 39757- 4931 Oct, Forgetfulness R68.89 [facility] [id number] [place] [address] 83781- 5306 Oct, Generalized anxiety disorder F41.1 and Personality disorder , unspecified F60.9 [facility] [address] 22983- 6416 September, Mild acid reflux K21.9 [facility] [address] 93780- 5665 September, Generalized anxiety disorder F41.1 [facility] [address] 59346- 6413 Aug, Generalized anxiety disorder F41.1 and Personality disorder , unspecified F60.9 [facility] [address] 30345- 6624 Aug, Forgetfulness R68.89 and Generalized anxiety disorder F41.1 [facility] [address] 05134- 0343 Aug, Unspecified symptoms and signs involving cognitive functions and awareness R41.9 and Generalized anxiety disorder F41.1 [facility] [address] 86113- 7379 Aug, [facility] [address] 16489- 2565 Aug, Screening, lipid Z13.220 and Forgetfulness R68.89 [facility] [id number] [place] [address] 89864- 8637 Aug, Headache R51 [facility] [id number] [place] [address] 16078- 7839 30 Jul, 2015 Acute upper respiratory infection, unspecified J06.9 and Other viral agents as the cause of diseases classified elsewhere B97.89 [facility] [id number] [place] [address] 75647- 6550 24 Jul, 2015 [facility] [id number] [place] [address] 21333- 6845 16 Jul, 2015 [facility] [id number] [place] [address] 30624- 3784 14 Jul, 2015 Headache R51 and Anxiety F41.9 [facility] [id number] [place] [address] 58626- 5946 10 Jul, 2015 Generalized anxiety disorder F41.1 and Personality disorder , unspecified F60.9 [facility] [id number] [place] [address] 05847- 1076 Jun, [facility] [id number] [place] [address] 44990- 7664 Jun, Post traumatic stress disorder (PTSD) F43.10 and Personality disorder, unspecified F60.9 [facility] [id number] [place] [address] 02272- 4810 May, Overweight E66.3 [facility] [id number] [place] [address] 97703- 3282 May, [facility] [id number] [place] [address] 29659- 0561 May, Post traumatic stress disorder (PTSD) F43.10 and Personality disorder, unspecified F60.9 [facility] [address] [place] [address] 46775- 9499 May, [facility] [address] [place] [address] 85414- 1808 Apr, [facility] [id number] [place] [address] 18938- 0196 Apr, [facility] [id number] [place] [address] 89569- 6546 Apr, [facility] [id number] [place] [address] 62680- 0130 Apr, [facility] [address] [address]- 9799 Mar, Post traumatic stress disorder (PTSD) F43.10 [facility] [address] [address]- 7907 Mar, [facility] [id number] [place] [address] 47226- 3676 Mar, Post traumatic stress disorder (PTSD) F43.10 [facility] [id number] [place] [address] 02583- 3841 Feb, Anxiety F41.9 [facility] [id number] [place] [address] 81507- 1427 Feb, [facility] [id number] [place] [address] 56631- 7539 Feb, [facility] [id number] [place] [address] 49882- 8215 Feb, Post traumatic stress disorder (PTSD) F43.10 [facility] [id number] [place] [address] 88807- 2003 Jan, [facility] [id number] [place] [address] 04965- 6286 Jan, Posttraumatic stress disorder 309.81 [facility] [id number] [place] [address] 79395- 0644 Jan, Allergic rhinitis 477.9 ; Upper respiratory infection 465.9 and Depression 311 [facility] [id number] [place] [address] 99454- 4174 Jan, Depressive disorder, not elsewhere classified 311 and Anxiety state, unspecified 300.00 [facility] [id number] [place] [address] 98457- 5824 Jan, [facility] [id number] [place] [address] 34727- 3458 Dec, [facility] [id number] [place] [address] 67853- 3499 Dec, [facility] [id number] [place] [address] 50447- 4846 Dec, [facility] [address] [address]- 7390 Nov, [facility] [address] [address]- 6676 Nov, [facility] [address] [address]- 4126 Oct, [facility] [address] [address]- 3876 Oct, Anxiety 300.00 ; Insomnia 780.52 ; Family history of diabetes mellitus V18.0 ; Hypertension 401.9 and Onychomycosis 110.1 [facility] [address] [address]- 2646 September, [facility] [address] [address]- 9040 Aug, [facility] [address] [address]- 0772 Aug, [facility] [address] 8862 Jul, [facility] [address] [address]- 6709 Jul, [facility] [address] [address]- 7041 Jun, [facility] [address] [address]- 9280 Jun, [facility] [id number] [address]- 0726 May, [facility] [address] [address]- 7276 May, [facility] [id number] [address]- 9626 May, [facility] [id number] [address]- 6474 May, IMMUNIZATIONS No Known Immunizations SOCIAL HISTORY Never Assessed REASON FOR VISIT Cough, chest and head congestion. been sick for 2 days. [email or web address] PLAN OF CARE Activity Details Follow Up prn Reason: VITAL SIGNS Height 68 in 2017-04-02 Weight 190.4 lbs 2017-04-02 Temperature 98.5 degrees Fahrenheit 2017-04-02 Heart Rate 74 bpm 2017-04-02 Respiratory Rate 20 2017-04-02 BMI 28.95 kg/m2 2017-04-02 Blood pressure systolic 138 mmHg 2017-04-02 Blood pressure diastolic 78 mmHg 2017-04-02 MEDICATIONS Medication Instructions Dosage Frequency Start Date End Date Duration Status Alprazolam 2 MG Orally Twice a day 1 tablet as needed 12h Jul, 28 days Active Vitamin B Complex by oral route May, Active Omeprazole 20 MG 1 CAPSULE ONCE A DAY ORALLY 90 DAYS 90 Active Triamterene-HCTZ 75-50 MG 1 TABLET ONCE A DAY ORALLY 90 DAYS 90 Active Vitamin C 1000 MG Orally Once a day 1 tablet 24h Active Kelp by oral route May, Active Probiotic by oral route May, Active Vitamin A by oral route May, Active Promethazine-Codeine 6.25-10 MG/5ML Orally every 6 hrs 5 ml as needed 6h Mar, Mar, 10 days Active Coenzyme Q10 by oral route May, Active Omeprazole 20 MG Orally Once a day 1 capsule 24h 90 days Active Nortriptyline HCl 25 MG 1 CAPSULE ONCE A DAY AT HS ORALLY 90 90 Active Benzonatate 200 mg Orally Three times a day 1 capsule 8h Mar, Apr, 30 day(s) Active Fish Oil by oral route May, Active Flonase Allergy Relief 50 MCG/ACT Nasally Once a day 1 spray in each nostril 24h May, 30 day(s) Active RESULTS No Results PROCEDURES Procedure Date Ordered Result Body Site [facility] VISIT ESTABLISHED PATIENT Apr 02, 2017 INSTRUCTIONS MEDICATIONS ADMINISTERED No Known Medications [...]
--- OUTSIDE RECORDS SUMMARY | 2018-01-12 19:15 | XMS REPORT ---
Author Author SURJIT DAS Organization [employer] Address Unknown Phone Unavailable Care Team Providers Care Drafter Electrical Name Role Phone SURJIT DAS CP Unavailable [...] Status Dosage Alprazolam [facility] 2001 [address]-88 2 MG Orally Twice a day August 09, 2014 1 tablet as needed Results No Known Results Summary Purpose [employer] Submission
--- OUTSIDE RECORDS SUMMARY | 2018-01-12 19:16 | XMS REPORT ---
Author Author SURJIT DAS [facility] Address [address] [place] [address] Care Team Providers Care Record Systems Analyst Name Role Phone SURJIT DAS Unavailable PROBLEMS Type Condition ICD9-CM Code YRV94-EV Code Onset Dates Condition Status SNOMED Code Problem Personality disorder, unspecified F60.9 Active 03655904 Problem Chronic post-traumatic headache G44.329 Active 031764234 Problem Generalized anxiety disorder F41.1 Active 57617423 Problem Mixed hyperlipidemia E78.2 Active 599181564 Problem Anxiety F41.9 Active 37312802 Problem Post traumatic stress disorder (PTSD) F43.10 Active 67835197 Problem Unspecified symptoms and signs involving cognitive functions and awareness R41.9 Active 617856939 Problem Family history of diabetes mellitus Z83.3 Active 496873238 Problem Essential (primary) hypertension I10 Active 09226687 Problem Mild acid reflux K21.9 Active 920639308 ALLERGIES No Information ENCOUNTERS Encounter Location Date Diagnosis [place] [id number] [place] [address] 13834- 0851 Aug, [place] [id number] [place] [address] 94410- 6341 Jul, [place] [id number] [place] [address] 26194- 1179 Jul, Mixed hyperlipidemia E78.2 ; Mild acid reflux K21.9 and Essential (primary) hypertension I10 [facility] [id number] [place] [address] 03448- 8317 Jul, [facility] [id number] [place] [address] 76078- 1737 Jul, Post traumatic stress disorder (PTSD) F43.10 [facility] [address] [place] [address]- 4484 Jul, Mixed hyperlipidemia E78.2 [facility] [id number] [place] [address] 13361- 1831 Jul, Essential (primary) hypertension I10 [facility] [id number] [place] [address] 35835- 4531 Jun, Insect bite, subsequent encounter W57.XXXD ; Post traumatic stress disorder (PTSD) F43.10 ; Essential (primary) hypertension I10 and Localized edema R60.0 [facility] [id number] [place] [address] 55286- 7023 Jun, Anxiety F41.9 [place] [id number] [place] [address] 03687- 3891 Jun, Insect bite, initial encounter W57.XXXA ; Anxiety F41.9 ; Bronchitis J40 ; Headache R51 and Essential (primary) hypertension I10 [facility] [id number] [place] [address] 90960- 0661 May, Anxiety F41.9 [place] [address] 83760- 2861 May, [facility] [id number] [place] [address] 03423- 0956 Apr, Anxiety F41.9 [facility] [id number] [place] [address] 21160- 8696 Apr, [facility] [id number] [place] [address] 15837- 8564 Mar, Anxiety F41.9 [facility] [id number] [place] [address] 13124- 6712 Mar, Angioedema, subsequent encounter T78.3XXD ; Post traumatic stress disorder (PTSD) F43.10 ; Generalized anxiety disorder F41.1 ; Forgetfulness R68.89 ; Anxiety F41.9 ; Essential (primary) hypertension I10 ; Headache R51 ; Bronchitis J40 ; Mild acid reflux K21.9 and Cough R05 [facility] [id number] [place] [address] 51757- 3515 Mar, Angioedema, initial encounter T78.3XXA [facility] [id number] [place] [address] 85461 -9555 Mar, Acute upper respiratory infection, unspecified J06.9 and Cough R05 [facility] [id number] [place] [address] 78685- 5828 Mar, Generalized anxiety disorder F41.1 [facility] [id number] [place] [address] 15763- 3348 Feb, Generalized anxiety disorder F41.1 [place] [id number] [place] [address] 87466- 2776 Jan, Generalized anxiety disorder F41.1 [facility] [id number] [place] [address] 12755- 4620 Dec, [facility] [id number] [place] [address] 68793- 3249 Dec, Generalized anxiety disorder F41.1 [facility] [id number] [place] [address] 86028- 0394 Nov, Generalized anxiety disorder F41.1 [facility] [id number] [place] [address] 97996- 8916 Nov, Mild acid reflux K21.9 [facility] [id number] [place] [address] 54773- 8936 Oct, Generalized anxiety disorder F41.1 [facility] [id number] [place] [address] 42095- 5226 Oct, Cellulitis of right upper extremity L03.113 [facility] [id number] [place] [address] 30825- 0683 September, [facility] [id number] [place] [address] 27964- 8399 September, Generalized anxiety disorder F41.1 [facility] [address] [place] [address] 08970- 5439 Aug, Generalized anxiety disorder F41.1 [facility] [address] [address] 0534 Aug, Medicare annual wellness visit, initial Z00.00 [facility] [id number] [place] [address] 33918- 7076 Jul, Generalized anxiety disorder F41.1 [facility] [id number] [place] [address] 37565- 1654 Jul, [facility] [id number] [place] [address] 26955- 4722 Jul, [facility] [id number] [place] [address] 37221- 8164 Jun, Generalized anxiety disorder F41.1 [facility] [address] [place] [address] 94577- 8294 May, Bronchitis J40 and Generalized anxiety disorder F41.1 [facility] [address] [place] [address] 73309- 8900 May, Generalized anxiety disorder F41.1 [facility] [address] [place] [address] 16305- 1799 May, [facility] [address] [place] [address] 51545- 3197 Apr, Generalized anxiety disorder F41.1 [facility] [address] [place] [address] 28221- 3327 Apr, Essential (primary) hypertension I10 [facility] [address] [place] [address] 01256- 7074 Apr, Generalized anxiety disorder F41.1 [facility] [id number] [place] [address] 38387- 0332 Mar, Generalized anxiety disorder F41.1 [facility] [address] [place] [address] 06348- 0643 Feb, Generalized anxiety disorder F41.1 [facility] [id number] [place] [address] 86906- 9477 Jan, Generalized anxiety disorder F41.1 [facility] [id number] [place] [address] 29887- 5110 Dec, Generalized anxiety disorder F41.1 [facility] [id number] [place] [address] 48403- 6975 Nov, [facility] [id number] [place] [address] 90048- 5863 Oct, Generalized anxiety disorder F41.1 [place] [id number] [place] [address] 14245- 2139 Oct, Forgetfulness R68.89 [place] [id number] [place] [address] 88141- 1692 Oct, Generalized anxiety disorder F41.1 and Personality disorder , unspecified F60.9 [place] [id number] [place] [address] 49489- 9147 September, Mild acid reflux K21.9 [place] [id number] [place] [address] 26332- 2007 September, Generalized anxiety disorder F41.1 [facility] [id number] [place] [address] 96432- 2916 Aug, Generalized anxiety disorder F41.1 and Personality disorder , unspecified F60.9 [place] [id number] [place] [address] 85903- 8508 Aug, Forgetfulness R68.89 and Generalized anxiety disorder F41.1 [place] [id number] [place] [address] 41929- 8904 Aug, Unspecified symptoms and signs involving cognitive functions and awareness R41.9 and Generalized anxiety disorder F41.1 [place] [id number] [place] [address] 66242- 1533 Aug, [place] [address] [place] [address] 16395- 8941 Aug, Screening, lipid Z13.220 and Forgetfulness R68.89 [place] [address] 37340- 6558 Aug, Headache R51 [address] 72125- 6060 30 Jul, 2015 Acute upper respiratory infection, unspecified J06.9 and Other viral agents as the cause of diseases classified elsewhere B97.89 [place] [id number] [place] [address] 75821- 0770 24 Jul, 2015 [place] [address] 33586- 7310 16 Jul, 2015 [place] [id number] [place] [address] 99758- 4772 14 Jul, 2015 Headache R51 and Anxiety F41.9 [place] [address] [place] [address] 47739- 0826 Jul, Generalized anxiety disorder F41.1 and Personality disorder , unspecified F60.9 [place] [address] [place] [address] 83616- 3027 Jun, [place] [id number] [place] [address] 41974- 2989 Jun, Post traumatic stress disorder (PTSD) F43.10 and Personality disorder, unspecified F60.9 [place] [id number] [place] [address] 66806- 1566 May, Overweight E66.3 [place] [id number] [place] [address] 10652- 4325 May, [facility] [address] [address]- 6579 May, Post traumatic stress disorder (PTSD) F43.10 and Personality disorder, unspecified F60.9 [facility] [address] [place] [address]- 3566 May, [facility] [address] [place] [address]- 9556 Apr, [facility] [address] [place] [address] 2546 Apr, [facility] [address] [place] [address] 36141- 7106 Apr, [facility] [address] [address]- 7706 Apr, [facility] [id number] [place] [address]- 9275 Mar, Post traumatic stress disorder (PTSD) F43.10 [facility] [address] [place] [address]- 2666 Mar, [facility] [address] [place] [address]- 1612 Mar, Post traumatic stress disorder (PTSD) F43.10 [facility] [address] [place] [address]- 5566 Feb, Anxiety F41.9 [facility] [address] [place] [address] 2546 Feb, [facility] [address] [place] [address]- 3826 Feb, [facility] [address] [place] [address]- 4666 Feb, Post traumatic stress disorder (PTSD) F43.10 [facility] [address] [place] [address]- 5172 Jan, [facility] [address] [place] [address]- 5217 Jan, Posttraumatic stress disorder 309.81 [facility] [address] [place] [address]- 6619 Jan, Allergic rhinitis 477.9 ; Upper respiratory infection 465.9 and Depression 311 [facility] [id number] [place] [address] 58073- 6466 Jan, Depressive disorder, not elsewhere classified 311 and Anxiety state, unspecified 300.00 [facility] [address] [place] [address]- 5076 Jan, [facility] [id number] [place] [address] 81746- 7731 Dec, [facility] [id number] [place] [address] 10797- 1332 Dec, [facility] [id number] [address]- 1930 Dec, [facility] [address] [place] [address] 37277- 3420 Nov, [facility] [address] [place] [address]- 5963 Nov, [facility] [address] [place] [address]- 4581 Oct, [facility] [id number] [address] 5686 Oct, Anxiety 300.00 ; Insomnia 780.52 ; Family history of diabetes mellitus V18.0 ; Hypertension 401.9 and Onychomycosis 110.1 [facility] [address] 0933 September, [facility] [address] [address]- 1253 Aug, [facility] [id number] [address]- 0916 Aug, [facility] [id number] [address]- 0394 Jul, [facility] [id number], [place] [address]- 0609 Jul, [facility] [id number] [address]- 2879 Jun, [facility] [address], [place] [address]- 9444 Jun, [facility] [address], [place] [address]- 1223 May, [facility] [address], [place] [address]- 4894 May, [facility] [address], [place] [address]- 7558 May, [facility] [id number] [address]- 1685 May, IMMUNIZATIONS No Known Immunizations SOCIAL HISTORY Never Assessed REASON FOR VISIT Controlled Med Refill 12/01/2016 PLAN OF CARE VITAL SIGNS MEDICATIONS Medication [...]
--- OUTSIDE RECORDS SUMMARY | 2018-01-12 19:16 | XMS REPORT | Continuity of Care Document ---
Author Author [facility] Address Unknown Phone Unavailable Allergies Active Description Code Type Severity Reaction Onset Reported/Identified Relationship to Patient Clinical Status Yes Wellbutrin 75 mg tablet Drug Allergy N/A N/A 08/28/2014 Medications There is no data. Problems Date Dx Coded Attending Type Code Diagnosis Diagnosed By 06/01/2014 SURJIT DAS APRN 309.81 POSTTRAUMATIC STRESS DISORDER 06/01/2014 SURJIT DAS APRN 339.22 CHRONIC POSTTRAUMATIC HEADACHE 06/01/2014 SURJIT DAS APRN 309.81 POSTTRAUMATIC STRESS DISORDER 06/01/2014 SURJIT DAS APRN 339.22 CHRONIC POSTTRAUMATIC HEADACHE 06/14/2014 SRUJIT DAS APRN V70.0 EXAM - ROUTINE H&P 07/12/2014 SURJIT DAS APRN 477.0 ALLERGIC RHINITIS DUE TO POLLEN Procedures There is no data. Results Test Result Range LIPID PANEL - 07/20/17 08:17 CHOLESTEROL, TOTAL 269 mg/dL <200 HDL CHOLESTEROL 64 mg/dL >50 TRIGLYCERIDES 198 mg/dL <150 LDL-CHOLESTEROL 169 mg/dL (calc) NRG CHOL/HDLC RATIO 4.2 (calc) <5.0 NON HDL CHOLESTEROL 205 mg/dL (calc) <130 CMP - 07/20/17 08:17 GLUCOSE 99 mg/dL 65-99 UREA NITROGEN (BUN) 13 mg/dL 7-25 CREATININE 0.92 mg/dL 0.60-0.93 eGFR NON-AFR. [place] 62 mL/min/1.73m2 > OR=60 eGFR 72 mL/min/1.73m2 > OR=60 BUN/CREATININE RATIO NOT APPLICABLE (calc) 6-22 SODIUM 143 mmol/L 135-146 POTASSIUM 3.7 mmol/L 3.5-5.3 CHLORIDE 103 mmol/L 98-110 CARBON DIOXIDE 30 mmol/L 20-31 CALCIUM 9.9 mg/dL 8.6-10.4 PROTEIN, TOTAL 6.9 g/dL 6.1-8.1 ALBUMIN 4.6 g/dL 3.6-5.1 GLOBULIN 2.3 g/dL (calc) 1.9-3.7 ALBUMIN/GLOBULIN RATIO 2.0 (calc) 1.0-2.5 BILIRUBIN, TOTAL 0.6 mg/dL 0.2-1.2 ALKALINE PHOSPHATASE 74 U/L 33-130 AST 19 U/L 10-35 ALT 12 U/L 6-29 PANEL (PROFILE 1) - 12/28/17 09:14 Creatinine 131.8 mg/dL > or=20.0 pH 8.06 4.5 - 9.0 Oxidant NEGATIVE mcg/mL <200 Amphetamines NEGATIVE ng/mL <500 medMATCH Amphetamines CONSISTENT NRG Benzodiazepines POSITIVE ng/mL <100 Marijuana Metabolite NEGATIVE ng/mL <20 medMATCH Marijuana Metab CONSISTENT NRG Cocaine Metabolite NEGATIVE ng/mL <150 medMATCH Cocaine Metab CONSISTENT NRG Opiates NEGATIVE ng/mL <100 medMATCH Opiates CONSISTENT NRG Oxycodone NEGATIVE ng/mL <100 medMATCH Oxycodone CONSISTENT NRG COMMENT NRG Alphahydroxyalprazolam >1000 ng/mL <25 medMATCH aOH alprazolam INCONSISTENT NRG Alphahydroxymidazolam NEGATIVE ng/mL <50 medMATCH aOH midazolam CONSISTENT NRG Alphahydroxytriazolam NEGATIVE ng/mL <50 medMATCH aOH triazolam CONSISTENT NRG Aminoclonazepam NEGATIVE ng/mL <25 medMATCH Aminoclonazepam CONSISTENT NRG Hydroxyethylflurazepam NEGATIVE ng/mL <50 medMATCH OH,Et flurazepam CONSISTENT NRG Lorazepam NEGATIVE ng/mL <50 medMATCH Lorazepam CONSISTENT NRG Nordiazepam NEGATIVE ng/mL <50 medMATCH Nordiazepam CONSISTENT NRG Oxazepam NEGATIVE ng/mL <50 medMATCH Oxazepam CONSISTENT NRG Temazepam NEGATIVE ng/mL <50 medMATCH Temazepam CONSISTENT NRG Barbiturates NEGATIVE ng/mL <300 medMATCH Barbiturates CONSISTENT NRG Methadone Metabolite NEGATIVE ng/mL <100 medMATCH Methadone Metab CONSISTENT NRG Phencyclidine NEGATIVE ng/mL <25 medMATCH Phencyclidine CONSISTENT NRG Encounters ACCT No. Visit Date/Time Discharge Status Pt. Type Provider Facility Loc./Unit Complaint [id number] 07/12/2014 13:55:00 07/12/2014 23:59:59 [facility] Outpatient SURJIT DAS APRN [id number] 06/01/2014 10:34:00 06/01/2014 23:59:59 [facility] Outpatient SURJIT DAS APRN [id number] 11/04/2017 11:00:00 11/04/2017 23:59:59 [facility] Outpatient SURJIT DAS APRN [facility] [id number] 12/28/2017 08:00:00 Document Registration [id number] 07/20/2017 08:40:00 Document Registration
[2018-01-12] MEDS ORDERED: LORazepam INJ 2 MG/ML (ATIVAN) VIAL ONE (19:19)
[2018-01-12 19:28] LABS: PROTHROMBIN TIME PATIENT 13.3 SEC (12.2-14.7)
[2018-01-12] MEDS ORDERED: LORazepam INJ 2 MG/ML (ATIVAN) VIAL IVP ONE ×2 (19:30→23:45)
--- NOTE | 2018-01-12 19:30 | ED General ---
General Stated Complaint: ETOH Source of Information: EMS Exam Limitations: Other (PT CONFUSED AND IS UNABLE TO GIVE ANY INFORMATION. THERE ARE NO PRIOR RECORDS AVAILABLE FOR REVIEW. VERY MINIMAL HISTORY ABAILABLE FROM BOYFRIEND. ) History of Present Illness Date Seen by Provider: Jan 12, 2018 Time Seen by Provider: 18:57 Initial Comments PT ARRIVES VIA EMS FROM HOME PT'S BOYFRIEND CALLED EMS FOR PT WITH ALTERED MENTAL STATUS BOYFRIEND REPORTED TO EMS THAT PT "HAS BEEN GOING [place]" FOR OVER A WEEK, BUT TODAY WAS MUCH WORSE AND IS COMPLETELY CONFUSED TODAY PT IS NOT NORMALLY CONFUSED, PER EMS PT HAS HAD "2 GLASSES OF WINE TODAY" PER EMS NO OTHER INFORMATION IS OBTAINABLE EMS GAVE 75 MG KETAMINE PRIOR TO ARRIVAL BOYFRIEND LATER IS IN ROOM AND IS LIMITED HISTORIAN ABOUT PMH STATES THE ONLY MEDICATION SHE TAKES IS XANAX TWICE A DAY HE STATES SHE HAS "ALOT OF ALLERGIES" BUT HAS NO IDEA WHAT ANY OF HER ALLERGIES ARE. HE STATES SHE VERY RARELY DRINKS, BUT DRANK 3-4 GLASSES OF WINE TODAY AND CONFUSION BECAME WORSE HE STATES THAT APPROXIMATELY 10 DAYS AGO, PT HAD A SEVERE COUGH AND WAS RUNNING A FEVER, SAW NURSING HOME MANAGER SURJIT DAS AT [facility] AND WAS DX WITH BRONCHITIS AND PUT ON A Z- PACK. HE THINKS THAT HER COUGH IS BETTER BUT NOT GONE. HE REPORTS THAT HER BLOOD PRESSURE ALWAYS RUNS LOW--90'S / 60'S PCP [facility], DMITRY DAS Allergies and Home Medications Allergies Coded Allergies: No Allergy Information Available (Unverified , 01/12/18) Patient Home Medication List Home Medication List Reviewed: Yes Review of Systems Review of Systems Constitutional: other (UNABLE TO OBTAIN FROM PT) Past Bnbycbf-Twsnhj-Bivzhg Hx Patient Social History Alcohol Use: Rarely Uses Recreational Drug Use: No Smoking Status: Never a Smoker Past Medical History Surgeries: Yes (BREAST REDUCTION) Breast, Gallbladder, Hysterectomy Neurological: Yes (1999) Concussion Psychosocial: Yes Anxiety Family Medical History UNABLE TO OBTAIN ANY PAST MEDICAL HISTORY Physical Exam Vital Signs Vital Signs - First Documented 01/12/18 01/12/18 01/12/18 19:05 21:11 22:22 Temp 99.3 Pulse 107 Resp 27 B/P (MAP) 123/79 (94) Pulse Ox 93 O2 Delivery Room Air O2 Flow Rate 2.00 FiO2 21 Capillary Refill : Height, Weight, BMI Height: '" Weight: lbs. oz. kg; BMI Method: General Appearance: Other (PT SCREAMING, YELLING, TALKING COMPLETE NON-SENSE, REPEATING HERSELF AND ANYTHING ANYONE IN THE ROOM SAYS. SPEECH IS CLEAR. PT VERY UNCOOPERATIVE AND EXTREMELY COMBATIVE AT TIMES.--HITTING AND KICKING STAFF ) HEENT: PERRL/EOMI, Other (NO EXTERNAL EVIDENCE OF TRAUMA) Neck: Full Range of Motion, Normal Inspection, Non Tender, Supple Respiratory: Normal Breath Sounds, No Accessory Muscle Use, No Respiratory Distress Cardiovascular: No Edema, No JVD, No Murmur, Normal Peripheral Pulses, Tachycardia (MILD) Gastrointestinal: Normal Bowel Sounds, No Organomegaly, No Pulsatile Mass, Non Tender, Soft Back: Normal Inspection Extremity: Normal Capillary Refill, Normal Inspection, Normal Range of Motion, Non Tender, No Calf Tenderness, No Pedal Edema Neurologic/Psychiatric: Alert, No Motor/Sensory Deficits (GROSSLY INTACT-- MOVES ALL EXTREMITIES, BUT DOES NOT FOLLOW ANY COMMANDS), Other (BEHAVIOR/ MENTATION NOTED ABOVE. PT APPEARS TO RECOGNIZE BOYFRIEND WHEN HE ARRIVES, BUT OTHERWISE IS UNABLE TO STATE HER NAME, BIRTHDATE OR ANSWER ANY QUESTIONS OR FOLLOW ANY COMMANDS) Skin: Normal Color (VERY TANNED), Warm/Dry Focused Exam Lactate Level 01/12/18 19:00: Lactic Acid Level 3.21*H 01/12/18 20:58: Lactic Acid Level 5.01*H 01/13/18 03:08: Lactic Acid Level 1.47 Lactic Acid Level Laboratory Tests Test 01/13/18 03:08 Lactic Acid Level 1.47 MMOL/L (0.50-2.00) Progress/Results/Core Measures Suspected Sepsis SIRS Temperature: Pulse: Respiratory Rate: Laboratory Tests 01/12/18 19:00: White Blood Count 14.0H 01/13/18 03:08: White Blood Count 9.8 Blood Pressure / Mean: 01/12/18 19:00: Lactic Acid Level 3.21*H 01/12/18 20:58: Lactic Acid Level 5.01*H 01/13/18 03:08: Lactic Acid Level 1.47 Laboratory Tests 01/12/18 19:00: Creatinine 0.88, INR Comment 1.0, Platelet Count 367, Total Bilirubin 0.4 01/13/18 03:08: Creatinine 0.74, Platelet Count 228, Total Bilirubin 0.3 Results/Orders Lab Results Laboratory Tests Test 01/12/18 19:00 01/12/18 19:08 01/12/18 19:21 01/12/18 20:58 Range/Units White Blood Count 14.0 H 4.3-11.0 10^3/uL Red Blood Count 4.54 4.35-5.85 10^6/uL Hemoglobin 14.2 11.5-16.0 G/DL Hematocrit 41 35-52 % Mean Corpuscular Volume 90 80-99 FL Mean Corpuscular Hemoglobin 31 25-34 PG Mean Corpuscular Hemoglobin Concent 35 32-36 G/DL Red Cell Distribution Width 12.4 10.0-14.5 % Platelet Count 367 130-400 10^3/uL Mean Platelet Volume 9.2 7.4-10.4 FL Neutrophils (%) (Auto) 52 42-75 % Lymphocytes (%) (Auto) 40 12-44 % Monocytes (%) (Auto) 7 0-12 % Eosinophils (%) (Auto) 1 0-10 % Basophils (%) (Auto) 0 0-10 % Neutrophils # (Auto) 7.3 1.8-7.8 X 10^3 Lymphocytes # (Auto) 5.6 H 1.0-4.0 X 10^3 Monocytes # (Auto) 0.9 0.0-1.0 X 10^3 Eosinophils # (Auto) 0.1 0.0-0.3 10^3/uL Basophils # (Auto) 0.0 0.0-0.1 10^3/uL Neutrophils % (Manual) 56 % Lymphocytes % (Manual) 41 % Monocytes % (Manual) 2 % Eosinophils % (Manual) 1 % Basophils % (Manual) 0 % Band Neutrophils 0 % Blood Morphology Comment NORMAL Prothrombin Time 13.3 12.2-14.7 SEC INR Comment 1.0 0.8-1.4 Activated Partial Thromboplast Time 26 24-35 SEC Sodium Level 137 135-145 MMOL/L Potassium Level 2.9 L 3.6-5.0 MMOL/L Chloride Level 99 98-107 MMOL/L Carbon Dioxide Level 23 21-32 MMOL/L Anion Gap 15 H 5-14 MMOL/L Blood Urea Nitrogen 7 7-18 MG/DL Creatinine 0.88 0.60-1.30 MG/DL Estimat Glomerular Filtration Rate > 60 BUN/Creatinine Ratio 8 Glucose Level 124 H 70-105 MG/DL Lactic Acid Level 3.21 *H 5.01 *H 0.50-2.00 MMOL/L Calcium Level 9.8 8.5-10.1 MG/DL Corrected Calcium 9.6 8.5-10.1 MG/DL Magnesium Level 2.3 1.8-2.4 MG/DL Total Bilirubin 0.4 0.1-1.0 MG/DL Aspartate Amino Transf (AST/SGOT) 23 5-34 U/L Alanine Aminotransferase (ALT/SGPT) 21 0-55 U/L Alkaline Phosphatase 90 40-136 U/L Ammonia 53 H 11-32 UMOL/L Total Creatine Kinase 67 29-168 U/L Creatine Kinase MB 2.1 <6.6 NG/ML Troponin I < 0.30 <0.30 NG/ML Total Protein 6.9 6.4-8.2 GM/DL Albumin 4.2 3.2-4.5 GM/DL Amylase Level 47 25-125 U/L Lipase 48 8-78 U/L TSH [place] Testing 1.02 0.35-4.94 UIU/ML Acetaminophen Level < 10 L 10-30 UG/ML Serum Alcohol 165 H <10 MG/DL Glucometer 125 H 70-110 MG/DL Urine Color YELLOW Urine Clarity SLIGHTLY CLOUDY Urine pH 7 5-9 Urine Specific [place] 1.010 L 1.016-1.022 Urine Protein NEGATIVE NEGATIVE Urine Glucose (UA) NEGATIVE NEGATIVE Urine Ketones NEGATIVE NEGATIVE Urine Nitrite POSITIVE H NEGATIVE Urine Bilirubin NEGATIVE NEGATIVE Urine Urobilinogen NORMAL NORMAL MG/DL Urine Leukocyte Esterase 2+ H NEGATIVE Urine RBC (Auto) NEGATIVE NEGATIVE Urine RBC NONE /HPF Urine WBC 5-10 H /HPF Urine Crystals NONE /LPF Urine Bacteria LARGE H /HPF Urine Casts NONE /LPF Urine Mucus NEGATIVE /LPF Urine Culture Indicated YES Urine Opiates Screen NEGATIVE NEGATIVE Urine Oxycodone Screen NEGATIVE NEGATIVE Urine Methadone Screen NEGATIVE NEGATIVE Urine Propoxyphene Screen NEGATIVE NEGATIVE Urine Barbiturates Screen NEGATIVE NEGATIVE Ur Tricyclic Antidepressants Screen NEGATIVE NEGATIVE Urine Phencyclidine Screen NEGATIVE NEGATIVE Urine Amphetamines Screen NEGATIVE NEGATIVE Urine Methamphetamines Screen NEGATIVE NEGATIVE Urine Benzodiazepines Screen POSITIVE H NEGATIVE Urine Cocaine Screen NEGATIVE NEGATIVE Urine Cannabinoids Screen NEGATIVE NEGATIVE Test 01/13/18 03:08 Range/Units White Blood Count 9.8 4.3-11.0 10^3/uL Red Blood Count 3.81 L 4.35-5.85 10^6/uL Hemoglobin 11.8 11.5-16.0 G/DL Hematocrit 35 35-52 % Mean Corpuscular Volume 93 80-99 FL Mean Corpuscular Hemoglobin 31 25-34 PG Mean Corpuscular Hemoglobin Concent 33 32-36 G/DL Red Cell Distribution Width 12.7 10.0-14.5 % Platelet Count 228 130-400 10^3/uL Mean Platelet Volume 9.1 7.4-10.4 FL Neutrophils (%) (Auto) 57 42-75 % Lymphocytes (%) (Auto) 35 12-44 % Monocytes (%) (Auto) 8 0-12 % Eosinophils (%) (Auto) 1 0-10 % Basophils (%) (Auto) 0 0-10 % Neutrophils # (Auto) 5.6 1.8-7.8 X 10^3 Lymphocytes # (Auto) 3.4 1.0-4.0 X 10^3 Monocytes # (Auto) 0.8 0.0-1.0 X 10^3 Eosinophils # (Auto) 0.1 0.0-0.3 10^3/uL Basophils # (Auto) 0.0 0.0-0.1 10^3/uL Sodium Level 140 135-145 MMOL/L Potassium Level 3.3 L 3.6-5.0 MMOL/L Chloride Level 109 H 98-107 MMOL/L Carbon Dioxide Level 22 21-32 MMOL/L Anion Gap 9 5-14 MMOL/L Blood Urea Nitrogen 5 L 7-18 MG/DL Creatinine 0.74 0.60-1.30 MG/DL Estimat Glomerular Filtration Rate > 60 BUN/Creatinine Ratio 7 Glucose Level 101 70-105 MG/DL Lactic Acid Level 1.47 0.50-2.00 MMOL/L Calcium Level 8.2 L 8.5-10.1 MG/DL Corrected Calcium 8.8 8.5-10.1 MG/DL Phosphorus Level 2.9 2.3-4.7 MG/DL Magnesium Level 1.8 1.8-2.4 MG/DL Total Bilirubin 0.3 0.1-1.0 MG/DL Aspartate Amino Transf (AST/SGOT) 19 5-34 U/L Alanine Aminotransferase (ALT/SGPT) 16 0-55 U/L Alkaline Phosphatase 69 40-136 U/L Total Protein 5.2 L 6.4-8.2 GM/DL Albumin 3.2 3.2-4.5 GM/DL My Orders Orders - ALEXANDRA CONDON DO Accucheck Stat ONCE (01/12/18:) Saline Lock/Iv-Start (01/12/18:) Ekg Tracing (01/12/18:) Catheter(Urinary) Insert & Ass 03,15 (01/12/18:) O2 (01/12/18:) Monitor-Rhythm Ecg Trace Only (01/12/18:) Ct Head Wo-R/O Stroke (01/12/18:) Acetaminophen (01/12/18:) Alcohol (01/12/18:) Ammonia (01/12/18:) Amylase (01/12/18:) Cbc With Automated Diff (01/12/18:) Comprehensive Metabolic Panel (01/12/18) Creatine Kinase (01/12/18:) Creatine Kinase Mb (01/12/18:) Drug Screen Stat (Urine) (01/12/18:) Lactic Acid Analyzer (01/12/18:) Lipase (01/12/18:) Magnesium (01/12/18:) Protime With Inr (01/12/18:) Partial Thromboplastin Time (01/12/18:) Thyroid Analyzer (01/12/18:) Troponin I (01/12/18:) Ua Culture If Indicated (01/12/18:) Chest 1 View, Ap/Pa Only (01/12/18:) Saline Lock/Iv-Start (01/12/18:) Lactated Ringers (Lr 1000 Ml Iv Solution (01/12/18 19:) Manual Differential (01/12/18:00) Lorazepam Injection (Ativan Injection) (01/12/18 19:30) Lorazepam Injection (Ativan Injection) (01/12/18 19:19) Urine Culture (01/12/18 19:21) Olanzapine Orally Dissolve Tab (Zyprexa (01/12/18 19:37) Diphenhydramine Injection (Benadryl Inje (01/12/18 19:44) Haloperidol Injection (Haldol Injectio (01/12/18 19:44) Ceftriaxone For Iv Use (Rocephin For I (01/12/18 20:00) Haloperidol Injection (Haldol Injectio (01/12/18 20:30) Diphenhydramine Injection (Benadryl Inje (01/12/18 20:30) Ns W/Kcl 20 Meq/L (Ns Iv W/Kcl 20 Meq/L) (01/12/18 20:30) Olanzapine Orally Dissolve Tab (Zyprexa (01/12/18 23:45) Lorazepam Injection (Ativan Injection) (01/12/18 23:45) Medications Given in ED Current Medications Medications Dose Ordered Sig/Marc Route Start Time Stop Time Status Last Admin Dose Admin Ceftriaxone Sodium 1000 mg/ Sodium Chloride 60 ml @ 100 mls/hr ONCE ONCE IV 01/12/18 20:00 01/12/18 20:35 DC 01/12/18 20:40 100 MLS/HR Diphenhydramine HCl 50 mg ONCE ONCE IVP 01/12/18 20:30 01/12/18 20:31 DC 01/12/18 19:50 50 MG Haloperidol Lactate 5 mg ONCE ONCE IM 01/12/18 20:30 01/12/18 20:31 DC 01/12/18 19:50 5 MG Lactated Ringer's 1,000 ml @ 0 mls/hr Q0M ONCE IV 01/12/18 19:01 01/12/18 19:03 DC 01/12/18 19:26 1,000 MLS/HR Lorazepam 2 mg ONCE ONCE IVP 01/12/18 19:30 01/12/18 19:31 DC 01/12/18 19:25 2 MG Vital Signs/I&O 01/12/18 01/12/18 01/12/18 01/12/18 19:05 21:05 21:11 21:15 Temp 99.3 98.0 Pulse 107 73 68 71 Resp 27 18 13 B/P (MAP) 123/79 (94) 102/51 98/52 (67) Pulse Ox 93 95 95 O2 Delivery Room Air Room Air Nasal Cannula O2 Flow Rate 2.00 01/12/18 01/12/18 01/12/18 01/12/18 21:30 21:39 21:45 22:00 Pulse 56 74 64 Resp 15 14 11 B/P (MAP) 101/58 (72) 104/59 (74) 113/56 (75) Pulse Ox 97 98 99 100 O2 Delivery Nasal Cannula Nasal Cannula Nasal Cannula Nasal Cannula O2 Flow Rate 2.00 2.00 2.00 01/12/18 01/12/18 01/12/18 01/12/18 22:15 22:22 22:30 22:45 Pulse 61 71 73 77 Resp 12 15 15 B/P (MAP) 122/60 (80) 122/59 (80) 101/53 (69) Pulse Ox 100 93 100 99 O2 Delivery Nasal Cannula Nasal Cannula Nasal Cannula O2 Flow Rate 2.00 2.00 2.00 FiO2 21 01/12/18 01/13/18 01/13/18 01/13/18 23:00 00:00 00:00 00:36 Temp 97.7 Pulse 83 78 Resp 15 22 B/P (MAP) 105/53 (70) 111/49 (69) Pulse Ox 99 98 99 O2 Delivery Nasal Cannula Nasal Cannula Nasal Cannula O2 Flow Rate 2.00 2.00 2.00 01/13/18 01/13/18 01/13/18 01/13/18 01:00 01:00 02:00 03:00 Pulse 77 74 73 70 Resp 13 14 17 B/P (MAP) 99/50 (66) 103/50 (67) 125/95 (105) Pulse Ox 99 99 100 O2 Delivery Nasal Cannula Nasal Cannula Nasal Cannula O2 Flow Rate 2.00 2.00 2.00 01/13/18 01/13/18 01/13/18 04:00 04:00 05:00 Pulse 70 70 Resp 15 14 B/P (MAP) 123/61 (81) 119/68 (85) Pulse Ox 99 100 98 O2 Delivery Nasal Cannula Nasal Cannula Nasal Cannula O2 Flow Rate 2.00 2.00 2.00 Capillary Refill : Progress Note : Progress Note PT GIVEN ATIVAN, HALDOL, BENADRYL AND XYPREXA FOR SEVERE AGITATION PT RIPPED OUT IV IN XRAY DEPT PT EVENTUALLY CALMER AFTER MEDICATIONS, AND ABLE TO RESTART IV'S AND DO CXR PT NOW NOTED TO HAVE A NON-PRODUCTIVE COUGH ON RETURN FROM CT. O2 SATS 96-98% ON ROOM AIR THROUGHOUT ER STAY VITALS STABLE AT ADMIT, NO HYPOTENSION OR TACHYCARDIA. NO DETERIORATION IN PTS' CONDITION DURING ER STAY PT SOMEWHAT CALMER AND SLIGHTLY MORE COOPERATIVE AT TIME OF ADMIT, BUT STILL CONFUSED AND TALKING NON-SENSICAL. ECG Initial ECG Impression Date: Jan 12, 2018 Initial ECG Impression Time: 19:01 Initial ECG Rate: 102 Initial ECG Rhythm: Normal Sinus Initial ECG Comparisson: No Previous ECG Available Diagnostic Imaging Comments CXR--NO ACUTE PROCESS, PER RADIOLOGIST REPORT @ 2042 CT HEAD--NO ACUTE PROCESS, PER RADIOLOGIST REPORT @ 2035 Reviewed: Reviewed by Me Departure Communication (Admissions) 2014--SPOKE WITH DR. ARAMBULA, ACCEPTS PT FOR ADMIT Impression Primary Impression: Altered mental status Additional Impressions: Acute psychosis UTI (urinary tract infection) Bronchitis Severe sepsis Alcohol intoxication Hypokalemia Disposition: 09 ADMITTED INPATIENT Condition: Stable Admissions Decision to Admit Reason: Admit from ER (General) Decision to Admit/Date: Jan 12, 2018 Time/Decision to Admit Time: 20:15 ALEXANDRA CONDON DO Jan 12, 2018 19:30
[2018-01-12 19:31] LABS: BILIRUBIN,URINE NEGATIVE (NEGATIVE); CLARITY,URINE SLIGHTLY CLOUDY; COLOR,URINE YELLOW; GLUCOSE, URINE (UA) NEGATIVE (NEGATIVE); KETONES,URINE NEGATIVE (NEGATIVE); LEUKOCYTE ESTERASE ,URINE 2+ (NEGATIVE); NITRITE,URINE POSITIVE (NEGATIVE); PH,URINE 7 (5-9); PROTEIN,URINE NEGATIVE (NEGATIVE); UROBILINOGEN,URINE NORMAL (NORMAL)
[2018-01-12] MEDS ORDERED: OLANZapine 5 MG ODT (ZyPREXA ZYDIS) ONE (19:37)
[2018-01-12 19:39] LABS: BACTERIA,URINE LARGE /HPF
[2018-01-12 19:43] LABS: ALANINE AMINOTRANSFERASE 21 U/L (0-55); ALBUMIN 4.2 GM/DL (3.2-4.5); ALKALINE PHOSPHATASE 90 U/L (40-136); AMMONIA 53 UMOL/L (11-32); AMYLASE 47 U/L (25-125); BILIRUBIN,TOTAL 0.4 MG/DL (0.1-1.0); BUN/CREATININE RATIO 8; CALCIUM 9.8 MG/DL (8.5-10.1); CARBON DIOXIDE 23 MMOL/L (21-32); CHLORIDE 99 MMOL/L (98-107); CREATINE KINASE 67 U/L (29-168); CREATININE SERUM 0.88 MG/DL (0.60-1.30); GFR ESTIMATED > 60; GLUCOSE 124 MG/DL (70-105); LIPASE 48 U/L (8-78); MAGNESIUM 2.3 MG/DL (1.8-2.4); POTASSIUM 2.9 MMOL/L (3.6-5.0); SODIUM 137 MMOL/L (135-145); TOTAL PROTEIN 6.9 GM/DL (6.4-8.2)
[2018-01-12] MEDS ORDERED: diphenhydrAMINE 50 MG/ML INJ (BENADRYL) ONE (19:44)
[2018-01-12] MEDS ORDERED: HALOPERIDOL 5 MG/ML (HALDOL) AMP ONE (19:44)
[2018-01-12 19:46] LABS: BENZODIAZEPINES SCREEN URINE POSITIVE (NEGATIVE)
[2018-01-12 19:47] LABS: AMPHETAMINE SCREEN, URINE NEGATIVE (NEGATIVE); BARBITURATE SCREEN URINE NEGATIVE (NEGATIVE); CANNABINOID SCREEN, URINE NEGATIVE (NEGATIVE); COCAINE SCREEN URINE NEGATIVE (NEGATIVE); METHADONE STAT NEGATIVE (NEGATIVE); METHAMPHETAMINE SCREEN URINE S NEGATIVE (NEGATIVE); OPIATE SCREEN URINE NEGATIVE (NEGATIVE); OXYCODONE STAT NEGATIVE (NEGATIVE); PROPOXYPHENE STAT NEGATIVE (NEGATIVE); TRICYCLIC ANTIDEPRESSANTS SCRE NEGATIVE (NEGATIVE)
[2018-01-12 19:47] LABS: ACETAMINOPHEN < 10 UG/ML (10-30)
[2018-01-12] MEDS ORDERED: ATOR20TA66 (19:56)
[2018-01-12] MEDS ORDERED: OMEP20CA12 PO (19:56)
[2018-01-12] MEDS ORDERED: ALPR2TAB6 PO (19:56)
[2018-01-12] MEDS ORDERED: TRIA1TAB5 PO (19:56)
[2018-01-12] MEDS ORDERED: cefTRIAXone FOR IV USE 1,000 MG in NS (IVPB) 50 ML IV ONE (20:00)
[2018-01-12 20:01] LABS: BAND NEUTROPHILS 0 %; BASOPHILS % (MANUAL) 0 %; EOSINOPHILS % (MANUAL) 1 %; LYMPHOCYTES % (MANUAL) 41 %; MONOCYTES % (MANUAL) 2 %; NEUTROPHILS % (MANUAL) 56 %
[2018-01-12 20:02] LABS: RBC MORPH NORMAL
[2018-01-12 20:03] LABS: CREATINE KINASE MB 2.1 NG/ML (<6.6); TSH (THYROID ANALYZER) 1.02 UIU/ML (0.35-4.94)
--- NOTE | 2018-01-12 20:10 | Diagnostic Imaging Report ---
Indication: Altered mental status CT head without contrast The ventricles are normal in size, shape and position. There are no masses or hemorrhages. There are no extra-axial fluid collections. Impression: Negative CT head Dictated by: Dictated on workstation # [id number]
[2018-01-12] MEDS ORDERED: HALOPERIDOL 5 MG/ML (HALDOL) AMP IM ONE (20:30)
[2018-01-12] MEDS ORDERED: diphenhydrAMINE 50 MG/ML INJ (BENADRYL) IVP ONE (20:30)
[2018-01-12] MEDS ORDERED: NS W/KCL 20 MEQ/L 1,000 ML IV SCH (20:30)
--- NOTE | 2018-01-12 20:41 | Diagnostic Imaging Report ---
INDICATION: Altered mental status, cough. EXAM: Portable chest at 8:33 PM FINDINGS: The heart size and pulmonary vascularity are normal. The lungs are clear. There are no effusions or pneumothoraces. IMPRESSION: 1. Negative chest. Dictated by: Dictated on workstation # [id number]
--- OUTSIDE RECORDS SUMMARY | 2018-01-12 20:57 | XMS REPORT | Continuity of Care Document ---
Author Author [facility] Address Unknown Phone Unavailable Allergies Active [...] DAS APRN 339.22 CHRONIC POSTTRAUMATIC HEADACHE 06/14/2014 SURJIT DAS APRN V70.0 EXAM - ROUTINE H&P [...] 7-25 CREATININE 0.92 mg/dL 0.60-0.93 eGFR NON-AFR. NAMIBIAN 62 mL/min/1.73m2 > OR=60 eGFR 72 mL/min/1.73m2 [...] Status Pt. Type Provider Facility Loc./Unit Complaint [id number] 07/12/2014 13:55:00 07/12/2014 23:59:59 [facility] Outpatient SURJIT DAS APRN [id number] 06/01/2014 10:34:00 06/01/2014 23:59:59 [facility] Outpatient SURJIT DAS APRN [id number] 11/04/2017 11:00:00 11/04/2017 23:59:59 [facility] Outpatient SURJIT DAS APRN [facility] [id number] 12/28/2017 08:00:00 Document Registration [id number] 07/20/2017 08:40:00 Document Registration
[2018-01-12] MEDS ORDERED: NS IV 500 ML 500 ML ONE (21:30)
[2018-01-12] MEDS ORDERED: NS IV 1000 ML 1,000 ML ONE (21:31)
[2018-01-12] MEDS ORDERED: RT-ALBUTEROL SULF 2.5 MG/3 ML PRE-MIX VIAL INH PRN (22:30)
[2018-01-12] MEDS ORDERED: NS IV 1000 ML 2,000 ML ONE (23:08)
[2018-01-12] MEDS ORDERED: OLANZapine 5 MG ODT (ZyPREXA ZYDIS) PO ONE (23:45)
[2018-01-13] VITALS (14 sets, daily range): BP systolic 99–146; BP diastolic 48–95
[2018-01-13] MEDS ORDERED: DOXYCYCLINE INJECTION 100 MG in NS (IVPB) 50 ML IV SCH (00:45)
[2018-01-13] MEDS ORDERED: NS IV ONE (01:18)
[2018-01-13] MEDS ORDERED: KCL IV ONE (01:18)
[2018-01-13] MEDS: POTASSIUM CHLORIDE INJ 20 MEQ in NS IV 1000 ML 1,000 ML IV SCH ×2 (01:40→05:39)
[2018-01-13 03:23] LABS: BASOPHILS % (AUTO) 0 % (0-10); EOSINOPHILS # (AUTO) 0.1 10^3/uL (0.0-0.3); EOSINOPHILS % (AUTO) 1 % (0-10); HEMATOCRIT 35 % (35-52); HEMOGLOBIN 11.8 G/DL (11.5-16.0); LYMPHOCYTES # (AUTO) 3.4 X 10^3 (1.0-4.0); LYMPHOCYTES % (AUTO) 35 % (12-44); MEAN CORPUSCULAR HEMOGLOBIN 31 PG (25-34); MEAN CORPUSCULAR HGB CONC 33 G/DL (32-36); MEAN CORPUSCULAR VOLUME 93 FL (80-99); MEAN PLATELET VOLUME 9.1 FL (7.4-10.4); MONOCYTES # (AUTO) 0.8 X 10^3 (0.0-1.0); MONOCYTES % (AUTO) 8 % (0-12); NEUTROPHILS # (AUTO) 5.6 X 10^3 (1.8-7.8); NEUTROPHILS % (AUTO) 57 % (42-75); PLATELET COUNT 228 10^3/uL (130-400); RED BLOOD COUNT 3.81 10^6/uL (4.35-5.85); RED CELL DISTRIBUTION WIDTH 12.7 % (10.0-14.5); WHITE BLOOD COUNT 9.8 10^3/uL (4.3-11.0)
[2018-01-13 03:38] LABS: ALANINE AMINOTRANSFERASE 16 U/L (0-55); ALBUMIN 3.2 GM/DL (3.2-4.5); ALKALINE PHOSPHATASE 69 U/L (40-136); BILIRUBIN,TOTAL 0.3 MG/DL (0.1-1.0); BUN/CREATININE RATIO 7; CALCIUM 8.2 MG/DL (8.5-10.1); CARBON DIOXIDE 22 MMOL/L (21-32); CHLORIDE 109 MMOL/L (98-107); CREATININE SERUM 0.74 MG/DL (0.60-1.30); GFR ESTIMATED > 60; GLUCOSE 101 MG/DL (70-105); MAGNESIUM 1.8 MG/DL (1.8-2.4); PHOSPHORUS 2.9 MG/DL (2.3-4.7); POTASSIUM 3.3 MMOL/L (3.6-5.0); SODIUM 140 MMOL/L (135-145); TOTAL PROTEIN 5.2 GM/DL (6.4-8.2)
[2018-01-13] MEDS: HALOPERIDOL 5 MG/ML (HALDOL) AMP IV PRN ×2 (05:25→21:32)
[2018-01-13] MEDS ORDERED: POTASSIUM CL 10MEQ/50ML IVPB 50 ML IV SCH (06:00)
[2018-01-13] MEDS ORDERED: KCL 20 MEQ TAB (K-DUR) PO SCH (06:00)
[2018-01-13] MEDS ORDERED: MAGNESIUM 1 GM/100 ML IVPB 100 ML IV SCH (06:00)
[2018-01-13] MEDS ORDERED: NS W/KCL 20 MEQ/L 1,000 ML IV SCH (07:30)
[2018-01-13] MEDS: POTASSIUM CL 10MEQ/50ML IVPB 50 ML IV SCH ×4 (08:07→11:12)
--- NOTE | 2018-01-13 08:38 | Diagnostic Imaging Report ---
INDICATION: Dyspnea. COMPARISON: 01/12/2018. FINDINGS: The heart size is normal. The mediastinum is unremarkable. There are some minimal patchy bibasilar infiltrates. There is no pleural effusion or pneumothorax. IMPRESSION: Minimal patchy bibasilar infiltrates, slightly increased from the prior exam. Dictated by: Dictated on workstation # [id number]
[2018-01-13] MEDS: NS IV 1000 ML 1,000 ML IV SCH ×2 (09:12→20:20)
[2018-01-13] MEDS ORDERED: UBID200C16 PO (10:50)
[2018-01-13] MEDS ORDERED: ASPI-983 PO (10:50)
[2018-01-13] MEDS ORDERED: OMEG1CAP58 PO (10:50)
[2018-01-13] MEDS ORDERED: VITA1CAP PO (10:50)
[2018-01-13] MEDS ORDERED: IODI150T PO (10:50)
[2018-01-13] MEDS ORDERED: ASCO10006 PO (10:50)
[2018-01-13] MEDS ORDERED: L.AC1CAP6 PO (10:50)
[2018-01-13] MEDS ORDERED: VITA-203 PO (10:50)
[2018-01-13] MEDS: DOXYCYCLINE INJECTION 100 MG in NS (IVPB) 100 ML IV SCH (13:45)
--- NOTE | 2018-01-13 16:19 | History & Physicial (CHS) ---
HPI History of Present Illness: 72 yo F that presented to ER with altered mental status. Patient was brought in by significant other. States that over the last month she has started to no act like herself. He states that she has not had any falls or trauma to head. States that prior to presenting to ER she drank 3-4 glasses of wine which is out of character for the patient. She has been more combative and more angry recently. She has not complained of anything other then a cough last week. She was seen by Lillian and started on a Zpack at that time. Denies any fevers or chills. Has previous diagnosis of dementia. Denies any previous CVA. Denies any other drug use or ingestion. Source: patient, family ([place]) Exam Limitations: clinical condition Date seen by provider: Jan 13, 2018 Time Seen by Provider: 11:00 Attending Physician Pia Garcia MD PCP Center/[facility] [place] Consult Date of Admission Jan 12, 2018 at 8:41 pm Home Medications Home Medications Reviewed patient Home Medication Reconciliation performed by pharmacy medication reconciliations sterile processing technician and/or nursing. Patients Allergies have been reviewed. Allergies Coded Allergies: No Allergy Information Available (Unverified , 01/12/18) SQK-Yennvo-Qvwkcr Hx Patient Social History Living Status: Lives with SO Alcohol Use: Rarely Uses Recreational Drug Use: No Smoking Status: Never a Smoker Recent Foreign Travel: No Contact w/other who traveled: No Recent Hopitalizations: No Recent Infectious Disease Expo: No Physical Abuse Screen: No Sexual Abuse: No Immunizations Up To Date Tetanus Booster (TDap): Unknown Family Medical History Other Significan Family Hx: UNABLE TO OBTAIN ANY PAST MEDICAL HISTORY Review of Systems (CHC) Constitutional: no symptoms reported; No chills, No fever EENTM: no symptoms reported Respiratory: cough; No dyspnea on exertion, No hemoptysis, No short of breath Cardiovascular: No chest pain, No edema, No palpitations Gastrointestinal: no symptoms reported; No abdominal pain, No constipation, No diarrhea, No nausea, No vomiting Genitourinary: decreased output; No dysuria; frequency; No hematuria; hesitancy : No Musculoskeletal: no symptoms reported Skin: no symptoms reported Psychiatric/Neurological: Anxiety Reviewed Test Results Reviewed Test Results Lab Laboratory Tests Test 01/13/18 03:08 Range/Units White Blood Count 9.8 4.3-11.0 10^3/uL Red Blood Count 3.81 L 4.35-5.85 10^6/uL Hemoglobin 11.8 11.5-16.0 G/DL Hematocrit 35 35-52 % Mean Corpuscular Volume 93 80-99 FL Mean Corpuscular Hemoglobin 31 25-34 PG Mean Corpuscular Hemoglobin Concent 33 32-36 G/DL Red Cell Distribution Width 12.7 10.0-14.5 % Platelet Count 228 130-400 10^3/uL Mean Platelet Volume 9.1 7.4-10.4 FL Neutrophils (%) (Auto) 57 42-75 % Lymphocytes (%) (Auto) 35 12-44 % Monocytes (%) (Auto) 8 0-12 % Eosinophils (%) (Auto) 1 0-10 % Basophils (%) (Auto) 0 0-10 % Neutrophils # (Auto) 5.6 1.8-7.8 X 10^3 Lymphocytes # (Auto) 3.4 1.0-4.0 X 10^3 Monocytes # (Auto) 0.8 0.0-1.0 X 10^3 Eosinophils # (Auto) 0.1 0.0-0.3 10^3/uL Basophils # (Auto) 0.0 0.0-0.1 10^3/uL Sodium Level 140 135-145 MMOL/L Potassium Level 3.3 L 3.6-5.0 MMOL/L Chloride Level 109 H 98-107 MMOL/L Carbon Dioxide Level 22 21-32 MMOL/L Anion Gap 9 5-14 MMOL/L Blood Urea Nitrogen 5 L 7-18 MG/DL Creatinine 0.74 0.60-1.30 MG/DL Estimat Glomerular Filtration Rate > 60 BUN/Creatinine Ratio 7 Glucose Level 101 70-105 MG/DL Lactic Acid Level 1.47 0.50-2.00 MMOL/L Calcium Level 8.2 L 8.5-10.1 MG/DL Corrected Calcium 8.8 8.5-10.1 MG/DL Phosphorus Level 2.9 2.3-4.7 MG/DL Magnesium Level 1.8 1.8-2.4 MG/DL Total Bilirubin 0.3 0.1-1.0 MG/DL Aspartate Amino Transf (AST/SGOT) 19 5-34 U/L Alanine Aminotransferase (ALT/SGPT) 16 0-55 U/L Alkaline Phosphatase 69 40-136 U/L Total Protein 5.2 L 6.4-8.2 GM/DL Albumin 3.2 3.2-4.5 GM/DL Radiology Date of Exam: 01/12/18 CT HEAD WO-R/O STROKE Indication: Altered mental status CT head without contrast The ventricles are normal in size, shape and position. There are no masses or hemorrhages. There are no extra-axial fluid collections. Impression: Negative CT head Physical Exam-(CHC) Physical Exam Vital Signs VS - Last 72 Hours, by Label 01/12/18 01/12/18 01/12/18 01/12/18 19:05 21:05 21:11 21:15 Temp 99.3 98.0 Pulse 107 73 68 71 Resp 27 18 13 B/P (MAP) 123/79 (94) 102/51 98/52 (67) Pulse Ox 93 95 95 O2 Delivery Room Air Room Air Nasal Cannula O2 Flow Rate 2.00 01/12/18 01/12/18 01/12/18 01/12/18 21:30 21:39 21:45 22:00 Pulse 56 74 64 Resp 15 14 11 B/P (MAP) 101/58 (72) 104/59 (74) 113/56 (75) Pulse Ox 97 98 99 100 O2 Delivery Nasal Cannula Nasal Cannula Nasal Cannula Nasal Cannula O2 Flow Rate 2.00 2.00 2.00 01/12/18 01/12/18 01/12/18 01/12/18 22:15 22:22 22:30 22:45 Pulse 61 71 73 77 Resp 12 15 15 B/P (MAP) 122/60 (80) 122/59 (80) 101/53 (69) Pulse Ox 100 93 100 99 O2 Delivery Nasal Cannula Nasal Cannula Nasal Cannula O2 Flow Rate 2.00 2.00 2.00 FiO2 21 01/12/18 01/13/18 01/13/18 01/13/18 23:00 00:00 00:00 00:36 Temp 97.7 Pulse 83 78 Resp 15 22 B/P (MAP) 105/53 (70) 111/49 (69) Pulse Ox 99 98 99 O2 Delivery Nasal Cannula Nasal Cannula Nasal Cannula O2 Flow Rate 2.00 2.00 2.00 01/13/18 01/13/18 01/13/18 01/13/18 01:00 01:00 02:00 03:00 Pulse 77 74 73 70 Resp 13 14 17 B/P (MAP) 99/50 (66) 103/50 (67) 125/95 (105) Pulse Ox 99 99 100 O2 Delivery Nasal Cannula Nasal Cannula Nasal Cannula O2 Flow Rate 2.00 2.00 2.00 01/13/18 01/13/18 01/13/18 01/13/18 04:00 04:00 05:00 06:00 Pulse 70 70 78 Resp 15 14 10 B/P (MAP) 123/61 (81) 119/68 (85) 100/48 (65) Pulse Ox 99 100 98 99 O2 Delivery Nasal Cannula Nasal Cannula Nasal Cannula Nasal Cannula O2 Flow Rate 2.00 2.00 2.00 2.00 01/13/18 01/13/18 01/13/18 01/13/18 07:00 07:00 08:00 08:00 Temp 98.2 Pulse 75 76 68 Resp 31 16 B/P (MAP) 106/52 (70) 106/52 (70) Pulse Ox 98 98 O2 Delivery Nasal Cannula Nasal Cannula Nasal Cannula O2 Flow Rate 2.00 2.00 2.00 01/13/18 01/13/18 01/13/18 01/13/18 08:00 09:00 10:00 11:00 Pulse 56 72 69 Resp 12 19 13 B/P (MAP) 107/63 (78) 146/75 (98) 144/71 (95) Pulse Ox 99 98 100 O2 Delivery Nasal Cannula Nasal Cannula Nasal Cannula Nasal Cannula O2 Flow Rate 2.00 2.00 2.00 2.00 01/13/18 01/13/18 01/13/18 01/13/18 12:00 12:00 12:00 13:00 Temp 98.7 Pulse 69 77 Resp 17 B/P (MAP) 138/65 (89) Pulse Ox 99 O2 Delivery Nasal Cannula Nasal Cannula Room Air O2 Flow Rate 2.00 2.00 01/13/18 01/13/18 14:55 19:39 Temp 97.7 Pulse 73 Resp 20 B/P (MAP) 133/62 (85) Pulse Ox 97 O2 Delivery Room Air Nasal Cannula O2 Flow Rate 2.00 Capillary Refill : Less Than 3 Seconds General Appearance: WD/WN, no apparent distress HEENT: PERRL/EOMI Neck: non-tender, full range of motion, supple Respiratory: chest non-tender, lungs clear, normal breath sounds, no respiratory distress Cardiovascular: normal peripheral pulses, regular rate, rhythm, no edema, no murmur Gastrointestinal: normal bowel sounds, non tender, soft, no organomegaly Back: no CVA tenderness, no vertebral tenderness Extremities: normal range of motion, non-tender, normal inspection, no pedal edema, no calf tenderness, normal capillary refill Neurologic/Psychiatric: learning support resource room teacher II-XII nml as tested, no motor/sensory deficits, alert, normal mood/affect, oriented x 3, other (repetitive) Skin: normal color, warm/dry Lymphatic: no adenopathy Assessment/Plan Assessment/Plan Admission Status: Inpatient Order (span 2 midnights) Reason for Inpatient Admission: requires IV antiboitics and close monitoring for neurocheck (1) Severe sepsis Status: Resolved Assessment & Plan: - Resolved with IVFs, antibiotics started to cover UTI and PNA, Cultures pending (2) Altered mental status Status: Acute Assessment & Plan: Likely Multifactorial Dementia vs infection vs intoxication , CT head normal Qualifiers: Qualified Codes: R41.0 - Disorientation, unspecified (3) Acute psychosis Status: Acute Assessment & Plan: See Above (4) HTN (hypertension) Status: Chronic Assessment & Plan: - Will restart home BP meds in AM Qualifiers: Qualified Codes: I10 - Essential (primary) hypertension (5) UTI (urinary tract infection) Status: Acute (6) Bronchitis Status: Acute (7) Dementia Status: Chronic Assessment & Plan: - Discussed Neuropsych evaluation as outpatient Qualifiers: Qualified Codes: F03.91 - Unspecified dementia with behavioral disturbance (8) DVT prophylaxis Status: Acute Assessment & Plan: Lovenox Clinical Quality Measures DVT/VTE Risk/Contraindication: Risk Factor Score Per Nursin RFS Level Per Nursing on Admit: 4+=Very High Copy Copies To 1: PIA Ontiveros MD Jan 13, 2018 16:19
[2018-01-13] MEDS ORDERED: cefTRIAXone FOR IV USE 1,000 MG in NS (IVPB) 50 ML IV SCH (20:00)
[2018-01-13] MEDS: LORazepam INJ 2 MG/ML (ATIVAN) VIAL IV PRN ×2 (20:21→22:35)
[2018-01-14 00:30] VITALS: BP 143/67
[2018-01-14] MEDS: NS IV 1000 ML 1,000 ML IV SCH (02:29)
[2018-01-14] MEDS: DOXYCYCLINE INJECTION 100 MG in NS (IVPB) 100 ML IV SCH (02:29)
[2018-01-14 04:30] VITALS: BP 143/73
[2018-01-14 04:53] LABS: BASOPHILS % (AUTO) 0 % (0-10); EOSINOPHILS # (AUTO) 0.1 10^3/uL (0.0-0.3); EOSINOPHILS % (AUTO) 2 % (0-10); HEMATOCRIT 33 % (35-52); LYMPHOCYTES # (AUTO) 2.3 X 10^3 (1.0-4.0); LYMPHOCYTES % (AUTO) 28 % (12-44); MEAN CORPUSCULAR HEMOGLOBIN 31 PG (25-34); MEAN CORPUSCULAR HGB CONC 34 G/DL (32-36); MEAN CORPUSCULAR VOLUME 93 FL (80-99); MEAN PLATELET VOLUME 9.3 FL (7.4-10.4); MONOCYTES # (AUTO) 0.6 X 10^3 (0.0-1.0); MONOCYTES % (AUTO) 7 % (0-12); NEUTROPHILS # (AUTO) 5.2 X 10^3 (1.8-7.8); NEUTROPHILS % (AUTO) 64 % (42-75); PLATELET COUNT 177 10^3/uL (130-400); RED BLOOD COUNT 3.53 10^6/uL (4.35-5.85); RED CELL DISTRIBUTION WIDTH 12.6 % (10.0-14.5); WHITE BLOOD COUNT 8.2 10^3/uL (4.3-11.0)
[2018-01-14 05:13] LABS: BUN/CREATININE RATIO 8; CALCIUM 8.4 MG/DL (8.5-10.1); CARBON DIOXIDE 23 MMOL/L (21-32); CHLORIDE 111 MMOL/L (98-107); CREATININE SERUM 0.62 MG/DL (0.60-1.30); GFR ESTIMATED > 60; GLUCOSE 95 MG/DL (70-105); MAGNESIUM 1.7 MG/DL (1.8-2.4); PHOSPHORUS 1.9 MG/DL (2.3-4.7); POTASSIUM 3.2 MMOL/L (3.6-5.0); SODIUM 143 MMOL/L (135-145)
--- NOTE | 2018-01-14 07:42 | Diagnostic Imaging Report ---
INDICATION: Dyspnea PA chest obtained at 3:02 a.m. Comparison made to 01/13/2018. There is new infiltrate in the left lung base with new obscuration of the left hemidiaphragm. The right lung is clear. There is no pneumothorax or pleural fluid. IMPRESSION: New left basilar infiltrate with no pneumothorax or pleural fluid. Followup is recommended. Dictated by: Dictated on workstation # [id number]
[2018-01-14 08:29] VITALS: BP 148/70
[2018-01-14] MEDS ORDERED: ASPIRIN E.C. 81 MG (ECOTRIN) TAB PO SCH (09:00)
[2018-01-14] MEDS ORDERED: TRIAMTERENE/HCTZ 75-50 (MAXZIDE,DYAZIDE) TABLET PO SCH (09:00)
[2018-01-14 12:00] VITALS: BP 139/77
--- NOTE | 2018-01-14 13:42 | Discharge Summary ---
Diagnosis/Chief Complaint Date of Admission Jan 12, 2018 at 8:41 pm Date of Discharge 01/14/2018 Admission Diagnosis Admission Diagnosis Severe Sepsis Altered Mental Status Acute Psychosis HTN UTI Dementia Discharge Diagnosis See Above Chief Complaint/HPI Chief Complaint/HPI 72 yo F that presented to ER with altered mental status. Patient was brought in by significant other. States that over the last month she has started to no act like herself. He states that she has not had any falls or trauma to head. States that prior to presenting to ER she drank 3-4 glasses of wine which is out of character for the patient. She has been more combative and more angry recently. She has not complained of anything other then a cough last week. She was seen by Lillian and started on a Zpack at that time. Denies any fevers or chills. Has previous diagnosis of dementia. Denies any previous CVA. Denies any other drug use or ingestion. Discharge Summary-Simple/Stand Consultations Discharge Physical Examination Allergies: Coded Allergies: No Allergy Information Available (Unverified , 01/12/18) Vitals & I&Os Vital Sign - Last 12Hours Date Time Temp Pulse Resp B/P (MAP) Pulse Ox O2 Delivery O2 Flow Rate FiO2 01/14/18 10:59 Nasal Cannula 2.00 01/14/18 08:29 98.1 87 20 148/70 (96) 94 01/12/18 22:22 21 Intake and Output 01/13/18 23:59 Intake Total 960 ml Output Total 450 ml Balance 510 ml General Appearance: Alert, No Acute Distress, Other (oriented to person) HEENT: Mucous Memb Moist/[place] Respiratory: Clear to Auscultation, Normal Air Movement Cardiovascular: Regular Rate, No Murmurs Abdominal: Normal Bowel Sounds, Soft, No Tenderness, No Hepatosplenomegaly, No Masses Extremities: No Edema, No Tenderness/Swelling Neuro: Normal Speech, Cranial Nerves 3-12 NL Psych/Mental Status: Other (anxious, paranoid) Hospital Course See final discharge diagnosis. Radiology Reviewed Date of Exam: 01/12/18 CT HEAD WO-R/O STROKE Indication: Altered mental status CT head without contrast The ventricles are normal in size, shape and position. There are no masses or hemorrhages. There are no extra-axial fluid collections. Impression: Negative CT head Discussion & Recommendations 72 yo F with known dementia that presented meeting sepsis criteria and having altered mental status. Patient was found to have UTI and started on fluids and antibiotics. Patient had behavioral issues overnight but was more calm and cooperative in the AM. Patient needs to see neuropsych as outpatient. Discussed chcf plans with spouse and at this time he was comfortable with patient coming home under his care. Patient has close follow up with [facility] Discharge Condition at discharge Guarded Instructions to patient/family Please see electronic discharge instructions given to patient. Discharge Medications Reviewed and agree with Discharge Medication list on patient's Discharge Instruction sheet Clinical Quality Measures DVT/VTE Risk/Contraindication: Risk Factor Score Per Nursin RFS Level Per Nursing on Admit: 4+=Very High PIA ARAMBULA MD Jan 14, 2018 13:41
[2018-01-14] MEDS ORDERED: DOXY100T2 PO (13:52)
--- NOTE | 2018-01-14 13:55 | Discharge Instructions ---
Discharge [facility] Discharge Medications New, Converted or Re-Newed RX: Transmitted to Pharmacy New Medications: Doxycycline Hyclate (Doxycycline Hyclate) 100 Mg Tablet 100 MG PO BID@07,17 for 5 Days, #10 TAB Continued Medications: Alprazolam (Alprazolam) 2 Mg Tablet 4 MG PO HS, TAB TAKES 2 (2MG) TABLETS Ascorbic Acid (Vitamin C) 1,000 Mg Tablet 1000 MG PO DAILY, TAB Aspirin (Aspirin EC) 81 Mg Tablet.dr 81 MG PO DAILY, TAB Iodine (Kelp) 150 Mcg Tablet 150 MCG PO DAILY, TAB L.acidoph & Paracasei,B.lactis (Probiotic) 1 Each Capsule 1 CAP PO DAILY, CAP Hosston-3 Fatty Acids/Fish Oil ([place]osston 3 1,000 mg Softgel) 1 Each Capsule 3000 MG PO DAILY, CAP Omeprazole (Omeprazole) 20 Mg Capsule.dr 20 MG PO DAILY, CAP Triamterene/Hydrochlorothiazid (Triamterene-Hctz 75-50 mg Tab) 1 Each Tablet 1 TAB PO DAILY, TAB Ubidecarenone (Co Q-10) 200 Mg Capsule 200 MG PO DAILY, CAP Vitamin A Palmitate (Vitamin A) 10,000 Unit Capsule 11735 UNIT PO DAILY, CAP Vitamin B Complex (Vitamin B Complex) 1 Each Capsule 1 CAP PO DAILY, CAP Patient Instructions Goal/Follow Up Appt: You have a follow up appt on Jan 20 @ 120 PM Patient Instructions: - Make sure you complete your antiboitics Activity & Diet Discharge Diet: No Restrictions [facility] To 1[facility] R MD Jan 14, 2018 1:55 pm
[2018-01-14] MEDS ORDERED: DOXYCYCLINE 100 MG (VIBRAMYCIN) TABLET PO SCH (17:00)
--- NOTE | 2018-01-15 12:02 | Physician Query Clarification ---
PQ-Uncertain Diagnosis Admission/Discharge Admission Date: Jan 12, 2018 at 20:41 Discharge Date: Jan 14, 2018 at 15:50 The medical record reflects the following clinical scenario: History/Risk Factors: Severe sepsis Acute bronchitis Clinical Findings: 01/13 chest xray-Minimal patchy infiltrates slightly increased from prior exam. chest xray-New left basilar infiltrate with no pneumothorax or pleural fluid. Treatment: IV Ceftriaxone Sodium, Albuterol Sulfate inhalation therapy, nasal cannula at 2L. Question: Your H&P says, "antibiotics started to cover UTI and PNA, cultures pending. Is Pneumonia a clinically valid diagnosis after study? Please document a response below. PHYSICIAN RESPONSE Diagnosis clinically valid: Undetermined In responding to this query, please exercise your independent professional judgment. The purpose of this communication is to more accurately reflect the complexity of your patients condition. The fact that a question is asked does not imply that any particular answer is desired or expected. Thank you for your timely response to this clarification. Requestors name: Latonia Mojica [facility] Phone # ext [phone] or [phone] THIS PHYSICIAN QUERY FORM IS A PERMANENT PART OF THE MEDICAL RECORD LATONIA MOJICA Jan 15, 2018 12:02 PIA ARAMBULA MD Jan 15, 2018 15:07
== END 2018-01-14 15:50 | disposition home or self-care (01) | DRG 872 ==
LOC: ER 18:57 → ICU 20:41 → 4TH 01-13 14:58
PROVIDERS: ADMIT Family Medicine; ATTEND Family Medicine
DX: A41.9 Sepsis, unspecified organism (principal); R65.20 Severe sepsis without septic shock; N39.0 Urinary tract infection, site not specified; J20.9 Acute bronchitis, unspecified; F03.91 Unspecified dementia, unspecified severity, with behavioral disturbance; F23 Brief psychotic disorder; F10.129 Alcohol abuse with intoxication, unspecified; F41.9 Anxiety disorder, unspecified; I10 Essential (primary) hypertension; E87.6 Hypokalemia
CPT/HCPCS: 36415; 70450; 71045; 80048; 80053; 80306; 80320; 80329; 81000; 82140; 82150; 82550; 82553; 82962; 83605; 83690; 83735; 84100; 84443; 84484; 85007; 85025; 85027; 85610; 85730; 87040; 87077; 87088; 87186; 93005; 93041; 96361; 96365; 96372; 96375

== ENCOUNTER 2022-01-10 17:09 | Emergency (ER) | payer MEDICARE, OTHER ==
[~2022-01-10] VITALS: Ht 177.8 cm; Wt 79.3 kg
[~2022-01-10 17:09] MED LIST: ALPR2TAB6 PO; ASCO100024 PO; ASPI-1238 PO; ATOR20TA66; DOXY100T2 PO; IODI150T PO; L.AC1CAP6 PO; OMEG1CAP58 PO; OMEP20CA18 PO; TRIA1TAB5 PO; UBID200C16 PO; VITA-203 PO; VITA1CAP PO
[2022-01-10 17:51] LABS: BASOPHILS # (AUTO) 0.1 10^3/uL (0.0-0.1); BASOPHILS % (AUTO) 1 % (0-10); EOSINOPHILS % (AUTO) 0 % (0-10); HEMATOCRIT 41 % (35-52); HEMOGLOBIN 14.1 g/dL (11.5-16.0); LYMPHOCYTES # (AUTO) 2.3 10^3/uL (1.0-4.0); LYMPHOCYTES % (AUTO) 27 % (12-44); MEAN CORPUSCULAR HEMOGLOBIN 31 pg (25-34); MEAN CORPUSCULAR HGB CONC 34 g/dL (32-36); MEAN CORPUSCULAR VOLUME 92 fL (80-99); MEAN PLATELET VOLUME 9.3 fL (9.0-12.2); MONOCYTES # (AUTO) 0.6 10^3/uL (0.0-1.0); MONOCYTES % (AUTO) 7 % (0-12); NEUTROPHILS # (AUTO) 5.6 10^3/uL (1.8-7.8); NEUTROPHILS % (AUTO) 66 % (42-75); PLATELET COUNT 279 10^3/uL (130-400); WHITE BLOOD COUNT 8.6 10^3/uL (4.3-11.0)
[2022-01-10 18:00] LABS: ALBUMIN 4.1 GM/DL (3.2-4.5)
[2022-01-10 18:01] LABS: POTASSIUM 4.1 MMOL/L (3.6-5.0)
[2022-01-10 18:03] LABS: TOTAL PROTEIN 7.2 GM/DL (6.4-8.2)
[2022-01-10 18:05] LABS: BILIRUBIN,TOTAL 0.6 MG/DL (0.1-1.0)
[2022-01-10 18:06] LABS: PROTHROMBIN TIME PATIENT 13.3 SEC (12.2-14.7)
--- NOTE | 2022-01-10 18:06 | Diagnostic Imaging Report ---
EXAMINATION: Chest radiograph, portable AP view. DATE: 01/10/2022 5:54 PM INDICATION: 76-year-old female, chest pain. COMPARISON: January 14, 2018. FINDINGS: Heart size and mediastinal contours are unchanged. There is no identified pneumothorax. There is no large pleural effusion. There is no identified focal airspace consolidation. 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 There are right upper quadrant surgical clips. IMPRESSION: No identified acute cardiopulmonary abnormality. Dictated by: Dictated on workstation # [id number]
[2022-01-10 18:07] LABS: CREATININE SERUM 0.8 MG/DL (0.60-1.30)
[2022-01-10 18:10] LABS: MAGNESIUM 1.9 MG/DL (1.6-2.4)
--- NOTE | 2022-01-10 18:51 | ED Chest Pain ---
General Chief Complaint: Chest Pain Stated Complaint: CP Nursing Triage Note: PT ARRIVED VIA [facility]. PT STATED THAT SHE HAS CHEST PAIN BUT "DOESNT KNOW WHEN THE CHEST PAIN STARTED" AND RIGHT SIDED HIP PAIN. PT CURRENTLY HAS END STAGE DEMENTIA. Source: patient, EMS, other Exam Limitations: no limitations History of Present Illness Date Seen by Provider: Jan 10, 2022 Time Seen by Provider: 18:16 Initial Comments Patient to ER by EMS with chief complaint of chest pain starting maybe around 4:00 according to her friends. She states she did not take anything for it and was not given anything by EMS. The pain is in her left chest, reproducible to direct palpation. She has a distant history of hypertension but does not take any medications for it anymore. The patient states she denies any history of heart disease and says she has had work-ups at other hospitals but she cannot name the hospitals or when these work-ups were done. She is followed by Dr. Bobby for primary care. She denies following with any specialist. She denies any history of lung disease smoking or drinking. She says she does have a history of hyperlipidemia but no diabetes. She says her pain is gone now unless she pushes on her left chest. Allergies and Home Medications Allergies Coded Allergies: No Allergy Information Available (Unverified , 01/12/18) Patient Home Medication List Home Medication List Reviewed: Yes Alprazolam (Alprazolam) 2 Mg Tablet, 4 MG PO HS, (Reported) Entered as Reported by: CORRINA REDDY on 01/12/181955 Ascorbic Acid (Vitamin C) 1,000 Mg Tablet, 1,000 MG PO DAILY, (Reported) Entered as Reported by: MELISSA CULLEN on 01/13/18 1050 Aspirin (Aspirin EC) 81 Mg Tablet.dr, 81 MG PO DAILY, (Reported) Entered as Reported by: MELISSA CULLEN on 01/13/18 1050 Doxycycline Hyclate (Doxycycline Hyclate) 100 Mg Tablet, 100 MG PO BID@17 Prescribed by: PIA ARAMBULA on 01/14/18 1352 Iodine (Kelp) 150 Mcg Tablet, 150 MCG PO DAILY, (Reported) Entered as Reported by: MELISSA CULLEN on 01/13/18 1050 L.acidoph & Paracasei,B.lactis (Probiotic) 1 Each Capsule, 1 CAP PO DAILY, (Reported) Entered as Reported by: MELISSA CULLEN on 01/13/18 105 [place]-3 Fatty Acids/Fish Oil ([place] 3 1,000 mg Softgel) 1 Each Capsule, 3,000 MG PO DAILY, (Reported) Entered as Reported by: MELISSA CULLEN on 01/13/181049 Omeprazole (Omeprazole) 20 Mg Capsule.dr, 20 MG PO DAILY, (Reported) Entered as Reported by: CORRINA REDDY on 01/12/181955 Triamterene/Hydrochlorothiazid (Triamterene-Hctz 75-50 mg Tab) 1 Each Tablet, 1 TAB PO DAILY, (Reported) Entered as Reported by: CORRINA REDDY on 01/12/181955 Ubidecarenone (Co Q-10) 200 Mg Capsule, 200 MG PO DAILY, (Reported) Entered as Reported by: MELISSA CULLEN on 01/13/181049 Vitamin A Palmitate (Vitamin A) 10,000 Unit Capsule, 10,000 UNIT PO DAILY, (Reported) Entered as Reported by: MELISSA CULLEN on 01/13/181049 Vitamin B Complex (Vitamin B Complex) 1 Each Capsule, 1 CAP PO DAILY, (Reported) Entered as Reported by: MELISSA CULLEN on 01/13/181049 Review of Systems Review of Systems Constitutional: No chills, No diaphoresis EENTM: No Blurred Vision, No Double Vision Respiratory: Denies Cough, Denies Shortness of Air Cardiovascular: See HPI, Chest Pain; Denies Edema Gastrointestinal: Denies Constipated, Denies Diarrhea, Denies Nausea Genitourinary: Denies Burning, Denies Drainage Musculoskeletal: No back pain, No joint pain Skin: No change in color, No change in hair/nails Psychiatric/Neurological: Denies Anxiety, Denies Depressed All Other Systems Reviewed Negative Unless Noted: Yes Past Wcyfrio-Yuwywt-Eftjpa Hx Patient Social History Tobacco Use?: No Substance use?: No Alcohol Use?: No Pt feels they are or have been: Unable to obtain Immunizations Up To Date Tetanus Booster (TDap): Unknown Influenza Vaccine Up-to-Date: No; Not Current Seasonal Allergies Seasonal Allergies: No Past Medical History Surgeries: Yes (BREAST REDUCTION) Breast, Gallbladder, Hysterectomy Respiratory: No Cardiac: Yes High Cholesterol, Hypertension Neurological: Yes (1999) Concussion Genitourinary: No Gastrointestinal: Yes Gastroesophageal Reflux Musculoskeletal: No Endocrine: No HEENT: No Cancer: No Psychosocial: Yes Anxiety Integumentary: No Blood Disorders: No Family Medical History UNABLE TO OBTAIN ANY PAST MEDICAL HISTORY Physical Exam Vital Signs Vital Signs - First Documented 01/10/22 17:20 Temp 36.6 Pulse 89 Resp 16 B/P (MAP) 133/121 (125) Pulse Ox 99 O2 Delivery Room Air Capillary Refill : Less Than 3 Seconds Height, Weight, BMI Height: 5'10.00" Weight: 197lbs. 12.5oz. 89.436543uw; 25.00 BMI Method:Stated General Appearance: No Apparent Distress, WD/WN HEENT: PERRL/EOMI, Pharynx Normal, Moist Mucous Membranes Neck: Full Range of Motion, Normal Inspection Respiratory: No Chest Non Tender (Chest pain is reproducible to direct palpation); Lungs Clear, Normal Breath Sounds, No Accessory Muscle Use, No Respiratory Distress Cardiovascular: Regular Rate, Rhythm, No Edema, Normal Peripheral Pulses Gastrointestinal: Normal Bowel Sounds, No Organomegaly, Non Tender, Soft Extremity: Normal Capillary Refill, Normal Inspection, No Pedal Edema Neurologic/Psychiatric: Alert, Oriented x3 Skin: Normal Color, Warm/Dry Progress/Results/Core Measures Results/Orders Lab Results Laboratory Tests Test 01/10/22 17:47 01/10/22 20:00 Range/Units White Blood Count 8.6 4.3-11.0 10^3/uL Red Blood Count 4.50 3.80-5.11 10^6/uL Hemoglobin 14.1 11.5-16.0 g/dL Hematocrit 41 35-52 % Mean Corpuscular Volume 92 80-99 fL Mean Corpuscular Hemoglobin 31 25-34 pg Mean Corpuscular Hemoglobin Concent 34 32-36 g/dL Red Cell Distribution Width 12.0 10.0-14.5 % Platelet Count 279 130-400 10^3/uL Mean Platelet Volume 9.3 9.0-12.2 fL Immature Granulocyte % (Auto) 0 % Neutrophils (%) (Auto) 66 42-75 % Lymphocytes (%) (Auto) 27 12-44 % Monocytes (%) (Auto) 7 0-12 % Eosinophils (%) (Auto) 0 0-10 % Basophils (%) (Auto) 1 0-10 % Neutrophils # (Auto) 5.6 1.8-7.8 10^3/uL Lymphocytes # (Auto) 2.3 1.0-4.0 10^3/uL Monocytes # (Auto) 0.6 0.0-1.0 10^3/uL Eosinophils # (Auto) 0.0 0.0-0.3 10^3/uL Basophils # (Auto) 0.1 0.0-0.1 10^3/uL Immature Granulocyte # (Auto) 0.0 0.0-0.1 10^3/uL Prothrombin Time 13.3 12.2-14.7 SEC INR Comment 1.0 0.8-1.4 Activated Partial Thromboplast Time 28 24-35 SEC Sodium Level 138 135-145 MMOL/L Potassium Level 4.1 3.6-5.0 MMOL/L Chloride Level 105 98-107 MMOL/L Carbon Dioxide Level 20 L 21-32 MMOL/L Anion Gap 13 5-14 MMOL/L Blood Urea Nitrogen 11 7-18 MG/DL Creatinine 0.80 0.60-1.30 MG/DL Estimat Glomerular Filtration Rate 76 BUN/Creatinine Ratio 14 Glucose Level 99 70-105 MG/DL Calcium Level 10.0 8.5-10.1 MG/DL Corrected Calcium 9.9 8.5-10.1 MG/DL Magnesium Level 1.9 1.6-2.4 MG/DL Total Bilirubin 0.6 0.1-1.0 MG/DL Aspartate Amino Transf (AST/SGOT) 25 5-34 U/L Alanine Aminotransferase (ALT/SGPT) 13 0-55 U/L Alkaline Phosphatase 84 40-136 U/L Myoglobin 43.3 10.0-92.0 NG/ML Troponin I < 0.028 < 0.028 <0.028 NG/ML Total Protein 7.2 6.4-8.2 GM/DL Albumin 4.1 3.2-4.5 GM/DL My Orders Orders - NBA LÓPEZ Troponin I [place] (01/10/22 20:00) Vital Signs/I&O 01/10/22 17:20 Temp 36.6 Pulse 89 Resp 16 B/P (MAP) 133/121 (125) Pulse Ox 99 O2 Delivery Room Air Blood Pressure Mean: 125 Progress Progress Note #1: Time: 19:16 Progress Note Based on the reports from the patient's family who is concerned about her ability to take care of herself we have made a DCF report: [id number]. We have concerns about her ability to care for herself based on the fact that she was not sure where she was or what hospital she was on. Some of this could be from her TBI and she has done well for the past 20 years caring for herself with help from friends but now her friends are saying that she is doing things that are dangerous like locking herself out of the house and driving herself to other states that not knowing where she is going. 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 They have a DCF worker on her case. 1 option would be to stay overnight in the hospital and get the director of social work to work with her but the patient is adamant and becomes very angry when that is suggested. She has agreed however to stick around for a delta troponin. Her pain in her chest appears to be reproducible to direct palpation and is a 0 out of 10 at the time this interviewer met the patient. We will go ahead and do a delta troponin at 2000 hrs. Progress Note #2: Time: 20:47 Progress Note The patient is experiencing neck pain since she arrived here. She is had no material deterioration during her stay. She has frequently asked to be released to go home and when we remind her that she is waiting on lab results she has agreed to stay for those. We will let her follow-up outpatient with cardiology for an appropriate outpatient risk ratification. We have also made our APS report and will expect him to follow-up outpatient. Return precautions were given to the patient and her friends. Initial ECG Impression Date: Jan 10, 2022 Initial ECG Impression Time: 17:25 Initial ECG Rate: 81 Initial ECG Rhythm: Normal Sinus Initial ECG Intervals: Normal Initial ECG Impression: Normal Comment Normal sinus rhythm without clinically relevant ST elevation or depression. Diagnostic Imaging Diagonstic Imaging: Xray Plain Films/CT/US/NM/MRI: chest Comments [facility]. [place], [place] NAME: ASHLY CANAS [facility] REC#: [id number] PT STATUS: REG ER : 1945 PHYSICIAN: COLEEN ESTEBAN MD ADMIT DATE: 01/10/22/ER Signed Date of Exam:01/10/22 CHEST 1 VIEW, AP/PA ONLY EXAMINATION: Chest radiograph, portable AP view. DATE: 01/10/2022 5:54 PM INDICATION: 76-year-old female, chest pain. COMPARISON: January 14, 2018. FINDINGS: Heart size and mediastinal contours are unchanged. There is no identified pneumothorax. There is no large pleural effusion. There is no identified focal airspace consolidation. 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 There are right upper quadrant surgical clips. IMPRESSION: No identified acute cardiopulmonary abnormality. Dictated by: Dictated on workstation # [id number] Dict: 01/10/22 1755 Trans: 01/10/22 1810 [id number] Interpreted by: TEX MTZ MD Electronically signed by: TEX MTZ MD 01/10/221809 Reviewed: Reviewed by Me Departure Impression Primary Impression: Chest wall pain Disposition: HOME, SELF-CARE Condition: Stable Departure-Patient Inst. Decision time for Depature: 20:48 Ref[place] [facility] [place] Primary Care Physician NEREYDA BREEN MD [facility] Patient Instructions: Chest Pain (DC) Add. Discharge Instructions: If your chest pain comes back you may take some aspirin. If this does not treat it then please return to the ER. Follow-up with the vegetable vendor, Dr. Breen by calling for an appointment Thursday morning. All discharge instructions reviewed with patient and/or family. Voiced understanding. Copy Copies To 1: NEREYDA BREEN MD [facility] NBA LÓPEZ Jan 10, 2022 18:51
[2022-01-10 21:18] VITALS: BP 175/89
== END 2022-01-10 21:18 | disposition home or self-care (01) ==
LOC: EDUNIT# 17:09 → ER 17:19
DX: R07.89 Other chest pain (principal); Z28.310 Unvaccinated for COVID-19
CPT/HCPCS: 36415; 71045; 80053; 83735; 83874; 84484; 85025; 85610; 85730; 93041

== ENCOUNTER → 2022-01-13 | Outpatient (CLI) | payer MEDICARE ==
[2022-01-13 12:35] LABS: TRIGLYCERIDES 167 MG/DL (<150); VLDL CHOLESTEROL 33 MG/DL (5-40)
[2022-01-13 12:40] LABS: CHOLESTEROL 210 MG/DL (< 200)
[2022-01-13 12:41] LABS: HDL CHOLESTEROL 61 MG/DL (40-60)
== END ==
LOC: LAB 11:32
PROVIDERS: ATTEND Family Medicine
DX: L40.0 Psoriasis vulgaris (principal); Z79.899 Other long term (current) drug therapy
CPT/HCPCS: 36415; 80061; 86480

== ENCOUNTER 2022-02-11 15:48 | Emergency (ER) | payer MEDICARE ==
[~2022-02-11] VITALS: Ht 175.2 cm; Wt 79.3 kg
--- NOTE | 2022-02-11 16:31 | ED General ---
General Chief Complaint: General Problems/Pain Stated Complaint: LEG PAIN Nursing Triage Note: PT ARRIVED VIA EMS. PT STATES THAT SHE HAS LEFT SIDED HEAD PAIN AND PAIN IN BOTH LEGS. Source of Information: Patient Exam Limitations: No Limitations History of Present Illness Date Seen by Provider: Feb 11, 2022 Time Seen by Provider: 16:21 Initial Comments This is a elderly 76 yo female with history of TBI and dementia who presented to the ER via [facility] with c/o bilateral leg pain and headache. While obtaining HPI patient persistently remarked on how "hot" the EMS worker is and how much she "appreciates beauty". Proceeded to lift her shirt up and show her breast to myself and RN stating "aren't they beautiful". At present she reports her symptoms have improved and she will just follow up with her primary care provider. HPI difficult to obtain due to flight of ideas. Allergies and Home Medications Allergies Coded Allergies: No Allergy Information Available (Unverified , 01/12/18) Patient Home Medication List Home Medication List Reviewed: Yes Alprazolam (Alprazolam) 2 Mg Tablet, 4 MG PO HS, (Reported) Entered as Reported by: CORRINA REDDY on 01/12/181955 Ascorbic Acid (Vitamin C) 1,000 Mg Tablet, 1,000 MG PO DAILY, (Reported) Entered as Reported by: MELISSA CULLEN on 01/13/18 105 Aspirin (Aspirin EC) 81 Mg Tablet.dr, 81 MG PO DAILY, (Reported) Entered as Reported by: MELISSA CULLEN on 01/13/18 1050 Doxycycline Hyclate (Doxycycline Hyclate) 100 Mg Tablet, 100 MG PO BID@ Prescribed by: PIA ARAMBULA on 01/14/18 1352 Iodine (Kelp) 150 Mcg Tablet, 150 MCG PO DAILY, (Reported) Entered as Reported by: MELISSA CULLEN on 01/13/18 1050 L.acidoph & Paracasei,B.lactis (Probiotic) 1 Each Capsule, 1 CAP PO DAILY, (Reported) Entered as Reported by: MELISSA CULLEN on 01/13/18 1050 [place]-3 Fatty Acids/Fish Oil ([place] 3 1,000 mg Softgel) 1 Each Capsule, 3,000 MG PO DAILY, (Reported) Entered as Reported by: MELISSA CULLEN on 8/29/18 1050 Omeprazole (Omeprazole) 20 Mg Capsule.dr, 20 MG PO DAILY, (Reported) Entered as Reported by: CORRINA REDDY on 01/12/181955 Triamterene/Hydrochlorothiazid (Triamterene-Hctz 75-50 mg Tab) 1 Each Tablet, 1 TAB PO DAILY, (Reported) Entered as Reported by: CORRINA REDDY on 01/12/181955 Ubidecarenone (Co Q-10) 200 Mg Capsule, 200 MG PO DAILY, (Reported) Entered as Reported by: MELISSA CULLEN on 01/13/181049 Vitamin A Palmitate (Vitamin A) 10,000 Unit Capsule, 10,000 UNIT PO DAILY, (Reported) Entered as Reported by: MELISSA CULLEN on 01/13/181049 Vitamin B Complex (Vitamin B Complex) 1 Each Capsule, 1 CAP PO DAILY, (Reported) Entered as Reported by: MELISSA CULLEN on 01/13/181049 Review of Systems Review of Systems Constitutional: No fever, No malaise EENTM: no symptoms reported Respiratory: no symptoms reported Cardiovascular: no symptoms reported Gastrointestinal: no symptoms reported Genitourinary: no symptoms reported Skin: no symptoms reported Psychiatric/Neurological: Headache Hematologic/Lymphatic: No Symptoms Reported Immunological/Allergic: no symptoms reported Past Fstmcmj-Vflkhu-Fmdobw Hx Patient Social History Tobacco Use?: No Substance use?: No Alcohol Use?: No Pt feels they are or have been: No Immunizations Up To Date Tetanus Booster (TDap): Unknown Influenza Vaccine Up-to-Date: No; Not Current Seasonal Allergies Seasonal Allergies: No Past Medical History Surgeries: Yes (BREAST REDUCTION) Breast, Gallbladder, Hysterectomy Respiratory: No Cardiac: Yes High Cholesterol, Hypertension Neurological: Yes (1999) Concussion Genitourinary: No Gastrointestinal: Yes Gastroesophageal Reflux Musculoskeletal: No Endocrine: No HEENT: No Cancer: No Psychosocial: Yes Anxiety Integumentary: No Blood Disorders: No Family Medical History UNABLE TO OBTAIN ANY PAST MEDICAL HISTORY Physical Exam Vital Signs Vital Signs - First Documented 02/11/22 15:50 Temp 36.6 Pulse 77 Resp 18 B/P (MAP) 144/86 (105) Pulse Ox 96 O2 Delivery Room Air Capillary Refill : Less Than 3 Seconds Height, Weight, BMI Height: 5'10.00" Weight: 197lbs. 12.5oz. 89.315854um; 25.00 BMI Method:Stated General Appearance: No Apparent Distress, WD/WN, Other (appropriately dressed ) Eyes: Bilateral Eye Normal Inspection, Bilateral Eye PERRL HEENT: PERRL/EOMI, Normal ENT Inspection, Moist Mucous Membranes Neck: Full Range of Motion, Normal Inspection Respiratory: Lungs Clear, Normal Breath Sounds, No Accessory Muscle Use Cardiovascular: Regular Rate, Rhythm, Normal Peripheral Pulses Gastrointestinal: Normal Bowel Sounds, Non Tender, Soft Back: Normal Inspection, No Vertebral Tenderness Extremity: Normal Capillary Refill, Normal Inspection, Normal Range of Motion, Other (bilateral equal automobile tester and leg strength. ) Neurologic/Psychiatric: Alert, city letter carrier II-XII Norm as Tested (grossly intact ), Other (flight of ideas, euphoric ) Skin: Normal Color, Warm/Dry Progress/Results/Core Measures Suspected Sepsis SIRS Temperature: Pulse: 77 Respiratory Rate: 18 Blood Pressure 144 /86 Mean: 105 Results/Orders My Orders Orders - SHYAM ROTH APRN Ct Head/Cervical Spine Wo (02/11/22 16:30) Vital Signs/I&O 02/11/22 02/11/22 15:50 17:37 Temp 36.6 Pulse 77 67 Resp 18 B/P (MAP) 144/86 (105) 167/75 Pulse Ox 96 99 O2 Delivery Room Air Room Air Capillary Refill : Less Than 3 Seconds Blood Pressure Mean: 105 Progress Note : Progress Note Upon arrival patient laughing and making several phone calls on her cell phone. Shortly after arrival she reports her symptoms are "all gone" and she is ready to leave. Given her history of dementia, would like to obtain head CT as she is unreliable with reporting history. There is no evidence of falls or trauma on exam. Initially she refused to have imaging done stating "I am all better" and wanted to leave. However, after some discussion she was willing to stay for CT of head and neck. CT imaging negative for any acute pathology. Continued to express no further complaints. Discharge POC reviewed and she is agreeable with plan. She was calling a ride to pick her up at time of discharge. Diagnostic Imaging Diagonstic Imaging: CT Plain Films/CT/US/NM/MRI: head Comments [facility]. [place], [place] NAME: ASHLY CANAS [facility] REC#: [id number] PT STATUS: REG ER : 1945 PHYSICIAN: SHYAM ROTH APRN ADMIT DATE: 02/11/22/ER Signed Date of Exam:02/11/22 CT HEAD/CERVICAL SPINE WO PROCEDURE: CT head and CT cervical spine without contrast. TECHNIQUE: Multiple contiguous axial images were obtained through the brain and cervical spine without the use of intravenous contrast. Sagittal and coronal reformations through the cervical spine were then performed. Auto Exposure Controls were utilized during the CT exam to meet ALARA standards for radiation dose reduction. INDICATION: Left-sided head pain. COMPARISON: Correlation is made with prior head CT from 01/12/2018. FINDINGS: CT HEAD: Ventricles and sulci are appropriate for the patient's age. No sulcal effacement or midline shift is identified. No acute intra-axial or extra-axial hemorrhage is detected. Cisterns are patent. Visualized paranasal sinuses are clear. IMPRESSION: No acute intracranial process is detected. CT CERVICAL SPINE: Curvature and alignment of the cervical spine is normal. There is generalized degenerative disc disease with variable disc space narrowing and marginal spurring, greatest at C5-C6 level. No fracture or subluxation is identified. The prevertebral tissues are within normal limits. The odontoid is intact. IMPRESSION: Cervical spondylosis. No acute bony abnormality is detected. Dictated by: Dictated on workstation # [id number] Dict: 02/11/222 Trans: 02/11/221716 [id number] Interpreted by: TIFFANY EPSTEIN MD Electronically signed by: TIFFANY EPSTEIN MD 02/11/221716 Reviewed: Reviewed by Sd Departure Impression Primary Impression: Headache Additional Impression: Neck pain Disposition: 01 HOME, SELF-CARE Condition: Improved Departure-Patient Inst. Decision time for Depature: 17:24 Referrals: [facility] (PCP/Family) Primary Care Physician Patient Instructions: Headache, Adult ED Add. Discharge Instructions: Plan: 1. Follow-up with your doctor for any persistent symptoms. 2. May take Tylenol or ibuprofen as needed for pain per package 3. Return to the ER for any new, concerning, worsening symptoms. All discharge instructions reviewed with patient and/or family. Voiced understanding. Copy Copies To 1: [facility]/SHYAM GREY APRN Feb 11, 2022 16:31
--- NOTE | 2022-02-11 17:02 | Diagnostic Imaging Report ---
PROCEDURE: CT head and CT cervical spine without contrast. TECHNIQUE: Multiple contiguous axial images were obtained through the brain and cervical spine without the use of intravenous contrast. Sagittal and coronal reformations through the cervical spine were then performed. Auto Exposure Controls were utilized during the CT exam to meet ALARA standards for radiation dose reduction. INDICATION: Left-sided head pain. COMPARISON: Correlation is made with prior head CT from 01/12/2018. FINDINGS: CT HEAD: Ventricles and sulci are appropriate for the patient's age. No sulcal effacement or midline shift is identified. No acute intra-axial or extra-axial hemorrhage is detected. Cisterns are patent. Visualized paranasal sinuses are clear. IMPRESSION: No acute intracranial process is detected. CT CERVICAL SPINE: Curvature and alignment of the cervical spine is normal. There is generalized degenerative disc disease with variable disc space narrowing and marginal spurring, greatest at C5-C6 level. No fracture or subluxation is identified. The prevertebral tissues are within normal limits. The odontoid is intact. IMPRESSION: Cervical spondylosis. No acute bony abnormality is detected. Dictated by: Dictated on workstation # [id number]
[2022-02-11 17:37] VITALS: BP 167/75
== END 2022-02-11 17:37 | disposition home or self-care (01) ==
LOC: EDUNIT# 15:48 → ER 15:50
DX: M54.2 Cervicalgia (principal); R51.9 Headache, unspecified; Z28.310 Unvaccinated for COVID-19
CPT/HCPCS: 70450; 72125

== ENCOUNTER 2022-02-13 15:51 | Emergency (ER) | payer MEDICARE ==
[~2022-02-13] VITALS: Ht 177.8 cm; Wt 90.7 kg
--- NOTE | 2022-02-13 16:30 | ED Psychosocial ---
General Chief Complaint: Psych/Social Disorder Stated Complaint: HEADACHE Nursing Triage Note: PT AMBULATORY TO ROOM. PT WAS SENT FROM [facility]. [facility] REPORTS PT HAS ALTERED MENTAL STATUS, WAS WALKING AROUND HER NEIGHBORHOOD LOOKING FOR HER . [facility] REPORTS PT HAS OPEN DCF CASE LOOKING TO FIND HER DETENTION PLACEMENT. [facility] REPORTS STABLE VITAL SIGNS AT THEIR FACILITY. PT IS ORIENTED TO SELF. SPEECH NORMAL. Source: patient Exam Limitations: no limitations (BRAEDEN CALDERON MD) History of Present Illness Date Seen by Provider: Feb 13, 2022 Time Seen by Provider: 16:20 Initial Comments Patient is a 76-year-old female who reportedly lives alone who comes from [facility] after being found by neighbors walking around her neighborhood looking for her . Neighbors took her to [facility] and she has an open case with department of family services and a scheduled court date for guardianship on February 25. According to the Elder Care Services worker - she states the patient has a microwave but does not know how to use it. She does not know how to open a can of food. Her home reportedly is full of food, but she doesn't know how to get it for herself. They are quite concerned for her safety and ability to take care of herself. Because of her deteriorating mental state [facility] recommended that she come to the emergency room. Per review of the medical record the patient was here 2 days ago however that medical record is not yet complete and therefore it is difficult to assess details of the visit. Patient is complaining of left-sided head pain that has been there for years. She endorses a negative review of systems. No alleviating or exacerbating factors. She states she is taken nothing for the pain. She laughs inappropriately. Her speech is random, disorganized and tangential. I am unable to otherwise get an HPI, review of systems, past medical family or social history. She has some makeup on - lower lid eyeliner that is erratic. she otherwise appears clean. She is a little aggressive with this examiner - preoccupied with "big boobs" (at one point pokes me in the chest, asking, "what are we gonna do about this?") VSS. Timing/Duration: this afternoon (BRAEDEN CALDERON MD) Allergies and Home Medications Allergies Coded Allergies: No Allergy Information Available (Unverified , 01/12/18) Patient Home Medication List Home Medication List Reviewed: Yes (BRAEDEN CALDERON MD) Alprazolam (Alprazolam) 2 Mg Tablet, 4 MG PO HS, (Reported) Entered as Reported by: CORRINA REDDY on 01/12/181955 Ascorbic Acid (Vitamin C) 1,000 Mg Tablet, 1,000 MG PO DAILY, (Reported) Entered as Reported by: MELISSA CULLEN on 01/13/181049 Aspirin (Aspirin EC) 81 Mg Tablet.dr, 81 MG PO DAILY, (Reported) Entered as Reported by: MELISSA CULLEN on 01/13/18 105 Doxycycline Hyclate (Doxycycline Hyclate) 100 Mg Tablet, 100 MG PO BID@ Prescribed by: PIA ARAMBULA on 01/14/18 135 Iodine (Kelp) 150 Mcg Tablet, 150 MCG PO DAILY, (Reported) Entered as Reported by: MELISSA CULLEN on 01/13/181049 L.acidoph & Paracasei,B.lactis (Probiotic) 1 Each Capsule, 1 CAP PO DAILY, (Reported) Entered as Reported by: MELISSA CULLEN on 01/13/181049 Felton-3 Fatty Acids/Fish Oil (Felton 3 1,000 mg Softgel) 1 Each Capsule, 3,000 MG PO DAILY, (Reported) Entered as Reported by: MELISSA CULLEN on 01/13/181049 Omeprazole (Omeprazole) 20 Mg Capsule.dr, 20 MG PO DAILY, (Reported) Entered as Reported by: CORRINA REDDY on 01/12/181955 Triamterene/Hydrochlorothiazid (Triamterene-Hctz 75-50 mg Tab) 1 Each Tablet, 1 TAB PO DAILY, (Reported) Entered as Reported by: CORRINA REDDY on 01/12/181955 Ubidecarenone (Co Q-10) 200 Mg Capsule, 200 MG PO DAILY, (Reported) Entered as Reported by: MELISSA CULLEN on 01/13/181049 Vitamin A Palmitate (Vitamin A) 10,000 Unit Capsule, 10,000 UNIT PO DAILY, (Reported) Entered as Reported by: MELISSA CULLEN on 01/13/181049 Vitamin B Complex (Vitamin B Complex) 1 Each Capsule, 1 CAP PO DAILY, (Reported) Entered as Reported by: MELISSA CULLEN on 01/13/18 1050 Review of Systems Constitutional: see HPI Unable to obtain due to her dementia/delirium picture (BRAEDEN CALDERON MD) Past Awvnwgk-Uxrxuu-Blayft Hx Patient Social History Tobacco Use?: No Use of E-Cig and/or Vaping dev: Unable to obtain Substance use?: Unable to obtain Alcohol Use?: Unable to obtain (BRAEDEN CALDERON MD) Tobacco Use?: No Use of E-Cig and/or Vaping dev: No (NBA LÓPEZ) Immunizations Up To Date Tetanus Booster (TDap): Unknown (BRAEDEN CALDERON MD) Seasonal Allergies Seasonal Allergies: No (BRAEDEN CALDERON MD) Past Medical History Surgeries: Yes (BREAST REDUCTION) Breast, Gallbladder, Hysterectomy Respiratory: No Cardiac: Yes High Cholesterol, Hypertension Neurological: Yes (1999) Concussion Genitourinary: No Gastrointestinal: Yes Gastroesophageal Reflux Musculoskeletal: No Endocrine: No HEENT: No Cancer: No Psychosocial: Yes Anxiety Integumentary: No Blood Disorders: No (BRAEDEN CALDERON MD) Family Medical History UNABLE TO OBTAIN ANY PAST MEDICAL HISTORY (BRAEDEN CALDERON MD) Physical Exam Vital Signs - First Documented 02/13/22 16:00 Temp 36.5 Pulse 75 Resp 20 B/P (MAP) 160/82 (108) Pulse Ox 97 (NBA LÓPEZ) Capillary Refill : (BRAEDEN CALDERON MD) Height, Weight, BMI Height: 5'10.00" Weight: 197lbs. 12.5oz. [id number]; 28.00 BMI Method:Stated General Appearance: WD/WN, no apparent distress HEENT: PERRL/EOMI, normal ENT inspection, TMs normal (right TM occluded by Cerumen), pharynx normal, other (upper and lower dentures ("since I was 22. I yanked them out!") Neck: full range of motion Respiratory: lungs clear, normal breath sounds, no respiratory distress, no accessory muscle use Cardiovascular: regular rate, rhythm Peripheral Pulses: 2+ Radial Pulses (R), 2+ Radial Pulses (L) Extremities: normal range of motion, normal inspection, no pedal edema, normal capillary refill Neurologic/Psychiatric: alert, other (inappropriate affect - laughing, at times aggressive verbally; mood congruent; disoriented to year, place) Appearance/Memory: appropriate appearance, impaired insight, impaired recent memory, impaired remote memory Behavior/Eye Contact: increased rate of speech, belligerent Thoughts/Hallucinations: no apparent hallucination, delusions, flight of ideas, grandiose Skin: normal color, warm/dry (BRAEDEN CALDERON MD) Progress/Results/Core Measures Results/Orders Lab Results Laboratory Tests Test 02/13/22 16:37 02/14/22 02:54 Range/Units White Blood Count 8.0 4.3-11.0 10^3/uL Red Blood Count 4.55 3.80-5.11 10^6/uL Hemoglobin 14.5 11.5-16.0 g/dL Hematocrit 43 35-52 % Mean Corpuscular Volume 94 80-99 fL Mean Corpuscular Hemoglobin 32 25-34 pg Mean Corpuscular Hemoglobin Concent 34 32-36 g/dL Red Cell Distribution Width 12.2 10.0-14.5 % Platelet Count 276 130-400 10^3/uL Mean Platelet Volume 8.9 L 9.0-12.2 fL Immature Granulocyte % (Auto) 0 % Neutrophils (%) (Auto) 65 42-75 % Lymphocytes (%) (Auto) 27 12-44 % Monocytes (%) (Auto) 6 0-12 % Eosinophils (%) (Auto) 1 0-10 % Basophils (%) (Auto) 1 0-10 % Neutrophils # (Auto) 5.2 1.8-7.8 10^3/uL Lymphocytes # (Auto) 2.2 1.0-4.0 10^3/uL Monocytes # (Auto) 0.5 0.0-1.0 10^3/uL Eosinophils # (Auto) 0.1 0.0-0.3 10^3/uL Basophils # (Auto) 0.0 0.0-0.1 10^3/uL Immature Granulocyte # (Auto) 0.0 0.0-0.1 10^3/uL Sodium Level 144 135-145 MMOL/L Potassium Level 3.7 3.6-5.0 MMOL/L Chloride Level 104 98-107 MMOL/L Carbon Dioxide Level 24 21-32 MMOL/L Anion Gap 16 H 5-14 MMOL/L Blood Urea Nitrogen 12 7-18 MG/DL Creatinine 0.82 0.60-1.30 MG/DL Estimat Glomerular Filtration Rate 74 BUN/Creatinine Ratio 15 Glucose Level 100 70-105 MG/DL Calcium Level 10.1 8.5-10.1 MG/DL Corrected Calcium 9.8 8.5-10.1 MG/DL Total Bilirubin 0.5 0.1-1.0 MG/DL Aspartate Amino Transf (AST/SGOT) 16 5-34 U/L Alanine Aminotransferase (ALT/SGPT) 9 0-55 U/L Alkaline Phosphatase 89 40-136 U/L Total Protein 7.1 6.4-8.2 GM/DL Albumin 4.4 3.2-4.5 GM/DL TSH [place] Testing 0.86 0.35-4.94 UIU/ML Salicylates Level < 5.0 L 5.0-20.0 MG/DL Acetaminophen Level < 10 L 10-30 UG/ML Serum Alcohol < 10 <10 MG/DL Urine Color YELLOW Urine Clarity CLEAR Urine pH 5.5 5-9 Urine Specific [place] >=1.030 1.016-1.022 Urine Protein NEGATIVE NEGATIVE Urine Glucose (UA) NEGATIVE NEGATIVE Urine Ketones NEGATIVE NEGATIVE Urine Nitrite NEGATIVE NEGATIVE Urine Bilirubin NEGATIVE NEGATIVE Urine Urobilinogen 0.2 < = 1.0 MG/DL Urine Leukocyte Esterase 1+ H NEGATIVE Urine RBC (Auto) NEGATIVE NEGATIVE Urine RBC RARE /HPF Urine WBC 10-25 H /HPF Urine Squamous Epithelial Cells 2-5 /HPF Urine Crystals NONE /LPF Urine Bacteria TRACE /HPF Urine Casts NONE /LPF Urine Mucus SMALL H /LPF Urine Culture Indicated YES Urine Opiates Screen NEGATIVE NEGATIVE Urine Oxycodone Screen NEGATIVE NEGATIVE Urine Methadone Screen NEGATIVE NEGATIVE Urine Propoxyphene Screen NEGATIVE NEGATIVE Urine Barbiturates Screen NEGATIVE NEGATIVE Ur Tricyclic Antidepressants Screen NEGATIVE NEGATIVE Urine Phencyclidine Screen NEGATIVE NEGATIVE Urine Amphetamines Screen NEGATIVE NEGATIVE Urine Methamphetamines Screen NEGATIVE NEGATIVE Urine Benzodiazepines Screen NEGATIVE NEGATIVE Urine Cocaine Screen NEGATIVE NEGATIVE Urine Cannabinoids Screen NEGATIVE NEGATIVE (NBA LÓPEZ) My Orders Orders - NBA LÓPEZ Cephalexin Capsule (Keflex Capsule) (02/14/22 03:30) (NBA LÓPEZ) Vital Signs/I&O 02/13/22 02/13/22 16:00 23:14 Temp 36.5 Pulse 75 71 Resp 20 20 B/P (MAP) 160/82 (108) 149/80 Pulse Ox 97 99 (NBA LÓPEZ) Blood Pressure Mean: 108 Progress Progress Note : Time: 17:59 Progress Note patient pulled her IV out. She is up and around the room. refusing to provide a urine. She states she will stay in the hospital but is very grumpy and aggressive. basic labs look good. Would like to see a urine before we let her go home or see if we can admit for observation and further eval by child protective services social worker. case was discussed with health services director today. (BRAEDEN CALDERON MD) Progress Note #1: Progress Note Assumed care of the patient at shift change. I agree with the above documented history and physical. Patient has been redirected. She has been given something to eat and drink. She has not been on produce a urine yet. Would not think she would tolerate doing a straight cath at this time. At this time she i s resting comfortably sleeping and were going to let her stay here for now as this is probably safer than returning to her home. We will continue to pursue a urinalysis and maybe we can even talk her into staying in the hospital overnight so we can get child protective services social worker on board. If not we may then be able to keep her in the ER overnight and have child protective services social worker visit with her in the morning when they come back in. I agree the patient has capacity to leave if she wants but does not seem like she is doing well caring for herself are doing her activities of daily living according to reports from staff. Progress Note #2: Time: 23:00 Progress Note Patient is awake, playing on her phone. We had a discussion with her and gave her fluids to drink. We offered her another opportunity to produce a urine specimen. The patient states she was not going to produce a urine specimen. She says she would pee when she gets home. Explained to her that we would not be able to test this if she does not produce a urine specimen for urinary tract infection. The patient states she is okay with that and just wants to leave. We did offer her again an opportunity to stay which she declined. She has called a friend, Jessica and asked for a ride home. The patient is very tangential but does not have any active hallucination visual or otherwise. She does endorse that A man has been bothering her and calling her on the phone. She has not had any visitors since she is been here outside of [facility] and child protective services social worker. Apparently they are working on getting her guardianship on 24 February. She is oriented to person time place. At this time she has the right to refuse to give a urine specimen. Progress Note #3: Time: 01:24 Progress Note The neighbor Jessica called and stated that she would normally be willing to come pick her up and take her home but she has surgery in the morning and will not be able to help this time. The patient was unable to raise anybody else to come get her. We called the phone number that was left behind from [facility] stating that they would come and pick her up and take care of her if she was discharged and staff was unable to reach anybody. At this time the patient is resting comfortably in her room, her needs have been attended to. If she will stay overnight with this then we will have a 7th grade social studies teacher visit with her in the morning. (NBA LÓPEZ) Initial ECG Impression Date: Feb 13, 2022 Initial ECG Impression Time: 16:24 Initial ECG Rate: 69 Initial ECG Rhythm: Normal Sinus Initial ECG Intervals AK 141 QRS [address] segment elevation or depression or ectopy (BRAEDEN CALDERON MD) Departure Impression Primary Impression: Dementia Qualified Codes: F03.90 - Unspecified dementia without behavioral disturbance Additional Impression: UTI (urinary tract infection) Qualified Codes: N30.00 - Acute cystitis without hematuria Disposition: HOME, SELF-CARE Condition: Stable Departure-Patient Inst. Decision time for Depature: 23:04 (NBA LÓPEZ) Referrals: [facility] (PCP/Family) Primary Care Physician Patient Instructions: Dementia (DC) Add. Discharge Instructions: Please return to the ER if you are having any worsening symptoms. Call your primary care doctor and make a follow-up appointment later this week or early next week. Cephalexin 500 mg twice a day with food for a week. All discharge instructions reviewed with patient and/or family. Voiced understanding. Scripts Cephalexin (Cephalexin) 500 Mg Tablet 500 MG PO BID, #20 TAB 0 Refills Prov: NBA LÓPEZ 02/14/22 BRAEDEN CALDERON MD Feb 13, 2022 16:30 NBA LÓPEZ Feb 13, 2022 20:22
[2022-02-13 16:42] LABS: BASOPHILS % (AUTO) 1 % (0-10); EOSINOPHILS # (AUTO) 0.1 10^3/uL (0.0-0.3); EOSINOPHILS % (AUTO) 1 % (0-10); HEMATOCRIT 43 % (35-52); HEMOGLOBIN 14.5 g/dL (11.5-16.0); LYMPHOCYTES # (AUTO) 2.2 10^3/uL (1.0-4.0); LYMPHOCYTES % (AUTO) 27 % (12-44); MEAN CORPUSCULAR HEMOGLOBIN 32 pg (25-34); MEAN CORPUSCULAR HGB CONC 34 g/dL (32-36); MEAN CORPUSCULAR VOLUME 94 fL (80-99); MEAN PLATELET VOLUME 8.9 fL (9.0-12.2); MONOCYTES # (AUTO) 0.5 10^3/uL (0.0-1.0); MONOCYTES % (AUTO) 6 % (0-12); NEUTROPHILS # (AUTO) 5.2 10^3/uL (1.8-7.8); NEUTROPHILS % (AUTO) 65 % (42-75); PLATELET COUNT 276 10^3/uL (130-400)
[2022-02-13 16:51] LABS: CHLORIDE 104 MMOL/L (98-107); POTASSIUM 3.7 MMOL/L (3.6-5.0); SODIUM 144 MMOL/L (135-145)
[2022-02-13 16:52] LABS: ALBUMIN 4.4 GM/DL (3.2-4.5)
[2022-02-13 16:53] LABS: CALCIUM 10.1 MG/DL (8.5-10.1)
[2022-02-13 16:54] LABS: GLUCOSE 100 MG/DL (70-105); TOTAL PROTEIN 7.1 GM/DL (6.4-8.2)
[2022-02-13 16:55] LABS: CARBON DIOXIDE 24 MMOL/L (21-32)
[2022-02-13 16:56] LABS: BILIRUBIN,TOTAL 0.5 MG/DL (0.1-1.0)
[2022-02-13 16:58] LABS: ALKALINE PHOSPHATASE 89 U/L (40-136); CREATININE SERUM 0.82 MG/DL (0.60-1.30); GFR ESTIMATED 74
[2022-02-13 16:59] LABS: ACETAMINOPHEN < 10 UG/ML (10-30); BUN/CREATININE RATIO 15
[2022-02-13 17:01] LABS: ALANINE AMINOTRANSFERASE 9 U/L (0-55); SALICYLATE < 5.0 MG/DL (5.0-20.0)
[2022-02-13 23:14] VITALS: BP 149/80
[2022-02-14 02:59] LABS: BILIRUBIN,URINE NEGATIVE (NEGATIVE); CLARITY,URINE CLEAR; COLOR,URINE YELLOW; GLUCOSE, URINE (UA) NEGATIVE (NEGATIVE); KETONES,URINE NEGATIVE (NEGATIVE); LEUKOCYTE ESTERASE ,URINE 1+ (NEGATIVE); NITRITE,URINE NEGATIVE (NEGATIVE); PH,URINE 5.5 (5-9); PROTEIN,URINE NEGATIVE (NEGATIVE)
[2022-02-14 03:10] LABS: AMPHETAMINE SCREEN, URINE NEGATIVE (NEGATIVE); BARBITURATE SCREEN URINE NEGATIVE (NEGATIVE); BENZODIAZEPINES SCREEN URINE NEGATIVE (NEGATIVE); CANNABINOID SCREEN, URINE NEGATIVE (NEGATIVE); COCAINE SCREEN URINE NEGATIVE (NEGATIVE); METHADONE STAT NEGATIVE (NEGATIVE); OPIATE SCREEN URINE NEGATIVE (NEGATIVE); OXYCODONE STAT NEGATIVE (NEGATIVE); PROPOXYPHENE STAT NEGATIVE (NEGATIVE); TRICYCLIC ANTIDEPRESSANTS SCRE NEGATIVE (NEGATIVE)
[2022-02-14 03:12] LABS: BACTERIA,URINE TRACE /HPF; RBC,URINE RARE /HPF
[2022-02-14] MEDS ORDERED: CEPHALEXIN 250 MG (KEFLEX) CAP PO ONE (03:30)
[2022-02-14] MEDS ORDERED: CEPH500T PO (03:33)
[2022-02-14] MEDS ORDERED: ACETAMINOPHEN 500 MG TAB (TYLENOL) PO ONE (08:15)
== END 2022-02-14 08:47 | disposition home or self-care (01) ==
LOC: EDUNIT# 15:51 → ER 15:52
DX: F03.90 Unspecified dementia, unspecified severity, without behavioral disturbance, psychotic disturbance, mood disturbance, and anxiety (principal); N39.0 Urinary tract infection, site not specified
CPT/HCPCS: 80053; 80306; 81000; 84443; 85025; 87088; 93005; 93041; 99284; G0480 ×3; 36415; 80320; 80329

== ENCOUNTER 2022-02-24 10:19 | Emergency (ER) | payer MEDICARE ==
[~2022-02-24 10:19] MED LIST changes: +CEPH500T PO
--- NOTE | 2022-02-24 10:54 | ED Cough/URI ---
General Chief Complaint: Cough/Cold/Flu Symptoms Stated Complaint: NOT FEELING WELL Nursing Triage Note: PT TO RM [facility] BY [facility] WITH C/O COUGH, SORE THROAT AND STEWART. PT STATES SHE TOOK TYLENOL LAST NIGHT BEFORE BED. PT APPEARS CONFUSED ON ARRIVAL Source: patient Exam Limitations: other (dementia) History of Present Illness Date Seen by Provider: Feb 24, 2022 Time Seen by Provider: 10:41 Initial Comments Patient is a 76-year-old female who presents to the emergency department today with a chief complaint of cough, sore throat, feeling shortness of breath, headache and vomiting this morning. Patient states she thinks her symptoms started about 3 days ago. She has been taking a "Tylenol" in a red and white box for her symptoms. Her last dose was last night. History/review of systems, past medical family and social history limited due to the patient's known dementia. She lives alone and according to my note from her last visit she was supposed to have a court date today for guardianship. She has no recollection of this. She tells me that her neighbor heard her coughing and came to check on her and not to called the ambulance provider. She denies fevers or chills. She has nasal congestion. She states she is not nauseated currently. Denies any diarrhea or problems with urination such as dysuria urgency or frequency. She denies any recent falls or injuries. She states she did not eat or drink anything this morning because she vomited 3 ti mes. Timing/Duration: other (3 days) Severity/Quality: mild, sputum Associated Symptoms: cough, headache, nasal congestion, nasal drainage, shortness of breath, sore throat Allergies and Home Medications Allergies Coded Allergies: No Allergy Information Available (Unverified , 01/12/18) Patient Home Medication List Home Medication List Reviewed: Yes Alprazolam (Alprazolam) 2 Mg Tablet, 4 MG PO HS, (Reported) Entered as Reported by: CORRINA REDDY on 01/12/181955 Ascorbic Acid (Vitamin C) 1,000 Mg Tablet, 1,000 MG PO DAILY, (Reported) Entered as Reported by: MELISSA CULLEN on 01/13/18 1050 Aspirin (Aspirin EC) 81 Mg Tablet.dr, 81 MG PO DAILY, (Reported) Entered as Reported by: MELISSA CULLEN on 01/13/18 1050 Cephalexin (Cephalexin) 500 Mg Tablet, 500 MG PO BID Prescribed by: NBA LÓPEZ on 02/14/22 0333 Doxycycline Hyclate (Doxycycline Hyclate) 100 Mg Tablet, 100 MG PO BID@ Prescribed by: PIA ARAMBULA on 01/14/18 1352 Iodine (Kelp) 150 Mcg Tablet, 150 MCG PO DAILY, (Reported) Entered as Reported by: MELISSA CULLEN on 01/13/18 105 L.acidoph & Paracasei,B.lactis (Probiotic) 1 Each Capsule, 1 CAP PO DAILY, (Reported) Entered as Reported by: MELISSA CULLEN on 01/13/18 105 Crawford-3 Fatty Acids/Fish Oil (Crawford 3 1,000 mg Softgel) 1 Each Capsule, 3,000 MG PO DAILY, (Reported) Entered as Reported by: MELISSA CULLEN on 01/13/18 105 Omeprazole (Omeprazole) 20 Mg Capsule.dr, 20 MG PO DAILY, (Reported) Entered as Reported by: CORRINA REDDY on 01/12/181955 Triamterene/Hydrochlorothiazid (Triamterene-Hctz 75-50 mg Tab) 1 Each Tablet, 1 TAB PO DAILY, (Reported) Entered as Reported by: CORRINA REDDY on 01/12/181955 Ubidecarenone (Co Q-10) 200 Mg Capsule, 200 MG PO DAILY, (Reported) Entered as Reported by: MELISSA CULLEN on 01/13/18 105 Vitamin A Palmitate (Vitamin A) 10,000 Unit Capsule, 10,000 UNIT PO DAILY, (Reported) Entered as Reported by: MELISSA CULLEN on 01/13/18 105 Vitamin B Complex (Vitamin B Complex) 1 Each Capsule, 1 CAP PO DAILY, (Reported) Entered as Reported by: MELISSA CULLEN on 01/13/18 105 Review of Systems Review of Systems Constitutional: see HPI EENTM: nose congestion, throat pain Respiratory: cough, phlegm Cardiovascular: no symptoms reported Gastrointestinal: no symptoms reported Genitourinary: no symptoms reported : No Musculoskeletal: no symptoms reported Skin: no symptoms reported Psychiatric/Neurological: Headache All Other Systems Reviewed Negative Unless Noted: Yes Past Jbbscce-Mvmqhm-Xlxhvc Hx Patient Social History Tobacco Use?: No Use of E-Cig and/or Vaping dev: No Substance use?: No Alcohol Use?: No Pt feels they are or have been: No Immunizations Up To Date Tetanus Booster (TDap): Unknown Seasonal Allergies Seasonal Allergies: No Past Medical History Surgeries: Yes (BREAST REDUCTION) Breast, Gallbladder, Hysterectomy Respiratory: No Cardiac: Yes High Cholesterol, Hypertension Neurological: Yes (1999) Concussion Genitourinary: No Gastrointestinal: Yes Gastroesophageal Reflux Musculoskeletal: No Endocrine: No HEENT: No Cancer: No Psychosocial: Yes Anxiety Integumentary: No Blood Disorders: No Family Medical History UNABLE TO OBTAIN ANY PAST MEDICAL HISTORY Physical Exam Vital Signs - First Documented 02/24/22 10:24 Temp 36.8 Pulse 84 Resp 14 B/P (MAP) 138/73 (94) Capillary Refill : Height: 5'10.00" Weight: 197lbs. 12.5oz. 89.033688na; 28.00 BMI Method:Stated General Appearance: WD/WN, no apparent distress Eyes: Bilateral Eye Normal Inspection, Bilateral Eye PERRL, Bilateral Eye EOMI HEENT: PERRL/EOMI, normal ENT inspection, TMs normal, pharynx normal Neck: full range of motion, supple Respiratory: lungs clear, normal breath sounds, no respiratory distress, no accessory muscle use Cardiovascular: regular rate, rhythm (60's) Gastrointestinal: normal bowel sounds, non tender, soft Extremities: normal range of motion Neurologic/Psychiatric: no motor/sensory deficits, alert, normal mood/affect Skin: normal color, warm/dry Progress/Results/Core Measures Suspected Sepsis SIRS Temperature: Pulse: 84 Respiratory Rate: 14 Blood Pressure 138 /73 Mean: 94 Results/Orders Lab Results Laboratory Tests Test 02/24/22 10:50 Range/Units SARS-CoV-2 RNA (RT-PCR) Detected H Not Detecte My Orders Orders - BRAEDEN CALDERON MD Covid 19 Inhouse Test (02/24/22 10:49) Chest 1 View, Ap/Pa Only (02/24/22 10:49) Isolation Central Supply Req (02/24/22 10:49) Bebtelovimab (Bebtelovimab) (02/24/22 12:00) Vital Signs/I&O 02/24/22 10:24 Temp 36.8 Pulse 84 Resp 14 B/P (MAP) 138/73 (94) Capillary Refill : Blood Pressure Mean: 94 Progress Note : Time: 11:48 Progress Note I told Ashly that she had COVID, she was quite shocked. I offered her the monoclonal antibody infusion however I think because of her dementia she is not quite competent to consent. In thinking about this and the fact that she has no other immediate family members for consent I think we will go ahead and give it to her just because the benefits do outweigh the risks. I spoke with her friend Jessica Cortez who was also agreeable. We are still going to try and talk to health and social care teacher to make sure that she is going to get care while Jessica is out of town. Diagnostic Imaging Diagonstic Imaging: Xray Plain Films/CT/US/NM/MRI: chest Comments [facility] [place] NAME: ASHLY CANAS [facility] REC#: [id number] PT STATUS: REG ER : 1945 PHYSICIAN: BRAEDEN CALDERON MD ADMIT DATE: 02/24/22/ER Draft Date of Exam:02/24/22 CHEST 1 VIEW, AP/PA ONLY INDICATION: Cough and vomiting. TECHNIQUE: Frontal chest obtained at 11:04 a.m. and compared to 01/10/2022. FINDINGS: Heart and mediastinal silhouette are normal in appearance. The lungs are clear. There is no pneumothorax or pleural fluid. IMPRESSION: Negative chest. Dictated on workstation # [id number] Dict: 02/24/22 1103 Trans: 02/24/22 1107 [id number] [id number] Interpreted by: VALE ALARCON MD Electronically signed by: Departure Impression Primary Impression: COVID-19 Disposition: 01 HOME, SELF-CARE Condition: Stable Departure-Patient Inst. Decision time for Depature: 11:33 Referrals: [facility] (PCP/Family) Primary Care Physician Patient Instructions: COVID-19 (DC) Add. Discharge Instructions: You need to drink plenty of fluids at home to stay well hydrated. I have prescribed you some nausea medications to help with your upset stomach. You will need to quarantine at home for another 2 days (as you have had symptoms now for 3 and then wear a mask out in public the next 5 days. Follow up with your family doctor in 1 week. Return to the Emergency Department for any new, concerning or emergent complaints. Copy Copies To 1: KAYLAH DIAS KATHRYN M MD Feb 24, 2022 10:53
--- NOTE | 2022-02-24 11:07 | Diagnostic Imaging Report ---
INDICATION: Cough and vomiting. TECHNIQUE: Frontal chest obtained at 11:04 a.m. and compared to 01/10/2022. FINDINGS: Heart and mediastinal silhouette are normal in appearance. The lungs are clear. There is no pneumothorax or pleural fluid. IMPRESSION: Negative chest. Dictated by: Dictated on workstation # [id number]
[2022-02-24] MEDS ORDERED: BEBTELOVIMAB 175 MG/2 ML VIAL IV ONE (12:00)
[2022-02-24 14:05] VITALS: BP 172/87
== END 2022-02-24 14:50 | disposition home or self-care (01) ==
LOC: EDUNIT# 10:19 → ER 10:19
DX: U07.1 COVID-19 (principal); R05.9 Cough, unspecified; R11.10 Vomiting, unspecified; F03.90 Unspecified dementia, unspecified severity, without behavioral disturbance, psychotic disturbance, mood disturbance, and anxiety
CPT/HCPCS: 71045; 87636